=== PATIENT | female | born 1945 | race Caucasian/White ===

== ENCOUNTER 2019-06-25 23:12 | Inpatient (IN) ==
[2019-06-25] MEDS ORDERED: IPRATROPIUM/ALBUTEROL 3 ML AMPUL.NEB NEB ONE (23:22)
[2019-06-25] MEDS ORDERED: ASPIRIN 81 MG TAB.CHEW CHEWED ONE (23:38)
[2019-06-26] MEDS ORDERED: 0.9 % SODIUM CHLORIDE 1,000 ML IV ONE (00:01)
[2019-06-26] MEDS ORDERED: methylPREDNISolone SOD SUCC 125 MG/2 ML VIAL IV ONE (00:01)
[2019-06-26] MEDS ORDERED: INSULIN REGULAR, HUMAN 1 UNIT/0.01 ML UNIT IV ONE (00:02)
--- NOTE | 2019-06-26 00:25 | Emergency Department Note ---
SOB HPI - General Chief Complaint: Shortness of Breath/Dyspnea Stated Complaint: sensation of SOB Time Seen by Provider: 06/25/19 23:52 Source: patient Mode of arrival: EMS Limitations: no limitations - History of Present Illness 73-year-old diabetic female comes in for a 2-day history of shortness of breath. She still occasionally smokes. She is requiring 1 L of oxygen now and is not on oxygen at home. She is having some chest pain as well and has a history of 1 1 prior stents. She notes nausea and vomiting for the last 2 weeks and she has had trouble holding anything down. She admits that she has not been able to take any of her medicines including her insulin She notes that she has had right toe amputations by Dr. Newsome 1 week ago. She is followed by [facility]. She states she is legally blind On review of her chart it is noted that she had a CT scan which showed lung nodules back in January and repeat CT in 6 months was recommend Sees Dr. Ramirez in cardiology at [facility] - Related Data Home Medications Medication Instructions Recorded Confirmed Sertraline [Zoloft] 50 mg PO BID 02/09/18 06/26/19 traMADol [Ultram] 50 mg PO DAILY 02/09/18 06/26/19 Previous Rx's Medication Instructions Recorded Sulfamethoxazole/Trimethoprim 1 each PO BID #10 tab 05/07/19 [Bactrim Ds Tablet] Allergies Allergy/AdvReac Type Severity Reaction Status Date / Time codeine Allergy Unknown Unknown Verified 06/25/19 23:21 latex Allergy Unknown Unknown Verified 06/25/19 23:21 morphine Allergy Unknown Unknown Verified 06/25/19 23:21 Penicillins Allergy Unknown Unknown Verified 06/25/19 23:21 Review of Systems All systems ED: reviewed and negative except as stated. Past Medical History - Past Medical History Attestation: Yes: The following information was validated with the patient. 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 Normocephalic atraumatic. Conjunctive are clear sclera white nonicteric. No nasal discharge or congestion. Oropharynx pink moist. Neck is supple without lymphadenopathy thyromegaly or carotid bruit. Heart is regular rate and rhythm no murmur appreciated. Lungs are basically clear to auscultation bilaterally but she does have end expiratory wheeze and some increased work of breathing. She is requiring 1 L nasal cannula oxygen now to keep saturations in the mid 90s. Abdomen is soft diffusely tender but she states this is chronic. No pedal edema on the left but on the right she does have a sock over her bandaged foot. She is alert oriented. Somewhat irritable. Nursing staff put Alba and then called attention to Samira intertrigo of the genital region. Bright red rash noted beneath the pannus and into the groin area. Skin sloughing noted. Tender Limitations: no limitations Course Vital Signs Temperature 97.7 F 06/25/19 23:13 Pulse Rate 97 H 06/25/19 23:13 Respiratory Rate 28 H 06/25/19 23:13 Blood Pressure 141/86 06/25/19 23:13 Pulse Oximetry (%) 86 L 06/25/19 23:13 Temperature 97.7 F 06/25/19 23:13 Pulse Rate 81 06/26/19 04:50 Respiratory Rate 17 06/26/19 04:50 Blood Pressure 155/78 06/26/19 04:46 Pulse Oximetry (%) 94 06/26/19 04:50 Shortness of Breath/Dyspnea - Lab Data Lab results reviewed: Yes I reviewed the patient's lab results. Result diagrams: 06/26/19 00:16 06/26/19 00:16 Lab Results 06/26/19 06/26/19 06/26/19 Range/Units 00:16 00:16 00:16 WBC 10.3 (4.5-11.0) K/mcL RBC 2.84 L (4.00-5.20) M/mcL Hgb 7.5 L (12.0-15.0) g/dL Hct 24.5 L (36.0-48.0) % POC Hct 24.0 L (36.0-48.0) % MCV 86.3 (80.0-100.0) fL MCH 26.3 (26.0-34.0) pg MCHC 30.5 L (31.0-36.0) g/dL RDW 17.4 H (11.5-14.5) % Plt Count 499 H (140-440) K/mcL MPV 6.3 L (7.4-10.4) fL Gran % 84.4 H (38.0-78.0) % Lymph % (Auto) 10.1 L (15.5-49.0) % [place] % (Auto) 4.5 (1.0-12.0) % Eos % (Auto) 0.5 (0.0-7.0) % Baso % (Auto) 0.5 (0.0-2.0) % Gran # 8.7 H (1.8-8.0) K/mcL Lymph # (Auto) 1.0 L (1.5-4.8) K/mcL [place] # (Auto) 0.5 (0.1-0.9) K/mcL Eos # (Auto) 0.1 (0.0-0.7) K/mcL Baso # (Auto) 0 (0.0-0.3) K/mcL D-Dimer (0.00-0.40) ug/ml VBG Lactic Acid 1.5 (0.5-2.0) mmol/L POC Sodium 139 (133-145) mmol/L Sodium 141 (133-145) mmol/L POC Potassium 4.6 (3.3-5.1) mmol/L Potassium 4.8 (3.3-5.1) mmol/L POC Chloride 107 (96-108) mmol/L Chloride 108 (96-108) mmol/L Carbon Dioxide 22 (22-30) mmol/L POC Total CO2 23 (22-30) mmol/L Anion Gap 11.0 (8-16) POC BUN 24 H (8-23) mg/dl BUN 24 H (8-23) mg/dl Creatinine 1.2 H (0.6-1.1) mg/dl POC Creatinine 1.3 H (0.6-1.1) mg/dl GFR Calculation 45 Glucose 287 H (70-105) mg/dL POC Glucose 285 H (70-105) mg/dL Calcium 8.2 L (8.6-10.4) mg/dl POC WB Ioniz Calcium 1.19 (1.16-1.32) mmol/L Magnesium 1.4 L (1.6-2.5) mg/dL Total Bilirubin < 0.2 (0.0-1.0) mg/dL AST 8 (0-37) U/l ALT 6 (0-40) U/l Alkaline Phosphatase 71 (39-117) U/L Troponin T (0-0.03) ng/ml NT-Pro-B Natriuret Pep 06085.0 H (0-125) pg/ml Total Protein 5.8 L (5.9-8.4) gm/dL Albumin 2.6 L (3.2-5.2) gm/dL Globulin 3.2 (2.2-3.7) gm/dL Albumin/Globulin Ratio 0.8 L (1.0-2.3) Lipase 10 (7-60) U/L Procalcitonin (<0.10) ng/mL Urine Color Urine Appearance Urine pH (5.0-9.0) Ur Specific [place] (1.000-1.035) Urine Protein (NEG) mg/dL Urine Glucose (UA) (NEG) mg/dL Urine Ketones (NEG) mg/dL Urine Occult Blood (<0.03) mg/dL Urine Nitrate (NEG) Urine Bilirubin (NEG) mg/dL Urine Urobilinogen (NEG) mg/dL Ur Leukocyte Esterase (NEG) /uL Urine RBC (0-1) /hpf Urine WBC (0-4) /hpf Ur Squamous Epith Cells (0-4) /hpf Amorphous Crystals (0) /hpf Urine Bacteria (0) /hpf Urine Mucus (0) /hpf Urine Yeast (Budding) (0) /hpf Ur Culture Indicated? 06/26/19 06/26/19 06/26/19 Range/Units 00:16 00:16 00:16 WBC (4.5-11.0) K/mcL RBC (4.00-5.20) M/mcL Hgb (12.0-15.0) g/dL Hct (36.0-48.0) % POC Hct (36.0-48.0) % MCV (80.0-100.0) fL MCH (26.0-34.0) pg MCHC (31.0-36.0) g/dL RDW (11.5-14.5) % Plt Count (140-440) K/mcL MPV (7.4-10.4) fL Gran % (38.0-78.0) % Lymph % (Auto) (15.5-49.0) % [place] % (Auto) (1.0-12.0) % Eos % (Auto) (0.0-7.0) % Baso % (Auto) (0.0-2.0) % Gran # (1.8-8.0) K/mcL Lymph # (Auto) (1.5-4.8) K/mcL [place] # (Auto) (0.1-0.9) K/mcL Eos # (Auto) (0.0-0.7) K/mcL Baso # (Auto) (0.0-0.3) K/mcL D-Dimer 2.22 H (0.00-0.40) ug/ml VBG Lactic Acid (0.5-2.0) mmol/L POC Sodium (133-145) mmol/L Sodium (133-145) mmol/L POC Potassium (3.3-5.1) mmol/L Potassium (3.3-5.1) mmol/L POC Chloride (96-108) mmol/L Chloride (96-108) mmol/L Carbon Dioxide (22-30) mmol/L POC Total CO2 (22-30) mmol/L Anion Gap (8-16) POC BUN (8-23) mg/dl BUN (8-23) mg/dl Creatinine (0.6-1.1) mg/dl POC Creatinine (0.6-1.1) mg/dl GFR Calculation Glucose (70-105) mg/dL POC Glucose (70-105) mg/dL Calcium (8.6-10.4) mg/dl POC WB Ioniz Calcium (1.16-1.32) mmol/L Magnesium (1.6-2.5) mg/dL Total Bilirubin (0.0-1.0) mg/dL AST (0-37) U/l ALT (0-40) U/l Alkaline Phosphatase (39-117) U/L Troponin T 0.06 H* (0-0.03) ng/ml NT-Pro-B Natriuret Pep (0-125) pg/ml Total Protein (5.9-8.4) gm/dL Albumin (3.2-5.2) gm/dL Globulin (2.2-3.7) gm/dL Albumin/Globulin Ratio (1.0-2.3) Lipase (7-60) U/L Procalcitonin < 0.10 (<0.10) ng/mL Urine Color Urine Appearance Urine pH (5.0-9.0) Ur Specific [place] (1.000-1.035) Urine Protein (NEG) mg/dL Urine Glucose (UA) (NEG) mg/dL Urine Ketones (NEG) mg/dL Urine Occult Blood (<0.03) mg/dL Urine Nitrate (NEG) Urine Bilirubin (NEG) mg/dL Urine Urobilinogen (NEG) mg/dL Ur Leukocyte Esterase (NEG) /uL Urine RBC (0-1) /hpf Urine WBC (0-4) /hpf Ur Squamous Epith Cells (0-4) /hpf Amorphous Crystals (0) /hpf Urine Bacteria (0) /hpf Urine Mucus (0) /hpf Urine Yeast (Budding) (0) /hpf Ur Culture Indicated? 06/26/19 Range/Units 01:00 WBC (4.5-11.0) K/mcL RBC (4.00-5.20) M/mcL Hgb (12.0-15.0) g/dL Hct (36.0-48.0) % POC Hct (36.0-48.0) % MCV (80.0-100.0) fL MCH (26.0-34.0) pg MCHC (31.0-36.0) g/dL RDW (11.5-14.5) % Plt Count (140-440) K/mcL MPV (7.4-10.4) fL Gran % (38.0-78.0) % Lymph % (Auto) (15.5-49.0) % [place] % (Auto) (1.0-12.0) % Eos % (Auto) (0.0-7.0) % Baso % (Auto) (0.0-2.0) % Gran # (1.8-8.0) K/mcL Lymph # (Auto) (1.5-4.8) K/mcL [place] # (Auto) (0.1-0.9) K/mcL Eos # (Auto) (0.0-0.7) K/mcL Baso # (Auto) (0.0-0.3) K/mcL D-Dimer (0.00-0.40) ug/ml VBG Lactic Acid (0.5-2.0) mmol/L POC Sodium (133-145) mmol/L Sodium (133-145) mmol/L POC Potassium (3.3-5.1) mmol/L Potassium (3.3-5.1) mmol/L POC Chloride (96-108) mmol/L Chloride (96-108) mmol/L Carbon Dioxide (22-30) mmol/L POC Total CO2 (22-30) mmol/L Anion Gap (8-16) POC BUN (8-23) mg/dl BUN (8-23) mg/dl Creatinine (0.6-1.1) mg/dl POC Creatinine (0.6-1.1) mg/dl GFR Calculation Glucose (70-105) mg/dL POC Glucose (70-105) mg/dL Calcium (8.6-10.4) mg/dl POC WB Ioniz Calcium (1.16-1.32) mmol/L Magnesium (1.6-2.5) mg/dL Total Bilirubin (0.0-1.0) mg/dL AST (0-37) U/l ALT (0-40) U/l Alkaline Phosphatase (39-117) U/L Troponin T (0-0.03) ng/ml NT-Pro-B Natriuret Pep (0-125) pg/ml Total Protein (5.9-8.4) gm/dL Albumin (3.2-5.2) gm/dL Globulin (2.2-3.7) gm/dL Albumin/Globulin Ratio (1.0-2.3) Lipase (7-60) U/L Procalcitonin (<0.10) ng/mL Urine Color Yellow Urine Appearance Cloudy Urine pH 5.0 (5.0-9.0) Ur Specific [place] 1.016 (1.000-1.035) Urine Protein 100 A (NEG) mg/dL Urine Glucose (UA) 50 A (NEG) mg/dL Urine Ketones Neg (NEG) mg/dL Urine Occult Blood 0.03 A (<0.03) mg/dL Urine Nitrate Neg (NEG) Urine Bilirubin Neg (NEG) mg/dL Urine Urobilinogen Neg (NEG) mg/dL Ur Leukocyte Esterase 250 A (NEG) /uL Urine RBC 75 H (0-1) /hpf Urine WBC 71 H (0-4) /hpf Ur Squamous Epith Cells 7 H (0-4) /hpf Amorphous Crystals Few A (0) /hpf Urine Bacteria 0 (0) /hpf Urine Mucus Few (0) /hpf Urine Yeast (Budding) Many A (0) /hpf Ur Culture Indicated? Yes ABG shows a pH 7.30 PCO2 48 PO2 of 74 lactic acid was 2.0 hemoglobin of 8 which correlates with Chem-8 above. Nursing staff notes that indeed it was arterial as the syringe filled with a pulsatile fashion - Radiology Data Radiology results reviewed: Yes I reviewed the patient's radiology results. CT scan of the chest angiogram shows no evidence of pulmonary embolism. Right lung nodule remains and is stable. She has a small to moderate sized right- sided pleural effusion. Pulmonary vascular congestion consistent with CHF - EKG Data EKG attestation: Yes I reviewed and interpreted this EKG., Yes There are no EKG findings of acute coronary syndrome, Yes This EKG will be read by e commerce solution architect Disposition Pt seen by COMMUNICATIONS PROFESSIONAL/PA only: No Clinical Impression: Acute exacerbation of chronic obstructive airways disease, Respiratory acidosis, Samira infection of genital region, Pleural effusion Anemia Qualifiers: Anemia type: other cause Other causes of anemia: other cause, not classified Qualified Code(s): D64.89 - Other specified anemias CHF (congestive heart failure) Qualifiers: Heart failure type: unspecified Heart failure chronicity: acute on chronic Qualified Code(s): I50.9 - Heart failure, unspecified UTI (urinary tract infection) Qualifiers: Urinary tract infection type: acute cystitis Hematuria presence: with hematuria Qualified Code(s): N30.01 - Acute cystitis with hematuria Summary: Short of breath for several days now status post recent surgery - clearly having COPD related issues with end expiratory wheezing but she has known CHF as well. Will do work-up for this and chest pain with EKG chest x-ray and laboratory. DuoNeb treatment already improved breathing-but she still has wheezing and increased work of breathing requiring 1 L oxygen. Blood gas ordered Start Solu-Medrol for COPD but with her diabetes this is complicated. Her blood sugar is elevated over 300 so we will give her insulin as well as some IV fluids. Zofran ordered for nausea ABG shows acidosis with a pH of 7.30 PCO2 46 PO2 74 despite being on 1 L oxygen nasal cannula. Lactic acid is 2.0. Discussed blood gas with Dr. Martinez, our hospitalist in anticipation of possible admission. Low threshold for starting BiPAP. Started fluconazole IV as she is not tolerating p.o. at this time-for Samira intertrigo. We will order blood transfusion for hemoglobin 7.5 with respiratory issues. Troponin came back at 0.06-which is likely secondary to CHF. However it certainly higher than it has been in the past and abnormal. She does have chest pain but no EKG changes consistent with ACS. Likely worsening CHF with BNP elevated as well-we will start Lasix stop IV fluid Found to have UTI. Sent for culture. Start Rocephin CT scan angiogram of the chest shows stable lung nodule. Moderate pleural effusion on the right. Findings consistent with CHF as above Discussed with e commerce solution architect at [facility]- Dr. Berry (sp?) who felt that troponin was from CHF exacerbation and that she did not require transport there, rather that we could not handle that here. I then discussed the case with Dr. Martinez our hospitalist again; he agreed to accept the patient. Disposition: Xfer As Inpt ([facility]) Condition: Serious Referrals: Dalia Monsivais MD [Primary Care Provider] -
[2019-06-26 00:26] LABS: POC Blood Urea Nitrogen 24 mg/dl (8-23); POC CO2 23 mmol/L (22-30); POC Calcium, Ionized 1.19 mmol/L (1.16-1.32); POC Chloride 107 mmol/L (96-108); POC Creatinine 1.3 mg/dl (0.6-1.1); POC Glucose, Random 285 mg/dL (70-105); POC Potassium 4.6 mmol/L (3.3-5.1); POC Sodium 139 mmol/L (133-145)
[2019-06-26 00:57] LABS: Basophils # (Auto) 0 K/mcL (0.0-0.3); Basophils % (Auto) 0.5 % (0.0-2.0); Eosinophils # (Auto) 0.1 K/mcL (0.0-0.7); Eosinophils % (Auto) 0.5 % (0.0-7.0); Granulocytes % (Auto) 84.4 % (38.0-78.0); Hematocrit 24.5 % (36.0-48.0); Hemoglobin 7.5 g/dL (12.0-15.0); Lymphocytes % (Auto) 10.1 % (15.5-49.0); Mean Cell Volume 86.3 fL (80.0-100.0); Mean Corpuscular HGB Conc 30.5 g/dL (31.0-36.0); Mean Platelet Volume 6.3 fL (7.4-10.4); Monocytes # (Auto) 0.5 K/mcL (0.1-0.9); Monocytes % (Auto) 4.5 % (1.0-12.0); Platelet Count 499 K/mcL (140-440); RBC 2.84 M/mcL (4.00-5.20); Red Cell Distribution Width 17.4 % (11.5-14.5); WBC 10.3 K/mcL (4.5-11.0)
[2019-06-26] MEDS ORDERED: ACETAMINOPHEN 325 MG TABLET PO ONE ×2 (01:24→05:15)
[2019-06-26 01:28] LABS: ALT/SGPT 6 U/l (0-40); AST/SGOT 8 U/l (0-37); Albumin 2.6 gm/dL (3.2-5.2); Albumin/Globulin Ratio 0.8 (1.0-2.3); Alkaline Phosphatase 71 U/L (39-117); Bilirubin,Total < 0.2 mg/dL (0.0-1.0); Blood Urea Nitrogen 24 mg/dl (8-23); Calcium 8.2 mg/dl (8.6-10.4); Carbon Dioxide 22 mmol/L (22-30); Chloride 108 mmol/L (96-108); Globulin 3.2 gm/dL (2.2-3.7); Glomerular Filtration Rate 45; Glucose 287 mg/dL (70-105)
[2019-06-26] MEDS ORDERED: FLUCONAZOLE 200 MG/100 ML BAG IV SCH (01:30)
[2019-06-26] MEDS ORDERED: 0.9 % SODIUM CHLORIDE 250 ML IV SCH ×3 (01:30→05:15)
[2019-06-26] MEDS ORDERED: IPRATROPIUM/ALBUTEROL 3 ML AMPUL.NEB NEB ONE (01:37)
[2019-06-26] MEDS ORDERED: FUROSEMIDE 100 MG/10 ML VIAL IV ONE ×2 (01:57→06:00)
[2019-06-26] MEDS ORDERED: LORazepam 2 MG/ML VIAL IV ONE ×3 (02:11→12:17)
[2019-06-26 02:56] LABS: Appearance,Urine CLOUDY; Bacteria,Urine 0 /hpf (0); Bilirubin,Urine NEG (NEG); Color,Urine YELLOW; Culture Indicated,Urine YES; Glucose,Urine (UA) 50 mg/dL (NEG); Ketones,Urine NEG (NEG); Leukocyte Esterase,Urine 250 /uL (NEG); Mucus,Urine FEW /hpf (0); Nitrate,Urine NEG (NEG); Protein,Urine 100 mg/dL (NEG); Specific Gravity,Urine 1.016 (1.000-1.035); Urine Amorphous Crystals FEW /hpf (0); Urine Blood 0.03 mg/dL (<0.03); Urine Budding Yeast MANY /hpf (0); Urine RBC 75 /hpf (0-1); Urine Squamous Epithelial Cell 7 /hpf (0-4); Urine WBC 71 /hpf (0-4); Urobilinogen,Urine NEG (NEG)
[2019-06-26] MEDS ORDERED: cefTRIAXone 1 GM VIAL IV ONE (04:32)
[2019-06-26] MEDS ORDERED: ONDANSETRON 4 MG/2 ML VIAL IV PRN (05:16)
[2019-06-26] MEDS ORDERED: ALBUTEROL SULFATE 2.5 MG/3 ML NEBULIZER NEB ONE (06:09)
--- NOTE | 2019-06-26 06:27 | Cat Scan Report ---
CLINICAL INFORMATION: Shortness of breath. Follow-up two nodules in the anterior segment right lower lobe COMPARISON: Chest CT without contrast 01/17/2018 TECHNIQUE: ml of Isovue-370 were injected intravenously. Using SmartPrep to maximize pulmonary artery opacification, .625mm helical slices were obtained from the lung apices through the lung bases. Following reconstruction, 2.5 mm sagittal, coronal, and axial reformations were processed. The exam was reviewed at mediastinal, lung, and bone windows. The exam was performed using radiation dose optimization techniques including, but not limited to, automated exposure control, adjustment of the mA and/or kV according to patient size and use of iterative reconstruction technique. FINDINGS: The pulmonary arteries are suboptimally opacified, but there is no evidence of emboli. Moderate pulmonary vascular congestion has developed with peribronchovascular edema and interstitial edema in the interlobular septa. There are also new small bilateral pleural effusions. Findings are compatible with moderate congestive heart failure - new from prior CT. Small effusions have resulted in subsegmental compressive atelectasis in both posterior lower lobes. There are no diffuse or regional infiltrates. The two small nodules in the anterior basilar segment of the right lower lobe, seen on the 01/17/[address], are not apparent but they may be obscured by right basilar atelectasis/effusion. A calcified granuloma in the right upper lobe demonstrates long-term stability. 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 Mildly enlarged lymph nodes in the subcarinal and AP window region are stable and should represent benign reactive lymph nodes. The esophagus is grossly normal. Thoracic aorta is normal in diameter with scattered atherosclerotic plaque. Thyroid is unremarkable. Bone windows again show syndesmophytes bridging the thoracic vertebral bodies suggesting ankylosing spondylitis. Images should the superior abdomen show a fat-containing 15 mm myolipoma the left adrenal gland which is stable. No other abnormality seen in the superior abdomen IMPRESSION: 1. No evidence of pulmonary embolus 2. Moderate congestive heart failure with small bilateral pleural effusions. Extremely heavy calcific plaque in the coronary arteries likely indicates subocclusive, if not occlusive, coronary disease. Suggest cardiology referral 3. Two small nodules in the anterior basilar segment of the right lower lobe, described on CT five months ago are not apparent. They have either resolved or are obscured by right basilar atelectasis and effusion. 4. 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
[2019-06-26 06:49] LABS: Basophils # (Auto) 0 K/mcL (0.0-0.3); Basophils % (Auto) 0.2 % (0.0-2.0); Eosinophils # (Auto) 0 K/mcL (0.0-0.7); Eosinophils % (Auto) 0 % (0.0-7.0); Granulocytes % (Auto) 96.9 % (38.0-78.0); Hematocrit 26.4 % (36.0-48.0); Hemoglobin 8.3 g/dL (12.0-15.0); Lymphocytes # (Auto) 0.3 K/mcL (1.5-4.8); Lymphocytes % (Auto) 2.5 % (15.5-49.0); Mean Cell Volume 86.6 fL (80.0-100.0); Mean Corpuscular HGB Conc 31.2 g/dL (31.0-36.0); Mean Platelet Volume 6.3 fL (7.4-10.4); Monocytes # (Auto) 0 K/mcL (0.1-0.9); Monocytes % (Auto) 0.4 % (1.0-12.0); Platelet Count 455 K/mcL (140-440); RBC 3.05 M/mcL (4.00-5.20); Red Cell Distribution Width 17.5 % (11.5-14.5); WBC 10.2 K/mcL (4.5-11.0)
[2019-06-26 07:18] LABS: ALT/SGPT 6 U/l (0-40); AST/SGOT 7 U/l (0-37); Albumin 2.9 gm/dL (3.2-5.2); Albumin/Globulin Ratio 0.8 (1.0-2.3); Alkaline Phosphatase 77 U/L (39-117); Bilirubin,Total < 0.2 mg/dL (0.0-1.0); Blood Urea Nitrogen 24 mg/dl (8-23); Calcium 8.3 mg/dl (8.6-10.4); Carbon Dioxide 21 mmol/L (22-30); Chloride 106 mmol/L (96-108); Globulin 3.5 gm/dL (2.2-3.7); Glomerular Filtration Rate 45; Glucose 328 mg/dL (70-105)
[2019-06-26] MEDS ORDERED: MAGNESIUM HYDROXIDE 30 ML ORAL.SUSP PO PRN (08:15)
[2019-06-26] MEDS ORDERED: guaiFENesin/CODEINE 10 ML UDC PO PRN (08:15)
[2019-06-26] MEDS ORDERED: POTASSIUM CHLORIDE 20 MEQ PACKET PO PRN (08:15)
[2019-06-26] MEDS ORDERED: ACETAMINOPHEN 650 MG/65 ML BOTTLE IV PRN (08:15)
--- NOTE | 2019-06-26 08:23 | Internal Med History&Physical ---
Medical - H&P: HPI Patient information: Note initiated : 06/26/19 at 8:19 am Service Date, if different from initiated Date: [] Patient: Yessy Carter a 73 y/o F admitted on 06/26/19 for sensation of SOB. Chief Complaint: [] Chief complaint: Shortness of breath, anxiety History of present illness: Ms. Carter is a 73 year old F with a history of CAD s/p multiple stenting/poorly controlled DM type II/JALIL/known COPD and known to have poor adherence/compliance to medications and follow-up with her care providers. She now presents to the ER with worsening dyspnea that has progressed over the last couple of days along with increasing confusion, fatigue and inability to function. Patient recently underwent right 2nd/fifth toe amputation by Dr. Newsome at [facility]. She was not able to provide any meaningful history in the ER. She felt that she was dying and wanted to leave and go home. She appears extremely anxious asked to be connected to her family including daughter and grandson to say her goodbyes as she is dying. She was hypoxic on arrival. She appeared remarkably confused and complains that that her toes were amputated without informing her. She lives alone and has not been able to take care of herself. She denies associated fever or chills but was recently hospitalized and may have exposure to sick contacts. She feels that since the surgery she has had a gradual decline in health and generalized well-being. Patient during evaluation in the ER became extremely anxious and was administered benzodiazepine in the ER and has since been drowsy. Initial work-up in the ER was consistent with severe anemia/acute congestive heart failure on chest imaging. Elevated troponins at 0.06. Dr. Hollis Covarrubias cardiology was consulted and recommended hospitalization for management of CHF. Patient was started on diuretics. Initial blood gas 7.3/40 7/57 on 1 L oxygen. Patient was started on 2 units of blood transfusion in light of hemoglobin 7.5 Hospitalist service was consulted in light of above symptoms and need for hospitalization. At the time of evaluation patient is minimally responsive. Under the effect of sedation administered in the ER. No family members are present. Most of the history was obtained from review of medical records/ER physician. Review of systems A 10 point review of system was attempted but could not performed Medical - H&P: PMH Medical history: COPD History of tobacco dependence Chronic insomnia Allergic rhinitis Coronary artery disease status post multiple stenting follows up with cardiology hollis [facility] Type 2 diabetes mellitus Diabetic neuropathy Hypertensive disorder Dyslipidemia Malignant melanoma Malignant tumor of cervix History of peptic ulcer Surgical history: Cholecystectomy hernia repair with mesh Recent toe amputation 2 weeks ago Multiple cardiac stents Pertinent family history: Unremarkable Social history: Every day smoker since age 13 No history of tobacco or alcohol Medical - H&P: Meds Home Medications Medication Instructions Recorded Confirmed Type Sertraline [Zoloft] 100 mg PO DAILY 02/09/18 06/26/19 History traMADol [Ultram] 50 mg PO HS 02/09/18 06/26/19 History Albuterol Sulfate [Albuterol 2 puff IH Q4HP PRN 06/26/19 06/26/19 History Sulfate Hfa] Docusate Sodium 100 mg PO BID 06/26/19 06/26/19 History Ergocalciferol (Vitamin D2) 50,000 unit PO WE 06/26/19 06/26/19 History [Vitamin D2] Insulin Glargine, Human [Lantus] 10 unit SQ DAILY 06/26/19 06/26/19 History Nitroglycerin [Nitrostat] 0.4 mg SL Q5MIN PRN 06/26/19 06/26/19 History Oxybutynin Chloride 5 mg PO BID 06/26/19 06/26/19 History busPIRone [Buspar] 10 mg PO BID 06/26/19 06/26/19 History prednisoLONE 1% OPHTH DROPS [Pred 1 gtt OD TID 06/26/19 06/26/19 History Forte Ophth Drops] traZODone HCL [Trazodone HCl] 25 mg PO DAILY 06/26/19 06/26/19 History traZODone HCL [Trazodone HCl] 50 mg PO HS 06/26/19 06/26/19 History Allergies Allergy/AdvReac Type Severity Reaction Status Date / Time morphine Allergy Severe Swelling Verified 06/26/19 20:37 latex Allergy Intermediate Itching Verified 06/27/19 06:13 Penicillins Allergy Unknown Verified 06/26/19 20:37 codeine AdvReac Severe Abdominal Verified 06/26/19 20:37 Pain Medical - H&P: Exam - Constitutional Vitals: Temp Pulse Resp BP Pulse Ox 98.0 F 85 20 170/81 96 06/26/19 07:33 06/26/19 07:33 06/26/19 07:33 06/26/19 07:33 06/26/19 07:33 General appearance: morbidly obese Exam: Minimally responsive Intermittent anxiety with agitation Head normocephalic Oral cavity dry No ear nose discharge Symmetrical eye movement Neck no lymphadenopathy S1-S2 tachycardia Diminished breath sounds with inspiratory crackles Abdomen soft nontender Lower extremity lymphedema noted, right lower extremity amputation stump granulation tissue noted with dorsal and plantar surface incision site dehiscence Skin no suspicious lesion Psych unresponsive, intermittently agitated Neuro could not be examined Medical - H&P: Reslt - Labs CBC & Chem 7: 06/27/19 04:05 06/27/19 04:05 Labs: Short CBC 06/26/19 06/26/19 Range/Units 00:16 06:07 WBC 10.3 10.2 (4.5-11.0) K/mcL Hgb 7.5 L 8.3 L (12.0-15.0) g/dL Hct 24.5 L 26.4 L (36.0-48.0) % Plt Count 499 H 455 H (140-440) K/mcL BMP 06/26/19 06/26/19 00:16 06:07 Sodium 141 138 Potassium 4.8 5.9 H* Chloride 108 106 Carbon Dioxide 22 21 L BUN 24 H 24 H Creatinine 1.2 H 1.2 H Glucose 287 H 328 H Calcium 8.2 L 8.3 L Cardiac Enzymes 06/26/19 Range/Units 00:16 Troponin T 0.06 H* (0-0.03) ng/ml Liver Function 06/26/19 06/26/19 Range/Units 00:16 06:07 Total Bilirubin < 0.2 < 0.2 (0.0-1.0) mg/dL AST 8 7 (0-37) U/l ALT 6 6 (0-40) U/l Alkaline Phosphatase 71 77 (39-117) U/L Albumin 2.6 L 2.9 L (3.2-5.2) gm/dL Urine 06/26/19 Range/Units 01:00 Urine Color Yellow Urine Appearance Cloudy Urine pH 5.0 (5.0-9.0) Ur Specific [place] 1.016 (1.000-1.035) Urine Protein 100 A (NEG) mg/dL Urine Glucose (UA) 50 A (NEG) mg/dL Medical - H&P: A/P (1) Heart failure with acute decompensation, type unknown Current visit: Yes Status: Acute * Acute decompensated heart failure. Initiate aggressive diuresis. Initial troponins 0.06. Case discussed by ER physician with [place] cardiology. Cardiology recommended management of congestive heart failure and no emergent indication for cardiac catheterization. * Elevated troponins likely secondary to acute heart failure as per fiber design engineer at [place]. Java Designer recommends management of acute heart failure * Acute hypoxic hypercapnic respiratory failure-secondary to ADHF. Continue diuresis. Check echocardiogram. Optimize CHF management based on echo findings. * Hyperkalemia-5.9. Continue diuresis/repeat BMP * Severe anemia requiring transfusion-start 2 units blood transfusion * Recent right second and fifth toe amputation-wound care/podiatry consult for wound dehiscence * Diabetic peripheral vessel disease with recent toe amputation-wound care consult * Severe weakness/dyspnea-bronchodilators/pulmonary toilet/PT OT * Dyslipidemia continue statin * Hypertension continue losartan(an updated medication list is being obtained from pharmacy) * History of DM type II continue prior home medication/sliding scale insulin/CCD * Neuropathy continue home medications * Tobacco dependence-counseling for cessation * COPD continue bronchodilators * Full code * Prophylaxis heparin Plan * Inpatient admission in light of acute decompensated heart failure * Aggressive diuresis and repeat potassium * Echocardiogram * Wound care/podiatry consult * 2 units PRBC transfusion * Obtain recent medication list * Optimize CHF management based on echo finding * Prior medical condition management as above * If worsening hypoxia/hypercapnia initiate noninvasive ventilation * Serial chest imaging/blood gas * Aggressive PT OT Critical care time spent in excess of 35 minutes on management of acute decompensated heart failure/acute encephalopathy/respiratory failure and hyperkalemia in addition to time spent with history and physical
[2019-06-26] MEDS ORDERED: ALBUTEROL SULFATE 1 PUFF INHALER IH PRN (10:23)
[2019-06-26] MEDS ORDERED: NITROGLYCERIN 0.4 MG TAB.SUBL SL PRN (10:30)
[2019-06-26] MEDS: HEPARIN 5,000 UNIT/ML VIAL SQ SCH ×2 (11:09→20:53)
[2019-06-26] MEDS: INSULIN LISPRO 1 UNIT/0.01 ML UNIT SQ SCH ×3 (11:16→21:07)
[2019-06-26] MEDS ORDERED: ALBUTEROL SULFATE 2.5 MG/3 ML NEBULIZER NEB PRN (11:28)
[2019-06-26] MEDS: DOCUSATE SODIUM 100 MG CAPSULE PO SCH ×2 (12:27→20:06)
[2019-06-26] MEDS: THIAMINE 100 MG TABLET PO SCH (12:27)
[2019-06-26] MEDS: MULTIVIT,THER IRON,CA,FA & MIN 1 TABLET PO SCH (12:27)
[2019-06-26] MEDS: SERTRALINE 100 MG TABLET PO SCH (12:27)
[2019-06-26] MEDS: MAGNESIUM SULFATE 2 GM/50 ML BAG IV PRN (13:15)
[2019-06-26] MEDS: IPRATROPIUM/ALBUTEROL 3 ML AMPUL.NEB NEB SCH ×3 (15:25→23:22)
[2019-06-26] MEDS: prednisoLONE 1% OPHTH DROPS 1ML BOTTLE OD SCH ×2 (15:45→21:08)
[2019-06-26 16:32] LABS: Blood Urea Nitrogen 26 mg/dl (8-23); Calcium 8.2 mg/dl (8.6-10.4); Carbon Dioxide 22 mmol/L (22-30); Chloride 104 mmol/L (96-108); Glomerular Filtration Rate 38; Glucose 358 mg/dL (70-105)
[2019-06-26] MEDS: 0.9 % SODIUM CHLORIDE 10 ML SYRINGE IV SCH ×2 (16:57→21:08)
[2019-06-26] MEDS: SENNOSIDES/DOCUSATE SODIUM 1 TAB TABLET PO SCH (20:06)
[2019-06-26] MEDS: HYDROCODONE/APAP 7.5/325MG TABLET PO PRN (20:53)
[2019-06-26] MEDS ORDERED: MELATONIN 3 MG TABLET PO PRN (21:00)
[2019-06-27] MEDS: HYDROCODONE/APAP 7.5/325MG TABLET PO PRN ×3 (00:47→21:41)
[2019-06-27] MEDS: IPRATROPIUM/ALBUTEROL 3 ML AMPUL.NEB NEB SCH ×6 (03:35→22:34)
[2019-06-27] MEDS: 0.9 % SODIUM CHLORIDE 10 ML SYRINGE IV SCH ×4 (05:55→21:39)
[2019-06-27 05:56] LABS: Hematocrit 29.2 % (36.0-48.0); Hemoglobin 9.3 g/dL (12.0-15.0); Mean Cell Volume 87.5 fL (80.0-100.0); Mean Corpuscular HGB Conc 31.8 g/dL (31.0-36.0); Mean Platelet Volume 6.5 fL (7.4-10.4); Platelet Count 429 K/mcL (140-440); RBC 3.33 M/mcL (4.00-5.20); Red Cell Distribution Width 16.9 % (11.5-14.5); WBC 12.3 K/mcL (4.5-11.0)
[2019-06-27 07:09] LABS: ALT/SGPT 6 U/l (0-40); AST/SGOT 7 U/l (0-37); Albumin 2.5 gm/dL (3.2-5.2); Albumin/Globulin Ratio 0.7 (1.0-2.3); Alkaline Phosphatase 71 U/L (39-117); Bilirubin,Direct < 0.2 mg/dL (0.0-0.3); Bilirubin,Total 0.2 mg/dL (0.0-1.0); Blood Urea Nitrogen 30 mg/dl (8-23); Calcium 8.3 mg/dl (8.6-10.4); Carbon Dioxide 23 mmol/L (22-30); Chloride 102 mmol/L (96-108); Globulin 3.4 gm/dL (2.2-3.7); Glomerular Filtration Rate 35; Glucose 183 mg/dL (70-105); Lactate Dehydrogenase 216 U/L (94-250); Phosphorous 4.1 mg/dL (2.7-4.5); Triglycerides 94 mg/dl (<150); Uric Acid 7.3 mg/dL (2.5-8.0)
[2019-06-27] MEDS: INSULIN LISPRO 1 UNIT/0.01 ML UNIT SQ SCH ×4 (07:16→21:40)
[2019-06-27 09:21] LABS: Anisocytosis 1+ (NONE SEEN); Hypochromasia 1+ (NONE SEEN); Lymphocytes % 13 % (15-49); Monocytes % (Manual) 5 % (1-12); Platelet Estimate NORMAL (NORMAL); Poikilocytosis FEW (NONE SEEN); Polychromasia 1+ (NONE SEEN); RBC Morphology ABNORM (NORMAL); Segmented Neutrophils % 82 % (38-78)
--- NOTE | 2019-06-27 09:43 | Internal Med Progress Note ---
Medical - PN: Subj Patient information: Note initiated : 06/27/19 at 9:39 am Service Date, if different from initiated Date: [] Patient: Yessy Carter a 73 y/o F admitted on 06/26/19 for sensation of SOB. Chief Complaint: [] Interval history: Ms. Carter is a 73 year old F with a history of CAD s/p multiple stentin g/poorly controlled DM type II/JALIL/known COPD and known to have poor adherence/compliance to medications and follow-up with her care providers. She now presents to the ER with worsening dyspnea that has progressed over the last couple of days along with increasing confusion, fatigue and inability to function. Patient recently underwent right 2nd/fifth toe amputation by Dr. Newsome at [facility]. She was not able to provide any meaningful history in the ER. She felt that she was dying and wanted to leave and go home. She appears extremely anxious asked to be connected to her family including daughter and grandson to say her goodbyes as she is dying. She was hypoxic on arrival. She appeared remarkably confused and complains that that her toes were amputated without informing her. She lives alone and has not been able to take care of herself. She denies associated fever or chills but was recently hospitalized and may have exposure to sick contacts. She feels that since the surgery she has had a gradual decline in health and generalized well-being. Patient during evaluation in the ER became extremely anxious and was administered benzodiazepine in the ER and has since been drowsy. Initial work-up in the ER was consistent with severe anemia/acute congestive heart failure on chest imaging. Elevated troponins at 0.06. Dr. Hollis Covarrubias cardiology was consulted and recommended hospitalization for management of CHF. Patient was started on diuretics. Initial blood gas 7.3/40 7/57 on 1 L oxygen. Patient was started on 2 units of blood transfusion in light of hemoglobin 7.5 Hospitalist service was consulted in light of above symptoms and need for hospitalization. At the time of evaluation patient is minimally responsive. Under the effect of sedation administered in the ER. No family members are present. Most of the history was obtained from review of medical records/ER physician. 06/27-patient clinically improved. Less anxious. Diuresing well. Intermittent chest pain explains however troponins trended 0.05. Potassium down from 5.9- 5.1. Creatinine at 1.5 up from 1.2 hemoglobin improved to 9.3 post 2 units transfusion. Pyuria noted cultures pending. Start Rocephin. No overnight telemetry events. Echocardiogram pending. EKG sinus rhythm - Constitutional Vitals: Vital Signs Temp Pulse Resp BP Pulse Ox 97.3 F 76 14 145/71 97 06/27/19 06:32 06/27/19 07:05 06/27/19 07:05 06/27/19 06:32 06/27/19 07:05 Period Temp Pulse Resp BP Sys/Allen Pulse Ox Last 24 Hr 97.3 F-99.1 F 72-115 14-28 139-172/68-103 93-97 Intake and Output 06/26/19 06/27/19 06/27/19 21:59 05:59 13:59 Intake Total 50 1194 600 Output Total 525 700 Balance -475 494 600 Weight 298 lb 9.6 oz Intake & Output: Intake & Output 06/26/19 06/27/19 06/27/19 21:59 05:59 13:59 Intake Total 50 1194 600 Output Total 525 700 Balance -475 494 600 Weight 298 lb 9.6 oz Intake: IV 50 Oral 1194 600 Output: Urine Catheter Amount 525 700 Other: Meal Dinner Breakfast Percent of Meal Consumed 100% 75% Feeding Ability Assist with Tray Set Up Independent Urine Appearance Clear Uretheral (Alba) Clear Urine Color Pale Uretheral (Alba) Pale Urine Odor Strong General appearance: moderate distress Exam: Morbidly obese Anxious Alba draining clear urine Late inspiratory crackles bilateral chest Ejection systolic murmur Pendulous abdomen Medical - PN: Obj Da - Labs CBC & Chem 7: 06/27/19 04:05 06/27/19 04:05 Labs: Abnormal Lab Results 06/27/19 06/27/19 06/26/19 04:05 04:05 17:45 WBC 12.3 H RBC 3.33 L Hgb 9.3 L Hct 29.2 L POC Hct MCHC RDW 16.9 H Plt Count MPV 6.5 L Gran % Lymph % (Auto) [place] % (Auto) Gran # Lymph # (Auto) [place] # (Auto) Seg Neutrophils % 82 H Lymphocytes % 13 L RBC Morphology Abnorm A Polychromasia 1+ A Hypochromasia 1+ A Poikilocytosis Few A Anisocytosis 1+ A D-Dimer Potassium Carbon Dioxide POC BUN BUN 30 H Creatinine 1.5 H POC Creatinine Glucose 183 H POC Glucose Calcium 8.3 L Magnesium Troponin T 0.05 H* NT-Pro-B Natriuret Pep Total Protein Albumin 2.5 L Albumin/Globulin Ratio 0.7 L Urine Protein Urine Glucose (UA) Urine Occult Blood Ur Leukocyte Esterase Urine RBC Urine WBC Ur Squamous Epith Cells Amorphous Crystals Urine Yeast (Budding) 06/26/19 06/26/19 06/26/19 12:53 06:07 06:07 WBC RBC 3.05 L Hgb 8.3 L Hct 26.4 L POC Hct MCHC RDW 17.5 H Plt Count 455 H MPV 6.3 L Gran % 96.9 H Lymph % (Auto) 2.5 L [place] % (Auto) 0.4 L Gran # 9.9 H Lymph # (Auto) 0.3 L [place] # (Auto) 0 L Seg Neutrophils % Lymphocytes % RBC Morphology Polychromasia Hypochromasia Poikilocytosis Anisocytosis D-Dimer Potassium 5.4 H 5.9 H* Carbon Dioxide 21 L POC BUN BUN 26 H 24 H Creatinine 1.4 H 1.2 H POC Creatinine Glucose 358 H 328 H POC Glucose Calcium 8.2 L 8.3 L Magnesium Troponin T NT-Pro-B Natriuret Pep Total Protein Albumin 2.9 L Albumin/Globulin Ratio 0.8 L Urine Protein Urine Glucose (UA) Urine Occult Blood Ur Leukocyte Esterase Urine RBC Urine WBC Ur Squamous Epith Cells Amorphous Crystals Urine Yeast (Budding) 06/26/19 06/26/19 06/26/19 01:00 00:16 00:16 WBC RBC Hgb Hct POC Hct MCHC RDW Plt Count MPV Gran % Lymph % (Auto) [place] % (Auto) Gran # Lymph # (Auto) [place] # (Auto) Seg Neutrophils % Lymphocytes % RBC Morphology Polychromasia Hypochromasia Poikilocytosis Anisocytosis D-Dimer 2.22 H Potassium Carbon Dioxide POC BUN BUN Creatinine POC Creatinine Glucose POC Glucose Calcium Magnesium Troponin T 0.06 H* NT-Pro-B Natriuret Pep Total Protein Albumin Albumin/Globulin Ratio Urine Protein 100 A Urine Glucose (UA) 50 A Urine Occult Blood 0.03 A Ur Leukocyte Esterase 250 A Urine RBC 75 H Urine WBC 71 H Ur Squamous Epith Cells 7 H Amorphous Crystals Few A Urine Yeast (Budding) Many A 06/26/19 06/26/19 00:16 00:16 WBC RBC 2.84 L Hgb 7.5 L Hct 24.5 L POC Hct 24.0 L MCHC 30.5 L RDW 17.4 H Plt Count 499 H MPV 6.3 L Gran % 84.4 H Lymph % (Auto) 10.1 L [place] % (Auto) Gran # 8.7 H Lymph # (Auto) 1.0 L [place] # (Auto) Seg Neutrophils % Lymphocytes % RBC Morphology Polychromasia Hypochromasia Poikilocytosis Anisocytosis D-Dimer Potassium Carbon Dioxide POC BUN 24 H BUN 24 H Creatinine 1.2 H POC Creatinine 1.3 H Glucose 287 H POC Glucose 285 H Calcium 8.2 L Magnesium 1.4 L Troponin T NT-Pro-B Natriuret Pep 88278.0 H Total Protein 5.8 L Albumin 2.6 L Albumin/Globulin Ratio 0.8 L Urine Protein Urine Glucose (UA) Urine Occult Blood Ur Leukocyte Esterase Urine RBC Urine WBC Ur Squamous Epith Cells Amorphous Crystals Urine Yeast (Budding) Meds: Medications Hydrocodone Bitart/Acetaminophen (Rhame 7.5/325mg) 1 tab PO Q4-6HP PRN; Protocol PRN Reason: Per Pain Protocol Last Admin: 06/27/19 07:13 Dose: 1 tab Documented by: Albuterol Sulfate (Ventolin) 2 puff IH Q4HP PRN PRN Reason: Shortness Of Breath Albuterol Sulfate (Ventolin) 2.5 mg NEB Q4HP PRN PRN Reason: Shortness Of Breath Last Admin: 06/26/19 11:34 Dose: 2.5 mg Documented by: Albuterol/Ipratropium (Duoneb) 3 ml NEB Q4HRT [facility] Last Admin: 06/27/19 07:01 Dose: 3 ml Documented by: Diagnostic Test (Pha) (Accu-Chek) 1 each FS ACHS [facility] Last Admin: 06/27/19 06:37 Dose: 1 each Documented by: Docusate Sodium (Colace) 100 mg PO BID [facility] Last Admin: 06/26/19 20:06 Dose: Not Given Documented by: Guaifenesin/Codeine Phosphate (Robitussin Ac) 10 ml PO Q4HP PRN PRN Reason: Cough Heparin Sodium (Porcine) (Heparin) 5,000 unit SQ Q12 [facility] Last Admin: 06/26/19 20:53 Dose: 5,000 unit Documented by: Acetaminophen (Ofirmev) 650 mg in 65 mls @ 130 mls/hr IV Q6HP PRN; Protocol PRN Reason: Per Pain Protocol/Fever > 101 Magnesium Sulfate (Magnesium Sulfate) 2 gm in 50 mls @ 50 mls/hr IV UD PRN PRN Reason: MG = or < 1.7 Last Infusion: 06/26/19 15:00 Dose: Infused Documented by: Insulin Glargine (Lantus) 10 unit SQ DAILY [facility] Insulin Human Lispro (Humalog) 0 unit SQ ACHS [facility]; Protocol Last Admin: 06/27/19 07:16 Dose: 2 units Documented by: Iron Carb/Multivit/[place]/Folic Acid (Multivitamin W/Minerals) 1 tab PO DAILY [facility] Last Admin: 06/26/19 12:27 Dose: Not Given Documented by: Magnesium Hydroxide (Milk Of Magnesia) 30 ml PO HSP PRN PRN Reason: Constipation Melatonin (Melatonin 3mg Tablet) 3 mg PO HSP PRN PRN Reason: Insomnia Nitroglycerin (Nitrostat) 0.4 mg SL Q5M PRN PRN Reason: Chest Pain Ondansetron HCl (Zofran) 4 mg IV Q4HP PRN PRN Reason: Nausea And Vomiting Potassium Chloride (Klor-Con) 40 meq PO DAILYP PRN PRN Reason: K+ < 3.5 Prednisolone Acetate (Pred Forte Ophth Drops) 1 gtt OD TID [facility] Last Admin: 06/26/19 21:08 Dose: Not Given Documented by: Senna/Docusate Sodium (Senna Plus Tablet) 1 tab PO HS [facility] Last Admin: 06/26/19 20:06 Dose: Not Given Documented by: Sertraline HCl (Zoloft) 100 mg PO DAILY [facility] Last Admin: 06/26/19 12:27 Dose: Not Given Documented by: Sodium Chloride (Saline Flush) 10 ml IV Q8 [facility] Last Admin: 06/27/19 05:55 Dose: 10 ml Documented by: Thiamine HCl (Vitamin B1) 100 mg PO DAILY [facility] Last Admin: 06/26/19 12:27 Dose: Not Given Documented by: Medical - PN: A/P - Time Spent With Patient Total time spent is greater than 50% in coordination of care (as documented) at patient's floor/unit and/or counseling patient: 25 - 35 minutes (1) Heart failure with acute decompensation, type unknown Status: Acute Assessment and plan: * Acute decompensated heart failure. Clinically improving with diuresis. Patient follows up with [facility] cardiology. Await echo. Patient surprisingly is not on ARB or beta-frankie or ASA. * Elevated troponins likely secondary to acute heart failure. Case discussed with high wire artist at [facility] Dr. Hollis Earl. Downtrending with treatment of heart failure. * Acute hypoxic hypercapnic respiratory failure-secondary to ADHF. On 4 L oxygen mask. Continue diuresis. Interval chest imaging * Complicated UTI. Start Rocephin. De-escalate based on cultures. * Mild JACQUE-creatinine 1.5. Nephrology consult * Hyperkalemia- Down to 5.1. Improved. * Anemia requiring transfusion. Improved to 9.3 post 2 units PRBC * Recent right second and fifth toe amputation-wound care/podiatry consulted for wound dehiscence * Diabetic PVD with recent toe amputation- * Severe weakness/dyspnea-bronchodilators/pulmonary toilet/physical therapy * Dyslipidemia continue statin * Hypertension -reevaluate home meds as no antihypertensives and current list. Start beta-frankie * History of DM type II continue prior home medication/sliding scale insulin/CCD * Anxiety disorder continue BuSpar/SSRI * Tobacco dependence-counseling for cessation * COPD continue bronchodilators * Full code * Prophylaxis heparin Plan * Start antibiotic coverage * Continue diuresis * Interval chest imaging * Start Rocephin for UTI * Nephrology consult * Start Coreg * DC Alba's catheter once able to get out of bed * Wound care/podiatry consult * Optimize CHF management based on echo finding * Prior medical condition management as above * Aggressive PT OT/nutrition support * Case management to coordinate SNF transfer Total time spent on care coordination in this extremely complex patient with multitude of comorbidities requiring extensive discussion with case management/family/treatment planning in excess of 35 minutes Current Visit: Yes Medical - PN: Qual - VTE Deep Vein Thrombosis/Pulmonary Embolism Present on Admission: No
[2019-06-27] MEDS ORDERED: CARVEDILOL 3.125 MG TABLET PO ONE (10:00)
--- NOTE | 2019-06-27 10:14 | XRay Report ---
INDICATION: Dyspnea. Congestive heart failure. TECHNIQUE: AP chest x-ray,portable semiupright COMPARISON: Previous chest x-ray dated 02/09/2018 FINDINGS:There is cardiomegaly. This is increased since previous examination. Pulmonary vascularity is prominent. There are bilateral infiltrates consistent with pulmonary edema and congestive heart failure. Findings are worse than on previous examination. IMPRESSION: 1. Cardiomegaly 2. Findings consistent with congestive heart failure Interpreted and Authenticated by: Jim Hsieh 06/27/19
[2019-06-27] MEDS: HEPARIN 5,000 UNIT/ML VIAL SQ SCH ×2 (10:20→21:39)
[2019-06-27] MEDS: INSULIN GLARGINE, HUMAN 1 UNIT/0.01 ML SQ SCH (10:21)
[2019-06-27] MEDS: DOCUSATE SODIUM 100 MG CAPSULE PO SCH ×3 (10:22→21:50)
[2019-06-27] MEDS: THIAMINE 100 MG TABLET PO SCH (10:23)
[2019-06-27] MEDS: SERTRALINE 100 MG TABLET PO SCH (10:23)
[2019-06-27] MEDS: MULTIVIT,THER IRON,CA,FA & MIN 1 TABLET PO SCH (10:23)
[2019-06-27] MEDS: prednisoLONE 1% OPHTH DROPS 1ML BOTTLE OD SCH ×3 (10:58→21:40)
[2019-06-27] MEDS ORDERED: cefTRIAXone 2 GM VIAL ONE (11:06)
[2019-06-27] MEDS: cefTRIAXone 2 GM in DEXTROSE 5% IN WATER 50 ML IV SCH (11:08)
--- NOTE | 2019-06-27 12:21 | Consultation ---
DATE OF CONSULTATION: 06/27/2019 REFERRING PHYSICIAN: Abhay Martinez MD REASON FOR CONSULTATION: Acute kidney injury and chronic kidney disease. HISTORY OF PRESENT ILLNESS: The patient is a 73-year-old female with a past medical history significant for coronary artery disease with status post coronary artery stent placement; type 2 diabetes, which is poorly controlled; obstructive sleep apnea; known COPD. He had recently undergone amputation of the second and fifth toes at [facility]. She presented to the [facility] Emergency Room with worsening shortness of breath over the past several days. She also had increasing confusion, fatigue and inability to function at home. In the emergency room, she was found to be hypoxic, extremely anxious and a CT scan showed congestive heart failure. She was started on aggressive diuretic regimen with improvement in her oxygenation. PAST MEDICAL HISTORY: Significant for: 1. Coronary artery disease with multiple stent placements in the past followed by Dr. Hollis Berry. 2. Type 2 diabetes which is poorly controlled. 3. Other complication of diabetes including diabetic retinopathy, neuropathy and nephropathy. 4. Chronic kidney disease stage III. 5. Chronic insomnia. 6. COPD. 7. History of tobacco dependence. 8. Dyslipidemia. 9. Hypertension. 11. Malignant tumor of cervix. 12. History of peptic ulcer disease. 13. History of malignant melanoma. PAST SURGICAL HISTORY: Recent amputation of the two toes on the right 2 weeks ago, history of hernia repair, history of cholecystectomy, and multiple cardiac stents placement. FAMILY HISTORY: Noncontributory. SOCIAL HISTORY: She has smoked every day since age 13. No history of alcohol or drug use. ALLERGIES: MORPHINE, LATEX, PENICILLIN AND CODEINE. CURRENT MEDICATIONS: 1. Zoloft 100 mg daily. 2. Tramadol 50 mg at night. 3. Albuterol inhalers. 4. Colace 100 mg twice daily. 5. Ergocalciferol 50,000 units once a week. 6. Lantus insulin. 7. Nitroglycerin 0.4 mg sublingual. 8. Oxybutynin 5 mg twice daily. 9. BuSpar 10 mg twice daily. 10. Prednisolone ophthalmic 1 drop t.i.d. 11. Trazodone 25 mg daily and 50 mg at night. REVIEW OF SYSTEMS: Ten systems were reviewed and as indicated HPI. PHYSICAL EXAMINATION: VITAL SIGNS: Blood pressures have been 130 to 170 systolic with diastolic in the 80s. Pulse rates have been in the 90s, respiration rate of 18, and temperature 97.3. I's and O's: She had 1800 in and 3400 out. GENERAL: Alert, oriented x3. She is not in any distress. HEENT: NC/AT. Pupils are reactive to light. External auditory canals appear normal. Oral cavity appears dry. NECK: Supple. I could not appreciate jugular venous distention. No lymphadenopathy. No thyromegaly. LUNGS: Decreased air entry bilaterally, rales at the bases. CARDIAC: S1, S2 heard. No S3, S4. She has a 3/6 systolic murmur. ABDOMEN: Soft, nontender. No guarding. Positive bowel sounds. EXTREMITIES: Showed 2+ edema bilaterally with wound infection of the area of the second toe and fifth toe as well. LABORATORY DATA: White count 12.2 with hemoglobin of 9.8 and platelet count 429. Sodium 138, potassium 5.1, chloride 102, CO2 22, BUN 30, creatinine 1.5, glucose 183, calcium 8.3, and troponin 0.06. ASSESSMENT AND PLAN: 1. Acute on chronic kidney disease, as well as acute kidney injury in a patient with CKD. The current decline in the renal function is related to diuretics, which is being used for congestive heart failure. She potentially could have a cardiorenal syndrome. EF was reported to be in the 30 to 40% range. Her urinalysis shows possible urinary tract infection. 2. I will check an ultrasound of the kidneys and also urine for eosinophils. I would continue with the IV diuretics as needed for clearing congestive heart failure. 3. Volume status as above. She is clearly volume expanded. Blood pressures are high. Continue with IV diuresis, probably 40 mg every 8 hours or so. 4. Anemia, multifactorial. We will check iron studies. 5. Her potassium was high, but I would anticipate that it will get better with the dialysis. Thank you, Dr. Martinez for referring this patient for consultation. I will follow this patient. NICKY:salty Job ID: [id number] Doc ID: [id number] Kole Martinez MD
[2019-06-27] MEDS: FUROSEMIDE 40 MG/4 ML VIAL IV SCH ×2 (13:25→21:39)
--- NOTE | 2019-06-27 14:31 | Orthopedic Consult Note ---
History of Present Illness - [facility] Patient information: Note initiated : 06/27/19 at 2:29 pm Service Date, if different from initiated Date: [] Patient: Yessy Carter 73 y/o F admitted on 06/26/19 for sensation of SOB. Chief Complaint: [right foot wounds] Consult date: 06/27/19 Requesting physician: Abhay Martinez Consult reason: other (right foot infection) History of present illness: Patient had foot surgery for infection with multiple toe amputation approx. two weeks ago by Dr. Sang Newsome. At that time she was advised that she should have the foot amputated. She declined the procedure. She was admitted yesterday for cardiac issues. She does not want Dr. Newsome to treat her as she is afraid he will suggest she loses her foot. She does not feel much there unless she walks on the foot. Review of Systems Constitutional: as per HPI Medications and Allergies Home Medications Medication Instructions Recorded Confirmed Type Sertraline [Zoloft] 100 mg PO DAILY 02/09/18 06/26/19 History traMADol [Ultram] 50 mg PO HS 02/09/18 06/26/19 History Albuterol Sulfate [Albuterol 2 puff IH Q4HP PRN 06/26/19 06/26/19 History Sulfate Hfa] Docusate Sodium 100 mg PO BID 06/26/19 06/26/19 History Ergocalciferol (Vitamin D2) 50,000 unit PO WE 06/26/19 06/26/19 History [Vitamin D2] Insulin Glargine, Human [Lantus] 10 unit SQ DAILY 06/26/19 06/26/19 History Nitroglycerin [Nitrostat] 0.4 mg SL Q5MIN PRN 06/26/19 06/26/19 History Oxybutynin Chloride 5 mg PO BID 06/26/19 06/26/19 History busPIRone [Buspar] 10 mg PO BID 06/26/19 06/26/19 History prednisoLONE 1% OPHTH DROPS [Pred 1 gtt OD TID 06/26/19 06/26/19 History Forte Ophth Drops] traZODone HCL [Trazodone HCl] 25 mg PO DAILY 06/26/19 06/26/19 History traZODone HCL [Trazodone HCl] 50 mg PO HS 06/26/19 06/26/19 History Allergies Allergy/AdvReac Type Severity Reaction Status Date / Time morphine Allergy Severe Swelling Verified 06/26/19 20:37 latex Allergy Intermediate Itching Verified 06/27/19 06:13 codeine AdvReac Severe Abdominal Verified 06/26/19 20:37 Pain Penicillins AdvReac Mild Itching Verified 06/27/19 09:52 Physical Examination - Ankle & Foot right Ankle appearance: swelling, erythema Foot appearance: swelling, erythema, other (amputated second toe, fifth toe right foot) Foot swelling: dorsal, plantar, medial Assessment and Plan (1) Cellulitis Status: Acute Priority: High - Narrative A/P Narrative: Continue antibiotics Initiate wound vac for main lateral wound Conservative wound care Possible debridement of fibrous tissue in near future Patient may likely require a [id number] amputation
[2019-06-27 15:59] LABS: Appearance,Urine HAZY; Bacteria,Urine 0 /hpf (0); Bilirubin,Urine NEG (NEG); Color,Urine YELLOW; Culture Indicated,Urine YES; Glucose,Urine (UA) NEGATIVE (NEG); Ketones,Urine NEG (NEG); Leukocyte Esterase,Urine 250 /uL (NEG); Mucus,Urine FEW /hpf (0); Nitrate,Urine NEG (NEG); Protein,Urine 30 mg/dL (NEG); Specific Gravity,Urine 1.012 (1.000-1.035); Urine Blood 0.2 mg/dL (<0.03); Urine Budding Yeast FEW /hpf (0); Urine RBC 18 /hpf (0-1); Urine Squamous Epithelial Cell 2 /hpf (0-4); Urine WBC 31 /hpf (0-4); Urobilinogen,Urine NEG (NEG)
[2019-06-27] MEDS: CARVEDILOL 3.125 MG TABLET PO SCH (17:02)
[2019-06-27] MEDS ORDERED: LORazepam 2 MG/ML VIAL IV ONE (17:48)
[2019-06-27] MEDS ORDERED: LORazepam 2 MG/ML VIAL ONE (17:51)
--- NOTE | 2019-06-27 18:18 | XRay Report ---
INDICATION: Dyspnea TECHNIQUE: AP chest x-ray,portable semiupright COMPARISON: Previous examination dated 06/27/2019 FINDINGS:Persistent cardiomegaly. Bilateral, predominantly bibasilar pulmonary parenchymal infiltrates. Appearance remains consistent with congestive heart failure. Probable bilateral pleural effusions. No new focal pulmonary parenchymal infiltrate. Apparently there is clinical concern regarding possible aspiration. No acute pneumonia identified. IMPRESSION: 1. Cardiomegaly and probable congestive heart failure 2. No significant interval change since previous examination dated 06/27/2019. No new pulmonary parenchymal infiltrates Interpreted and Authenticated by: Jim Hsieh 06/27/19
[2019-06-27] MEDS: SENNOSIDES/DOCUSATE SODIUM 1 TAB TABLET PO SCH ×2 (21:39→21:50)
[2019-06-27] MEDS: ATORVASTATIN 40 MG TABLET PO SCH (21:39)
[2019-06-28] MEDS: HYDROCODONE/APAP 7.5/325MG TABLET PO PRN ×4 (01:42→22:14)
[2019-06-28] MEDS: IPRATROPIUM/ALBUTEROL 3 ML AMPUL.NEB NEB SCH ×6 (02:43→22:43)
[2019-06-28] MEDS: 0.9 % SODIUM CHLORIDE 10 ML SYRINGE IV SCH ×3 (05:04→22:12)
[2019-06-28] MEDS: FUROSEMIDE 40 MG/4 ML VIAL IV SCH ×3 (05:04→22:11)
[2019-06-28] MEDS: SODIUM CHLORIDE NASAL 1 SPRAY BOTTLE NAS PRN (05:09)
[2019-06-28 05:13] LABS: Total Protein PEP 5.5 gm/dL (5.9-8.4)
[2019-06-28 05:24] LABS: ALT/SGPT 6 U/l (0-40); AST/SGOT 10 U/l (0-37); Albumin 2.4 gm/dL (3.2-5.2); Albumin/Globulin Ratio 0.7 (1.0-2.3); Alkaline Phosphatase 70 U/L (39-117); Bilirubin,Direct < 0.2 mg/dL (0.0-0.3); Bilirubin,Total 0.2 mg/dL (0.0-1.0); Blood Urea Nitrogen 35 mg/dl (8-23); Calcium 8.5 mg/dl (8.6-10.4); Carbon Dioxide 25 mmol/L (22-30); Chloride 104 mmol/L (96-108); Globulin 3.5 gm/dL (2.2-3.7); Glomerular Filtration Rate 38; Glucose 85 mg/dL (70-105); Lactate Dehydrogenase 249 U/L (94-250); Phosphorous 4.6 mg/dL (2.7-4.5); Triglycerides 156 mg/dl (<150); Uric Acid 7.1 mg/dL (2.5-8.0)
[2019-06-28 05:52] LABS: Hematocrit 29.6 % (36.0-48.0); Hemoglobin 9.3 g/dL (12.0-15.0); Mean Cell Volume 87.9 fL (80.0-100.0); Mean Corpuscular HGB Conc 31.6 g/dL (31.0-36.0); Mean Platelet Volume 6.6 fL (7.4-10.4); Platelet Count 387 K/mcL (140-440); RBC 3.36 M/mcL (4.00-5.20); Red Cell Distribution Width 17.3 % (11.5-14.5); WBC 8.6 K/mcL (4.5-11.0)
[2019-06-28 08:13] LABS: Anisocytosis 1+ (NONE SEEN); Basophils % (Manual) 1 % (0-2); Eosinophils % (Manual) 1 % (0-7); Lymphocytes % 21 % (15-49); Monocytes % (Manual) 12 % (1-12); Platelet Estimate NORMAL (NORMAL); RBC Morphology ABNORM (NORMAL); Segmented Neutrophils % 65 % (38-78)
--- NOTE | 2019-06-28 08:27 | Ultrasound Report ---
CLINICAL INFORMATION: Renal failure TECHNIQUE: Kelley scale and color flow Doppler spectral imaging COMPARISON: CT scan dated 12/14/2018 FINDINGS: Right kidney measures 13.5 x 5.4 x 6.3 cm. There is no hydronephrosis. No solid or cystic renal mass. Renal cortex appears normal. No detectable calculi. Left kidney measures 13.2 x 5.5 x 5.5 cm. No hydronephrosis. There is no solid or cystic renal mass. Renal cortex is within normal limits. No detectable calculi There is a Alba catheter in the urinary bladder. Bladder was not evaluated IMPRESSION: Negative renal ultrasound Interpreted and Authenticated by: Jim Hsieh 06/28/19
--- NOTE | 2019-06-28 08:55 | Nephrology Progress Note ---
Subjective Patient information: Note initiated : 06/28/19 at 8:53 am Service Date, if different from initiated Date: [] Patient: Yessy Carter 73 y/o F admitted on 06/26/19 for sensation of SOB. Chief Complaint: [] Breathing is better while on o2, gets short of breath on minimal exertion. Objective - Vital Signs Vital signs: Vital Signs Temp Pulse Pulse Resp BP BP BP 06/28/19 08:01 149/59 06/28/19 07:39 129/53 06/28/19 07:37 97.4 F 16 129/53 06/28/19 07:04 70 14 06/28/19 05:11 130/67 06/28/19 04:38 130/67 06/28/19 04:02 97.4 F 20 134/55 06/28/19 00:02 98.4 F 22 117/54 06/27/19 22:34 58 L 18 06/27/19 20:34 55 L 131/70 06/27/19 20:30 98.7 F 60 16 131/70 06/27/19 20:00 06/27/19 18:58 57 L 20 06/27/19 18:57 62 20 06/27/19 16:00 98.4 F 16 139/66 06/27/19 13:15 71 22 06/27/19 11:35 98.9 F 72 18 129/61 06/27/19 10:35 97.3 F 18 132/82 Pulse Ox 06/28/19 08:01 06/28/19 07:39 06/28/19 07:37 97 06/28/19 07:04 94 06/28/19 05:11 06/28/19 04:38 06/28/19 04:02 96 06/28/19 00:02 96 06/27/19 22:34 06/27/19 20:34 98 06/27/19 20:30 99 06/27/19 20:00 97 06/27/19 18:58 99 06/27/19 18:57 06/27/19 16:00 98 06/27/19 13:15 06/27/19 11:35 94 06/27/19 10:35 Intake and Output 06/27/19 06/28/19 06/28/19 21:59 05:59 13:59 Intake Total 120 300 0 Output Total 276 1300 1300 Balance -156 1000 -1300 Intake: Oral 120 300 0 Output: Urine Catheter Amount 275 1300 1300 # of times incontinent of urine 1 Other: Meal Dinner Percent of Meal Consumed 75% Feeding Ability Assist with Tray Set Up Urine Appearance Cloudy Clear Uretheral (Alba) Clear Urine Color Bright Yellow Pale Uretheral (Alba) Bright Yellow Urine Odor Normal Weight 300 lb 3.2 oz Intake & Output: Intake & Output 06/27/19 06/28/19 06/28/19 21:59 05:59 13:59 Intake Total 120 300 0 Output Total 276 1300 1300 Balance -156 1000 -1299 Weight 300 lb 3.2 oz Intake: Oral 120 300 0 Output: Urine Catheter Amount 275 1300 1300 # of times incontinent of urine 1 Other: Meal Dinner Percent of Meal Consumed 75% Feeding Ability Assist with Tray Set Up Urine Appearance Cloudy Clear Uretheral (Alba) Clear Urine Color Bright Yellow Pale Uretheral (Alba) Bright Yellow Urine Odor Normal - General Appearance General appearance: well-developed EENT: ATNC Neck: no JVD Respiratory: no kyphosis Cardiology: mid-systolic murmur, edema Gastrointestinal: normoactive bowel sounds Neurologic: no focal deficit - Lab 06/28/19 03:50 06/28/19 03:50 Most recent lab results Calcium 8.5 mg/dl (8.6-10.4) L 06/28/19 03:50 Phosphorus 4.6 mg/dL (2.7-4.5) H 06/28/19 03:50 Magnesium 1.7 mg/dL (1.6-2.5) 06/28/19 03:50 Assessment and Plan (1) JACQUE (acute kidney injury) Status: Acute Comment: JACQUE on CKD, now volume overloaded with CHF. Getting diuresed. Renal ultrasound is unremarkable. Agree to continue to diurese, cr is slightly better. Slightly high potassium, no need to treat. Hypertension. Will get better with diuresis.
[2019-06-28] MEDS: INSULIN LISPRO 1 UNIT/0.01 ML UNIT SQ SCH ×4 (08:58→22:11)
[2019-06-28] MEDS: THIAMINE 100 MG TABLET PO SCH (08:59)
[2019-06-28] MEDS: MULTIVIT,THER IRON,CA,FA & MIN 1 TABLET PO SCH (08:59)
[2019-06-28] MEDS: CARVEDILOL 3.125 MG TABLET PO SCH ×2 (09:02→17:28)
[2019-06-28] MEDS: INSULIN GLARGINE, HUMAN 1 UNIT/0.01 ML SQ SCH (09:02)
[2019-06-28] MEDS: DOCUSATE SODIUM 100 MG CAPSULE PO SCH ×2 (09:02→22:11)
[2019-06-28] MEDS: HEPARIN 5,000 UNIT/ML VIAL SQ SCH ×2 (09:03→22:11)
[2019-06-28] MEDS: prednisoLONE 1% OPHTH DROPS 1ML BOTTLE OD SCH ×3 (09:05→22:11)
[2019-06-28] MEDS: cefTRIAXone 2 GM in DEXTROSE 5% IN WATER 50 ML IV SCH (09:11)
[2019-06-28] MEDS: SERTRALINE 100 MG TABLET PO SCH (09:14)
[2019-06-28] MEDS: ASPIRIN 81 MG TAB.CHEW CHEWED SCH (14:39)
[2019-06-28] MEDS: ISOSORBIDE MONONITRATE 30 MG TAB.XL.24H PO SCH (14:44)
--- NOTE | 2019-06-28 14:52 | Internal Med Progress Note ---
Medical - PN: Subj Patient information: Note initiated : 06/28/19 at 2:49 pm Service Date, if different from initiated Date: [] Patient: Yessy Carter a 73 y/o F admitted on 06/26/19 for sensation of SOB. Chief Complaint: [] Interval history: Ms. Carter is a 73 year old F with a history of CAD s/p multiple stentin g/poorly controlled DM type II/JALIL/known COPD and known to have poor adherence/compliance to medications and follow-up with her care providers. She now presents to the ER with worsening dyspnea that has progressed over the last couple of days along with increasing confusion, fatigue and inability to function. Patient recently underwent right 2nd/fifth toe amputation by Dr. Newsome at [place]. She was not able to provide any meaningful history in the ER. She felt that she was dying and wanted to leave and go home. She appears extremely anxious asked to be connected to her family including daughter and grandson to say her goodbyes as she is dying. She was hypoxic on arrival. She appeared remarkably confused and complains that that her toes were amputated without informing her. She lives alone and has not been able to take care of herself. She denies associated fever or chills but was recently hospitalized and may have exposure to sick contacts. She feels that since the surgery she has had a gradual decline in health and generalized well-being. Patient during evaluation in the ER became extremely anxious and was administered benzodiazepine in the ER and has since been drowsy. Initial work-up in the ER was consistent with severe anemia/acute congestive heart failure on chest imaging. Elevated troponins at 0.06. Dr. Hollis Covarrubias cardiology was consulted and recommended hospitalization for management of CHF. Patient was started on diuretics. Initial blood gas 7.3/40 7/57 on 1 L oxygen. Patient was started on 2 units of blood transfusion in light of hemoglobin 7.5 Hospitalist service was consulted in light of above symptoms and need for hospitalization. At the time of evaluation patient is minimally responsive. Under the effect of sedation administered in the ER. No family members are present. Most of the history was obtained from review of medical records/ER physician. 06/27-patient clinically improved. Less anxious. Diuresing well. Intermittent chest pain explains however troponins trended 0.05. Potassium down from 5.9- 5.1. Creatinine at 1.5 up from 1.2 hemoglobin improved to 9.3 post 2 units transfusion. Pyuria noted cultures pending. Start Rocephin. No overnight telemetry events. Echocardiogram pending. EKG sinus rhythm 06/28-patient currently on 3 L oxygen. Continues to feel short of breath however improving creatinine. Diuresing well with over 3000 cc net negative in 24 hours. Started on aspirin/beta-frankie/isosorbide/statin. Patient will require outpatient cardiology follow-up on discharge. Had episode of asp iration/choking on her dentures yesterday. Patient would not follow instructions and was trying to eat while laying supine on bed. Intermittent episodes of anxiety requiring Ativan. Case management aggressively coordinating discharge planning/transfer to SNF. On wound VAC managed by podiatry/wound care. White count 8.6 with hemoglobin 9.3. Potassium down to 5.3. Creatinine 1.4. Repeat UA improved leukocytosis on antibiotics. Wound Gram stain GPC urine cultures negative. DC antibiotics - Constitutional Vitals: Vital Signs Temp Pulse Resp BP Pulse Ox 98.3 F 72 22 130/64 97 06/28/19 11:47 06/28/19 11:04 06/28/19 11:47 06/28/19 11:47 06/28/19 11:47 Period Temp Pulse Resp BP Sys/Allen Pulse Ox Last 24 Hr 97.4 F-98.7 F 55-72 14- 117-149/53-70 94-99 Intake and Output 06/28/19 06/28/19 06/28/19 05:59 13:59 21:59 Intake Total 300 50 Output Total 1300 2500 Balance -1000 -2450 Weight 300 lb 3.2 oz Intake & Output: Intake & Output 06/28/19 06/28/19 06/28/19 05:59 13:59 21:59 Intake Total 300 50 Output Total 1300 2500 Balance -1000 -2450 Weight 300 lb 3.2 oz Intake: IV 50 Rocephin 2 gm In Dextrose 5% in 50 Water 50 ml @ 100 mls/hr IV DAILY [facility] Rx#:[id number] Oral 300 0 Output: Urine Catheter Amount 1300 2500 Other: Meal Lunch Percent of Meal Consumed 75% Feeding Ability Needs Supervision Urine Appearance Clear Uretheral (Alba) Clear Urine Color Pale Uretheral (Alba) Pale General appearance: moderate distress (Anxious), morbidly obese Exam: Head normocephalic Oral cavity dry Anxiety No telemetry events On 4 L oxygen Wound VAC in place Morbidly obese Medical - PN: Obj Da - Labs CBC & Chem 7: 06/28/19 03:50 06/28/19 03:50 Labs: Abnormal Lab Results 06/28/19 06/28/19 06/27/19 03:50 03:50 13:15 WBC RBC 3.36 L Hgb 9.3 L Hct 29.6 L POC Hct MCHC RDW 17.3 H Plt Count MPV 6.6 L Gran % Lymph % (Auto) [place]oshone % (Auto) Gran # Lymph # (Auto) [place]oshone # (Auto) Seg Neutrophils % Lymphocytes % RBC Morphology Abnorm A Polychromasia Hypochromasia Poikilocytosis Anisocytosis 1+ A D-Dimer Potassium 5.3 H Carbon Dioxide POC BUN BUN 35 H Creatinine 1.4 H POC Creatinine Glucose POC Glucose Calcium 8.5 L Phosphorus 4.6 H Magnesium Troponin T NT-Pro-B Natriuret Pep Total Protein Total Protein (PEP) 5.5 L Albumin 2.4 L Albumin/Globulin Ratio 0.7 L Triglycerides 156 H Urine Protein 30 A Urine Glucose (UA) Urine Occult Blood 0.2 A Ur Leukocyte Esterase 250 A Urine RBC 18 H Urine WBC 31 H Ur Squamous Epith Cells Amorphous Crystals Urine Yeast (Budding) Few A 06/27/19 06/27/19 06/26/19 04:05 04:05 17:45 WBC 12.3 H RBC 3.33 L Hgb 9.3 L Hct 29.2 L POC Hct MCHC RDW 16.9 H Plt Count MPV 6.5 L Gran % Lymph % (Auto) [place]osh[place] % (Auto) Gran # Lymph # (Auto) [place] # (Auto) Seg Neutrophils % 82 H Lymphocytes % 13 L RBC Morphology Abnorm A Polychromasia 1+ A Hypochromasia 1+ A Poikilocytosis Few A Anisocytosis 1+ A D-Dimer Potassium Carbon Dioxide POC BUN BUN 30 H Creatinine 1.5 H POC Creatinine Glucose 183 H POC Glucose Calcium 8.3 L Phosphorus Magnesium Troponin T 0.05 H* NT-Pro-B Natriuret Pep Total Protein Total Protein (PEP) Albumin 2.5 L Albumin/Globulin Ratio 0.7 L Triglycerides Urine Protein Urine Glucose (UA) Urine Occult Blood Ur Leukocyte Esterase Urine RBC Urine WBC Ur Squamous Epith Cells Amorphous Crystals Urine Yeast (Budding) 06/26/19 06/26/19 06/26/19 12:53 06:07 06:07 WBC RBC 3.05 L Hgb 8.3 L Hct 26.4 L POC Hct MCHC RDW 17.5 H Plt Count 455 H MPV 6.3 L Gran % 96.9 H Lymph % (Auto) 2.5 L Shoshone % (Auto) 0.4 L Gran # 9.9 H Lymph # (Auto) 0.3 L [place]oshone # (Auto) 0 L Seg Neutrophils % Lymphocytes % RBC Morphology Polychromasia Hypochromasia Poikilocytosis Anisocytosis D-Dimer Potassium 5.4 H 5.9 H* Carbon Dioxide 21 L POC BUN BUN 26 H 24 H Creatinine 1.4 H 1.2 H POC Creatinine Glucose 358 H 328 H POC Glucose Calcium 8.2 L 8.3 L Phosphorus Magnesium Troponin T NT-Pro-B Natriuret Pep Total Protein Total Protein (PEP) Albumin 2.9 L Albumin/Globulin Ratio 0.8 L Triglycerides Urine Protein Urine Glucose (UA) Urine Occult Blood Ur Leukocyte Esterase Urine RBC Urine WBC Ur Squamous Epith Cells Amorphous Crystals Urine Yeast (Budding) 06/26/19 06/26/19 06/26/19 01:00 00:16 00:16 WBC RBC Hgb Hct POC Hct MCHC RDW Plt Count MPV Gran % Lymph % (Auto) [place] % (Auto) Gran # Lymph # (Auto) [place] # (Auto) Seg Neutrophils % Lymphocytes % RBC Morphology Polychromasia Hypochromasia Poikilocytosis Anisocytosis D-Dimer 2.22 H Potassium Carbon Dioxide POC BUN BUN Creatinine POC Creatinine Glucose POC Glucose Calcium Phosphorus Magnesium Troponin T 0.06 H* NT-Pro-B Natriuret Pep Total Protein Total Protein (PEP) Albumin Albumin/Globulin Ratio Triglycerides Urine Protein 100 A Urine Glucose (UA) 50 A Urine Occult Blood 0.03 A Ur Leukocyte Esterase 250 A Urine RBC 75 H Urine WBC 71 H Ur Squamous Epith Cells 7 H Amorphous Crystals Few A Urine Yeast (Budding) Many A 06/26/19 06/26/19 00:16 00:16 WBC RBC 2.84 L Hgb 7.5 L Hct 24.5 L POC Hct 24.0 L MCHC 30.5 L RDW 17.4 H Plt Count 499 H MPV 6.3 L Gran % 84.4 H Lymph % (Auto) 10.1 L [place]osh[place] % (Auto) Gran # 8.7 H Lymph # (Auto) 1.0 L [place]osh[place] # (Auto) Seg Neutrophils % Lymphocytes % RBC Morphology Polychromasia Hypochromasia Poikilocytosis Anisocytosis D-Dimer Potassium Carbon Dioxide POC BUN 24 H BUN 24 H Creatinine 1.2 H POC Creatinine 1.3 H Glucose 287 H POC Glucose 285 H Calcium 8.2 L Phosphorus Magnesium 1.4 L Troponin T NT-Pro-B Natriuret Pep 55889.0 H Total Protein 5.8 L Total Protein (PEP) Albumin 2.6 L Albumin/Globulin Ratio 0.8 L Triglycerides Urine Protein Urine Glucose (UA) Urine Occult Blood Ur Leukocyte Esterase Urine RBC Urine WBC Ur Squamous Epith Cells Amorphous Crystals Urine Yeast (Budding) Meds: Medications Hydrocodone Bitart/Acetaminophen (Spencer 7.5/325mg) 1 tab PO Q4-6HP PRN; Protocol PRN Reason: Per Pain Protocol Last Admin: 06/28/19 12:27 Dose: 1 tab Documented by: Albuterol Sulfate (Ventolin) 2 puff IH Q4HP PRN PRN Reason: Shortness Of Breath Albuterol Sulfate (Ventolin) 2.5 mg NEB Q4HP PRN PRN Reason: Shortness Of Breath Last Admin: 06/26/19 11:34 Dose: 2.5 mg Documented by: Albuterol/Ipratropium (Duoneb) 3 ml NEB Q4HRT [facility] Last Admin: 06/28/19 11:03 Dose: 3 ml Documented by: Aspirin (Aspirin) 81 mg CHEWED DAILY [facility] Last Admin: 06/28/19 14:39 Dose: 81 mg Documented by: Atorvastatin Calcium (Lipitor) 40 mg PO HS [facility] Last Admin: 06/27/19 21:39 Dose: 40 mg Documented by: Carvedilol (Coreg) 3.125 mg PO BIDCC [facility] Last Admin: 06/28/19 09:02 Dose: 3.125 mg Documented by: Diagnostic Test (Pha) (Accu-Chek) 1 each FS ACHS [facility] Last Admin: 06/28/19 11:30 Dose: 1 each Documented by: Docusate Sodium (Colace) 100 mg PO BID [facility] Last Admin: 06/28/19 09:02 Dose: 100 mg Documented by: Furosemide (Lasix) 40 mg IV Q8 [facility] Last Admin: 06/28/19 14:37 Dose: 40 mg Documented by: Guaifenesin/Codeine Phosphate (Robitussin Ac) 10 ml PO Q4HP PRN PRN Reason: Cough Heparin Sodium (Porcine) (Heparin) 5,000 unit SQ Q12 [facility] Last Admin: 06/28/19 09:03 Dose: 5,000 unit Documented by: Acetaminophen (Ofirmev) 650 mg in 65 mls @ 130 mls/hr IV Q6HP PRN; Protocol PRN Reason: Per Pain Protocol/Fever > 101 Magnesium Sulfate (Magnesium Sulfate) 2 gm in 50 mls @ 50 mls/hr IV UD PRN PRN Reason: MG = or < 1.7 Last Infusion: 06/26/19 15:00 Dose: Infused Documented by: Ceftriaxone Sodium 2 gm/ (Dextrose) 50 mls @ 100 mls/hr IV DAILY [facility]; Protocol Last Infusion: 06/28/19 09:45 Dose: Infused Documented by: Insulin Glargine (Lantus) 10 unit SQ DAILY [facility] Last Admin: 06/28/19 09:02 Dose: 10 unit Documented by: Insulin Human Lispro (Humalog) 0 unit SQ ACHS [facility]; Protocol Last Admin: 06/28/19 12:25 Dose: Not Given Documented by: Iron Carb/Multivit/Edgar/Folic Acid (Multivitamin W/Minerals) 1 tab PO DAILY [facility] Last Admin: 06/28/19 08:59 Dose: 1 tab Documented by: Isosorbide Mononitrate (Imdur) 30 mg PO DAILY [facility] Last Admin: 06/28/19 14:44 Dose: 30 mg Documented by: Magnesium Hydroxide (Milk Of Magnesia) 30 ml PO HSP PRN PRN Reason: Constipation Melatonin (Melatonin 3mg Tablet) 3 mg PO HSP PRN PRN Reason: Insomnia Nitroglycerin (Nitrostat) 0.4 mg SL Q5M PRN PRN Reason: Chest Pain Ondansetron HCl (Zofran) 4 mg IV Q4HP PRN PRN Reason: Nausea And Vomiting Potassium Chloride (Klor-Con) 40 meq PO DAILYP PRN PRN Reason: K+ < 3.5 Prednisolone Acetate (Pred Forte Ophth Drops) 1 gtt OD TID [facility] Last Admin: 06/28/19 14:45 Dose: Not Given Documented by: Senna/Docusate Sodium (Senna Plus Tablet) 1 tab PO HS [facility] Last Admin: 06/27/19 21:50 Dose: Not Given Documented by: Sertraline HCl (Zoloft) 100 mg PO DAILY [facility] Last Admin: 06/28/19 09:14 Dose: 100 mg Documented by: Sodium Chloride (Saline Flush) 10 ml IV Q8 [facility] Last Admin: 06/28/19 14:37 Dose: 10 ml Documented by: Sodium Chloride ([place] Nasal) 2 spray MILTON Q4HP PRN PRN Reason: Congestion Last Admin: 06/28/19 05:09 Dose: 2 spray Documented by: Thiamine HCl (Vitamin B1) 100 mg PO DAILY [facility] Last Admin: 06/28/19 08:59 Dose: 100 mg Documented by: Medical - PN: A/P - Time Spent With Patient Total time spent is greater than 50% in coordination of care (as documented) at patient's floor/unit and/or counseling patient: 25 - 35 minutes (1) Heart failure with acute decompensation, type unknown Status: Acute Assessment and plan: * Acute decompensated systolic heart failure. EF 40%. Moderate MR. Clinically improving with diuresis. Over 5000 cc net negative fluid balance. On aspirin/statin/beta-frankie/isosorbide. * Acute pulmonary edema clinically improving with aggressive diuresis. Secondary systolic CHF * Elevated troponins likely secondary to acute heart failure. Case discussed with sandwich maker at [place] Dr. Hollis Earl. Troponins normalized * Acute hypoxic hypercapnic respiratory failure-secondary to CHF. Continue supplemental oxygen. Continue diuresis. * Non complicated UTI. Negative cultures. DC Rocephin * Mild JACQUE-creatinine 1.5. Creatinine now downtrending at 1.4. * Hyperkalemia-continue monitoring. On diuretics. * Anemia requiring transfusion. Improved to 9.3 post 2 units PRBC * Recent right second and fifth toe amputation-wound care/podiatry on board. Wound VAC * Diabetic PVD with recent toe amputation-continue aspirin statin * Severe weakness/deconditioning-continue aggressive PT OT/SNF transfer coordination * Dyslipidemia continue statin * Hypertension -continue beta-frankie/isosorbide. * History of DM type II continue prior home medication/sliding scale insulin/CCD * Anxiety disorder continue BuSpar/SSRI * Tobacco dependence-counseled for cessation * COPD continue bronchodilators * Full code * Prophylaxis heparin Plan * DC Rocephin * Continue diuresis * Continue optimization of CHF management. Hyperkalemia precludes the use of HERB inhibitor/spironolactone. Consider hydralazine * DC Alba's catheter once able to get out of bed * Wound management/wound VAC per podiatry and wound care * Pre-existing medical condition management as above * Aggressive PT OT/nutrition support * Case management to coordinate SNF transfer Total time spent on care coordination in this extremely complex patient with multitude of comorbidities requiring extensive discussion with case manage ment/family/treatment planning in excess of 35 minutes Current Visit: Yes Medical - PN: Qual - VTE Deep Vein Thrombosis/Pulmonary Embolism Present on Admission: No
[2019-06-28] MEDS: ATORVASTATIN 40 MG TABLET PO SCH (22:11)
[2019-06-28] MEDS: SENNOSIDES/DOCUSATE SODIUM 1 TAB TABLET PO SCH (22:12)
[2019-06-29] MEDS: SODIUM CHLORIDE NASAL 1 SPRAY BOTTLE NAS PRN ×2 (00:24→04:08)
[2019-06-29] MEDS: IPRATROPIUM/ALBUTEROL 3 ML AMPUL.NEB NEB SCH ×6 (03:12→22:57)
[2019-06-29 05:31] LABS: Hematocrit 29.7 % (36.0-48.0); Hemoglobin 9.7 g/dL (12.0-15.0); Mean Cell Volume 87.4 fL (80.0-100.0); Mean Corpuscular HGB Conc 32.6 g/dL (31.0-36.0); Mean Platelet Volume 6.6 fL (7.4-10.4); Platelet Count 380 K/mcL (140-440); Red Cell Distribution Width 17.2 % (11.5-14.5); WBC 6.8 K/mcL (4.5-11.0)
[2019-06-29] MEDS: FUROSEMIDE 40 MG/4 ML VIAL IV SCH ×3 (05:35→21:45)
[2019-06-29] MEDS: 0.9 % SODIUM CHLORIDE 10 ML SYRINGE IV SCH ×3 (05:35→21:42)
[2019-06-29 05:44] LABS: ALT/SGPT 6 U/l (0-40); AST/SGOT 11 U/l (0-37); Albumin 2.4 gm/dL (3.2-5.2); Albumin/Globulin Ratio 0.7 (1.0-2.3); Alkaline Phosphatase 69 U/L (39-117); Bilirubin,Direct < 0.2 mg/dL (0.0-0.3); Bilirubin,Total 0.2 mg/dL (0.0-1.0); Blood Urea Nitrogen 39 mg/dl (8-23); Calcium 8.6 mg/dl (8.6-10.4); Carbon Dioxide 27 mmol/L (22-30); Chloride 101 mmol/L (96-108); Globulin 3.5 gm/dL (2.2-3.7); Glomerular Filtration Rate 41; Glucose 86 mg/dL (70-105); Lactate Dehydrogenase 196 U/L (94-250); Phosphorous 3.9 mg/dL (2.7-4.5); Triglycerides 108 mg/dl (<150); Uric Acid 7.6 mg/dL (2.5-8.0)
[2019-06-29] MEDS: MAGNESIUM SULFATE 2 GM/50 ML BAG IV PRN (06:09)
[2019-06-29 06:13] LABS: Anisocytosis 1+ (NONE SEEN); Eosinophils % (Manual) 3 % (0-7); Lymphocytes % 21 % (15-49); Monocytes % (Manual) 6 % (1-12); Platelet Estimate NORMAL (NORMAL); RBC Morphology ABNORMAL (NORMAL); Segmented Neutrophils % 70 % (38-78)
--- NOTE | 2019-06-29 07:10 | XRay Report ---
INDICATION: Dyspnea TECHNIQUE: AP chest x-ray,portable semiupright COMPARISON: Previous examination dated 06/27/2019 FINDINGS:Suboptimal evaluation due to this patient's large habitus. Lung bases are not well-visualized. Bibasilar volume loss or infiltrates are possible. Upright PA and lateral chest x-ray would be helpful when clinically appropriate. Mid and upper lungs are negative. No evidence for congestive heart failure IMPRESSION: 1. Lung bases are suboptimally visualized as above. 2. No other abnormality. Interpreted and Authenticated by: Jim Hsieh 06/29/19
[2019-06-29] MEDS: INSULIN LISPRO 1 UNIT/0.01 ML UNIT SQ SCH ×4 (07:26→21:41)
[2019-06-29] MEDS ORDERED: MAGNESIUM SULFATE 2 GM/50 ML BAG IV ONE (08:57)
--- NOTE | 2019-06-29 09:30 | Nephrology Progress Note ---
Subjective Patient information: Note initiated : 06/29/19 at 9:28 am Service Date, if different from initiated Date: [] Patient: Yessy Carter 73 y/o F admitted on 06/26/19 for sensation of SOB. Chief Complaint: [] Feeling a lot better. She does not have any more chest pains or sob. Objective - Vital Signs Vital signs: Vital Signs Temp Pulse Pulse Resp BP BP Pulse Ox 06/29/19 07:34 68 13 90 06/29/19 07:15 97.7 F 62 22 129/63 93 06/29/19 04:00 97.7 F 63 22 114/68 97 06/28/19 23:22 97.7 F 18 118/55 98 06/28/19 22:45 65 18 06/28/19 19:05 97.1 F 20 118/56 94 06/28/19 18:35 69 18 06/28/19 16:07 98.1 F 22 127/57 97 06/28/19 15:06 68 14 98 06/28/19 12:26 130/64 06/28/19 11:47 98.3 F 22 130/64 97 06/28/19 11:04 72 94 Intake and Output 06/28/19 06/29/19 06/29/19 21:59 05:59 13:59 Intake Total 270 120 Output Total 1199 1849 1949 Balance - Intake: Oral 270 120 Output: Drainage 0 Right Foot 0 Urine Catheter Amount 1199 1849 1949 Other: Meal Dinner Percent of Meal Consumed 100% Feeding Ability Assist with Tray Set Up Urine Appearance Clear Clear Uretheral (Abla) Clear Urine Color Bright Yellow Pale Uretheral (Alba) Pale Weight 298 lb 8 oz Intake & Output: Intake & Output 06/28/19 06/29/19 06/29/19 21:59 05:59 13:59 Intake Total 270 120 Output Total 1199 1849 1949 Balance - Weight 298 lb 8 oz Intake: Oral 270 120 Output: Drainage 0 Right Foot 0 Urine Catheter Amount 1199 1849 1949 Other: Meal Dinner Percent of Meal Consumed 100% Feeding Ability Assist with Tray Set Up Urine Appearance Clear Clear Uretheral (Alba) Clear Urine Color Bright Yellow Pale Uretheral (Alba) Pale - General Appearance General appearance: well-developed, well-nourished EENT: ATNC Neck: no JVD Cardiology: mid-systolic murmur Gastrointestinal: normoactive bowel sounds Integumentary: no rash Neurologic: no focal deficit - Lab 06/29/19 04:05 06/29/19 04:05 Most recent lab results Calcium 8.6 mg/dl (8.6-10.4) 06/29/19 04:05 Phosphorus 3.9 mg/dL (2.7-4.5) 06/29/19 04:05 Magnesium 1.5 mg/dL (1.6-2.5) L 06/29/19 04:05 Assessment and Plan (1) JACQUE (acute kidney injury) Status: Acute Comment: JACQUE on CKD, volume overloaded with CHF. Getting diuresed. Renal ultrasound is unremarkable. Agree to continue to diurese, cr is continuing to get better. Potassium, normalized. Replace Mag. Hypertension. Will get better with diuresis.
[2019-06-29] MEDS: INSULIN GLARGINE, HUMAN 1 UNIT/0.01 ML SQ SCH (10:05)
[2019-06-29] MEDS: HEPARIN 5,000 UNIT/ML VIAL SQ SCH ×2 (10:05→21:41)
[2019-06-29] MEDS: DOCUSATE SODIUM 100 MG CAPSULE PO SCH ×2 (10:05→21:40)
[2019-06-29] MEDS: MULTIVIT,THER IRON,CA,FA & MIN 1 TABLET PO SCH (10:05)
[2019-06-29] MEDS: CARVEDILOL 3.125 MG TABLET PO SCH ×2 (10:06→17:51)
[2019-06-29] MEDS: HYDROCODONE/APAP 7.5/325MG TABLET PO PRN (10:06)
[2019-06-29] MEDS: THIAMINE 100 MG TABLET PO SCH (10:08)
[2019-06-29] MEDS: prednisoLONE 1% OPHTH DROPS 1ML BOTTLE OD SCH ×3 (10:09→21:45)
[2019-06-29] MEDS: ISOSORBIDE MONONITRATE 30 MG TAB.XL.24H PO SCH (10:12)
[2019-06-29] MEDS: SERTRALINE 100 MG TABLET PO SCH (10:13)
[2019-06-29] MEDS: ASPIRIN 81 MG TAB.CHEW CHEWED SCH (10:13)
--- NOTE | 2019-06-29 10:48 | Internal Med Progress Note ---
Medical - PN: Subj Patient information: Note initiated : 06/29/19 at 10:43 am Service Date, if different from initiated Date: [] Patient: Yessy Carter a 73 y/o F admitted on 06/26/19 for sensation of SOB. Chief Complaint: [] Interval history: Ms. Carter is a 73 year old F with a history of CAD s/p multiple stenti ng/poorly controlled DM type II/JALIL/known COPD and known to have poor adherence/compliance to medications and follow-up with her care providers. She now presents to the ER with worsening dyspnea that has progressed over the last couple of days along with increasing confusion, fatigue and inability to function. Patient recently underwent right 2nd/fifth toe amputation by Dr. Newsome at [facility]. She was not able to provide any meaningful history in the ER. She felt that she was dying and wanted to leave and go home. She appears extremely anxious asked to be connected to her family including daughter and grandson to say her goodbyes as she is dying. She was hypoxic on arrival. She appeared remarkably confused and complains that that her toes were amputated without informing her. She lives alone and has not been able to take care of herself. She denies associated fever or chills but was recently hospitalized and may have exposure to sick contacts. She feels that since the surgery she has had a gradual decline in health and generalized well-being. Patient during evaluation in the ER became extremely anxious and was administered benzodiazepine in the ER and has since been drowsy. Initial work-up in the ER was consistent with severe anemia/acute congestive heart failure on chest imaging. Elevated troponins at 0.06. Dr. Hollis Covarrubias cardiology was consulted and recommended hospitalization for management of CHF. Patient was started on diuretics. Initial blood gas 7.3/40 7/57 on 1 L oxygen. Patient was started on 2 units of blood transfusion in light of hemoglobin 7.5 Hospitalist service was consulted in light of above symptoms and need for hospitalization. At the time of evaluation patient is minimally responsive. Under the effect of sedation administered in the ER. No family members are present. Most of the history was obtained from review of medical records/ER physician. 06/27-patient clinically improved. Less anxious. Diuresing well. Intermittent chest pain explains however troponins trended 0.05. Potassium down from 5.9- 5.1. Creatinine at 1.5 up from 1.2 hemoglobin improved to 9.3 post 2 units transfusion. Pyuria noted cultures pending. Start Rocephin. No overnight telemetry events. Echocardiogram pending. EKG sinus rhythm 06/28-patient currently on 3 L oxygen. Continues to feel short of breath however improving creatinine. Diuresing well with over 3000 cc net negative in 24 hours. Started on aspirin/beta-frankie/isosorbide/statin. Patient will require outpatient cardiology follow-up on discharge. Had episode of as piration/choking on her dentures yesterday. Patient would not follow instructions and was trying to eat while laying supine on bed. Intermittent episodes of anxiety requiring Ativan. Case management aggressively coordinating discharge planning/transfer to SNF. On wound VAC managed by podiatry/wound care. White count 8.6 with hemoglobin 9.3. Potassium down to 5.3. Creatinine 1.4. Repeat UA improved leukocytosis on antibiotics. Wound Gram stain [facility] urine cultures negative. DC antibiotics 06/29-creatinine improved to 1.3. Magnesium 1.5 on replacement. Potassium down to 4.8. Lymphedema improving. Over 5000 cc net negative fluid balance last 24 hours. On 1 L oxygen and much improved work of breathing. Able to talk in full sentences. Improved anxiety. Wound VAC in place. Blood pressures have improved and currently around 120 on Coreg/isosorbide. - Constitutional Vitals: Vital Signs Temp Pulse Resp BP Pulse Ox 97.7 F 68 13 129/63 90 06/29/19 07:15 06/29/19 07:34 06/29/19 07:34 06/29/19 07:15 06/29/19 07:34 Period Temp Pulse Resp BP Sys/Allen Pulse Ox Last 24 Hr 97.1 F-98.3 F 58-72 13-22 114-130/55-68 90-98 Intake and Output 06/28/19 06/29/19 06/29/19 21:59 05:59 13:59 Intake Total 270 120 Output Total 1200 1850 1950 Balance -930 -1949 Weight 298 lb 8 oz Intake & Output: Intake & Output 06/28/19 06/29/19 06/29/19 21:59 05:59 13:59 Intake Total 270 120 Output Total 1200 1850 1950 Balance -930 Weight 298 lb 8 oz Intake: Oral 270 120 Output: Drainage 0 Right Foot 0 Urine Catheter Amount 1200 1850 1950 Other: Meal Dinner Percent of Meal Consumed 100% Feeding Ability Assist with Tray Set Up Urine Appearance Clear Clear Uretheral (Alba) Clear Urine Color Bright Yellow Pale Uretheral (Alba) Pale General appearance: morbidly obese, no acute distress Exam: Alert and oriented Nonlabored breathing now on 1 L oxygen Improving lymphedema Wound VAC in place Minimal anxiety Medical - PN: Obj Da - Labs CBC & Chem 7: 06/29/19 04:05 06/29/19 04:05 Labs: Abnormal Lab Results 06/29/19 06/29/19 06/28/19 04:05 04:05 03:50 WBC RBC 3.40 L Hgb 9.7 L Hct 29.7 L RDW 17.2 H MPV 6.6 L Seg Neutrophils % Lymphocytes % RBC Morphology Polychromasia Hypochromasia Poikilocytosis Anisocytosis 1+ A Potassium 5.3 H BUN 39 H 35 H Creatinine 1.3 H 1.4 H Glucose Calcium 8.5 L Phosphorus 4.6 H Magnesium 1.5 L Troponin T Total Protein (PEP) 5.5 L Albumin 2.4 L 2.4 L Albumin/Globulin Ratio 0.7 L 0.7 L Triglycerides 156 H Urine Protein Urine Occult Blood Ur Leukocyte Esterase Urine RBC Urine WBC Urine Yeast (Budding) 06/28/19 06/27/19 06/27/19 03:50 13:15 04:05 WBC RBC 3.36 L Hgb 9.3 L Hct 29.6 L RDW 17.3 H MPV 6.6 L Seg Neutrophils % Lymphocytes % RBC Morphology Abnorm A Polychromasia Hypochromasia Poikilocytosis Anisocytosis 1+ A Potassium BUN 30 H Creatinine 1.5 H Glucose 183 H Calcium 8.3 L Phosphorus Magnesium Troponin T Total Protein (PEP) Albumin 2.5 L Albumin/Globulin Ratio 0.7 L Triglycerides Urine Protein 30 A Urine Occult Blood 0.2 A Ur Leukocyte Esterase 250 A Urine RBC 18 H Urine WBC 31 H Urine Yeast (Budding) Few A 06/27/19 06/26/19 06/26/19 04:05 17:45 12:53 WBC 12.3 H RBC 3.33 L Hgb 9.3 L Hct 29.2 L RDW 16.9 H MPV 6.5 L Seg Neutrophils % 82 H Lymphocytes % 13 L RBC Morphology Abnorm A Polychromasia 1+ A Hypochromasia 1+ A Poikilocytosis Few A Anisocytosis 1+ A Potassium 5.4 H BUN 26 H Creatinine 1.4 H Glucose 358 H Calcium 8.2 L Phosphorus Magnesium Troponin T 0.05 H* Total Protein (PEP) Albumin Albumin/Globulin Ratio Triglycerides Urine Protein Urine Occult Blood Ur Leukocyte Esterase Urine RBC Urine WBC Urine Yeast (Budding) Meds: Medications Hydrocodone Bitart/Acetaminophen ([place] 7.5/325mg) 1 tab PO Q4-6HP PRN; Protocol PRN Reason: Per Pain Protocol Last Admin: 06/29/19 10:06 Dose: 1 tab Documented by: Albuterol Sulfate (Ventolin) 2 puff IH Q4HP PRN PRN Reason: Shortness Of Breath Albuterol Sulfate (Ventolin) 2.5 mg NEB Q4HP PRN PRN Reason: Shortness Of Breath Last Admin: 06/26/19 11:34 Dose: 2.5 mg Documented by: Albuterol/Ipratropium (Duoneb) 3 ml NEB Q4HRT [facility] Last Admin: 06/29/19 07:31 Dose: 3 ml Documented by: Aspirin (Aspirin) 81 mg CHEWED DAILY [facility] Last Admin: 06/29/19 10:13 Dose: 81 mg Documented by: Atorvastatin Calcium (Lipitor) 40 mg PO HS [facility] Last Admin: 06/28/19 22:11 Dose: 40 mg Documented by: Carvedilol (Coreg) 3.125 mg PO BIDCC [facility] Last Admin: 06/29/19 10:06 Dose: 3.125 mg Documented by: Diagnostic Test (Pha) (Accu-Chek) 1 each FS ACHS [facility] Last Admin: 06/29/19 07:25 Dose: 1 each Documented by: Docusate Sodium (Colace) 100 mg PO BID [facility] Last Admin: 06/29/19 10:05 Dose: 100 mg Documented by: Furosemide (Lasix) 40 mg IV Q8 [facility] Last Admin: 06/29/19 05:35 Dose: 40 mg Documented by: Guaifenesin/Codeine Phosphate (Robitussin Ac) 10 ml PO Q4HP PRN PRN Reason: Cough Heparin Sodium (Porcine) (Heparin) 5,000 unit SQ Q12 [facility] Last Admin: 10/23/19 10:05 Dose: 5,000 unit Documented by: Acetaminophen (Ofirmev) 650 mg in 65 mls @ 130 mls/hr IV Q6HP PRN; Protocol PRN Reason: Per Pain Protocol/Fever > 101 Magnesium Sulfate (Magnesium Sulfate) 2 gm in 50 mls @ 50 mls/hr IV UD PRN PRN Reason: MG = or < 1.7 Last Admin: 06/29/19 06:09 Dose: 50 mls/hr Documented by: Magnesium Sulfate (Magnesium Sulfate) 2 gm in 50 mls @ 25 mls/hr IV ONCE ONE Stop: 06/29/19 10:56 Last Admin: 06/29/19 10:09 Dose: 25 mls/hr Documented by: Insulin Glargine (Lantus) 10 unit SQ DAILY [facility] Last Admin: 06/29/19 10:05 Dose: 10 unit Documented by: Insulin Human Lispro (Humalog) 0 unit SQ ACHS [facility]; Protocol Last Admin: 06/29/19 07:26 Dose: Not Given Documented by: Iron Carb/Multivit/[place]/Folic Acid (Multivitamin W/Minerals) 1 tab PO DAILY [facility] Last Admin: 06/29/19 10:05 Dose: 1 tab Documented by: Isosorbide Mononitrate (Imdur) 30 mg PO DAILY [facility] Last Admin: 06/29/19 10:12 Dose: 30 mg Documented by: Magnesium Hydroxide (Milk Of Magnesia) 30 ml PO HSP PRN PRN Reason: Constipation Melatonin (Melatonin 3mg Tablet) 3 mg PO HSP PRN PRN Reason: Insomnia Nitroglycerin (Nitrostat) 0.4 mg SL Q5M PRN PRN Reason: Chest Pain Ondansetron HCl (Zofran) 4 mg IV Q4HP PRN PRN Reason: Nausea And Vomiting Potassium Chloride (Klor-Con) 40 meq PO DAILYP PRN PRN Reason: K+ < 3.5 Prednisolone Acetate (Pred Forte Ophth Drops) 1 gtt OD TID [facility] Last Admin: 06/29/19 10:09 Dose: Not Given Documented by: Senna/Docusate Sodium (Senna Plus Tablet) 1 tab PO HS [facility] Last Admin: 06/28/19 22:12 Dose: Not Given Documented by: Sertraline HCl (Zoloft) 100 mg PO DAILY [facility] Last Admin: 10/23/19 10:13 Dose: 100 mg Documented by: Sodium Chloride (Saline Flush) 10 ml IV Q8 [facility] Last Admin: 06/29/19 05:35 Dose: 10 ml Documented by: Sodium Chloride ([place] Nasal) 2 spray [place] Q4HP PRN PRN Reason: Congestion Last Admin: 06/29/19 04:08 Dose: 2 spray Documented by: Thiamine HCl (Vitamin B1) 100 mg PO DAILY [facility] Last Admin: 06/29/19 10:08 Dose: 100 mg Documented by: Medical - PN: A/P - Time Spent With Patient Total time spent is greater than 50% in coordination of care (as documented) at patient's floor/unit and/or counseling patient: 25 - 35 minutes (1) Heart failure with acute decompensation, type unknown Status: Acute Assessment and plan: * Acute decompensated systolic heart failure. EF 40%. Moderate MR. Clinically improving with diuresis. Over 5000 cc net negative fluid balance. On aspirin/statin/beta-frankie/isosorbide. Start low-dose HERB inhibitor * Acute pulmonary edema clinically improving with aggressive diuresis. * Elevated troponins likely secondary to acute heart failure. Case discussed with shrimp peeler at [place] Dr. Hollis Earl. Troponins normalized * Acute hypoxic hypercapnic respiratory failure-second to pulmonary edema clinically improving with aggressive diuresis. Now on 1 L oxygen * Non complicated UTI. Negative cultures. Off Rocephin * Mild JACQUE-creatinine now at 1.3. Nephrology on board * Hyperkalemia-improved with gradual diuresis now 4.8 * Anemia requiring transfusion. Improved post 2 units PRBC * Recent right second and fifth toe amputation-wound care/podiatry on board. Wound VAC * Diabetic PVD with recent toe amputation-continue aspirin statin * Severe weakness/deconditioning-continue aggressive PT OT/SNF transfer coordination * Dyslipidemia continue statin * Hypertension -continue beta-frankie/isosorbide. * History of DM type II continue prior home medication/sliding scale insulin/CCD * Anxiety disorder continue BuSpar/SSRI * Tobacco dependence-counseled for cessation * COPD continue bronchodilators * Full code * Prophylaxis heparin Plan * Start low-dose HERB inhibitor * Continue diuresis * Wound management/wound VAC per podiatry and wound care * Pre-existing medical condition management as above * Continue aggressive PT OT/nutrition support * Await coordination of SNF transfer * Schedule outpatient cardiology follow-up on discharge * Recommend continuation of aspirin/statin/beta-frankie/low-dose HERB inhibitor/isosorbide on discharge. Hyperkalemia precludes use of spironolactone Current Visit: Yes Medical - PN: Qual - VTE Deep Vein Thrombosis/Pulmonary Embolism Present on Admission: No
[2019-06-29] MEDS ORDERED: LISINOPRIL 5 MG TABLET PO ONE ×2 (10:51→13:00)
[2019-06-29] MEDS ORDERED: ONDANSETRON 4 MG/2 ML VIAL IV PRN (16:40)
[2019-06-29] MEDS ORDERED: MELATONIN 3 MG TABLET PO PRN (16:40)
[2019-06-29] MEDS ORDERED: ALBUTEROL SULFATE 2.5 MG/3 ML NEBULIZER NEB PRN (16:40)
[2019-06-29] MEDS ORDERED: MAGNESIUM SULFATE 2 GM/50 ML BAG IV PRN (16:40)
[2019-06-29] MEDS ORDERED: ALBUTEROL SULFATE 1 PUFF INHALER IH PRN (16:40)
[2019-06-29] MEDS ORDERED: ACETAMINOPHEN 650 MG/65 ML BOTTLE IV PRN (16:40)
[2019-06-29] MEDS ORDERED: SODIUM CHLORIDE NASAL 1 SPRAY BOTTLE NAS PRN (16:40)
[2019-06-29] MEDS ORDERED: guaiFENesin/CODEINE 10 ML UDC PO PRN (16:40)
[2019-06-29] MEDS ORDERED: POTASSIUM CHLORIDE 20 MEQ PACKET PO PRN (16:40)
[2019-06-29] MEDS ORDERED: MAGNESIUM HYDROXIDE 30 ML ORAL.SUSP PO PRN (16:40)
[2019-06-29] MEDS ORDERED: NITROGLYCERIN 0.4 MG TAB.SUBL SL PRN (16:40)
[2019-06-29] MEDS ORDERED: SENNOSIDES/DOCUSATE SODIUM 1 TAB TABLET PO SCH (21:00)
[2019-06-29] MEDS ORDERED: ATORVASTATIN 40 MG TABLET PO SCH (21:00)
[2019-06-30] MEDS: HYDROCODONE/APAP 7.5/325MG TABLET PO PRN ×2 (02:21→12:53)
[2019-06-30] MEDS: IPRATROPIUM/ALBUTEROL 3 ML AMPUL.NEB NEB SCH ×4 (02:21→14:27)
[2019-06-30] MEDS: 0.9 % SODIUM CHLORIDE 10 ML SYRINGE IV SCH ×2 (05:37→15:11)
[2019-06-30] MEDS: FUROSEMIDE 40 MG/4 ML VIAL IV SCH (05:37)
[2019-06-30 05:50] LABS: Hematocrit 30.3 % (36.0-48.0); Hemoglobin 9.6 g/dL (12.0-15.0); Mean Cell Volume 87.9 fL (80.0-100.0); Mean Corpuscular HGB Conc 31.7 g/dL (31.0-36.0); Mean Platelet Volume 7.1 fL (7.4-10.4); Platelet Count 372 K/mcL (140-440); RBC 3.45 M/mcL (4.00-5.20); Red Cell Distribution Width 17.2 % (11.5-14.5); WBC 7.1 K/mcL (4.5-11.0)
[2019-06-30 06:15] LABS: ALT/SGPT 7 U/l (0-40); AST/SGOT 12 U/l (0-37); Albumin 2.4 gm/dL (3.2-5.2); Albumin/Globulin Ratio 0.7 (1.0-2.3); Alkaline Phosphatase 65 U/L (39-117); Bilirubin,Direct < 0.2 mg/dL (0.0-0.3); Bilirubin,Total 0.2 mg/dL (0.0-1.0); Blood Urea Nitrogen 39 mg/dl (8-23); Calcium 8.8 mg/dl (8.6-10.4); Carbon Dioxide 33 mmol/L (22-30); Chloride 97 mmol/L (96-108); Globulin 3.3 gm/dL (2.2-3.7); Glomerular Filtration Rate 41; Glucose 153 mg/dL (70-105); Lactate Dehydrogenase 223 U/L (94-250); Phosphorous 3.8 mg/dL (2.7-4.5); Triglycerides 98 mg/dl (<150); Uric Acid 7.5 mg/dL (2.5-8.0)
[2019-06-30 07:44] LABS: Anisocytosis 1+ (NONE SEEN); Band Neutrophils % 2 % (0-10); Eosinophils % (Manual) 2 % (0-7); Hypochromasia 1+ (NONE SEEN); Lymphocytes % 22 % (15-49); Metamyelocytes % 1 % (0-0); Monocytes % (Manual) 7 % (1-12); Platelet Estimate NORMAL (NORMAL); RBC Morphology ABNORM (NORMAL); Reactive Lymphocytes 3 % (0-2); Segmented Neutrophils % 63 % (38-78)
[2019-06-30] MEDS: HEPARIN 5,000 UNIT/ML VIAL SQ SCH (08:45)
[2019-06-30] MEDS: DOCUSATE SODIUM 100 MG CAPSULE PO SCH (08:46)
[2019-06-30] MEDS: prednisoLONE 1% OPHTH DROPS 1ML BOTTLE OD SCH ×2 (08:47→15:11)
[2019-06-30] MEDS: CARVEDILOL 3.125 MG TABLET PO SCH (08:50)
[2019-06-30] MEDS ORDERED: INSULIN GLARGINE, HUMAN 1 UNIT/0.01 ML SQ SCH (09:00)
[2019-06-30] MEDS ORDERED: ASPIRIN 81 MG TAB.CHEW CHEWED SCH (09:00)
[2019-06-30] MEDS ORDERED: THIAMINE 100 MG TABLET PO SCH (09:00)
[2019-06-30] MEDS ORDERED: ISOSORBIDE MONONITRATE 30 MG TAB.XL.24H PO SCH (09:00)
[2019-06-30] MEDS ORDERED: SERTRALINE 100 MG TABLET PO SCH (09:00)
[2019-06-30] MEDS ORDERED: MULTIVIT,THER IRON,CA,FA & MIN 1 TABLET PO SCH (09:00)
[2019-06-30] MEDS: INSULIN LISPRO 1 UNIT/0.01 ML UNIT SQ SCH ×2 (09:03→12:21)
--- NOTE | 2019-06-30 09:05 | Nephrology Progress Note ---
Subjective Patient information: Note initiated : 06/30/19 at 9:03 am Service Date, if different from initiated Date: [] Patient: Yessy Carter 73 y/o F admitted on 06/26/19 for sensation of SOB. Chief Complaint: [] Says she is a slightly short of breath. Has been doing ok otherwise. Objective - Vital Signs Vital signs: Vital Signs Temp Pulse Pulse Resp BP BP Pulse Ox 06/30/19 08:20 94 06/30/19 03:00 98.0 F 66 16 144/66 96 06/29/19 23:02 98.3 F 60 18 112/49 90 06/29/19 19:00 98.2 F 67 20 99/44 93 06/29/19 16:00 97.2 F 73 20 164/84 96 06/29/19 15:12 63 20 06/29/19 11:38 97.4 F 64 20 141/49 94 06/29/19 11:01 61 12 90 Intake and Output 06/29/19 06/30/19 06/30/19 21:59 05:59 13:59 Intake Total 240 740 Output Total 1675 Balance 240 -935 Intake: Oral 240 740 Output: Urine Catheter Amount 1675 Other: Meal Dinner Nourishment/Supplement Percent of Meal Consumed 100% 100% Feeding Ability Independent Assist with Tray Set Up Nourishment/Supplement name Yogurt Urine Appearance Clear Uretheral (Alba) Clear Urine Color Pale Uretheral (Alba) Pale Bright Yellow Urine Odor Normal Uretheral (Alba) Normal Stool Size Copious Stool Color Brown Stool Consistency Soft # Bowel Movements 1 Weight 273 lb 6.4 oz Intake & Output: Intake & Output 06/29/19 06/30/19 06/30/19 21:59 05:59 13:59 Intake Total 240 740 Output Total 1675 Balance 240 -935 Weight 273 lb 6.4 oz Intake: Oral 240 740 Output: Urine Catheter Amount 1675 Other: Meal Dinner Nourishment/Supplement Percent of Meal Consumed 100% 100% Feeding Ability Independent Assist with Tray Set Up Nourishment/Supplement name Yogurt Urine Appearance Clear Uretheral (Alba) Clear Urine Color Pale Uretheral (Alba) Pale Bright Yellow Urine Odor Normal Uretheral (Alba) Normal Stool Size Copious Stool Color Brown Stool Consistency Soft # Bowel Movements 1 - General Appearance General appearance: well-developed, appears started age EENT: ATNC Neck: no JVD Cardiology: no murmurs Gastrointestinal: normoactive bowel sounds Neurologic: no focal deficit - Lab 06/30/19 04:18 06/30/19 04:18 Most recent lab results Calcium 8.8 mg/dl (8.6-10.4) 06/30/19 04:18 Phosphorus 3.8 mg/dL (2.7-4.5) 06/30/19 04:18 Magnesium 1.7 mg/dL (1.6-2.5) 06/30/19 04:18 Assessment and Plan (1) JACQUE (acute kidney injury) Status: Acute Comment: JACQUE on CKD, volume overloaded with CHF. Getting diuresed. Renal ultrasound is unremarkable. Getting alkalotic, will cut lasix, cr is stable. Potassium, normal without any replacement. Hypertension. Better.
[2019-06-30 14:51] LABS: Albumin PEP 2.14 gm/dl (3.1-4.7); Albumin/Globulin Ratio PEP 0.6 (0.9-1.7); Alpha-1-Globulins 0.36 gm/dl (0.1-0.5); Alpha-2-Globulins 1.01 gm/dL (0.4-1.2); Beta Globulins 0.87 gm/dL (0.6-1.2); Gamma Globulins 1.12 gm/dL (0.5-1.7); Globulin PEP 3.4 gm/dl (2.4-3.6)
--- NOTE | 2019-06-30 15:56 | Discharge Summary ---
Medical - DS: Prov Patient information: Note initiated : 06/30/19 at 3:53 pm Service Date, if different from initiated Date: [] Patient: Yessy Carter 73 y/o F admitted on 06/26/19 for sensation of SOB. Chief Complaint: [] Date of admission: 06/26/19 06:50 Discharge date: 06/30/19 Primary care physician: Dalia Monsivais Consults: 06/26/19 09:52 Consult to Physician [CONS] Routine Comment: Consulting Provider: Abhay Martinez Reason For Exam: Physician to Consult 06/26/19 11:18 Consult to Physician [CONS] Routine Comment: Consulting Provider: Jorge Oglesby Reason For Exam: Physician to Consult 06/27/19 09:52 Consult to Physician [CONS] Routine Comment: Consulting Provider: Shahnaz Sanchez Reason For Exam: Physician to Consult Medical - DS: Meds - Discharge Medications Prescriptions: Aspirin 81 mg CHEWED DAILY #30 tab.chew Prescription Printed Carvedilol [Coreg] 3.125 mg PO BIDCC #30 tab Prescription Printed Isosorbide Mononitrate [Imdur] 30 mg PO DAILY #30 tab.xl.24h Prescription Printed Furosemide [Lasix] 40 mg PO DAILY #30 tab Prescription Printed Active and Home Medications: Home Medications Sertraline [Zoloft] 100 mg PO DAILY 02/09/18 [History Confirmed 06/26/19 Last Taken Unknown] Albuterol Sulfate [Albuterol Sulfate Hfa] 2 puff IH Q4HP PRN 06/26/19 [History Confirmed 06/26/19 Last Taken Unknown] Docusate Sodium 100 mg PO BID 06/26/19 [History Confirmed 06/26/19 Last Taken Unknown] Ergocalciferol (Vitamin D2) [Vitamin D2] 50,000 unit PO WE 06/26/19 [History Confirmed 06/26/19 Last Taken Unknown] Insulin Glargine, Human [Lantus] 10 unit SQ DAILY 06/26/19 [History Confirmed 06/26/19 Last Taken Unknown] Nitroglycerin [Nitrostat] 0.4 mg SL Q5MIN PRN 06/26/19 [History Confirmed 06/26/19 Last Taken Unknown] busPIRone [Buspar] 10 mg PO BID 06/26/19 [History Confirmed 06/26/19 Last Taken Unknown] prednisoLONE 1% OPHTH DROPS [Pred Forte Ophth Drops] 1 gtt OD TID 06/26/19 [History Confirmed 06/26/19 Last Taken Unknown] traZODone HCL [Trazodone HCl] 50 mg PO HS 06/26/19 [History Confirmed 06/26/19 Last Taken Unknown] Atorvastatin [Lipitor] 40 mg PO DAILY 06/27/19 [History Confirmed 06/27/19 Last Taken Unknown] Aspirin 81 mg CHEWED DAILY #30 tab.chew 06/29/19 [Rx Last Taken Unknown] Carvedilol [Coreg] 3.125 mg PO BIDCC #30 tab 06/29/19 [Rx Last Taken Unknown] Furosemide [Lasix] 40 mg PO DAILY #30 tab 06/29/19 [Rx Last Taken Unknown] Isosorbide Mononitrate [Imdur] 30 mg PO DAILY #30 tab.xl.24h 06/29/19 [Rx Last Taken Unknown] Melatonin [Melatonin 3Mg Tablet] 3 mg PO HSP PRN tab 06/29/19 [Rx Last Taken Unknown] Medical - DS: Hosp Hospital Course: Discharge diagnosis * Acute decompensated systolic heart failure. EF 40%. Moderate MR. Clinically improving with diuresis. Over 10,000 cc net negative fluid balance. Continue aspirin/statin/beta-frankie/isosorbide. Consider low-dose HERB inhibitor. Transition to swing bed status for continued rehab/conditioning * Acute pulmonary edema clinically resolved with aggressive diuresis. * Elevated troponins likely secondary to acute heart failure. Case discussed with genetics nurse at [facility] Dr. Hollis Earl. Troponins normalized * Acute hypoxic hypercapnic respiratory failure-second to pulmonary edema clinically improving with aggressive diuresis. Now on 1 L oxygen * Non complicated UTI. Negative cultures. Off Rocephin * Mild JACQUE-creatinine now at 1.3. Nephrology on board * Hyperkalemia-improved with gradual diuresis now 4.8 * Anemia requiring transfusion. Improved post 2 units PRBC * Recent right second and fifth toe amputation-wound care/podiatry on board. Wound VAC * Diabetic PVD with recent toe amputation-continue aspirin statin * Severe weakness/deconditioning-continue aggressive PT OT/SNF transfer coordination * Dyslipidemia continue statin * Hypertension -continue beta-frankie/isosorbide. * History of DM type II continue prior home medication/sliding scale insulin/CCD * Anxiety disorder continue BuSpar/SSRI * Tobacco dependence-counseled for cessation * COPD continue bronchodilators Brief hospital course Ms. Carter is a 73 year old F with a history of CAD s/p multiple stenting/poorly controlled DM type II/JALIL/known COPD and known to have poor adherence/compliance to medications and follow-up with her care providers. She now presents to the ER with worsening dyspnea that has progressed over the last couple of days along with increasing confusion, fatigue and inability to function. Patient recently underwent right 2nd/fifth toe amputation by Dr. Kat manjarrez at [place]. She was not able to provide any meaningful history in the ER. She felt that she was dying and wanted to leave and go home. She appears extremely anxious asked to be connected to her family including daughter and grandson to say her goodbyes as she is dying. She was hypoxic on arrival. She appeared remarkably confused and complains that that her toes were amputated without informing her. She lives alone and has not been able to take care of herself. She denies associated fever or chills but was recently hospitalized and may have exposure to sick contacts. She feels that since the surgery she has had a gradual decline in health and generalized well-being. Patient during evaluation in the ER became extremely anxious and was administered benzodiazepine in the ER and has since been drowsy. Initial work-up in the ER was consistent with severe anemia/acute congestive heart failure on chest imaging. Elevated troponins at 0.06. Dr. Hollis Covarrubias cardiology was consulted and recommended hospitalization for management of CHF. Patient was started on diuretics. Initial blood gas 7.3/40 7/57 on 1 L oxygen. Patient was started on 2 units of blood transfusion in light of hemoglobin 7.5 Hospitalist service was consulted in light of above symptoms and need for hospitalization. At the time of evaluation patient is minimally responsive. Under the effect of sedation administered in the ER. No family members are present. Most of the history was obtained from review of medical records/ER physician. 06/27-patient clinically improved. Less anxious. Diuresing well. Intermittent chest pain explains however troponins trended 0.05. Potassium down from 5.9- 5.1. Creatinine at 1.5 up from 1.2 hemoglobin improved to 9.3 post 2 units transfusion. Pyuria noted cultures pending. Start Rocephin. No overnight telemetry events. Echocardiogram pending. EKG sinus rhythm 06/28-patient currently on 3 L oxygen. Continues to feel short of breath however improving creatinine. Diuresing well with over 3000 cc net negative in 24 hours. Started on aspirin/beta-frankie/isosorbide/statin. Patient will require outpatient cardiology follow-up on discharge. Had episode of aspiration/choking on her dentures yesterday. Patient would not follow instructions and was trying to eat while laying supine on bed. Intermittent episodes of anxiety requiring Ativan. Case management aggressively coordinating discharge planning/transfer to SNF. On wound VAC managed by podiatry/wound care. White count 8.6 with hemoglobin 9.3. Potassium down to 5.3. Creatinine 1.4. Repeat UA improved leukocytosis on antibiotics. Wound Gram stain GPC urine cultures negative. DC antibiotics 06/29-creatinine improved to 1.3. Magnesium 1.5 on replacement. Potassium down to 4.8. Lymphedema improving. Over 5000 cc net negative fluid balance last 24 hours. On 1 L oxygen and much improved work of breathing. Able to talk in full sentences. Improved anxiety. Wound VAC in place. Blood pressures have improved and currently around 120 on Coreg/isosorbide. 06/30-patient remarkably better. Now on 1 L oxygen. Diuresed over 10,000 cc net negative fluid balance. Much improved lymphedema. Pulmonary edema resolved. Ongoing physical therapy. Tolerating diet. Wound VAC in place. Transition to swing bed status for continued wound care/deconditioning management/PT OT/nutrition support. Discharge diagnosis: . - Time Spent with Patient Total time spent providing and/or coordinating discharge services: Greater than 30 minutes Medical - DS: Exam - Constitutional Vitals: Vital Signs Temp Pulse Resp BP BP Pulse Ox 06/30/19 12:00 97.3 F 61 16 129/62 92 06/30/19 10:54 94 06/30/19 08:20 94 06/30/19 08:00 97.0 F 64 16 134/58 92 06/30/19 03:00 98.0 F 66 16 144/66 96 06/29/19 23:02 98.3 F 60 18 112/49 90 06/29/19 19:00 98.2 F 67 20 99/44 93 06/29/19 16:00 97.2 F 73 20 164/84 96 Intake and Output 06/30/19 06/30/19 06/30/19 05:59 13:59 21:59 Intake Total 740 480 Output Total 1675 Balance -935 480 Intake: Oral 740 480 Output: Urine Catheter Amount 1675 Other: Meal Nourishment/Supplement Lunch Percent of Meal Consumed 100% 100% Feeding Ability Assist with Tray Set Up Independent Nourishment/Supplement name Yogurt Urine Appearance Clear Uretheral (Alba) Clear Urine Color Pale Uretheral (Alba) Pale Bright Yellow Urine Odor Normal Uretheral (Alba) Normal Weight 273 lb 6.4 oz Medical - DS: Data Labs on day of discharge: Labs from last 24 hours 06/30/19 06/30/19 06/28/19 04:18 04:18 03:50 WBC 7.1 RBC 3.45 L Hgb 9.6 L Hct 30.3 L MCV 87.9 MCH 27.8 MCHC 31.7 RDW 17.2 H Plt Count 372 MPV 7.1 L Total Counted 100 Seg Neutrophils % 63 Band Neutrophils % 2 Lymphocytes % 22 Monocytes % (Manual) 7 Eosinophils % (Manual) 2 Metamyelocytes % 1 H Reactive Lymphocytes 3 H Platelet Estimate Normal RBC Morphology Abnorm A Hypochromasia 1+ A Anisocytosis 1+ A Sodium 141 Potassium 5.1 Chloride 97 Carbon Dioxide 33 H Anion Gap 11.0 BUN 39 H Creatinine 1.3 H GFR Calculation 41 Glucose 153 H Uric Acid 7.5 Calcium 8.8 Phosphorus 3.8 Magnesium 1.7 Total Bilirubin 0.2 Direct Bilirubin < 0.2 GGT 10 AST 12 ALT 7 Alkaline Phosphatase 65 Lactate Dehydrogenase 223 Total Protein 5.7 L Albumin 2.4 L Albumin (PEP) 2.14 L Globulin 3.3 Globulin (PEP) 3.4 Albumin/Globulin Ratio 0.7 L Albumin/Globulin (PEP) 0.6 L Dcbkf-1-Ukwmgtjoi 0.36 Trfer-2-Rkixzhcaj 1.01 Beta Globulins 0.87 Gamma Globulins 1.12 PEP Interpretation Triglycerides 98 Preliminary micro results at discharge 06/26/19 02:00 Blood Culture - Preliminary Blood 06/26/19 01:50 Blood Culture - Preliminary Blood Medical - DS: A/P - Patient/Caregiver Discharge Instructions Activity: as per physical therapy, increase activity as tolerated, resume usual activities as tolerated Diet: Renal/Consistent Carbs Prescriptions: Aspirin 81 mg CHEWED DAILY #30 tab.chew Prescription Printed Carvedilol [Coreg] 3.125 mg PO BIDCC #30 tab Prescription Printed Isosorbide Mononitrate [Imdur] 30 mg PO DAILY #30 tab.xl.24h Prescription Printed Furosemide [Lasix] 40 mg PO DAILY #30 tab Prescription Printed - Problem Maintenance (1) Heart failure with acute decompensation, type unknown Status: Acute - Follow up Plan Follow up with: Dalia Monsivais MD [Primary Care Provider] - Disposition: Xfer As Swing Bed ([facility]) Prognosis: Serious Rehab Potential: Fair I certify that the patient requires SNF services: Yes Overall status at discharge: patient is progressing back to baseline Medical - DS: Qual - VTE Deep Vein Thrombosis/Pulmonary Embolism Present on Admission: No
[2019-06-30] MEDS ORDERED: FUROSEMIDE 40 MG TABLET PO SCH (16:00)
[2019-07-01 09:45] LABS: Albumin 56 %; Alpha-1-Globulin 2 %; Alpha-2-Globulin 6 %; Gamma Globulin 22 %; Pro/Creat Ratio 929 mg/g cre (21-161); Protein Total Random Urine 39 mg/dL (5-24)
== END 2019-06-30 21:00 | disposition swing bed (61) | DRG 291 ==
LOC: ED 23:12 → SUATTDRO 06-26 06:50 → ICU 06-26 06:50 → MEDSUR 06-29 18:25
PROVIDERS: ADMIT Internal Medicine; ATTEND Internal Medicine

== ENCOUNTER 2019-07-07 10:56 | Inpatient (IN) ==
[2019-07-07] MEDS ORDERED: HYDROmorphone 2 MG/ML VIAL IV PRN (11:58)
[2019-07-07] MEDS ORDERED: ONDANSETRON 4 MG/2 ML VIAL IV PRN (11:58)
[2019-07-07] MEDS ORDERED: NITROGLYCERIN 0.4 MG TAB.SUBL SL PRN (11:58)
[2019-07-07] MEDS ORDERED: SODIUM CHLORIDE NASAL 1 SPRAY BOTTLE NAS PRN (11:58)
[2019-07-07] MEDS ORDERED: ACETAMINOPHEN 650 MG/65 ML BOTTLE IV PRN (11:58)
[2019-07-07] MEDS ORDERED: ALBUTEROL SULFATE 1 PUFF INHALER INH PRN (11:58)
[2019-07-07] MEDS ORDERED: guaiFENesin/CODEINE 10 ML UDC PO PRN (11:58)
--- NOTE | 2019-07-07 14:13 | Internal Med History&Physical ---
Medical - H&P: HPI Patient information: Note initiated : 07/07/19 at 2:02 pm Service Date, if different from initiated Date: [] Patient: Yessy Carter a 73 y/o F admitted on 07/07/19 for Hyperkalemia. Chief Complaint: Diarrhea, hyperkalemia History of present illness: Current HPI, 07/07/2019 Ms. Carter is a 73 year old F with a history of congestive heart failure (HFrEF, EF 40%), coronary artery disease with multiple prior interventions, poorly controlled type 2 diabetes, obstructive sleep apnea, recently diagnosed C. difficile colitis during her swing bed stay between 06/30 and 07/07. She was initially admitted to the hospital on 06/26 to acute care with acute on chronic congestive heart failure. Old records and details of presentation are below. She was diuresed, was still quite debilitated and transferred to swing bed. On swing bed, the patient initially progressed, had problems with mild hyperka lemia. She subsequently developed watery diarrhea and was found to be positive for C. difficile. She is started on vancomycin. During this time, she continued to experience hyperkalemia with potassium peaking at 6.2 this morning. This is in spite of treatment with insulin and glucose on 07/06, as well as ongoing diarrhea and diuretic therapy. Because of her unstable electrolyte status, she is discharged from swing bed and readmitted to acute care for further therapy of hyperkalemia, ongoing treatment of uncontrolled C. difficile colitis and management of her chronic medical conditions. Patient is complaining of malaise, abdominal pain, ongoing loose stools with fecal incontinence. No nausea or vomiting. She notes some sharp left-sided chest pains when she rolls to the left, no chest tightness squeezing or pressure.. No cough, no sputum production. No dysuria. She has generalized weakness. She is noticed some easy bruising. No headache, no fever, no chills, said no sore throat, no vision changes. No rashes. Mood is a little down. Prior Hospital Course 06/26-Presentation: Ms. Carter is a 73 year old F admitted to inpatient on 06/26 with CHF, then to swing bed status on 06/30. Now admitted to inpatient on 07/07 due to ongoing hyperkalemia. Ms. Carter carries a history of CAD s/p multiple stenting/poorly controlled DM type II/JALIL/known COPD and known to have poor adherence/compliance to medications and follow-up with her care providers. She presented to ER with acute pulmonary edema/decompensated heart failure, altered mental status and anasarca. Patient was started on aggressive diuretics and sedative-hypnotics were discontinued. 06/27-patient clinically improved. Less anxious. Diuresing well. Intermittent chest pain explains however troponins trended 0.05. Potassium down from 5.9- 5.1. Creatinine at 1.5 up from 1.2 hemoglobin improved to 9.3 post 2 units transfusion. Pyuria noted cultures pending. Start Rocephin. No overnight telemetry events. Echocardiogram pending. EKG sinus rhythm 06/28-patient currently on 3 L oxygen. Continues to feel short of breath however improving creatinine. Diuresing well with over 3000 cc net negative in 24 hours. Started on aspirin/beta-frankie/isosorbide/statin. Patient will require outpatient cardiology follow-up on discharge. Had episode of aspiration/choking on her dentures yesterday. Patient would not follow instructions and was trying to eat while laying supine on bed. Intermittent episodes of anxiety requiring Ativan. Case management aggressively coordinating discharge planning/transfer to SNF. On wound VAC managed by podiatry/wound care. White count 8.6 with hemoglobin 9.3. Potassium down to 5.3. Creatinine 1.4. Repeat UA improved leukocytosis on antibiotics. Wound Gram stain GPC urine cultures negative. DC antibiotics 06/29-creatinine improved to 1.3. Magnesium 1.5 on replacement. Potassium down to 4.8. Lymphedema improving. Over 5000 cc net negative fluid balance last 24 hours. On 1 L oxygen and much improved work of breathing. Able to talk in full sentences. Improved anxiety. Wound VAC in place. Blood pressures have improved and currently around 120 on Coreg/isosorbide. 06/30-patient remarkably better. Now on 1 L oxygen. Diuresed over 10,000 cc net negative fluid balance. Much improved lymphedema. Pulmonary edema resolved. Ongoing physical therapy. Tolerating diet. Wound VAC in place. Patient is now being admitted to swing bed status for continued wound care/PT OT in light of severe deconditioning from recent heart failure/peripheral vascular disease with neuropathy and recent amputation requiring wound VAC and aggressive wound care. 10/26 Planes of poor sleep some nausea and chills. some dyspnea. No overnight events. 07/05 Slept well. Patient feeling better. Has occasional nausea and chills. Usually takes 7-Up at home for the nausea. No new complaints. No dysuria frequency chest pain abdominal pain coughing or shortness of breath. pt started having diarrhea. c. diff checked and was positive. vanco started. 07/06 Has crampy abdominal pain, and diarrhea. occasional headache. Has some nausea no vomiting. Potassium up to 5.7. Received infusion of D10 with insulin, returned at 5.6. 07/07 Continues to have frequent loose stools. Continues to take vancomycin. Potassium up to 6.2 this morning. Will discharge from swing bed, readmitted to acute care for further treatment of hyperkalemia. Conservative measures, diuretics, stool losses have been inadequate. Likely will need a binder. Will consider providing fluids and increase diuresis to encourage renal loss of potassium. Patient transferred to inpatient from swing bed due to persistent hyperkalemia and electrolyte abnormalities. All systems: reviewed and no additional remarkable complaints except as stated Medical - H&P: PMH Medical history: Heart failure with reduced ejection fraction, EF 40% on 06/26/2019 Coronary artery disease, status post interventions/PCI Type 2 diabetes mellitus, poorly controlled Obstructive sleep apnea COPD Medical noncompliance History of anemia Diabetic retinopathy Tobacco abuse CKD stage III Hyperlipidemia Hypertension Diabetic neuropathy History of peptic ulcer disease Surgical history: Cholecystectomy Cervical cancer with subsequent total abdominal hysterectomy History of History of hernia repair History of melanoma resection History of toe amputation 06/2019 Pertinent family history: Diabetes mellitus Social history: Has smoked since childhood. No apparent alcohol use Medical - H&P: Meds Home Medications Medication Instructions Recorded Confirmed Type Sertraline [Zoloft] 100 mg PO DAILY 02/09/18 07/01/19 History Albuterol Sulfate [Albuterol 2 puff IH Q4HP PRN 06/26/19 07/01/19 History Sulfate Hfa] Docusate Sodium 100 mg PO BID 06/26/19 07/01/19 History Ergocalciferol (Vitamin D2) 50,000 unit PO WE 06/26/19 07/01/19 History [Vitamin D2] Insulin Glargine, Human [Lantus] 10 unit SQ DAILY 06/26/19 07/01/19 History Nitroglycerin [Nitrostat] 0.4 mg SL Q5MIN PRN 06/26/19 07/01/19 History busPIRone [Buspar] 10 mg PO BID 06/26/19 07/01/19 History prednisoLONE 1% OPHTH DROPS [Pred 1 gtt OD TID 06/26/19 07/01/19 History Forte Ophth Drops] traZODone HCL [Trazodone HCl] 50 mg PO HS 06/26/19 07/01/19 History Atorvastatin [Lipitor] 40 mg PO DAILY 06/27/19 07/01/19 History Aspirin 81 mg CHEWED DAILY #30 tab.chew 06/29/19 07/01/19 Rx Carvedilol [Coreg] 3.125 mg PO BIDCC #30 tab 06/29/19 07/01/19 Rx Furosemide [Lasix] 40 mg PO DAILY #30 tab 06/29/19 07/01/19 Rx Isosorbide Mononitrate [Imdur] 30 mg PO DAILY #30 tab.xl.24h 06/29/19 07/01/19 Rx Melatonin [Melatonin 3Mg Tablet] 3 mg PO HSP PRN tab 06/29/19 07/01/19 Rx Allergies Allergy/AdvReac Type Severity Reaction Status Date / Time morphine Allergy Severe Swelling Verified 06/26/19 20:37 codeine AdvReac Mild Abdominal Verified 06/28/19 07:15 Pain latex AdvReac Mild Itching Verified 06/28/19 07:15 Penicillins AdvReac Mild Itching Verified 06/27/19 09:52 Medical - H&P: Exam - Constitutional Vitals: Temp Pulse Resp BP Pulse Ox 97.2 F 61 22 132/82 95 07/07/19 13:40 07/07/19 13:40 07/07/19 13:40 07/07/19 13:40 07/07/19 13:40 Exam: GENERAL: Alert, oriented, uncomfortable appearing. HEENT: Atraumatic. Pupils equal, conjunctiva clear, no scleral icterus. Hearing grossly intact. Oropharynx with moist mucous membranes, no lip or gum lesions. NECK: Supple without meningismus, no thyromegaly RESPIRATORY: Breath sounds clear bilaterally without wheezes or rhonchi. Respiratory effort is unlabored. CARDIOVASCULAR: Regular rate and rhythm, heart tones are distant but no murmur appreciated. No peripheral edema. Carotid pulses 2+ without bruit. GI: Abdomen soft, mild diffuse tenderness without guarding or rebound. Bowel sounds are active. MUSCULOSKELETAL: No joint erythema or swelling, normal range of motion in extremities. SKIN: Warm, dry. Skin turgor decreased. NEUROLOGIC: Cranial nerves II through XII grossly intact. Muscle mass mildly diminished. Strength 5-/5 in the upper and lower extremities with generalized weakness. Sensation intact to light touch bilaterally. PSYCHIATRIC: Alert, oriented x3, mood and affect congruent with situation, normal insight. Medical - H&P: Reslt - Labs Labs: Labs from last 24 hours 07/07/19 07/07/19 07/07/19 08:12 04:35 04:35 WBC 7.5 RBC 3.38 L Hgb 9.4 L Hct 29.7 L MCV 87.8 MCH 27.9 MCHC 31.8 RDW 17.4 H Plt Count 233 MPV 7.6 Gran % 61.4 Lymph % (Auto) 26.2 Edmunds % (Auto) 9.0 Eos % (Auto) 2.5 Baso % (Auto) 0.9 Gran # 4.6 Lymph # (Auto) 2.0 Edmunds # (Auto) 0.7 Eos # (Auto) 0.2 Baso # (Auto) 0.1 Sodium 135 Potassium 5.9 H* 6.2 H* Chloride 96 Carbon Dioxide 26 Anion Gap 13.0 BUN 38 H Creatinine 1.5 H GFR Calculation 35 Glucose 97 Uric Acid 5.0 Calcium 8.7 Phosphorus 4.4 Magnesium 1.7 Total Bilirubin 0.2 Direct Bilirubin < 0.2 GGT 9 AST 19 ALT 11 Alkaline Phosphatase 63 Lactate Dehydrogenase 233 Total Protein 5.7 L Albumin 2.3 L Globulin 3.4 Albumin/Globulin Ratio 0.7 L Triglycerides 126 07/06/19 16:30 WBC RBC Hgb Hct MCV MCH MCHC RDW Plt Count MPV Gran % Lymph % (Auto) Edmunds % (Auto) Eos % (Auto) Baso % (Auto) Gran # Lymph # (Auto) Edmunds # (Auto) Eos # (Auto) Baso # (Auto) Sodium Potassium 5.6 H Chloride Carbon Dioxide Anion Gap BUN Creatinine GFR Calculation Glucose Uric Acid Calcium Phosphorus Magnesium Total Bilirubin Direct Bilirubin GGT AST ALT Alkaline Phosphatase Lactate Dehydrogenase Total Protein Albumin Globulin Albumin/Globulin Ratio Triglycerides - EKG Data -: EKG Reviewed by Myself EKG shows normal: sinus rhythm, ST-T waves (no peaked T's, ST flattening laterally) Rate: normal (63) Medical - H&P: A/P - Narrative A/P Narrative: 73-year-old female with congestive heart failure, coronary artery disease, poorly controlled diabetes, sleep apnea, hypertension, hyperlipidemia with ongoing diarrhea from C. difficile infection and persistent hyperkalemia while on swing bed being admitted to acute care for further therapy. Hyperkalemia. Unclear etiology, no exogenous potassium being given. She is not on HERB inhibitors or spironolactone. She is on a loop diuretic which would expect to waste potassium and is having copious diarrhea. She does have chronic kidney disease which could be contributing, though her creatinine has been stable. Given her volume losses through the GI tract she could be volume contracted and functionally prerenal which could be contributing to her hyperkalemia. She received insulin glucose yesterday without significant improvement, indeed worsening today. Plan: Admit to inpatient, anticipate minimum of 2 nights inpatient stay. Treat with GI binders, though will likely worsen diarrhea in the short-term. Closely follow serum potassium. Begin IV hydration. Consider pushing fluids and increasing dose of loop diuretics to help with potassium wasting. Avoid HERB inhibitors/ARB/Jn antagonist Chronic kidney disease, stage III in the setting of type 2 diabetes. Creatinine has been stable while on swing bed. Plan: Hydrate as above, avoid ARB/ACEi/aldosterone antagonist. C. difficile diarrhea. Continues with copious diarrhea. On vancomycin at 125 mg every 6 hours. Concern for volume contraction and functional prerenal state. Plan: Continue vancomycin, hydrate. After potassium normalized, consider bulking agent. Type 2 diabetes poorly controlled. On diabetic diet with sliding scale insulin previously. Plan: Accu-Cheks, sliding scale insulin, controlled carbohydrate diet. Congestive heart failure with reduced ejection fraction. EF 40% on echo on 06/26/2019. Was diuresed of 10+ liters during acute hospitalization earlier in June. May actually be a bit volume short currently. Plan: Begin hydration. We will continue with furosemide for now to help promote potassium loss. Hypertension, hyperlipidemia, coronary artery disease. Stable. Plan: Continue home medications/medical management. Prophylaxis: Low molecular weight heparin CODE STATUS: DNR
[2019-07-07] MEDS: VANCOMYCIN ORAL SOL 1,000 MG/10 ML BOTTLE PO SCH ×3 (15:30→21:40)
[2019-07-07] MEDS: prednisoLONE 1% OPHTH DROPS 1ML BOTTLE OD SCH ×2 (16:46→21:40)
[2019-07-07] MEDS: 0.9 % SODIUM CHLORIDE 10 ML SYRINGE IV SCH ×2 (16:46→21:40)
[2019-07-07] MEDS: 0.9 % SODIUM CHLORIDE 1,000 ML IV SCH (16:53)
[2019-07-07] MEDS ORDERED: 0.9 % SODIUM CHLORIDE 500 ML IV ONE (17:09)
[2019-07-07] MEDS: INSULIN LISPRO 1 UNIT/0.01 ML UNIT SQ SCH ×2 (17:38→21:41)
[2019-07-07] MEDS: CARVEDILOL 3.125 MG TABLET PO SCH (17:56)
[2019-07-07] MEDS: busPIRone 5 MG TABLET PO SCH (21:38)
[2019-07-07] MEDS: ATORVASTATIN 40 MG TABLET PO SCH (21:39)
[2019-07-07] MEDS: HYDROCODONE/APAP 7.5/325MG TABLET PO PRN (21:39)
[2019-07-07] MEDS: traZODone HCL 50 MG TABLET PO SCH (21:39)
[2019-07-07] MEDS: MELATONIN 3 MG TABLET PO PRN (21:39)
[2019-07-08] MEDS: 0.9 % SODIUM CHLORIDE 1,000 ML IV SCH ×3 (00:34→22:16)
[2019-07-08] MEDS: 0.9 % SODIUM CHLORIDE 10 ML SYRINGE IV SCH ×3 (05:28→22:12)
[2019-07-08] MEDS: INSULIN LISPRO 1 UNIT/0.01 ML UNIT SQ SCH ×4 (06:55→21:59)
[2019-07-08 09:47] LABS: ALT/SGPT 13 U/l (0-40); AST/SGOT 17 U/l (0-37); Albumin 2.6 gm/dL (3.2-5.2); Albumin/Globulin Ratio 0.8 (1.0-2.3); Alkaline Phosphatase 65 U/L (39-117); Bilirubin,Direct < 0.2 mg/dL (0.0-0.3); Bilirubin,Total < 0.2 mg/dL (0.0-1.0); Blood Urea Nitrogen 28 mg/dl (8-23); Calcium 8.9 mg/dl (8.6-10.4); Carbon Dioxide 28 mmol/L (22-30); Chloride 101 mmol/L (96-108); Globulin 3.2 gm/dL (2.2-3.7); Glomerular Filtration Rate 45; Glucose 105 mg/dL (70-105); Lactate Dehydrogenase 154 U/L (94-250); Phosphorous 4.6 mg/dL (2.7-4.5); Triglycerides 109 mg/dl (<150); Uric Acid 4.9 mg/dL (2.5-8.0)
[2019-07-08] MEDS: ALBUTEROL SULFATE 2.5 MG/3 ML NEBULIZER NEB PRN ×2 (10:20→15:59)
[2019-07-08] MEDS: ENOXAPARIN 40 MG/0.4 ML SYRINGE SQ SCH (10:25)
[2019-07-08] MEDS: VANCOMYCIN ORAL SOL 1,000 MG/10 ML BOTTLE PO SCH ×4 (10:25→22:23)
[2019-07-08] MEDS: ASPIRIN 81 MG TAB.CHEW CHEWED SCH (10:26)
[2019-07-08] MEDS: THIAMINE 100 MG TABLET PO SCH (10:26)
[2019-07-08] MEDS: MULTIVIT,THER IRON,CA,FA & MIN 1 TABLET PO SCH (10:26)
[2019-07-08] MEDS: HYDROCODONE/APAP 7.5/325MG TABLET PO PRN ×2 (10:26→22:08)
[2019-07-08] MEDS: SERTRALINE 100 MG TABLET PO SCH (10:26)
[2019-07-08] MEDS: ISOSORBIDE MONONITRATE 30 MG TAB.XL.24H PO SCH (10:26)
[2019-07-08] MEDS: busPIRone 5 MG TABLET PO SCH ×2 (10:26→22:00)
[2019-07-08] MEDS: FUROSEMIDE 40 MG TABLET PO SCH (10:27)
[2019-07-08] MEDS: INSULIN GLARGINE, HUMAN 1 UNIT/0.01 ML SQ SCH (10:27)
[2019-07-08] MEDS: CARVEDILOL 3.125 MG TABLET PO SCH ×2 (10:30→18:13)
[2019-07-08] MEDS: prednisoLONE 1% OPHTH DROPS 1ML BOTTLE OD SCH ×3 (10:45→22:11)
[2019-07-08] MEDS ORDERED: HYDROCORTISONE CRM 1% TUBE 30GM TOPICAL PRN (14:29)
--- NOTE | 2019-07-08 16:01 | Internal Med Progress Note ---
Medical - PN: Subj Patient information: Note initiated : 07/08/19 at 3:58 pm Service Date, if different from initiated Date: [] Patient: Yessy Carter a 73 y/o F admitted on 07/07/19 for Hyperkalemia. Chief Complaint: f/u hyperkalemia, C diff. Interval history: Presentation to Acute Care: 06/26-Ms. Carter is a 73 year old F admitted to inpatient on 06/26 with CHF, then to swing bed status on 06/30. Now admitted to inpatient on 07/07 due to ongoing hyperkalemia. Ms. Carter carries a history of CAD s/p multiple stenting/poorly controlled DM type II/JALIL/known COPD and known to have poor adherence/compliance to medications and follow-up with her care providers. She presented to ER with acute pulmonary edema/decompensated heart failure, altered mental status and anasarca. Patient was started on aggressive diuretics and sedative-hypnotics were discontinued. 06/27-patient clinically improved. Less anxious. Diuresing well. Intermittent chest pain explains however troponins trended 0.05. Potassium down from 5.9- 5.1. Creatinine at 1.5 up from 1.2 hemoglobin improved to 9.3 post 2 units transfusion. Pyuria noted cultures pending. Start Rocephin. No overnight telemetry events. Echocardiogram pending. EKG sinus rhythm 06/28-patient currently on 3 L oxygen. Continues to feel short of breath however improving creatinine. Diuresing well with over 3000 cc net negative in 24 hours. Started on aspirin/beta-frankie/isosorbide/statin. Patient will require outpatient cardiology follow-up on discharge. Had episode of aspiration/choking on her dentures yesterday. Patient would not follow in structions and was trying to eat while laying supine on bed. Intermittent episodes of anxiety requiring Ativan. Case management aggressively coordinating discharge planning/transfer to SNF. On wound VAC managed by podiatry/wound care. White count 8.6 with hemoglobin 9.3. Potassium down to 5.3. Creatinine 1.4. Repeat UA improved leukocytosis on antibiotics. Wound Gram stain [facility] urine cultures negative. DC antibiotics 06/29-creatinine improved to 1.3. Magnesium 1.5 on replacement. Potassium down to 4.8. Lymphedema improving. Over 5000 cc net negative fluid balance last 24 hours. On 1 L oxygen and much improved work of breathing. Able to talk in full sentences. Improved anxiety. Wound VAC in place. Blood pressures have improved and currently around 120 on Coreg/isosorbide. 06/30-patient remarkably better. Now on 1 L oxygen. Diuresed over 10,000 cc net negative fluid balance. Much improved lymphedema. Pulmonary edema resolved. Ongoing physical therapy. Tolerating diet. Wound VAC in place. Transfer to Swing Bed 06/30-Patient is now being admitted to swing bed status for continued wound care/PT OT in light of severe deconditioning from recent heart failure/peripheral vascular disease with neuropathy and recent amputation requiring wound VAC and aggressive wound care. 07/02 Planes of poor sleep some nausea and chills. some dyspnea. No overnight events. 07/05 Slept well. Patient feeling better. Has occasional nausea and chills. Usually takes 7-Up at home for the nausea. No new complaints. No dysuria frequency chest pain abdominal pain coughing or shortness of breath. pt started having diarrhea. c. diff checked and was positive. vanco started. 07/06 Has crampy abdominal pain, and diarrhea. occasional headache. Has some nausea no vomiting. Potassium up to 5.7. Received infusion of D10 with insulin, returned at 5.6. 07/07 Continues to have frequent loose stools. Continues to take vancomycin. Potassium up to 6.2 this morning. Will discharge from swing bed, readmitted to acute care for further treatment of hyperkalemia. Conservative measures, diuretics, stool losses have been inadequate. Likely will need a binder. Will consider providing fluids and increase diuresis to encourage renal loss of potassium. Transfer to Acute Care: 07/07-On swing bed, the patient initially progressed, had problems with mild hyperkalemia. She subsequently developed watery diarrhea and was found to be positive for C. difficile. She is started on vancomycin. During this time, she continued to experience hyperkalemia with potassium peaking at 6.2 this morning. This is in spite of treatment with insulin and glucose on 07/06, as well as ongoing diarrhea and diuretic therapy. Because of her unstable electrolyte status, she is discharged from swing bed and readmitted to acute care for further therapy of hyperkalemia, ongoing treatment of uncontrolled C. difficile colitis and management of her chronic medical conditions. 07/08 Still complaining of loose stools, though frequency has backed off. Potassium is normalized. Receiving IV fluids. Urine output picked up significantly after fluids, had been marginal at one-point yesterday. Beginning Banatrol for diarrhea control. - Constitutional Vitals: Vital Signs Temp Pulse Resp BP Pulse Ox 97.9 F 66 26 H 142/74 94 07/08/19 15:12 07/08/19 15:12 07/08/19 15:12 07/08/19 15:12 07/08/19 15:12 Period Temp Pulse Resp BP Sys/Allen Pulse Ox Last 24 Hr 97.4 F-98.1 F 66-72 18-26 112-148/62-80 91-96 Intake and Output 07/08/19 07/08/19 07/08/19 05:59 13:59 21:59 Intake Total 1568 1000 Output Total 753 2 Balance 815 998 Weight 265 lb Patient Weight 07/09/19 05:59 Weight 265 lb Intake & Output: Intake & Output 07/08/19 07/08/19 07/08/19 05:59 13:59 21:59 Intake Total 1568 1000 Output Total 753 2 Balance 815 998 Weight 265 lb Intake: Nourishment/Supplement quantity 200 (ml) IV 768 1000 Sodium Chloride 0.9% 1,000 ml @ 768 1000 100 mls/hr IV .Q10H [facility] Rx#: [id number] Oral 600 Output: Void Amount 750 # of times incontinent of urine 3 2 Other: Meal Nourishment/Supplement Breakfast Percent of Meal Consumed 100% 100% Feeding Ability Independent Urine Appearance Clear Urine Color Bright Yellow Urine Odor Normal Stool Size Moderate Stool Color Brown Yellow Stool Consistency Soft Liquid Loose # of times incontinent of 3 Bowels Exam: General: Laying in bed, not as distressed Chest: Clear to auscultation Cardiovascular: Regular rate and rhythm Abdomen: Soft, mildly distended, mild diffuse tenderness without guarding or rebound. Active bowel sounds. Neuro: Alert, oriented, mood is a bit down, somewhat anxious about situation. Medical - PN: Obj Da - Labs CBC & Chem 7: 07/08/19 08:13 Labs: Abnormal Lab Results 07/08/19 07/07/19 08:13 14:10 Potassium 5.4 H BUN 28 H Creatinine 1.2 H Phosphorus 4.6 H Total Protein 5.8 L Albumin 2.6 L Albumin/Globulin Ratio 0.8 L Meds: Medications Hydrocodone Bitart/Acetaminophen ([place] 7.5/325mg) 1 tab PO Q4-6HP PRN; Protocol PRN Reason: Per Pain Protocol Last Admin: 07/08/19 10:26 Dose: 1 tab Documented by: Albuterol Sulfate (Ventolin) 2 puff INH Q4HP PRN PRN Reason: Shortness Of Breath Albuterol Sulfate (Ventolin) 2.5 mg NEB Q4HP PRN PRN Reason: Shortness Of Breath Last Admin: 07/08/19 10:20 Dose: 2.5 mg Documented by: Aspirin (Aspirin) 81 mg CHEWED DAILY [facility] Last Admin: 07/08/19 10:26 Dose: 81 mg Documented by: Atorvastatin Calcium (Lipitor) 40 mg PO HS [facility] Last Admin: 07/07/19 21:39 Dose: 40 mg Documented by: Buspirone HCl (Buspar) 10 mg PO BID [facility] Last Admin: 07/08/19 10:26 Dose: 10 mg Documented by: [facility]) [facility] Last Admin: 07/08/19 10:30 Dose: 3.125 mg Documented by: Diagnostic Test (Pha) (Accu-Chek) 1 each FS ACHS [facility] Last Admin: 07/08/19 11:31 Dose: 1 each Documented by: Enoxaparin Sodium (Lovenox) 40 mg SQ DAILY [facility] Last Admin: 07/08/19 10:25 Dose: 40 mg Documented by: Furosemide (Lasix) 40 mg PO DAILY [facility] Last Admin: 07/08/19 10:27 Dose: 40 mg Documented by: Guaifenesin/Codeine Phosphate (Robitussin Ac) 10 ml PO Q4HP PRN PRN Reason: Cough Hydrocortisone (Hc Crm 1%) 1 dose TOPICAL TIDP PRN PRN Reason: Hemorrhoids Last Admin: 07/08/19 15:00 Dose: 1 dose Documented by: Hydromorphone HCl (Dilaudid) 0.25 - 0.75 mg IV Q3HP PRN; Protocol PRN Reason: Per Pain Protocol Acetaminophen (Ofirmev) 650 mg in 65 mls @ 130 mls/hr IV Q6HP PRN; Protocol PRN Reason: Per Pain Protocol/Fever > 101 Sodium Chloride (Sodium Chloride 0.9%) 1,000 mls @ 100 mls/hr IV .Q10H [facility] Last Admin: 07/08/19 11:22 Dose: 100 mls/hr Documented by: Insulin Glargine (Lantus) 10 unit SQ DAILY [facility] Last Admin: 07/08/19 10:27 Dose: 10 units Documented by: Insulin Human Lispro (Humalog) 0 unit SQ ACHS [facility]; Protocol Last Admin: 07/08/19 12:12 Dose: 1 unit Documented by: Iron Carb/Multivit/[place]/Folic Acid (Multivitamin W/Minerals) 1 tab PO DAILY [facility] Last Admin: 07/08/19 10:26 Dose: 1 tab Documented by: Isosorbide Mononitrate (Imdur) 30 mg PO DAILY [facility] Last Admin: 07/08/19 10:26 Dose: 30 mg Documented by: Melatonin (Melatonin 3mg Tablet) 3 mg PO HSP PRN PRN Reason: Insomnia Last Admin: 07/07/19 21:39 Dose: 3 mg Documented by: Nitroglycerin (Nitrostat) 0.4 mg SL Q5M PRN PRN Reason: Chest Pain Ondansetron HCl (Zofran) 4 mg IV Q4HP PRN PRN Reason: Nausea And Vomiting Ondansetron HCl (Zofran Odt) 4 mg SL Q4HP PRN PRN Reason: Nausea And Vomiting Prednisolone Acetate (Pred Forte Ophth Drops) 1 gtt OD TID [facility] Last Admin: 07/08/19 15:01 Dose: Not Given Documented by: Sertraline HCl (Zoloft) 100 mg PO DAILY [facility] Last Admin: 07/08/19 10:26 Dose: 100 mg Documented by: Sodium Chloride (Saline Flush) 10 ml IV Q8 [facility] Last Admin: 07/08/19 15:01 Dose: Not Given Documented by: Sodium Chloride ([place] Nasal) 2 spray [place] Q4HP PRN PRN Reason: Congestion Thiamine HCl (Vitamin B1) 100 mg PO DAILY [facility] Last Admin: 07/08/19 10:26 Dose: 100 mg Documented by: Trazodone HCl (Desyrel) 50 mg PO HS [facility] Last Admin: 07/07/19 21:39 Dose: 50 mg Documented by: Vancomycin HCl (Vancomycin Oral [place]ie) 125 mg PO QID [facility]; Protocol Last Admin: 07/08/19 15:06 Dose: 1.25 ml Documented by: Medical - PN: A/P - Time Spent With Patient Total time spent is greater than 50% in coordination of care (as documented) at patient's floor/unit and/or counseling patient: 25 - 35 minutes - Narrative A/P Narrative: 73-year-old female with congestive heart failure, coronary artery disease, poorly controlled diabetes, sleep apnea, hypertension, hyperlipidemia with ongoing diarrhea from C. difficile infection and persistent hyperkalemia while on swing bed being admitted to acute care for further therapy. Hyperkalemia. Improved. Unclear etiology, no exogenous potassium being given, she was not on HERB inhibitors or spironolactone. She is on a loop diuretic which would expect to waste potassium and is having copious diarrhea. Suspect contribution from volume depletion and CKD may have led to hyperkalemia. Refractory to initial trial of insulin and glucose. Improved after potassium binders and IV fluids. Plan: Continue inpatient status Closely follow serum potassium. Continue IV hydration. Close attention to volume status given history of congestive heart failure and initial presentation on 06/26 Avoid HERB inhibitors/ARB/Jn antagonist Chronic kidney disease, stage III in the setting of type 2 diabetes. Creatinine has been stable while on swing bed. Plan: Hydrate as above, avoid ARB/ACEi/aldosterone antagonist. C. difficile diarrhea. Starting to slow down in frequency. On vancomycin at 125 mg every 6 hours. Concern for volume contraction and functional prerenal state-improved. Plan: Continue vancomycin and hydration. Add Banatrol. Type 2 diabetes poorly controlled. On diabetic diet with sliding scale insulin previously. Plan: Accu-Cheks, sliding scale insulin, controlled carbohydrate diet. Congestive heart failure with reduced ejection fraction. EF 40% on echo on 06/26/2019. Was diuresed of 10+ liters during acute hospitalization earlier in June. Plan: Continue hydration. Continue with furosemide for now to help promote potassium loss. Hypertension, hyperlipidemia, coronary artery disease. Stable. Plan: Continue home medications/medical management. Right toe amputations. Done prior to initial acute hospitalization. At risk for foot amputation. Plan: Continue wound care. Prophylaxis: Low molecular weight heparin CODE STATUS: DNR
[2019-07-08] MEDS: traZODone HCL 50 MG TABLET PO SCH (21:59)
[2019-07-08] MEDS: ATORVASTATIN 40 MG TABLET PO SCH (22:00)
[2019-07-09] MEDS: ALBUTEROL SULFATE 2.5 MG/3 ML NEBULIZER NEB PRN (02:50)
[2019-07-09] MEDS: 0.9 % SODIUM CHLORIDE 10 ML SYRINGE IV SCH ×3 (05:06→20:46)
[2019-07-09 07:14] LABS: Blood Urea Nitrogen 27 mg/dl (8-23); Carbon Dioxide 27 mmol/L (22-30); Chloride 100 mmol/L (96-108); Glomerular Filtration Rate 41; Glucose 172 mg/dL (70-105)
[2019-07-09] MEDS: ENOXAPARIN 40 MG/0.4 ML SYRINGE SQ SCH (09:55)
[2019-07-09] MEDS: INSULIN LISPRO 1 UNIT/0.01 ML UNIT SQ SCH ×4 (09:55→20:52)
[2019-07-09] MEDS: ASPIRIN 81 MG TAB.CHEW CHEWED SCH (09:57)
[2019-07-09] MEDS: SERTRALINE 100 MG TABLET PO SCH (09:57)
[2019-07-09] MEDS: busPIRone 5 MG TABLET PO SCH ×2 (09:57→20:45)
[2019-07-09] MEDS: ISOSORBIDE MONONITRATE 30 MG TAB.XL.24H PO SCH (09:57)
[2019-07-09] MEDS: FUROSEMIDE 40 MG TABLET PO SCH (09:57)
[2019-07-09] MEDS: INSULIN GLARGINE, HUMAN 1 UNIT/0.01 ML SQ SCH (09:57)
[2019-07-09] MEDS: CARVEDILOL 3.125 MG TABLET PO SCH ×2 (09:57→17:54)
[2019-07-09] MEDS: prednisoLONE 1% OPHTH DROPS 1ML BOTTLE OD SCH ×3 (09:59→20:54)
[2019-07-09] MEDS: MULTIVIT,THER IRON,CA,FA & MIN 1 TABLET PO SCH (09:59)
[2019-07-09] MEDS: 0.9 % SODIUM CHLORIDE 1,000 ML IV SCH ×2 (09:59→16:49)
[2019-07-09] MEDS: VANCOMYCIN ORAL SOL 1,000 MG/10 ML BOTTLE PO SCH ×4 (10:01→20:46)
[2019-07-09] MEDS: THIAMINE 100 MG TABLET PO SCH (10:01)
[2019-07-09] MEDS: HYDROCODONE/APAP 7.5/325MG TABLET PO PRN ×2 (10:06→16:49)
--- NOTE | 2019-07-09 15:19 | Internal Med Progress Note ---
Medical - PN: Subj Patient information: Note initiated : 07/09/19 at 3:16 pm Service Date, if different from initiated Date: [] Patient: Yessy Carter a 73 y/o F admitted on 07/07/19 for Hyperkalemia. Chief Complaint: Follow-up C. difficile and hyperkalemia Interval history: Presentation to Acute Care: 06/26-Ms. Carter is a 73 year old F admitted to inpatient on 06/26 with CHF, then to swing bed status on 06/30. Now admitted to inpatient on 07/07 due to ongoing hyperkalemia. Ms. Carter carries a history of CAD s/p multiple stenting/poorly controlled DM type II/JALIL/known COPD and known to have poor adherence/compliance to medications and follow-up with her care providers. She presented to ER with acute pulmonary edema/decompensated heart failure, altered mental status and anasarca. Patient was started on aggressive diuretics and sedative-hypnotics were discontinued. 06/27-patient clinically improved. Less anxious. Diuresing well. Intermittent chest pain explains however troponins trended 0.05. Potassium down from 5.9- 5.1. Creatinine at 1.5 up from 1.2 hemoglobin improved to 9.3 post 2 units transfusion. Pyuria noted cultures pending. Start Rocephin. No overnight telemetry events. Echocardiogram pending. EKG sinus rhythm 06/28-patient currently on 3 L oxygen. Continues to feel short of breath however improving creatinine. Diuresing well with over 3000 cc net negative in 24 hours. Started on aspirin/beta-frankie/isosorbide/statin. Patient will require outpatient cardiology follow-up on discharge. Had episode of aspiration/choking on her dentures yesterday. Patient would not follow instructions and was trying to eat while laying supine on bed. Intermittent episodes of anxiety requiring Ativan. Case management aggressively coordinating discharge planning/transfer to SNF. On wound VAC managed by podiatry/wound care. White count 8.6 with hemoglobin 9.3. Potassium down to 5.3. Creatinine 1.4. Repeat UA improved leukocytosis on antibiotics. Wound Gram stain GPC urine cultures negative. DC antibiotics 06/29-creatinine improved to 1.3. Magnesium 1.5 on replacement. Potassium down to 4.8. Lymphedema improving. Over 5000 cc net negative fluid balance last 24 hours. On 1 L oxygen and much improved work of breathing. Able to talk in full sentences. Improved anxiety. Wound VAC in place. Blood pressures have improved and currently around 120 on Coreg/isosorbide. 06/30-patient remarkably better. Now on 1 L oxygen. Diuresed over 10,000 cc net negative fluid balance. Much improved lymphedema. Pulmonary edema resolved. Ongoing physical therapy. Tolerating diet. Wound VAC in place. Transfer to Swing Bed 06/30-Patient is now being admitted to swing bed status for continued wound care/PT OT in light of severe deconditioning from recent heart failure/peripheral vascular disease with neuropathy and recent amputation requiring wound VAC and aggressive wound care. 07/02 Planes of poor sleep some nausea and chills. some dyspnea. No overnight events. 07/05 Slept well. Patient feeling better. Has occasional nausea and chills. Usually takes 7-Up at home for the nausea. No new complaints. No dysuria frequency chest pain abdominal pain coughing or shortness of breath. pt started having diarrhea. c. diff checked and was positive. vanco started. 07/06 Has crampy abdominal pain, and diarrhea. occasional headache. Has some nausea no vomiting. Potassium up to 5.7. Received infusion of D10 with insulin, returned at 5.6. 07/07 Continues to have frequent loose stools. Continues to take vancomycin. Po tassium up to 6.2 this morning. Will discharge from swing bed, readmitted to acute care for further treatment of hyperkalemia. Conservative measures, diuretics, stool losses have been inadequate. Likely will need a binder. Will consider providing fluids and increase diuresis to encourage renal loss of potassium. Transfer to Acute Care: 07/07-On swing bed, the patient initially progressed, had problems with mild hyperkalemia. She subsequently developed watery diarrhea and was found to be positive for C. difficile. She is started on vancomycin. During this time, she continued to experience hyperkalemia with potassium peaking at 6.2 this morning. This is in spite of treatment with insulin and glucose on 07/06, as well as ongoing diarrhea and diuretic therapy. Because of her unstable electrolyte status, she is discharged from swing bed and readmitted to acute care for further therapy of hyperkalemia, ongoing treatment of uncontrolled C. difficile colitis and management of her chronic medical conditions. 11/1 Still complaining of loose stools, though frequency has backed off. Potassium is normalized. Receiving IV fluids. Urine output picked up significantly after fluids, had been marginal at one-point yesterday. Beginning Banatrol for diarrhea control. 07/09 Bowel movements have tapered off. Intermittent nausea persists. No fever. No headache. Wondering when she can go home. Explained that she will likely be able to go back to swing bed status for further rehab tomorrow. - Constitutional Vitals: Vital Signs Temp Pulse Resp BP Pulse Ox 97.7 F 57 L 18 145/65 94 07/09/19 12:00 07/09/19 12:00 07/09/19 12:00 07/09/19 12:00 07/09/19 12:00 Period Temp Pulse Resp BP Sys/Allen Pulse Ox Last 24 Hr 97.7 F-98.6 F 57-66 16-20 127-160/56-71 93-95 Intake and Output 07/09/19 07/09/19 07/09/19 05:59 13:59 21:59 Intake Total 1000 Output Total 551 1002 675 Balance 449 -1002 -675 Intake & Output: Intake & Output 07/09/19 07/09/19 07/09/19 05:59 13:59 21:59 Intake Total 1000 Output Total 551 1002 675 Balance 449 1002 -675 Intake: IV 1000 Sodium Chloride 0.9% 1,000 ml @ 1000 100 mls/hr IV .Q10H [facility] Rx#: [id number] Output: Void Amount 550 1000 675 # of times incontinent of urine 1 2 Other: Meal Lunch Percent of Meal Consumed 100% Urine Appearance Clear Clear Urine Color Bright Yellow Pale Urine Odor Normal Normal Exam: General: In bed no acute distress Chest: Clear, no rales Cardiovascular: Regular, no edema Abdomen: Soft, mild right upper quadrant tenderness without rebound. Negative Romero sign. Neuro: Alert, generally weak. Medical - PN: Obj Da - Labs CBC & Chem 7: 07/09/19 04:56 Labs: Abnormal Lab Results 07/09/19 07/08/19 07/07/19 04:56 08:13 14:10 Potassium 5.2 H 5.4 H BUN 27 H 28 H Creatinine 1.3 H 1.2 H Glucose 172 H Phosphorus 4.6 H Total Protein 5.8 L Albumin 2.6 L Albumin/Globulin Ratio 0.8 L Meds: Medications Hydrocodone Bitart/Acetaminophen ([place] 7.5/325mg) 1 tab PO Q4-6HP PRN; Protocol PRN Reason: Per Pain Protocol Last Admin: 07/09/19 10:06 Dose: 1 tab Documented by: Albuterol Sulfate (Ventolin) 2 puff INH Q4HP PRN PRN Reason: Shortness Of Breath Albuterol Sulfate (Ventolin) 2.5 mg NEB Q4HP PRN PRN Reason: Shortness Of Breath Last Admin: 07/09/19 02:50 Dose: 2.5 mg Documented by: Aspirin (Aspirin) 81 mg CHEWED DAILY [facility] Last Admin: 07/09/19 09:57 Dose: 81 mg Documented by: Atorvastatin Calcium (Lipitor) 40 mg PO HS [facility] Last Admin: 07/08/19 22:00 Dose: 40 mg Documented by: Buspirone HCl (Buspar) 10 mg PO BID [facility] Last Admin: 07/09/19 09:57 Dose: 10 mg Documented by: [facility]il[facility] (Coreg) [facility] Last Admin: 07/09/19 09:57 Dose: 3.125 mg Documented by: Diagnostic Test (Pha) (Accu-Chek) 1 each FS ACHS [facility] Last Admin: 07/09/19 12:42 Dose: 1 each Documented by: Enoxaparin Sodium (Lovenox) 40 mg SQ DAILY [facility] Last Admin: 07/09/19 09:55 Dose: 40 mg Documented by: Furosemide (Lasix) 40 mg PO DAILY [facility] Last Admin: 07/09/19 09:57 Dose: 40 mg Documented by: Guaifenesin/Codeine Phosphate (Robitussin Ac) 10 ml PO Q4HP PRN PRN Reason: Cough Hydrocortisone (Hc Crm 1%) 1 dose TOPICAL TIDP PRN PRN Reason: Hemorrhoids Last Admin: 07/08/19 15:00 Dose: 1 dose Documented by: Hydromorphone HCl (Dilaudid) 0.25 - 0.75 mg IV Q3HP PRN; Protocol PRN Reason: Per Pain Protocol Acetaminophen (Ofirmev) 650 mg in 65 mls @ 130 mls/hr IV Q6HP PRN; Protocol PRN Reason: Per Pain Protocol/Fever > 101 Sodium Chloride (Sodium Chloride 0.9%) 1,000 mls @ 100 mls/hr IV .Q10H [facility] Last Admin: 07/09/19 09:59 Dose: Not Given Documented by: Insulin Glargine (Lantus) 10 unit SQ DAILY [facility] Last Admin: 07/09/19 09:57 Dose: 10 units Documented by: Insulin Human Lispro (Humalog) 0 unit SQ ACHS [facility]; Protocol Last Admin: 07/09/19 12:42 Dose: 1 unit Documented by: Iron Carb/Multivit/[place]/Folic Acid (Multivitamin W/Minerals) 1 tab PO DAILY [facility] Last Admin: 07/09/19 09:59 Dose: 1 tab Documented by: Isosorbide Mononitrate (Imdur) 30 mg PO DAILY [facility] Last Admin: 07/09/19 09:57 Dose: 30 mg Documented by: Melatonin (Melatonin 3mg Tablet) 3 mg PO HSP PRN PRN Reason: Insomnia Last Admin: 07/07/19 21:39 Dose: 3 mg Documented by: Nitroglycerin (Nitrostat) 0.4 mg SL Q5M PRN PRN Reason: Chest Pain Ondansetron HCl (Zofran) 4 mg IV Q4HP PRN PRN Reason: Nausea And Vomiting Ondansetron HCl (Zofran Odt) 4 mg SL Q4HP PRN PRN Reason: Nausea And Vomiting Prednisolone Acetate (Pred Forte Ophth Drops) 1 gtt OD TID [facility] Last Admin: 07/09/19 09:59 Dose: Not Given Documented by: Sertraline HCl (Zoloft) 100 mg PO DAILY [facility] Last Admin: 07/09/19 09:57 Dose: 100 mg Documented by: Sodium Chloride (Saline Flush) 10 ml IV Q8 [facility] Last Admin: 07/09/19 05:06 Dose: 10 ml Documented by: Sodium Chloride (Spink Nasal) 2 spray [place] Q4HP PRN PRN Reason: Congestion Thiamine HCl (Vitamin B1) 100 mg PO DAILY [facility] Last Admin: 07/09/19 10:01 Dose: 100 mg Documented by: Trazodone HCl (Desyrel) 50 mg PO HS [facility] Last Admin: 07/08/19 21:59 Dose: 50 mg Documented by: Vancomycin HCl (Vancomycin Oral Trixie) 125 mg PO QID [facility]; Protocol Last Admin: 11/02/19 10:01 Dose: 1.25 ml Documented by: Medical - PN: A/P - Time Spent With Patient Total time spent is greater than 50% in coordination of care (as documented) at patient's floor/unit and/or counseling patient: 25 - 35 minutes - Narrative A/P Narrative: 73-year-old female with congestive heart failure, coronary artery disease, poorly controlled diabetes, sleep apnea, hypertension, hyperlipidemia with ongoing diarrhea from C. difficile infection and persistent hyperkalemia while on swing bed being admitted to acute care for further therapy. Hyperkalemia. Improved/stable. Unclear etiology, no exogenous potassium being given, not on HERB inhibitors or spironolactone. She remains on a loop diuretic which would expect to waste potassium and was having copious diarrhea. Suspect contribution from volume depletion and CKD may have led to hyperkalemia. Refractory to initial trial of insulin and glucose. Improved after potassium binders and IV fluids. Plan: Closely follow serum potassium. Continue IV hydration, decrease rate Close attention to volume status given history of congestive heart failure and initial presentation on 06/26 Avoid HERB inhibitors/ARB/Jn antagonist If stable, likely back to swing bed in 24 to 48 hours Chronic kidney disease, stage III in the setting of type 2 diabetes. Creatinine has been stable while on swing bed. Plan: Hydrate as above, avoid ARB/ACEi/aldosterone antagonist. C. difficile diarrhea. Stooling is tapering off. Remains on vancomycin at 125 mg every 6 hours. Concern for volume contraction and functional prerenal state- improved. Plan: Continue vancomycin and hydration, though decreased rated as above. Continue Banatrol. Type 2 diabetes poorly controlled. On diabetic diet with sliding scale insulin previously. Plan: Accu-Cheks, sliding scale insulin, controlled carbohydrate diet. Congestive heart failure with reduced ejection fraction. EF 40% on echo on 06/26/2019. Was diuresed of 10+ liters during acute hospitalization earlier in June. Plan: Continue gentle hydration. Continue with furosemide for now to help promote potassium loss. May need less aggressive of a diuretic once fluid stopped Hypertension, hyperlipidemia, coronary artery disease. Stable. Plan: Continue home medications/medical management. Right toe amputations. Done prior to initial acute hospitalization. At risk for foot amputation. Plan: Continue wound care. Prophylaxis: Low molecular weight heparin CODE STATUS: DNR
[2019-07-09] MEDS: traZODone HCL 50 MG TABLET PO SCH (20:45)
[2019-07-09] MEDS: ATORVASTATIN 40 MG TABLET PO SCH (20:45)
[2019-07-09] MEDS: MELATONIN 3 MG TABLET PO PRN (20:45)
[2019-07-10] MEDS: ALBUTEROL SULFATE 2.5 MG/3 ML NEBULIZER NEB PRN ×3 (00:27→08:47)
[2019-07-10] MEDS: 0.9 % SODIUM CHLORIDE 1,000 ML IV SCH (04:29)
[2019-07-10] MEDS: 0.9 % SODIUM CHLORIDE 10 ML SYRINGE IV SCH ×3 (04:40→21:05)
[2019-07-10 06:27] LABS: Blood Urea Nitrogen 27 mg/dl (8-23); Calcium 9.1 mg/dl (8.6-10.4); Carbon Dioxide 26 mmol/L (22-30); Chloride 104 mmol/L (96-108); Glomerular Filtration Rate 45; Glucose 107 mg/dL (70-105)
[2019-07-10] MEDS: THIAMINE 100 MG TABLET PO SCH (08:07)
[2019-07-10] MEDS: HYDROCODONE/APAP 7.5/325MG TABLET PO PRN ×3 (08:07→20:51)
[2019-07-10] MEDS: busPIRone 5 MG TABLET PO SCH ×2 (08:07→20:51)
[2019-07-10] MEDS: INSULIN LISPRO 1 UNIT/0.01 ML UNIT SQ SCH ×4 (08:07→21:05)
[2019-07-10] MEDS: ASPIRIN 81 MG TAB.CHEW CHEWED SCH (08:08)
[2019-07-10] MEDS: CARVEDILOL 3.125 MG TABLET PO SCH ×2 (08:08→16:33)
[2019-07-10] MEDS: FUROSEMIDE 40 MG TABLET PO SCH (08:08)
[2019-07-10] MEDS: INSULIN GLARGINE, HUMAN 1 UNIT/0.01 ML SQ SCH (08:08)
[2019-07-10] MEDS: SERTRALINE 100 MG TABLET PO SCH (08:08)
[2019-07-10] MEDS: ISOSORBIDE MONONITRATE 30 MG TAB.XL.24H PO SCH (08:08)
[2019-07-10] MEDS: MULTIVIT,THER IRON,CA,FA & MIN 1 TABLET PO SCH (08:08)
[2019-07-10] MEDS: VANCOMYCIN ORAL SOL 1,000 MG/10 ML BOTTLE PO SCH ×4 (08:09→20:54)
[2019-07-10] MEDS: prednisoLONE 1% OPHTH DROPS 1ML BOTTLE OD SCH ×3 (08:09→21:05)
[2019-07-10] MEDS: ENOXAPARIN 40 MG/0.4 ML SYRINGE SQ SCH (08:47)
--- NOTE | 2019-07-10 09:21 | Internal Med Progress Note ---
Medical - PN: Subj Patient information: Note initiated : 07/10/19 at 9:18 am Service Date, if different from initiated Date: [] Patient: Yessy Carter a 73 y/o F admitted on 07/07/19 for Hyperkalemia. Chief Complaint: f/u C diff, hyperkalemia Interval history: Presentation to Acute Care: 06/26-Ms. Carter is a 73 year old F admitted to inpatient on 06/26 with CHF, then to swing bed status on 06/30. Now admitted to inpatient on 07/07 due to ongoing hyperkalemia. Ms. Carter carries a history of CAD s/p multiple stenting/poorly controlled DM type II/JALIL/known COPD and known to have poor adherence/compliance to medications and follow-up with her care providers. She presented to ER with acute pulmonary edema/decompensated heart failure, altered mental status and anasarca. Patient was started on aggressive diuretics and sedative-hypnotics were discontinued. 06/27-patient clinically improved. Less anxious. Diuresing well. Intermittent chest pain explains however troponins trended 0.05. Potassium down from 5.9- 5.1. Creatinine at 1.5 up from 1.2 hemoglobin improved to 9.3 post 2 units transfusion. Pyuria noted cultures pending. Start Rocephin. No overnight telemetry events. Echocardiogram pending. EKG sinus rhythm 06/28-patient currently on 3 L oxygen. Continues to feel short of breath h owever improving creatinine. Diuresing well with over 3000 cc net negative in 24 hours. Started on aspirin/beta-frankie/isosorbide/statin. Patient will require outpatient cardiology follow-up on discharge. Had episode of aspiration/choking on her dentures yesterday. Patient would not follow ins tructions and was trying to eat while laying supine on bed. Intermittent episodes of anxiety requiring Ativan. Case management aggressively coordinating discharge planning/transfer to SNF. On wound VAC managed by podiatry/wound care. White count 8.6 with hemoglobin 9.3. Potassium down to 5.3. Creatinine 1.4. Repeat UA improved leukocytosis on antibiotics. Wound Gram stain GPC urine cultures negative. DC antibiotics 06/29-creatinine improved to 1.3. Magnesium 1.5 on replacement. Potassium down to 4.8. Lymphedema improving. Over 5000 cc net negative fluid balance last 24 hours. On 1 L oxygen and much improved work of breathing. Able to talk in full sentences. Improved anxiety. Wound VAC in place. Blood pressures have improved and currently around 120 on Coreg/isosorbide. 06/30-patient remarkably better. Now on 1 L oxygen. Diuresed over 10,000 cc net negative fluid balance. Much improved lymphedema. Pulmonary edema resolved. Ongoing physical therapy. Tolerating diet. Wound VAC in place. Transfer to Swing Bed 06/30-Patient is now being admitted to swing bed status for continued wound care/PT OT in light of severe deconditioning from recent heart failure/peripheral vascular disease with neuropathy and recent amputation requiring wound VAC and aggressive wound care. 07/02 Planes of poor sleep some nausea and chills. some dyspnea. No overnight events. 07/05 Slept well. Patient feeling better. Has occasional nausea and chills. Usually takes 7-Up at home for the nausea. No new complaints. No dysuria frequency chest pain abdominal pain coughing or shortness of breath. pt started having diarrhea. c. diff checked and was positive. vanco started. 07/06 Has crampy abdominal pain, and diarrhea. occasional headache. Has some nausea no vomiting. Potassium up to 5.7. Received infusion of D10 with insulin, returned at 5.6. 07/07 Continues to have frequent loose stools. Continues to take vancomycin. Potassium up to 6.2 this morning. Will discharge from swing bed, readmitted to acute care for further treatment of hyperkalemia. Conservative measures, diuretics, stool losses have been inadequate. Likely will need a binder. Will consider providing fluids and increase diuresis to encourage renal loss of potassium. Transfer to Acute Care: 07/07-On swing bed, the patient initially progressed, had problems with mild hyperkalemia. She subsequently developed watery diarrhea and was found to be positive for C. difficile. She is started on vancomycin. During this time, she continued to experience hyperkalemia with potassium peaking at 6.2 this morning. This is in spite of treatment with insulin and glucose on 07/06, as well as ongoing diarrhea and diuretic therapy. Because of her unstable electrolyte status, she is discharged from swing bed and readmitted to acute care for further therapy of hyperkalemia, ongoing treatment of uncontrolled C. difficile colitis and management of her chronic medical conditions. 07/08 Still complaining of loose stools, though frequency has backed off. Potassium is normalized. Receiving IV fluids. Urine output picked up significantly after fluids, had been marginal at one-point yesterday. Beginning Banatrol for diarrhea control. 07/09 Bowel movements have tapered off. Intermittent nausea persists. No fever. No headache. Wondering when she can go home. Explained that she will likely be able to go back to swing bed status for further rehab tomorrow. 07/10 Diarrhea resolved. Complaining of some dyspnea this morning, the lungs are clear. Appetite is okay. Approaching change back to rehab, likely on Thursday when more staff available to get him enrolled in swing bed. Potassium 5.3 today. - Constitutional Vitals: Vital Signs Temp Pulse Resp BP Pulse Ox 98.8 F 60 20 139/57 92 07/10/19 07:46 07/10/19 08:49 07/10/19 08:49 07/10/19 07:46 07/10/19 08:50 Period Temp Pulse Resp BP Sys/Allen Pulse Ox Last 24 Hr 97.6 F-98.8 F 57-71 18- 124-176/57-76 90-97 Intake and Output 07/09/19 07/10/19 07/10/19 22:59 05:59 13:59 Intake Total Output Total 150 Balance -150 Weight Intake & Output: Intake & Output 07/09/19 07/10/19 07/10/19 22:59 05:59 13:59 Intake Total Output Total 150 Balance -150 Weight Intake: Oral Output: Urine Catheter Amount Void Amount 150 # of times incontinent of urine Other: Urine Appearance Urine Color Stool Size Smear Stool Color Brown Stool Consistency Mayda # Bowel Movements 1 Exam: General: Propped up in bed having breakfast Chest: Lungs are clear bilaterally without rales Cardiovascular: Regular, no peripheral edema Abdomen: Soft, very mild discomfort on right lateral abdomen, no guarding, no re bound, active bowel sounds Musculoskeletal: Right foot with wound VAC in place Neuro: Alert, oriented to self, place, situation. Nonambulatory and generally weak. Medical - PN: Obj Da - Labs CBC & Chem 7: 07/10/19 05:06 Labs: Abnormal Lab Results 07/10/19 07/09/19 07/08/19 05:06 04:56 08:13 Potassium 5.3 H 5.2 H BUN 27 H 27 H 28 H Creatinine 1.2 H 1.3 H 1.2 H Glucose 107 H 172 H Phosphorus 4.6 H Total Protein 5.8 L Albumin 2.6 L Albumin/Globulin Ratio 0.8 L 07/07/19 14:10 Potassium 5.4 H BUN Creatinine Glucose Phosphorus Total Protein Albumin Albumin/Globulin Ratio Meds: Medications Hydrocodone Bitart/Acetaminophen ([place] 7.5/325mg) 1 tab PO Q4-6HP PRN; Protocol PRN Reason: Per Pain Protocol Last Admin: 07/10/19 08:07 Dose: 1 tab Documented by: Albuterol Sulfate (Ventolin) 2 puff INH Q4HP PRN PRN Reason: Shortness Of Breath Albuterol Sulfate (Ventolin) 2.5 mg NEB Q4HP PRN PRN Reason: Shortness Of Breath Last Admin: 07/10/19 08:47 Dose: 2.5 mg Documented by: Aspirin (Aspirin) 81 mg CHEWED DAILY [facility] Last Admin: 07/10/19 08:08 Dose: 81 mg Documented by: Atorvastatin Calcium (Lipitor) 40 mg PO [facility] Last Admin: 07/09/19 20:45 Dose: 40 mg Documented by: Buspirone HCl (Buspar) 10 mg PO BID [facility] Last Admin: 07/10/19 08:07 Dose: 10 mg Documented by: [facility] Last Admin: 07/10/19 08:08 Dose: 3.125 mg Documented by: Diagnostic Test (Pha) (Accu-Chek) 1 each FS ACHS [facility] Last Admin: 07/10/19 08:07 Dose: 1 each Documented by: Enoxaparin Sodium (Lovenox) 40 mg SQ DAILY [facility] Last Admin: 07/10/19 08:47 Dose: 40 mg Documented by: Furosemide (Lasix) 40 mg PO DAILY [facility] Last Admin: 07/10/19 08:08 Dose: 40 mg Documented by: Guaifenesin/Codeine Phosphate (Robitussin Ac) 10 ml PO Q4HP PRN PRN Reason: Cough Hydrocortisone (Hc Crm 1%) 1 dose TOPICAL TIDP PRN PRN Reason: Hemorrhoids Last Admin: 07/08/19 15:00 Dose: 1 dose Documented by: Hydromorphone HCl (Dilaudid) 0.25 - 0.75 mg IV Q3HP PRN; Protocol PRN Reason: Per Pain Protocol Acetaminophen (Ofirmev) 650 mg in 65 mls @ 130 mls/hr IV Q6HP PRN; Protocol PRN Reason: Per Pain Protocol/Fever > 101 Sodium Chloride (Sodium Chloride 0.9%) 1,000 mls @ 75 mls/hr IV .[id number] [facility] Last Admin: 07/10/19 04:29 Dose: Not Given Documented by: Insulin Glargine (Lantus) 10 unit SQ DAILY [facility] Last Admin: 07/10/19 08:08 Dose: 10 units Documented by: Insulin Human Lispro (Humalog) 0 unit SQ ACHS [facility]; Protocol Last Admin: 07/10/19 08:07 Dose: Not Given Documented by: Iron Carb/Multivit/[place]/Folic Acid (Multivitamin W/Minerals) 1 tab PO DAILY [facility] Last Admin: 07/10/19 08:08 Dose: 1 tab Documented by: Isosorbide Mononitrate (Imdur) 30 mg PO DAILY [facility] Last Admin: 07/10/19 08:08 Dose: 30 mg Documented by: Melatonin (Melatonin 3mg Tablet) 3 mg PO HSP PRN PRN Reason: Insomnia Last Admin: 07/09/19 20:45 Dose: 3 mg Documented by: Nitroglycerin (Nitrostat) 0.4 mg SL Q5M PRN PRN Reason: Chest Pain Ondansetron HCl (Zofran) 4 mg IV Q4HP PRN PRN Reason: Nausea And Vomiting Ondansetron HCl (Zofran Odt) 4 mg SL Q4HP PRN PRN Reason: Nausea And Vomiting Prednisolone Acetate (Pred Forte Ophth Drops) 1 gtt OD TID [facility] Last Admin: 07/10/19 08:09 Dose: Not Given Documented by: Sertraline HCl (Zoloft) 100 mg PO DAILY [facility] Last Admin: 07/10/19 08:08 Dose: 100 mg Documented by: Sodium Chloride (Saline Flush) 10 ml IV Q8 [facility] Last Admin: 07/10/19 04:40 Dose: Not Given Documented by: Sodium Chloride ([place] Nasal) 2 spray [place] Q4HP PRN PRN Reason: Congestion Thiamine HCl (Vitamin B1) 100 mg PO DAILY [facility] Last Admin: 07/10/19 08:07 Dose: 100 mg Documented by: Trazodone HCl (Desyrel) 50 mg PO HS [facility] Last Admin: 07/09/19 20:45 Dose: 50 mg Documented by: Vancomycin HCl (Vancomycin Oral Trixie) 125 mg PO QID [facility]; Protocol Last Admin: 07/10/19 08:09 Dose: 1.25 ml Documented by: Medical - PN: A/P - Time Spent With Patient Total time spent is greater than 50% in coordination of care (as documented) at patient's floor/unit and/or counseling patient: 25 - 35 minutes - Narrative A/P Narrative: 73-year-old female with congestive heart failure, coronary artery disease, poorly controlled diabetes, sleep apnea, hypertension, hyperlipidemia with ongoing diarrhea from C. difficile infection and persistent hyperkalemia while on swing bed being admitted to acute care for further therapy. Hyperkalemia. Improved/stable. Unclear etiology, no exogenous potassium being given, not on HERB inhibitors or spironolactone. She remains on a loop diuretic which would expect to waste potassium and was having copious diarrhea. Suspect contribution from volume depletion and CKD may have led to hyperkalemia. Ref ractory to initial trial of insulin and glucose. Improved after potassium binders and IV fluids. Potassium now appears stable in the low 5 range. Plan: Continue to monitor potassium Saline lock Close attention to volume status given history of congestive heart failure and initial presentation on 06/26 Avoid HERB inhibitors/ARB/Jn antagonist Anticipate back to swing bed on 07/11 Chronic kidney disease, stage III in the setting of type 2 diabetes. Creatinine has been stable while on swing bed. Plan: Status post hydration as noted above. Avoid ARB/ACEi/aldosterone antagonist. C. difficile diarrhea. Diarrhea resolved. Remains on vancomycin at 125 mg every 6 hours. Concern for volume contraction and functional prerenal state at time of transition back to acute care, which is now improved/resolved. Plan: Continue vancomycin and Banatrol. Type 2 diabetes poorly controlled. On diabetic diet with sliding scale insulin previously. Plan: Accu-Cheks, sliding scale insulin, controlled carbohydrate diet. Congestive heart failure with reduced ejection fraction. EF 40% on echo on . Was diuresed of 10+ liters during acute hospitalization earlier in June. Plan: Now saline locked. Continue with furosemide to maintain volume status and promote potassium loss. Reevaluate as to whether she needs a less aggressive diuretic regimen. Hypertension, hyperlipidemia, coronary artery disease. Stable. Plan: Continue home medications/medical management. Right toe amputations. Done prior to initial acute hospitalization. At risk for foot amputation. Plan: Continue wound care, wound VAC Prophylaxis: Low molecular weight heparin CODE STATUS: DNR
--- NOTE | 2019-07-10 14:24 | Discharge Summary ---
Medical - DS: Prov Patient information: Note initiated : 07/10/19 at 2:23 pm Service Date, if different from initiated Date: [] Patient: Yessy Carter 73 y/o F admitted on 07/07/19 for Hyperkalemia. Chief Complaint: [] Date of admission: 07/07/19 10:56 Discharge date: 07/13/19 Primary care physician: Dalia Monsivais Consults: 07/07/19 11:58 Consult to Physician [CONS] Routine Comment: Consulting Provider: Abhay Martinez Reason For Exam: Physician to Consult Medical - DS: Meds - Discharge Medications Prescriptions: Vancomycin [Vancocin] 125 mg PO QID #8 cap Prescription Printed Active and Home Medications: Home Medications Sertraline [Zoloft] 100 mg PO DAILY 02/09/18 [History Confirmed 07/08/19 Last Taken Unknown] Albuterol Sulfate [Albuterol Sulfate Hfa] 2 puff IH Q4HP PRN 06/26/19 [History Confirmed 07/08/19 Last Taken Unknown] Docusate Sodium 100 mg PO BID 06/26/19 [History Confirmed 07/08/19 Last Taken Unknown] Ergocalciferol (Vitamin D2) [Vitamin D2] 50,000 unit PO WE 06/26/19 [History Confirmed 07/08/19 Last Taken Unknown] Insulin Glargine, Human [Lantus] 10 unit SQ DAILY 06/26/19 [History Confirmed 07/08/19 Last Taken Unknown] Nitroglycerin [Nitrostat] 0.4 mg SL Q5MIN PRN 06/26/19 [History Confirmed 07/08/19 Last Taken Unknown] busPIRone [Buspar] 10 mg PO BID 06/26/19 [History Confirmed 07/08/19 Last Taken Unknown] prednisoLONE 1% OPHTH DROPS [Pred Forte Ophth Drops] 1 gtt OD TID 06/26/19 [History Confirmed 07/08/19 Last Taken Unknown] traZODone HCL [Trazodone HCl] 50 mg PO HS 06/26/19 [History Confirmed 07/08/19 Last Taken Unknown] Atorvastatin [Lipitor] 40 mg PO DAILY 06/27/19 [History Confirmed 07/08/19 Last Taken Unknown] Aspirin 81 mg CHEWED DAILY #30 tab.chew 06/29/19 [Rx Confirmed 07/08/19 Last Taken Unknown] Carvedilol [Coreg] 3.125 mg PO BIDCC #30 tab 06/29/19 [Rx Confirmed 07/08/19 Last Taken Unknown] Furosemide [Lasix] 40 mg PO DAILY #30 tab 06/29/19 [Rx Confirmed 07/08/19 Last Taken Unknown] Isosorbide Mononitrate [Imdur] 30 mg PO DAILY #30 tab.xl.24h 06/29/19 [Rx Confirmed 07/08/19 Last Taken Unknown] Melatonin [Melatonin 3Mg Tablet] 3 mg PO HSP PRN tab 06/29/19 [Rx Confirmed 07/08/19 Last Taken Unknown] Medical - DS: Hosp Hospital Course: 06/26-Ms. Carter is a 73 year old F admitted to inpatient on 06/26 with CHF, then to swing bed status on 06/30. Now admitted to inpatient on 07/07 due to ongoing hyperkalemia. Ms. Carter carries a history of CAD s/p multiple stenting/poorly controlled DM type II/JALIL/known COPD and known to have poor adherence/compliance to medications and follow-up with her care providers. She presented to ER with acute pulmonary edema/decompensated heart failure, altered mental status and an asarca. Patient was started on aggressive diuretics and sedative-hypnotics were discontinued. 06/27-patient clinically improved. Less anxious. Diuresing well. Intermittent chest pain explains however troponins trended 0.05. Potassium down from 5.9- 5.1. Creatinine at 1.5 up from 1.2 hemoglobin improved to 9.3 post 2 units transfusion. Pyuria noted cultures pending. Start Rocephin. No overnight telemetry events. Echocardiogram pending. EKG sinus rhythm 06/28-patient currently on 3 L oxygen. Continues to feel short of breath however improving creatinine. Diuresing well with over 3000 cc net negative in 24 hours. Started on aspirin/beta-frankie/isosorbide/statin. Patient will require outpatient cardiology follow-up on discharge. Had episode of aspiration/choking on her dentures yesterday. Patient would not follow instructions and was trying to eat while laying supine on bed. Intermittent episodes of anxiety requiring Ativan. Case management aggressively coordinating discharge planning/transfer to SNF. On wound VAC managed by podiatry/wound care. White count 8.6 with hemoglobin 9.3. Potassium down to 5.3. Creatinine 1.4. Repeat UA improved leukocytosis on antibiotics. Wound Gram stain GPC urine cultures negative. DC antibiotics 06/29-creatinine improved to 1.3. Magnesium 1.5 on replacement. Potassium down to 4.8. Lymphedema improving. Over 5000 cc net negative fluid balance last 24 hours. On 1 L oxygen and much improved work of breathing. Able to talk in full sentences. Improved anxiety. Wound VAC in place. Blood pressures have improved and currently around 120 on Coreg/isosorbide. 06/30-patient remarkably better. Now on 1 L oxygen. Diuresed over 10,000 cc net negative fluid balance. Much improved lymphedema. Pulmonary edema resolve d. Ongoing physical therapy. Tolerating diet. Wound VAC in place. Transfer to Swing Bed 06/30-Patient is now being admitted to swing bed status for continued wound care/PT OT in light of severe deconditioning from recent heart failure/peripheral vascular disease with neuropathy and recent amputation requiring wound VAC and aggressive wound care. 07/02 Planes of poor sleep some nausea and chills. some dyspnea. No overnight events. 07/05 Slept well. Patient feeling better. Has occasional nausea and chills. Usually takes 7-Up at home for the nausea. No new complaints. No dysuria frequency chest pain abdominal pain coughing or shortness of breath. pt started having diarrhea. c. diff checked and was positive. vanco started. 07/06 Has crampy abdominal pain, and diarrhea. occasional headache. Has some nausea no vomiting. Potassium up to 5.7. Received infusion of D10 with insulin, returned at 5.6. 07/07 Continues to have frequent loose stools. Continues to take vancomycin. Potassium up to 6.2 this morning. Will discharge from swing bed, readmitted to acute care for further treatment of hyperkalemia. Conservative measures, diuretics, stool losses have been inadequate. Likely will need a binder. Will consider providing fluids and increase diuresis to encourage renal loss of potassium. Transfer to Acute Care: 07/07-On swing bed, the patient initially progressed, had problems with mild hyperkalemia. She subsequently developed watery diarrhea and was found to be positive for C. difficile. She is started on vancomycin. During this time, she continued to experience hyperkalemia with potassium peaking at 6.2 this morning. This is in spite of treatment with insulin and glucose on 07/06, as well as ongoing diarrhea and diuretic therapy. Because of her unstable electrolyte status, she is discharged from swing bed and readmitted to acute care for further therapy of hyperkalemia, ongoing treatment of uncontrolled C. difficile colitis and management of her chronic medical conditions. 07/08 Still complaining of loose stools, though frequency has backed off. Potassium is normalized. Receiving IV fluids. Urine output picked up significantly after fluids, had been marginal at one-point yesterday. Beginning Banatrol for diarrhea control. 07/09 Bowel movements have tapered off. Intermittent nausea persists. No fever. No headache. Wondering when she can go home. Explained that she will likely be able to go back to swing bed status for further rehab tomorrow. 07/10 Diarrhea resolved. Complaining of some dyspnea this morning, the lungs are clear. Appetite is okay. Approaching change back to rehab, likely on Thursday when more staff available to get him enrolled in swing bed. Potassium 5.3 t tomas. 07/11 Slept better. Feeling better. No overnight events or new complaints. Stools are thickening up. Calcium up to 5.6 today. 11 difficulties with potassium. Reconsult nephrology. 07/12 Slept well. Did have some upset stomach through the day and evening after the Kayexalate yesterday. Otherwise no new complaints. Case reviewed again by Dr. Cooper regarding hyperkalemia. Could be related to RTA versus heparin product. Also awaiting for rehab placement. 07/13 Stomach feels better than yesterday. Sleeping okay. No new complaints. Stating that she does not want to go to rehab, had a discussion with her about how she is doing physical therapy and will discuss with case management. Testing improved. Discussed with nephrology. Patient follow-up with nephrology and stable for discharge. Discharge diagnosis: CHF C. difficile colitis hyperkalemia diabetes hypertension Secondary discharge diagnosis: Recent right toe amputation chronic kidney disease anemia anxiety tobacco abuse COPD deconditioning - Time Spent with Patient Total time spent providing and/or coordinating discharge services: Greater than 30 minutes Medical - DS: Exam - Constitutional Vitals: Vital Signs Temp Pulse Pulse Pulse Resp BP Pulse Ox 07/10/19 12:00 98.1 F 54 L 16 120/51 96 07/10/19 08:50 92 07/10/19 08:49 60 20 07/10/19 07:46 98.8 F 20 139/57 90 07/10/19 04:00 98.0 F 71 22 155/61 97 07/10/19 00:28 60 20 07/10/19 00:00 97.6 F 60 20 124/76 93 07/09/19 20:00 98.1 F 65 20 162/60 94 07/09/19 16:22 97.6 F 07/09/19 16:00 97.6 F 57 L 18 176/74 94 Intake and Output 07/10/19 07/10/19 07/10/19 05:59 13:59 21:59 Intake Total Output Total 325 Balance -325 Intake: Oral Output: Urine Catheter Amount Void Amount 325 # of times incontinent of urine Other: Urine Appearance Urine Color Stool Size Smear Stool Color Brown Stool Consistency Mayda # Bowel Movements 1 Medical - DS: Data Labs on day of discharge: Labs from last 24 hours 07/10/19 05:06 Sodium 142 Potassium 5.3 H Chloride 104 Carbon Dioxide 26 Anion Gap 12.0 BUN 27 H Creatinine 1.2 H GFR Calculation 45 Glucose 107 H Calcium 9.1 Medical - DS: A/P - Patient/Caregiver Discharge Instructions Activity: as per physical therapy Diet: Consistent Carbohydrate Additional Instructions: Up with PCP in 3 to 7 days Follow-up with mine utility operator in 7 to 10 days Prescriptions: Vancomycin [Vancocin] 125 mg PO QID #18 cap - Follow up Plan Follow up with: Jorge Oglesby DPM [Physician] - Kole Cooper MD [Physician] - Disposition: [facility] Prognosis: Undetermined Rehab Potential: Fair I certify that the patient requires SNF services: Yes Overall status at discharge: patient is progressing back to baseline
[2019-07-10] MEDS: ATORVASTATIN 40 MG TABLET PO SCH (20:50)
[2019-07-10] MEDS: traZODone HCL 50 MG TABLET PO SCH (20:51)
[2019-07-11] MEDS: 0.9 % SODIUM CHLORIDE 10 ML SYRINGE IV SCH ×3 (07:02→21:59)
[2019-07-11 07:07] LABS: Blood Urea Nitrogen 29 mg/dl (8-23); Calcium 9.5 mg/dl (8.6-10.4); Carbon Dioxide 28 mmol/L (22-30); Chloride 101 mmol/L (96-108); Glomerular Filtration Rate 38; Glucose 88 mg/dL (70-105)
[2019-07-11] MEDS: INSULIN LISPRO 1 UNIT/0.01 ML UNIT SQ SCH ×4 (07:15→21:58)
[2019-07-11] MEDS: CARVEDILOL 3.125 MG TABLET PO SCH ×2 (07:22→18:32)
[2019-07-11] MEDS ORDERED: SODIUM POLYSTYRENE SULFONATE 15 GM/60 ML SUSPENSION PO ONE (08:09)
--- NOTE | 2019-07-11 08:09 | Internal Med Progress Note ---
Medical - PN: Subj Patient information: Note initiated : 07/11/19 at 8:04 am Service Date, if different from initiated Date: [] Patient: Yessy Carter a 73 y/o F admitted on 07/07/19 for Hyperkalemia. Chief Complaint: [] Interval history: Presentation to Acute Care: 06/26-Ms. Carter is a 73 year old F admitted to inpatient on 06/26 with CHF, then to swing bed status on 06/30. Now admitted to inpatient on 07/07 due to ongoing hyperkalemia. Ms. Carter carries a history of CAD s/p multiple stenting/poorly controlled DM type II/JALIL/known COPD and known to have poor adherence/compliance to medications and follow-up with her care providers. She presented to ER with acute pulmonary edema/decompensated heart failure, altered mental status and anasarca. Patient was started on aggressive diuretics and sedative-hypnotics were discontinued. 06/27-patient clinically improved. Less anxious. Diuresing well. Intermittent chest pain explains however troponins trended 0.05. Potassium down from 5.9- 5.1. Creatinine at 1.5 up from 1.2 hemoglobin improved to 9.3 post 2 units transfusion. Pyuria noted cultures pending. Start Rocephin. No overnight telemetry events. Echocardiogram pending. EKG sinus rhythm 06/28-patient currently on 3 L oxygen. Continues to feel short of breath however improving creatinine. Diuresing well with over 3000 cc net negative in 24 hours. Started on aspirin/beta-frankie/isosorbide/statin. Patient will require outpatient cardiology follow-up on discharge. Had episode of aspiration/choking on her dentures yesterday. Patient would not follow instructions and was trying to eat while laying supine on bed. Intermittent episodes of anxiety requiring Ativan. Case management aggressively coordinating discharge planning/transfer to SNF. On wound VAC managed by podiatry/wound care. White count 8.6 with hemoglobin 9.3. Potassium down to 5.3. Creatinine 1.4. Repeat UA improved leukocytosis on antibiotics. Wound Gram stain [facility] urine cultures negative. DC antibiotics 06/29-creatinine improved to 1.3. Magnesium 1.5 on replacement. Potassium down to 4.8. Lymphedema improving. Over 5000 cc net negative fluid balance last 24 hours. On 1 L oxygen and much improved work of breathing. Able to talk in full sentences. Improved anxiety. Wound VAC in place. Blood pressures have improved and currently around 120 on Coreg/isosorbide. 06/30-patient remarkably better. Now on 1 L oxygen. Diuresed over 10,000 cc net negative fluid balance. Much improved lymphedema. Pulmonary edema resolved. Ongoing physical therapy. Tolerating diet. Wound VAC in place. Transfer to Swing Bed 06/30-Patient is now being admitted to swing bed status for continued wound care/PT OT in light of severe deconditioning from recent heart failure/peripheral vascular disease with neuropathy and recent amputation requiring wound VAC and aggressive wound care. 07/02 Planes of poor sleep some nausea and chills. some dyspnea. No overnight events. 07/05 Slept well. Patient feeling better. Has occasional nausea and chills. Usually takes 7-Up at home for the nausea. No new complaints. No dysuria frequency chest pain abdominal pain coughing or shortness of breath. pt started having diarrhea. c. diff checked and was positive. vanco started. 07/06 Has crampy abdominal pain, and diarrhea. occasional headache. Has some nausea no vomiting. Potassium up to 5.7. Received infusion of D10 with insulin, returned at 5.6. 07/07 Continues to have frequent loose stools. Continues to take vancomycin. Potassium up to 6.2 this morning. Will discharge from swing bed, readmitted to acute care for further treatment of hyperkalemia. Conservative measures, diuretics, stool losses have been inadequate. Likely will need a binder. Will consider providing fluids and increase diuresis to encourage renal loss of pota ssium. Transfer to Acute Care: 07/07-On swing bed, the patient initially progressed, had problems with mild hyperkalemia. She subsequently developed watery diarrhea and was found to be positive for C. difficile. She is started on vancomycin. During this time, she continued to experience hyperkalemia with potassium peaking at 6.2 this morning. This is in spite of treatment with insulin and glucose on 07/06, as well as ongoing diarrhea and diuretic therapy. Because of her unstable electrolyte status, she is discharged from swing bed and readmitted to acute care for further therapy of hyperkalemia, ongoing treatment of uncontrolled C. difficile colitis and management of her chronic medical conditions. 07/08 Still complaining of loose stools, though frequency has backed off. Potassium is normalized. Receiving IV fluids. Urine output picked up significantly after fluids, had been marginal at one-point yesterday. Beginning Banatrol for diarrhea control. 07/09 Bowel movements have tapered off. Intermittent nausea persists. No fever. No headache. Wondering when she can go home. Explained that she will likely be able to go back to swing bed status for further rehab tomorrow. 07/10 Diarrhea resolved. Complaining of some dyspnea this morning, the lungs are clear. Appetite is okay. Approaching change back to rehab, likely on Thursday when more staff available to get him enrolled in swing bed. Potassium 5.3 today. 07/11 Slept better. Feeling better. No overnight events or new complaints. Stools are thickening up. Calcium up to 5.6 today. 11 difficulties with potassium. Reconsult nephrology. Review of Systems: Occasional headache none currently, occasional nausea no vomiting. denies fever/chills/vomiting/cough Otherwise see above. - Constitutional Vitals: Vital Signs Temp Pulse Resp BP Pulse Ox 97.8 F 82 12 125/65 98 07/11/19 04:36 07/11/19 04:36 07/11/19 04:36 07/11/19 04:36 07/11/19 04:36 Period Temp Pulse Resp BP Sys/Allen Pulse Ox Last 24 Hr 97.8 F-98.5 F 54-88 12-20 112-174/51-74 92-98 Intake and Output 07/10/19 07/11/19 07/11/19 21:59 05:59 13:59 Intake Total 350 480 Output Total 401 402 300 Balance -51 78 -300 Intake & Output: Intake & Output 07/10/19 07/11/19 07/11/19 21:59 05:59 13:59 Intake Total 350 480 Output Total 401 402 300 Balance -51 78 -300 Intake: Oral 350 480 Output: Void Amount 400 400 300 # of times incontinent of urine 1 2 Other: Urine Appearance Clear Clear Clear Urine Color Pale Bright Yellow Pale Stool Size Smear Stool Color Brown Stool Consistency Formed # Voids 0 # Bowel Movements 2 # of times incontinent of 1 Bowels Exam: General: Alert, Awake, NAD, obese Eyes/N/T: EOMI, Head/Neck: neck supple, CV: RRR, No murmurs, Pulm: diminished b/l, no wheezing Abd: soft, protuberant, +BS x4 Ext: no clubbing/cyanosis, trace b/l LE edema, Neuro: Alert, no focal deficits, moves all extremities, Skin: warm/dry Medical - PN: Obj Da - Labs CBC & Chem 7: 07/11/19 05:15 Labs: Abnormal Lab Results 07/11/19 07/10/19 07/09/19 05:15 05:06 04:56 Potassium 5.6 H 5.3 H 5.2 H BUN 29 H 27 H 27 H Creatinine 1.4 H 1.2 H 1.3 H Glucose 107 H 172 H Phosphorus Total Protein Albumin Albumin/Globulin Ratio 07/08/19 08:13 Potassium BUN 28 H Creatinine 1.2 H Glucose Phosphorus 4.6 H Total Protein 5.8 L Albumin 2.6 L Albumin/Globulin Ratio 0.8 L Meds: Medications Hydrocodone Bitart/Acetaminophen ([place] 7.5/325mg) 1 tab PO Q4-6HP PRN; Protocol PRN Reason: Per Pain Protocol Last Admin: 07/10/19 20:51 Dose: 1 tab Documented by: Albuterol Sulfate (Ventolin) 2 puff INH Q4HP PRN PRN Reason: Shortness Of Breath Albuterol Sulfate (Ventolin) 2.5 mg NEB Q4HP PRN PRN Reason: Shortness Of Breath Last Admin: 07/10/19 08:47 Dose: 2.5 mg Documented by: Aspirin (Aspirin) 81 mg CHEWED DAILY [facility] Last Admin: 07/10/19 08:08 Dose: 81 mg Documented by: Atorvastatin Calcium (Lipitor) 40 mg PO HS [facility] Last Admin: 07/10/19 20:50 Dose: 40 mg Documented by: Buspirone HCl (Buspar) 10 mg PO BID [facility] Last Admin: 07/10/19 20:51 Dose: 10 mg Documented by: [facility] Last Admin: 07/11/19 07:22 Dose: 3.125 mg Documented by: Diagnostic Test (Pha) (Accu-Chek) 1 each FS ACHS [facility] Last Admin: 07/11/19 07:15 Dose: 1 each Documented by: Enoxaparin Sodium (Lovenox) 40 mg SQ DAILY [facility] Last Admin: 07/10/19 08:47 Dose: 40 mg Documented by: Furosemide (Lasix) 40 mg PO DAILY [facility] Last Admin: 07/10/19 08:08 Dose: 40 mg Documented by: Guaifenesin/Codeine Phosphate (Robitussin Ac) 10 ml PO Q4HP PRN PRN Reason: Cough Hydrocortisone (Hc Crm 1%) 1 dose TOPICAL TIDP PRN PRN Reason: Hemorrhoids Last Admin: 07/08/19 15:00 Dose: 1 dose Documented by: Hydromorphone HCl (Dilaudid) 0.25 - 0.75 mg IV Q3HP PRN; Protocol PRN Reason: Per Pain Protocol Acetaminophen (Ofirmev) 650 mg in 65 mls @ 130 mls/hr IV Q6HP PRN; Protocol PRN Reason: Per Pain Protocol/Fever > 101 Insulin Glargine (Lantus) 10 unit SQ DAILY [facility] Last Admin: 07/10/19 08:08 Dose: 10 units Documented by: Insulin Human Lispro (Humalog) 0 unit SQ ACHS [facility]; Protocol Last Admin: 07/11/19 07:15 Dose: 2 unit Documented by: Iron Carb/Multivit/[place]/Folic Acid (Multivitamin W/Minerals) 1 tab PO DAILY [facility] Last Admin: 07/10/19 08:08 Dose: 1 tab Documented by: Isosorbide Mononitrate (Imdur) 30 mg PO DAILY [facility] Last Admin: 07/10/19 08:08 Dose: 30 mg Documented by: Melatonin (Melatonin 3mg Tablet) 3 mg PO HSP PRN PRN Reason: Insomnia Last Admin: 07/09/19 20:45 Dose: 3 mg Documented by: Nitroglycerin (Nitrostat) 0.4 mg SL Q5M PRN PRN Reason: Chest Pain Ondansetron HCl (Zofran) 4 mg IV Q4HP PRN PRN Reason: Nausea And Vomiting Ondansetron HCl (Zofran Odt) 4 mg SL Q4HP PRN PRN Reason: Nausea And Vomiting Prednisolone Acetate (Pred Forte Ophth Drops) 1 gtt OD TID [facility] Last Admin: 07/10/19 21:05 Dose: Not Given Documented by: Sertraline HCl (Zoloft) 100 mg PO DAILY [facility] Last Admin: 07/10/19 08:08 Dose: 100 mg Documented by: Sodium Chloride (Saline Flush) 10 ml IV Q8 [facility] Last Admin: 07/11/19 07:02 Dose: Not Given Documented by: Sodium Chloride ([place] Nasal) 2 spray [place] Q4HP PRN PRN Reason: Congestion Thiamine HCl (Vitamin B1) 100 mg PO DAILY [facility] Last Admin: 07/10/19 08:07 Dose: 100 mg Documented by: Trazodone HCl (Desyrel) 50 mg PO HS [facility] Last Admin: 07/10/19 20:51 Dose: 50 mg Documented by: Vancomycin HCl (Vancomycin Oral Trixie) 125 mg PO QID [facility]; Protocol Last Admin: 07/10/19 20:54 Dose: 1.25 ml Documented by: Medical - PN: A/P - Time Spent With Patient Total time spent is greater than 50% in coordination of care (as documented) at patient's floor/unit and/or counseling patient: - Narrative A/P Narrative: A: *Hyperkalemia: mild persistent -Unclear etiology, no exogenous potassium being given, not on HERB inhibitors or spironolactone. She remains on a loop diuretic which would expect to waste potassium and was having copious diarrhea. Suspect contribution from volume depletion and CKD may have led to hyperkalemia. Refractory to initial trial of insulin and glucose. Improved after potassium binders and IV fluids. *c. diff colitis: *Right 2nd/5th toe amputation: recently done by Dr. Newsome at [facility] *Severe weakness/deconditionin/2 PVD/ADHF/morbid obesity/recent toe amputation *Acute on chronic diastolic/systolic CHF: improved *Acute pulmonary edema: resolved *Elevated troponins likely secondary to acute heart failure. Case discussed with peanut farmer at [facility] Dr. Hollis Earl. Troponins normalized *Acute on chronic hypoxic/hypercapnic respiratory failure: 2/2 above, resolved *JACQUE on CKD IIIa: stable *Anemia requiring transfusion on admission: Improved post 2 units PRBC -stable *DM II w/PVD and recent toe amputation: *HTN: *Anxiety d/o: BuSpar/SSRI *Tobacco abuse: *COPD (uses 2L O2@night): Plan: -Nephro reconsult Avoid HERB inhibitors/ARB/Jn antagonist -cont home lasix -PO vanco x10 days -Podiatry following, cont wound Vac and weight bearing status per podiatry -wound care -pt/ot -Cont aspirin/statin/Coreg/isosorbide, -continue aggressive PT OT/wound care during swing bed stay -SSI and basal -Smoking cessation counseling -f/u with cardiology outpt -ppx: lovenox DNR
[2019-07-11] MEDS: VANCOMYCIN ORAL SOL 1,000 MG/10 ML BOTTLE PO SCH ×4 (08:31→21:59)
[2019-07-11] MEDS: ENOXAPARIN 40 MG/0.4 ML SYRINGE SQ SCH (08:31)
[2019-07-11] MEDS: HYDROCODONE/APAP 7.5/325MG TABLET PO PRN ×3 (08:33→21:57)
[2019-07-11] MEDS: THIAMINE 100 MG TABLET PO SCH (08:34)
[2019-07-11] MEDS: FUROSEMIDE 40 MG TABLET PO SCH (08:34)
[2019-07-11] MEDS: MULTIVIT,THER IRON,CA,FA & MIN 1 TABLET PO SCH (08:34)
[2019-07-11] MEDS: busPIRone 5 MG TABLET PO SCH ×2 (08:34→21:57)
[2019-07-11] MEDS: SERTRALINE 100 MG TABLET PO SCH (08:34)
[2019-07-11] MEDS: ISOSORBIDE MONONITRATE 30 MG TAB.XL.24H PO SCH (08:34)
[2019-07-11] MEDS: ASPIRIN 81 MG TAB.CHEW CHEWED SCH (08:34)
[2019-07-11] MEDS: INSULIN GLARGINE, HUMAN 1 UNIT/0.01 ML SQ SCH (09:53)
[2019-07-11] MEDS: prednisoLONE 1% OPHTH DROPS 1ML BOTTLE OD SCH ×3 (09:54→21:58)
--- NOTE | 2019-07-11 14:45 | Nephrology Progress Note ---
Subjective Patient information: Note initiated : 07/11/19 at 2:43 pm Service Date, if different from initiated Date: [] Patient: Yessy Carter 73 y/o F admitted on 07/07/19 for Hyperkalemia. Chief Complaint: [] She is feeling ok. Wound is still not healing. Objective - Vital Signs Vital signs: Vital Signs Temp Pulse Pulse Resp BP BP Pulse Ox 07/11/19 11:45 97.6 F 52 L 18 98/50 97 07/11/19 08:00 97.4 F 53 L 20 100/52 95 07/11/19 04:36 97.8 F 82 12 125/65 98 07/10/19 23:35 98.5 F 64 18 124/65 97 07/10/19 20:00 98.0 F 55 L 18 112/74 96 07/10/19 17:45 88 18 95 07/10/19 16:00 98.2 F 20 174/61 98 Intake and Output 07/11/19 07/11/19 07/11/19 05:59 13:59 21:59 Intake Total 480 Output Total 402 360 200 Balance 78 -360 -200 Intake: Oral 480 Output: Void Amount 400 360 200 # of times incontinent of urine 2 Other: Urine Appearance Clear Clear Urine Color Bright Yellow Pale Urine Odor Normal Intake & Output: Intake & Output 07/11/19 07/11/19 07/11/19 05:59 13:59 21:59 Intake Total 480 Output Total 402 360 200 Balance 78 -360 -200 Intake: Oral 480 Output: Void Amount 400 360 200 # of times incontinent of urine 2 Other: Urine Appearance Clear Clear Urine Color Bright Yellow Pale Urine Odor Normal - General Appearance General appearance: well-developed, well-nourished EENT: ATNC Neck: no JVD Respiratory: no kyphosis Cardiology: no murmurs Gastrointestinal: normoactive bowel sounds Integumentary: no rash Neurologic: no focal deficit - Lab 07/11/19 05:15 Most recent lab results Calcium 9.5 mg/dl (8.6-10.4) 07/11/19 05:15 Phosphorus 4.6 mg/dL (2.7-4.5) H 07/08/19 08:13 Magnesium 1.7 mg/dL (1.6-2.5) 11/01/19 08:13 Assessment and Plan (1) JACQUE (acute kidney injury) Status: Acute Comment: JACQUE on CKD, volume overloaded with CHF. Got diuresed. Renal ultrasound is unremarkable. Getting alkalotic, better. Potassium, High probably related to lovenox. Will check renin and zachary levels. Hypertension. Better.
[2019-07-11] MEDS: traZODone HCL 50 MG TABLET PO SCH (21:56)
[2019-07-11] MEDS: MELATONIN 3 MG TABLET PO PRN (21:56)
[2019-07-11] MEDS: ONDANSETRON 4 MG ODT TABLET SL PRN (21:57)
[2019-07-11] MEDS: ATORVASTATIN 40 MG TABLET PO SCH (21:59)
[2019-07-12] MEDS: 0.9 % SODIUM CHLORIDE 10 ML SYRINGE IV SCH ×3 (05:47→21:41)
--- NOTE | 2019-07-12 07:47 | Internal Med Progress Note ---
Medical - PN: Subj Patient information: Note initiated : 07/12/19 at 7:45 am Service Date, if different from initiated Date: [] Patient: Yessy Carter a 73 y/o F admitted on 07/07/19 for Hyperkalemia. Chief Complaint: [] Interval history: Presentation to Acute Care: 06/26-Ms. Carter is a 73 year old F admitted to inpatient on 06/26 with CHF, then to swing bed status on 06/30. Now admitted to inpatient on 07/07 due to ongoing hyperkalemia. Ms. Carter carries a history of CAD s/p multiple stenting/poorly controlled DM type II/JALIL/known COPD and known to have poor adherence/compliance to medications and follow-up with her care providers. She presented to ER with acute pulmonary edema/decompensated heart failure, altered mental status and anasarca. Patient was started on aggressive diuretics and sedative-hypnotics were discontinued. 06/27-patient clinically improved. Less anxious. Diuresing well. Intermittent chest pain explains however troponins trended 0.05. Potassium down from 5.9- 5.1. Creatinine at 1.5 up from 1.2 hemoglobin improved to 9.3 post 2 units transfusion. Pyuria noted cultures pending. Start Rocephin. No overnight telemetry events. Echocardiogram pending. EKG sinus rhythm 06/28-patient currently on 3 L oxygen. Continues to feel short of breath however improving creatinine. Diuresing well with over 3000 cc net negative in 24 hours. Started on aspirin/beta-frankie/isosorbide/statin. Patient will require outpatient cardiology follow-up on discharge. Had episode of aspiration/choking on her dentures yesterday. Patient would not follow instructions and was trying to eat while laying supine on bed. Intermittent episodes of anxiety requiring Ativan. Case management aggressively coordinating discharge planning/transfer to SNF. On wound VAC managed by podiatry/wound care. White count 8.6 with hemoglobin 9.3. Potassium down to 5.3. Creatinine 1.4. Repeat UA improved leukocytosis on antibiotics. Wound Gram stain [facility] urine cultures negative. DC antibiotics 06/29-creatinine improved to 1.3. Magnesium 1.5 on replacement. Potassium down to 4.8. Lymphedema improving. Over 5000 cc net negative fluid balance last 24 hours. On 1 L oxygen and much improved work of breathing. Able to talk in full sentences. Improved anxiety. Wound VAC in place. Blood pressures have improved and currently around 120 on Coreg/isosorbide. 06/30-patient remarkably better. Now on 1 L oxygen. Diuresed over 10,000 cc net negative fluid balance. Much improved lymphedema. Pulmonary edema resolved. Ongoing physical therapy. Tolerating diet. Wound VAC in place. Transfer to Swing Bed 06/30-Patient is now being admitted to swing bed status for continued wound care/PT OT in light of severe deconditioning from recent heart failure/peripheral vascular disease with neuropathy and recent amputation requiring wound VAC and aggressive wound care. 07/02 Planes of poor sleep some nausea and chills. some dyspnea. No overnight events. 07/05 Slept well. Patient feeling better. Has occasional nausea and chills. Usually takes 7-Up at home for the nausea. No new complaints. No dysuria frequency chest pain abdominal pain coughing or shortness of breath. pt started having diarrhea. c. diff checked and was positive. vanco started. 07/06 Has crampy abdominal pain, and diarrhea. occasional headache. Has some nausea no vomiting. Potassium up to 5.7. Received infusion of D10 with insulin, returned at 5.6. 07/07 Continues to have frequent loose stools. Continues to take vancomycin. Potassium up to 6.2 this morning. Will discharge from swing bed, readmitted to acute care for further treatment of hyperkalemia. Conservative measures, diuretics, stool losses have been inadequate. Likely will need a binder. Will consider providing fluids and increase diuresis to encourage renal loss of pota ssium. Transfer to Acute Care: 07/07-On swing bed, the patient initially progressed, had problems with mild hyperkalemia. She subsequently developed watery diarrhea and was found to be positive for C. difficile. She is started on vancomycin. During this time, she continued to experience hyperkalemia with potassium peaking at 6.2 this morning. This is in spite of treatment with insulin and glucose on 07/06, as well as ongoing diarrhea and diuretic therapy. Because of her unstable electrolyte status, she is discharged from swing bed and readmitted to acute care for further therapy of hyperkalemia, ongoing treatment of uncontrolled C. difficile colitis and management of her chronic medical conditions. 07/08 Still complaining of loose stools, though frequency has backed off. Potassium is normalized. Receiving IV fluids. Urine output picked up significantly after fluids, had been marginal at one-point yesterday. Beginning Banatrol for diarrhea control. 07/09 Bowel movements have tapered off. Intermittent nausea persists. No fever. No headache. Wondering when she can go home. Explained that she will likely be able to go back to swing bed status for further rehab tomorrow. 07/10 Diarrhea resolved. Complaining of some dyspnea this morning, the lungs are clear. Appetite is okay. Approaching change back to rehab, likely on Thursday when more staff available to get him enrolled in swing bed. Potassium 5.3 today. 07/11 Slept better. Feeling better. No overnight events or new complaints. Stools are thickening up. Calcium up to 5.6 today. 11 difficulties with potassium. Reconsult nephrology. 07/12 Slept well. Did have some upset stomach through the day and evening after the Kayexalate yesterday. Otherwise no new complaints. Case reviewed again by Dr. Cooper regarding hyperkalemia. Could be related to RTA versus heparin product. Also awaiting for rehab placement. Review of Systems: denies headache/fever/chills/vomiting/cough Otherwise see above. - Constitutional Vitals: Vital Signs Temp Pulse Resp BP Pulse Ox 97.6 F 66 20 128/66 91 07/12/19 03:38 07/12/19 03:38 07/12/19 03:38 07/12/19 03:38 07/12/19 03:38 Period Temp Pulse Resp BP Sys/Allen Pulse Ox Last 24 Hr 97.4 F-98.2 F 52-66 18-24 88-128/48-66 90-97 Intake and Output 07/11/19 07/12/19 07/12/19 21:59 05:59 13:59 Intake Total 500 Output Total 201 302 Balance -201 198 Weight 120.746 kg 120.746 kg Intake & Output: Intake & Output 07/11/19 07/12/19 07/12/19 21:59 05:59 13:59 Intake Total 500 Output Total 201 302 Balance -201 198 Weight 120.746 kg 120.746 kg Intake: Oral 500 Output: Drainage 0 Right Woundvac 0 Void Amount 200 300 # of times incontinent of urine 1 2 Other: Urine Appearance Clear Clear Urine Color Bright Yellow Bright Yellow Urine Odor Normal Normal Stool Size Large Stool Color Brown Brown Stool Consistency Soft Soft # of times incontinent of 1 Bowels Exam: General: Alert, Awake, NAD, obese Eyes/N/T: EOMI, Head/Neck: neck supple, CV: RRR, No murmurs, Pulm: diminished b/l, no wheezing Abd: soft, protuberant, +BS x4 Ext: no clubbing/cyanosis, trace b/l LE edema, Neuro: Alert, no focal deficits, moves all extremities, Skin: warm/dry Medical - PN: Obj Da - Labs CBC & Chem 7: 07/11/19 05:15 Labs: Abnormal Lab Results 07/11/19 07/10/19 05:15 05:06 Potassium 5.6 H 5.3 H BUN 29 H 27 H Creatinine 1.4 H 1.2 H Glucose 107 H Meds: Medications Hydrocodone Bitart/Acetaminophen ([place] 7.5/325mg) 1 tab PO Q4-6HP PRN; Protocol PRN Reason: Per Pain Protocol Last Admin: 07/11/19 21:57 Dose: 1 tab Documented by: Albuterol Sulfate (Ventolin) 2 puff INH Q4HP PRN PRN Reason: Shortness Of Breath Albuterol Sulfate (Ventolin) 2.5 mg NEB Q4HP PRN PRN Reason: Shortness Of Breath Last Admin: 07/10/19 08:47 Dose: 2.5 mg Documented by: Aspirin (Aspirin) 81 mg CHEWED DAILY [facility] Last Admin: 07/11/19 08:34 Dose: 81 mg Documented by: Atorvastatin Calcium (Lipitor) 40 mg PO HS [facility] Last Admin: 07/11/19 21:59 Dose: 40 mg Documented by: Buspirone HCl (Buspar) 10 mg PO BID [facility] Last Admin: 07/11/19 21:57 Dose: 10 mg Documented by: [facility] Last Admin: 07/11/19 18:32 Dose: 3.125 mg Documented by: Diagnostic Test (Pha) (Accu-Chek) 1 each FS ACHS [facility] Last Admin: 07/11/19 21:58 Dose: 1 each Documented by: Fondaparinux (Arixtra) 1.25 mg SQ DAILY [facility] Furosemide (Lasix) 40 mg PO DAILY [facility] Last Admin: 07/11/19 08:34 Dose: 40 mg Documented by: Guaifenesin/Codeine Phosphate (Robitussin Ac) 10 ml PO Q4HP PRN PRN Reason: Cough Hydrocortisone (Hc Crm 1%) 1 dose TOPICAL TIDP PRN PRN Reason: Hemorrhoids Last Admin: 07/08/19 15:00 Dose: 1 dose Documented by: Hydromorphone HCl (Dilaudid) 0.25 - 0.75 mg IV Q3HP PRN; Protocol PRN Reason: Per Pain Protocol Acetaminophen (Ofirmev) 650 mg in 65 mls @ 130 mls/hr IV Q6HP PRN; Protocol PRN Reason: Per Pain Protocol/Fever > 101 Insulin Glargine (Lantus) 10 unit SQ DAILY [facility] Last Admin: 07/11/19 09:53 Dose: 10 units Documented by: Insulin Human Lispro (Humalog) 0 unit SQ ACHS [facility]; Protocol Last Admin: 07/11/19 21:58 Dose: Not Given Documented by: Iron Carb/Multivit/[place]/Folic Acid (Multivitamin W/Minerals) 1 tab PO DAILY [facility] Last Admin: 07/11/19 08:34 Dose: 1 tab Documented by: Isosorbide Mononitrate (Imdur) 30 mg PO DAILY [facility] Last Admin: 07/11/19 08:34 Dose: 30 mg Documented by: Melatonin (Melatonin 3mg Tablet) 3 mg PO HSP PRN PRN Reason: Insomnia Last Admin: 07/11/19 21:56 Dose: 3 mg Documented by: Nitroglycerin (Nitrostat) 0.4 mg SL Q5M PRN PRN Reason: Chest Pain Ondansetron HCl (Zofran) 4 mg IV Q4HP PRN PRN Reason: Nausea And Vomiting Ondansetron HCl (Zofran Odt) 4 mg SL Q4HP PRN PRN Reason: Nausea And Vomiting Last Admin: 07/11/19 21:57 Dose: 4 mg Documented by: Prednisolone Acetate (Pred Forte Ophth Drops) 1 gtt OD TID [facility] Last Admin: 07/11/19 21:58 Dose: Not Given Documented by: Sertraline HCl (Zoloft) 100 mg PO DAILY [facility] Last Admin: 07/11/19 08:34 Dose: 100 mg Documented by: Sodium Chloride (Saline Flush) 10 ml IV Q8 [facility] Last Admin: 07/12/19 05:47 Dose: 10 ml Documented by: Sodium Chloride ([place] Nasal) 2 spray [place] Q4HP PRN PRN Reason: Congestion Thiamine HCl (Vitamin B1) 100 mg PO DAILY [facility] Last Admin: 07/11/19 08:34 Dose: 100 mg Documented by: Trazodone HCl (Desyrel) 50 mg PO HS [facility] Last Admin: 07/11/19 21:56 Dose: 50 mg Documented by: Vancomycin HCl (Vancomycin Oral Trixie) 125 mg PO QID [facility]; Protocol Last Admin: 07/11/19 21:59 Dose: 1.25 ml Documented by: Medical - PN: A/P - Time Spent With Patient Total time spent is greater than 50% in coordination of care (as documented) at patient's floor/unit and/or counseling patient: - Narrative A/P Narrative: A: *Hyperkalemia: mild persistent -Unclear etiology, but could be heparin-product related vs RTA IV. no exogenous potassium being given, not on HERB inhibitors or spironolactone. She remains on a loop diuretic which would expect to waste potassium and was having copious diarrhea. *c. diff colitis: *Right 2nd/5th toe amputation: recently done by Dr. Newsome at [facility] *Severe weakness/deconditionin/2 PVD/ADHF/morbid obesity/recent toe amputation *Acute on chronic diastolic/systolic CHF: improved *Acute pulmonary edema: resolved *Elevated troponins likely secondary to acute heart failure. Case discussed with television maintenance man at [place] Dr. Hollis Earl. Troponins normalized *Acute on chronic hypoxic/hypercapnic respiratory failure: 2/2 above, resolved *JACQUE on CKD IIIa: stable *Anemia requiring transfusion on admission: Improved post 2 units PRBC -stable *DM II w/PVD and recent toe amputation: *HTN: *Anxiety d/o: BuSpar/SSRI *Tobacco abuse: *COPD (uses 2L O2@night): Plan: -Nephro following Avoid HERB inhibitors/ARB/Jn antagonist -cont home lasix -PO vanco x10 days -Podiatry following, cont wound Vac and weight bearing status per podiatry -wound care -pt/ot -Cont aspirin/statin/Coreg/isosorbide, -continue aggressive PT OT/wound care during swing bed stay -SSI and basal -Smoking cessation counseling -f/u with cardiology outpt -CM for SNF placement -ppx: Fondaparinux DNR
[2019-07-12 09:34] LABS: ALT/SGPT 20 U/l (0-40); AST/SGOT 28 U/l (0-37); Albumin 2.9 gm/dL (3.2-5.2); Albumin/Globulin Ratio 0.9 (1.0-2.3); Alkaline Phosphatase 67 U/L (39-117); Bilirubin,Direct < 0.2 mg/dL (0.0-0.3); Bilirubin,Total 0.2 mg/dL (0.0-1.0); Blood Urea Nitrogen 33 mg/dl (8-23); Carbon Dioxide 27 mmol/L (22-30); Chloride 99 mmol/L (96-108); Globulin 3.3 gm/dL (2.2-3.7); Glomerular Filtration Rate 35; Glucose 90 mg/dL (70-105); Lactate Dehydrogenase 179 U/L (94-250); Phosphorous 6.2 mg/dL (2.7-4.5); Triglycerides 142 mg/dl (<150); Uric Acid 4.8 mg/dL (2.5-8.0)
[2019-07-12] MEDS: INSULIN GLARGINE, HUMAN 1 UNIT/0.01 ML SQ SCH (09:41)
[2019-07-12] MEDS: INSULIN LISPRO 1 UNIT/0.01 ML UNIT SQ SCH ×4 (09:41→21:40)
[2019-07-12] MEDS: FONDAPARINUX SODIUM 2.5 MG/0.5 ML SYRINGE SQ SCH (09:42)
[2019-07-12] MEDS: VANCOMYCIN ORAL SOL 1,000 MG/10 ML BOTTLE PO SCH ×4 (09:42→21:40)
[2019-07-12] MEDS: ASPIRIN 81 MG TAB.CHEW CHEWED SCH (09:43)
[2019-07-12] MEDS: MULTIVIT,THER IRON,CA,FA & MIN 1 TABLET PO SCH (09:43)
[2019-07-12] MEDS: CARVEDILOL 3.125 MG TABLET PO SCH ×2 (09:43→17:35)
[2019-07-12] MEDS: FUROSEMIDE 40 MG TABLET PO SCH (09:43)
[2019-07-12] MEDS: THIAMINE 100 MG TABLET PO SCH (09:43)
[2019-07-12] MEDS: busPIRone 5 MG TABLET PO SCH ×2 (09:43→21:39)
[2019-07-12] MEDS: ISOSORBIDE MONONITRATE 30 MG TAB.XL.24H PO SCH (09:43)
[2019-07-12] MEDS: SERTRALINE 100 MG TABLET PO SCH (09:43)
[2019-07-12] MEDS: prednisoLONE 1% OPHTH DROPS 1ML BOTTLE OD SCH ×3 (09:59→21:40)
[2019-07-12] MEDS ORDERED: SODIUM POLYSTYRENE SULFONATE 15 GM/60 ML SUSPENSION PO ONE (11:49)
[2019-07-12] MEDS: CALCIUM CARBONATE 500 MG TAB.CHEW CHEWED SCH ×2 (13:01→17:35)
[2019-07-12] MEDS: ATORVASTATIN 40 MG TABLET PO SCH (21:39)
[2019-07-12] MEDS: MELATONIN 3 MG TABLET PO PRN (21:39)
[2019-07-12] MEDS: traZODone HCL 50 MG TABLET PO SCH (21:39)
[2019-07-12] MEDS: HYDROCODONE/APAP 7.5/325MG TABLET PO PRN (21:39)
[2019-07-13] MEDS: ONDANSETRON 4 MG ODT TABLET SL PRN (02:24)
[2019-07-13] MEDS: 0.9 % SODIUM CHLORIDE 10 ML SYRINGE IV SCH (05:29)
[2019-07-13] MEDS: CALCIUM CARBONATE 500 MG TAB.CHEW CHEWED SCH (07:37)
[2019-07-13] MEDS: CARVEDILOL 3.125 MG TABLET PO SCH (07:37)
--- NOTE | 2019-07-13 07:49 | Internal Med Progress Note ---
Medical - PN: Subj Patient information: Note initiated : 07/13/19 at 7:48 am Service Date, if different from initiated Date: [] Patient: Yessy Carter a 73 y/o F admitted on 07/07/19 for Hyperkalemia. Chief Complaint: [] Interval history: Presentation to Acute Care: 06/26-Ms. Carter is a 73 year old F admitted to inpatient on 06/26 with CHF, then to swing bed status on 06/30. Now admitted to inpatient on 07/07 due to ongoing hyperkalemia. Ms. Carter carries a history of CAD s/p multiple stenting/poorly controlled DM type II/JALIL/known COPD and known to have poor adherence/compliance to medications and follow-up with her care providers. She presented to ER with acute pulmonary edema/decompensated heart failure, altered mental status and anasarca. Patient was started on aggressive diuretics and sedative-hypnotics were discontinued. 06/27-patient clinically improved. Less anxious. Diuresing well. Intermittent chest pain explains however troponins trended 0.05. Potassium down from 5.9- 5.1. Creatinine at 1.5 up from 1.2 hemoglobin improved to 9.3 post 2 units transfusion. Pyuria noted cultures pending. Start Rocephin. No overnight telemetry events. Echocardiogram pending. EKG sinus rhythm 06/28-patient currently on 3 L oxygen. Continues to feel short of breath however improving creatinine. Diuresing well with over 3000 cc net negative in 24 hours. Started on aspirin/beta-frankie/isosorbide/statin. Patient will require outpatient cardiology follow-up on discharge. Had episode of aspiration/choking on her dentures yesterday. Patient would not follow instructions and was trying to eat while laying supine on bed. Intermittent episodes of anxiety requiring Ativan. Case management aggressively coordinating discharge planning/transfer to SNF. On wound VAC managed by podiatry/wound care. White count 8.6 with hemoglobin 9.3. Potassium down to 5.3. Creatinine 1.4. Repeat UA improved leukocytosis on antibiotics. Wound Gram stain GPC urine cultures negative. DC antibiotics 06/29-creatinine improved to 1.3. Magnesium 1.5 on replacement. Potassium down to 4.8. Lymphedema improving. Over 5000 cc net negative fluid balance last 24 hours. On 1 L oxygen and much improved work of breathing. Able to talk in full sentences. Improved anxiety. Wound VAC in place. Blood pressures have improved and currently around 120 on Coreg/isosorbide. 06/30-patient remarkably better. Now on 1 L oxygen. Diuresed over 10,000 cc net negative fluid balance. Much improved lymphedema. Pulmonary edema resolved. Ongoing physical therapy. Tolerating diet. Wound VAC in place. Transfer to Swing Bed 06/30-Patient is now being admitted to swing bed status for continued wound care/PT OT in light of severe deconditioning from recent heart failure/peripheral vascular disease with neuropathy and recent amputation requiring wound VAC and aggressive wound care. 07/02 Planes of poor sleep some nausea and chills. some dyspnea. No overnight events. 07/05 Slept well. Patient feeling better. Has occasional nausea and chills. Usually takes 7-Up at home for the nausea. No new complaints. No dysuria frequency chest pain abdominal pain coughing or shortness of breath. pt started having diarrhea. c. diff checked and was positive. vanco started. 07/06 Has crampy abdominal pain, and diarrhea. occasional headache. Has some nausea no vomiting. Potassium up to 5.7. Received infusion of D10 with insulin, returned at 5.6. 07/07 Continues to have frequent loose stools. Continues to take vancomycin. Potassium up to 6.2 this morning. Will discharge from swing bed, readmitted to acute care for further treatment of hyperkalemia. Conservative measures, diuretics, stool losses have been inadequate. Likely will need a binder. Will consider providing fluids and increase diuresis to encourage renal loss of pota ssium. Transfer to Acute Care: 07/07-On swing bed, the patient initially progressed, had problems with mild hyperkalemia. She subsequently developed watery diarrhea and was found to be positive for C. difficile. She is started on vancomycin. During this time, she continued to experience hyperkalemia with potassium peaking at 6.2 this morning. This is in spite of treatment with insulin and glucose on 07/06, as well as ongoing diarrhea and diuretic therapy. Because of her unstable electrolyte status, she is discharged from swing bed and readmitted to acute care for further therapy of hyperkalemia, ongoing treatment of uncontrolled C. difficile colitis and management of her chronic medical conditions. 07/08 Still complaining of loose stools, though frequency has backed off. Potassium is normalized. Receiving IV fluids. Urine output picked up significantly after fluids, had been marginal at one-point yesterday. Beginning Banatrol for diarrhea control. 07/09 Bowel movements have tapered off. Intermittent nausea persists. No fever. No headache. Wondering when she can go home. Explained that she will likely be able to go back to swing bed status for further rehab tomorrow. 07/10 Diarrhea resolved. Complaining of some dyspnea this morning, the lungs are clear. Appetite is okay. Approaching change back to rehab, likely on Thursday when more staff available to get him enrolled in swing bed. Potassium 5.3 today. 07/11 Slept better. Feeling better. No overnight events or new complaints. Stools are thickening up. Calcium up to 5.6 today. 11 difficulties with potassium. Reconsult nephrology. 07/12 Slept well. Did have some upset stomach through the day and evening after the Kayexalate yesterday. Otherwise no new complaints. Case reviewed again by Dr. Cooper regarding hyperkalemia. Could be related to RTA versus heparin product. Also awaiting for rehab placement. 07/13 Stomach feels better than yesterday. Sleeping okay. No new complaints. Stating that she does not want to go to rehab, had a discussion with her about how she is doing physical therapy and will discuss with case management. Follow-up potassium is pending. Review of Systems: denies headache/fever/chills/vomiting/cough Otherwise see above. - Constitutional Vitals: Vital Signs Temp Pulse Resp BP Pulse Ox 98.0 F 58 L 12 132/60 93 07/13/19 04:49 07/13/19 04:49 07/13/19 04:49 07/13/19 07:45 07/13/19 04:49 Period Temp Pulse Resp BP Sys/Allen Pulse Ox Last 24 Hr 97.8 F-98.2 F 56-60 12-18 124-148/50-84 91-98 Intake and Output 07/12/19 07/13/19 07/13/19 21:59 05:59 13:59 Intake Total 1380 0 Output Total 1256 1227 200 Balance 124 -1227 -200 Weight 123.06 kg Intake & Output: Intake & Output 07/12/19 07/13/19 07/13/19 21:59 05:59 13:59 Intake Total 1380 0 Output Total 1256 1227 200 Balance 124 -1227 -200 Weight 123.06 kg Intake: Oral 1140 0 GI Tube Flush 240 Output: Drainage 0 Right Woundvac 0 Void Amount 1250 1225 200 # of times incontinent of urine 6 2 Other: Meal Dinner Nourishment/Supplement Percent of Meal Consumed 100% 100% Feeding Ability Assist with Tray Set Up Assist with Tray Set Up Nourishment/Supplement name Crackers/Milk Urine Appearance Clear Clear Clear Urine Color Pale Bright Yellow Bright Yellow Urine Odor Normal Strong Stool Size Moderate Stool Color Brown Stool Consistency Soft # Voids 3 1 # Bowel Movements 1 Exam: General: Alert, Awake, NAD, obese Eyes/N/T: EOMI, Head/Neck: neck supple, CV: RRR, No murmurs, Pulm: diminished b/l, no wheezing Abd: soft, protuberant, +BS x4 Ext: no clubbing/cyanosis, trace b/l LE edema, Neuro: Alert, no focal deficits, moves all extremities, Skin: warm/dry Medical - PN: Obj Da - Labs CBC & Chem 7: 07/12/19 06:44 Labs: Abnormal Lab Results 07/12/19 07/11/19 06:44 05:15 Potassium 5.6 H 5.6 H BUN 33 H 29 H Creatinine 1.5 H 1.4 H Phosphorus 6.2 H* Albumin 2.9 L Albumin/Globulin Ratio 0.9 L Meds: Medications Hydrocodone Bitart/Acetaminophen ([place] 7.5/325mg) 1 tab PO Q4-6HP PRN; Protocol PRN Reason: Per Pain Protocol Last Admin: 07/12/19 21:39 Dose: 1 tab Documented by: Albuterol Sulfate (Ventolin) 2 puff INH Q4HP PRN PRN Reason: Shortness Of Breath Albuterol Sulfate (Ventolin) 2.5 mg NEB Q4HP PRN PRN Reason: Shortness Of Breath Last Admin: 07/10/19 08:47 Dose: 2.5 mg Documented by: Aspirin (Aspirin) 81 mg CHEWED DAILY [facility] Last Admin: 07/12/19 09:43 Dose: 81 mg Documented by: Atorvastatin Calcium (Lipitor) 40 mg PO HS [facility] Last Admin: 07/12/19 21:39 Dose: 40 mg Documented by: Buspirone HCl (Buspar) 10 mg PO BID [facility] Last Admin: 07/12/19 21:39 Dose: 10 mg Documented by: Calcium Carbonate/Glycine (Tums) 750 mg CHEWED TIDCC [facility] Last Admin: 07/13/19 07:37 Dose: 750 mg Documented by: Carvedilol (Coreg) 3.125 mg PO BIDCC [facility] Last Admin: 07/13/19 07:37 Dose: 3.125 mg Documented by: Diagnostic Test (Pha) (Accu-Chek) 1 each FS ACHS [facility] Last Admin: 07/12/19 21:38 Dose: 1 each Documented by: Fondaparinux (Arixtra) 1.25 mg SQ DAILY [facility] Last Admin: 07/12/19 09:42 Dose: 1.25 mg Documented by: Furosemide (Lasix) 40 mg PO DAILY [facility] Last Admin: 07/12/19 09:43 Dose: 40 mg Documented by: Guaifenesin/Codeine Phosphate (Robitussin Ac) 10 ml PO Q4HP PRN PRN Reason: Cough Hydrocortisone (Hc Crm 1%) 1 dose TOPICAL TIDP PRN PRN Reason: Hemorrhoids Last Admin: 07/08/19 15:00 Dose: 1 dose Documented by: Hydromorphone HCl (Dilaudid) 0.25 - 0.75 mg IV Q3HP PRN; Protocol PRN Reason: Per Pain Protocol Acetaminophen (Ofirmev) 650 mg in 65 mls @ 130 mls/hr IV Q6HP PRN; Protocol PRN Reason: Per Pain Protocol/Fever > 101 Insulin Glargine (Lantus) 10 unit SQ DAILY [facility] Last Admin: 07/12/19 09:41 Dose: 10 units Documented by: Insulin Human Lispro (Humalog) [address] [facility]; Protocol Last Admin: 07/12/19 21:40 Dose: Not Given Documented by: Iron Carb/Multivit/Scrap Piler/Folic Acid (Multivitamin W/Minerals) 1 tab PO DAILY [facility] Last Admin: 07/12/19 09:43 Dose: 1 tab Documented by: Isosorbide Mononitrate (Imdur) 30 mg PO DAILY [facility] Last Admin: 07/12/19 09:43 Dose: 30 mg Documented by: Melatonin (Melatonin 3mg Tablet) 3 mg PO HSP PRN PRN Reason: Insomnia Last Admin: 07/12/19 21:39 Dose: 3 mg Documented by: Nitroglycerin (Nitrostat) 0.4 mg SL Q5M PRN PRN Reason: Chest Pain Ondansetron HCl (Zofran) 4 mg IV Q4HP PRN PRN Reason: Nausea And Vomiting Ondansetron HCl (Zofran Odt) 4 mg SL Q4HP PRN PRN Reason: Nausea And Vomiting Last Admin: 07/13/19 02:24 Dose: 4 mg Documented by: Prednisolone Acetate (Pred Forte Ophth Drops) 1 gtt OD TID [facility] Last Admin: 07/12/19 21:40 Dose: Not Given Documented by: Sertraline HCl (Zoloft) 100 mg PO DAILY [facility] Last Admin: 07/12/19 09:43 Dose: 100 mg Documented by: Sodium Chloride (Saline Flush) 10 ml IV Q8 [facility] Last Admin: 07/13/19 05:29 Dose: Not Given Documented by: Sodium Chloride ([place] Nasal) 2 spray [place] Q4HP PRN PRN Reason: Congestion Thiamine HCl (Vitamin B1) 100 mg PO DAILY [facility] Last Admin: 07/12/19 09:43 Dose: 100 mg Documented by: Trazodone HCl (Desyrel) 50 mg PO HS [facility] Last Admin: 07/12/19 21:39 Dose: 50 mg Documented by: Vancomycin HCl (Vancomycin Oral Trixie) 125 mg PO QID [facility]; Protocol Last Admin: 07/12/19 21:40 Dose: 1.25 ml Documented by: Medical - PN: A/P - Time Spent With Patient Total time spent is greater than 50% in coordination of care (as documented) at patient's floor/unit and/or counseling patient: - Narrative A/P Narrative: A: *Hyperkalemia: mild persistent -Unclear etiology, but could be heparin-product related vs RTA IV. no exogenous potassium being given, not on HERB inhibitors or spironolactone. She remains on a loop diuretic which would expect to waste potassium and was having copious diarrhea. *c. diff colitis: *Right 2nd/5th toe amputation: recently done by Dr. Newsome at [facility] *Severe weakness/deconditionin/2 PVD/ADHF/morbid obesity/recent toe amputation *Acute on chronic diastolic/systolic CHF: improved *Acute pulmonary edema: resolved *Elevated troponins likely secondary to acute heart failure. Case discussed with global marketing coordinator at [facility] Dr. Hollis Earl. Troponins normalized *Acute on chronic hypoxic/hypercapnic respiratory failure: 2/2 above, resolved *JACQUE on CKD IIIa: stable *Anemia requiring transfusion on admission: Improved post 2 units PRBC -stable *DM II w/PVD and recent toe amputation: *HTN: *Anxiety d/o: BuSpar/SSRI *Tobacco abuse: *COPD (uses 2L O2@night): Plan: -Nephro following Avoid HERB inhibitors/ARB/Jn antagonist -cont home lasix -PO vanco x10 days -Podiatry following, cont wound Vac and weight bearing status per podiatry -wound care -pt/ot -Cont aspirin/statin/Coreg/isosorbide, -continue aggressive PT OT/wound care during swing bed stay -SSI and basal -Smoking cessation counseling -f/u with cardiology outpt -CM for SNF placement -ppx: Fondaparinux DNR
[2019-07-13 08:54] LABS: ALT/SGPT 22 U/l (0-40); AST/SGOT 24 U/l (0-37); Albumin 3.2 gm/dL (3.2-5.2); Alkaline Phosphatase 69 U/L (39-117); Bilirubin,Direct < 0.2 mg/dL (0.0-0.3); Bilirubin,Total 0.2 mg/dL (0.0-1.0); Blood Urea Nitrogen 31 mg/dl (8-23); Calcium 9.1 mg/dl (8.6-10.4); Carbon Dioxide 31 mmol/L (22-30); Chloride 100 mmol/L (96-108); Globulin 3.1 gm/dL (2.2-3.7); Glomerular Filtration Rate 35; Glucose 109 mg/dL (70-105); Lactate Dehydrogenase 151 U/L (94-250); Phosphorous 5.2 mg/dL (2.7-4.5); Triglycerides 143 mg/dl (<150); Uric Acid 4.8 mg/dL (2.5-8.0)
[2019-07-13] MEDS ORDERED: SODIUM POLYSTYRENE SULFONATE 15 GM/60 ML SUSPENSION PO ONE (09:22)
--- NOTE | 2019-07-13 09:22 | Nephrology Progress Note ---
Subjective Patient information: Note initiated : 07/13/19 at 9:21 am Service Date, if different from initiated Date: [] Patient: Yessy Carter 73 y/o F admitted on 07/07/19 for Hyperkalemia. Chief Complaint: [] Status quo. NO new complaints. Objective - Vital Signs Vital signs: Vital Signs Temp Pulse Resp BP BP Pulse Ox 07/13/19 07:45 132/60 07/13/19 04:49 98.0 F 58 L 12 124/56 93 07/12/19 23:23 98.2 F 57 L 14 130/57 92 07/12/19 20:00 96 07/12/19 19:48 97.8 F 60 12 140/50 95 07/12/19 16:00 97.9 F 57 L 18 148/84 98 07/12/19 12:00 98.1 F 56 L 18 140/72 91 Intake and Output 07/12/19 07/13/19 07/13/19 21:59 05:59 13:59 Intake Total 1380 0 Output Total 1256 1227 325 Balance 124 -1227 -325 Intake: Oral 1140 0 GI Tube Flush 240 Output: Drainage 0 Right Woundvac 0 Void Amount 1250 1225 325 # of times incontinent of urine 6 2 Other: Meal Dinner Nourishment/Supplement Percent of Meal Consumed 100% 100% Feeding Ability Assist with Tray Set Up Assist with Tray Set Up Nourishment/Supplement name Crackers/Milk Urine Appearance Clear Clear Clear Urine Color Pale Bright Yellow Pale Urine Odor Normal Strong Normal Stool Size Moderate Stool Color Brown Stool Consistency Soft # Voids 3 1 # Bowel Movements 1 Weight 271 lb 4.8 oz Intake & Output: Intake & Output 07/12/19 07/13/19 07/13/19 21:59 05:59 13:59 Intake Total 1380 0 Output Total 1256 1227 325 Balance 124 -1227 -325 Weight 271 lb 4.8 oz Intake: Oral 1140 0 GI Tube Flush 240 Output: Drainage 0 Right Woundvac 0 Void Amount 1250 1225 325 # of times incontinent of urine 6 2 Other: Meal Dinner Nourishment/Supplement Percent of Meal Consumed 100% 100% Feeding Ability Assist with Tray Set Up Assist with Tray Set Up Nourishment/Supplement name Crackers/Milk Urine Appearance Clear Clear Clear Urine Color Pale Bright Yellow Pale Urine Odor Normal Strong Normal Stool Size Moderate Stool Color Brown Stool Consistency Soft # Voids 3 1 # Bowel Movements 1 - General Appearance General appearance: well-developed, well-nourished EENT: ATNC, PERRL Neck: no JVD Respiratory: no kyphosis Cardiology: no murmurs Gastrointestinal: normoactive bowel sounds Integumentary: no rash Neurologic: no focal deficit Musculoskeletal: no deformities - Lab 07/13/19 08:05 Most recent lab results Calcium 9.1 mg/dl (8.6-10.4) 07/13/19 08:05 Phosphorus 5.2 mg/dL (2.7-4.5) H 07/13/19 08:05 Magnesium 1.7 mg/dL (1.6-2.5) 07/13/19 08:05 Assessment and Plan (1) JACQUE (acute kidney injury) Status: Acute Comment: JACQUE on CKD, volume overloaded with CHF. Got diuresed. Renal ultrasound is unremarkable. Getting alkalotic, better. Potassium, High probably related to lovenox. renin and zachary levels pending. Hypertension. Better. Phos on tums, it is better.
[2019-07-13] MEDS: FONDAPARINUX SODIUM 2.5 MG/0.5 ML SYRINGE SQ SCH (10:16)
[2019-07-13] MEDS: VANCOMYCIN ORAL SOL 1,000 MG/10 ML BOTTLE PO SCH (10:16)
[2019-07-13] MEDS: INSULIN GLARGINE, HUMAN 1 UNIT/0.01 ML SQ SCH (10:16)
[2019-07-13] MEDS: FUROSEMIDE 40 MG TABLET PO SCH (10:17)
[2019-07-13] MEDS: busPIRone 5 MG TABLET PO SCH (10:17)
[2019-07-13] MEDS: THIAMINE 100 MG TABLET PO SCH (10:18)
[2019-07-13] MEDS: MULTIVIT,THER IRON,CA,FA & MIN 1 TABLET PO SCH (10:19)
[2019-07-13] MEDS: INSULIN LISPRO 1 UNIT/0.01 ML UNIT SQ SCH (10:20)
[2019-07-13] MEDS: ASPIRIN 81 MG TAB.CHEW CHEWED SCH (10:20)
[2019-07-13] MEDS: HYDROCODONE/APAP 7.5/325MG TABLET PO PRN (10:21)
[2019-07-13] MEDS: SERTRALINE 100 MG TABLET PO SCH (10:22)
[2019-07-13] MEDS: prednisoLONE 1% OPHTH DROPS 1ML BOTTLE OD SCH (10:23)
[2019-07-13] MEDS: ISOSORBIDE MONONITRATE 30 MG TAB.XL.24H PO SCH (10:46)
[2019-07-16 19:53] LABS: Aldosterone Serum 3 ng/dL; Renin Activity, Plasma 0.23 ng/mL/h (0.25-5.82)
== END 2019-07-13 10:35 | DRG 640 ==
LOC: MEDSUR 10:56
PROVIDERS: ADMIT Internal Medicine; ATTEND Internal Medicine

== ENCOUNTER 2019-07-26 11:09 | Observation (INO) ==
[2019-07-26] MEDS ORDERED: IOPAMIDOL 100 ML BOTTLE IV ONE (11:10)
[2019-07-26] MEDS ORDERED: NITROGLYCERIN 0.4 MG TAB.SUBL SL ONE (11:23)
[2019-07-26] MEDS ORDERED: NITROGLYCERIN/D5W 25 MG/250 ML BOTTLE IV ONE (11:25)
--- NOTE | 2019-07-26 11:37 | Emergency Department Note ---
Chest Pain HPI - General Chief Complaint: Chest Pain Stated Complaint: Chest Pain Time Seen by Provider: 07/26/19 11:35 Source: EMS Mode of arrival: EMS Limitations: no limitations - History of Present Illness HPI Narrative: This patient started having substernal chest pain with some pain in her right side of her neck about 30 to 40 minutes ago. She currently lives at [facility] for the last 2 weeks because of some toe amputations on the left recently. She does have history of coronary disease and says she has had 11 stents placed down in [place]. She is hooked up with [facility] at [facility] but has not seen a laundry route driver yet. - Related Data Home Medications Medication Instructions Recorded Confirmed Sertraline [Zoloft] 100 mg PO DAILY 02/09/18 07/08/19 Albuterol Sulfate [Albuterol 2 puff IH Q4HP PRN 06/26/19 07/08/19 Sulfate Hfa] Docusate Sodium 100 mg PO BID 06/26/19 07/08/19 Ergocalciferol (Vitamin D2) 50,000 unit PO WE 06/26/19 07/08/19 [Vitamin D2] Insulin Glargine, Human [Lantus] 10 unit SQ DAILY 06/26/19 07/08/19 Nitroglycerin [Nitrostat] 0.4 mg SL Q5MIN PRN 06/26/19 07/08/19 busPIRone [Buspar] 10 mg PO BID 06/26/19 07/08/19 prednisoLONE 1% OPHTH DROPS [Pred 1 gtt OD TID 06/26/19 07/08/19 Forte Ophth Drops] traZODone HCL [Trazodone HCl] 50 mg PO HS 06/26/19 07/08/19 Atorvastatin [Lipitor] 40 mg PO DAILY 06/27/19 07/08/19 Previous Rx's Medication Instructions Recorded Aspirin 81 mg CHEWED DAILY #30 tab.chew 06/29/19 Carvedilol [Coreg] 3.125 mg PO BIDCC #30 tab 06/29/19 Furosemide [Lasix] 40 mg PO DAILY #30 tab 06/29/19 Isosorbide Mononitrate [Imdur] 30 mg PO DAILY #30 tab.xl.24h 06/29/19 Melatonin [Melatonin 3Mg Tablet] 3 mg PO HSP PRN tab 06/29/19 Vancomycin [Vancocin] 125 mg PO QID #8 cap 07/13/19 Allergies Allergy/AdvReac Type Severity Reaction Status Date / Time morphine Allergy Severe Swelling Verified 06/26/19 20:37 codeine AdvReac Mild Abdominal Verified 06/28/19 07:15 Pain latex AdvReac Mild Itching Verified 06/28/19 07:15 Penicillins AdvReac Mild Itching Verified 06/27/19 09:52 Review of Systems All systems ED: reviewed and negative except as stated. 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 Absent: distention, tenderness Neurological: Present: alert Psychiatric: Present: normal affect Skin: Present: warm, dry Course Vital Signs Pulse Rate 96 H 07/26/19 11:09 Respiratory Rate 18 07/26/19 11:09 Blood Pressure 134/102 07/26/19 11:09 Pulse Rate 97 H 07/26/19 19:04 Respiratory Rate 16 07/26/19 19:04 Blood Pressure 140/60 07/26/19 16:44 Pulse Oximetry (%) 84 L 07/26/19 19:04 Chest Pain - MDM Narrative Medical decision making narrative: Patient's troponin was negative on 2 occasions EKG was negative. Other lab work and urine unremarkable and a CT scan of the abdomen was negative. Patient continued to have intractable vomiting so will be admitted to Dr. Sosa for that. - Lab Data Lab results reviewed: Yes I reviewed the patient's lab results. Result diagrams: 07/26/19 11:37 07/26/19 11:37 Lab Results 11/19/19 11/19/19 11/19/19 Range/Units 11:36 11:37 11:37 WBC 7.0 (4.5-11.0) K/mcL RBC 4.12 (4.00-5.20) M/mcL Hgb 11.2 L (12.0-15.0) g/dL Hct 34.8 L (36.0-48.0) % MCV 84.4 (80.0-100.0) fL MCH 27.2 (26.0-34.0) pg MCHC 32.2 (31.0-36.0) g/dL RDW 16.0 H (11.5-14.5) % Plt Count 254 (140-440) K/mcL MPV 7.7 (7.4-10.4) fL Gran % 55.5 (38.0-78.0) % Lymph % (Auto) 30.9 (15.5-49.0) % [place] % (Auto) 7.5 (1.0-12.0) % Eos % (Auto) 5.0 (0.0-7.0) % Baso % (Auto) 1.1 (0.0-2.0) % Gran # 3.9 (1.8-8.0) K/mcL Lymph # (Auto) 2.2 (1.5-4.8) K/mcL [place] # (Auto) 0.5 (0.1-0.9) K/mcL Eos # (Auto) 0.3 (0.0-0.7) K/mcL Baso # (Auto) 0.1 (0.0-0.3) K/mcL Sodium 142 (133-145) mmol/L Potassium 4.5 (3.3-5.1) mmol/L Chloride 101 (96-108) mmol/L Carbon Dioxide 27 (22-30) mmol/L Anion Gap 14.0 (8-16) BUN 33 H (8-23) mg/dl Creatinine 1.2 H (0.6-1.1) mg/dl GFR Calculation 45 Glucose 157 H (70-105) mg/dL Calcium 9.2 (8.6-10.4) mg/dl Total Bilirubin 0.2 (0.0-1.0) mg/dL AST 13 (0-37) U/l ALT 12 (0-40) U/l Alkaline Phosphatase 79 (39-117) U/L Total Creatine Kinase 22 L (24-170) IU/L CK-MB (CK-2) < 1.0 (0-2.9) ng/ml Myoglobin 38 (25-58) ng/ml Troponin T (0-0.03) ng/ml Total Protein 6.5 (5.9-8.4) gm/dL Albumin 3.4 (3.2-5.2) gm/dL Globulin 3.1 (2.2-3.7) gm/dL Albumin/Globulin Ratio 1.1 (1.0-2.3) Lipase (7-60) U/L 07/26/19 07/26/19 07/26/19 Range/Units 11:37 14:00 14:19 WBC (4.5-11.0) K/mcL RBC (4.00-5.20) M/mcL Hgb (12.0-15.0) g/dL Hct (36.0-48.0) % MCV (80.0-100.0) fL MCH (26.0-34.0) pg MCHC (31.0-36.0) g/dL RDW (11.5-14.5) % Plt Count (140-440) K/mcL MPV (7.4-10.4) fL Gran % (38.0-78.0) % Lymph % (Auto) (15.5-49.0) % [place] % (Auto) (1.0-12.0) % Eos % (Auto) (0.0-7.0) % Baso % (Auto) (0.0-2.0) % Gran # (1.8-8.0) K/mcL Lymph # (Auto) (1.5-4.8) K/mcL [place] # (Auto) (0.1-0.9) K/mcL Eos # (Auto) (0.0-0.7) K/mcL Baso # (Auto) (0.0-0.3) K/mcL Sodium (133-145) mmol/L Potassium (3.3-5.1) mmol/L Chloride (96-108) mmol/L Carbon Dioxide (22-30) mmol/L Anion Gap (8-16) BUN (8-23) mg/dl Creatinine (0.6-1.1) mg/dl GFR Calculation Glucose (70-105) mg/dL Calcium (8.6-10.4) mg/dl Total Bilirubin (0.0-1.0) mg/dL AST (0-37) U/l ALT (0-40) U/l Alkaline Phosphatase (39-117) U/L Total Creatine Kinase (24-170) IU/L CK-MB (CK-2) (0-2.9) ng/ml Myoglobin (25-58) ng/ml Troponin T 0.01 < 0.01 (0-0.03) ng/ml Total Protein (5.9-8.4) gm/dL Albumin (3.2-5.2) gm/dL Globulin (2.2-3.7) gm/dL Albumin/Globulin Ratio (1.0-2.3) Lipase 10 (7-60) U/L - Radiology Data Radiology results reviewed: Yes I reviewed the patient's radiology results. Disposition Pt seen by [facility] ROOM ATTENDANT/PA only: No Clinical Impression: Intractable vomiting Disposition: Xfer As Outpt/Obs ([facility]) Condition: Good Referrals: Uriel Monge MD [Primary Care Provider] - Time of Disposition: 19:12
[2019-07-26] MEDS ORDERED: ONDANSETRON 4 MG/2 ML VIAL IV ONE (11:42)
--- NOTE | 2019-07-26 11:52 | XRay Report ---
CLINICAL INFORMATION: chest pain COMPARISON: 06/29/2019 FINDINGS: Heart size, mediastinal and pulmonary vessels are normal. The lungs are clear on today's exam. No effusions IMPRESSION: Negative Interpreted and Authenticated by: Jim Doherty 07/26/19
[2019-07-26 12:23] LABS: Basophils # (Auto) 0.1 K/mcL (0.0-0.3); Basophils % (Auto) 1.1 % (0.0-2.0); Eosinophils # (Auto) 0.3 K/mcL (0.0-0.7); Granulocytes % (Auto) 55.5 % (38.0-78.0); Hematocrit 34.8 % (36.0-48.0); Hemoglobin 11.2 g/dL (12.0-15.0); Lymphocytes # (Auto) 2.2 K/mcL (1.5-4.8); Lymphocytes % (Auto) 30.9 % (15.5-49.0); Mean Cell Volume 84.4 fL (80.0-100.0); Mean Corpuscular HGB Conc 32.2 g/dL (31.0-36.0); Mean Platelet Volume 7.7 fL (7.4-10.4); Monocytes # (Auto) 0.5 K/mcL (0.1-0.9); Monocytes % (Auto) 7.5 % (1.0-12.0); Platelet Count 254 K/mcL (140-440); RBC 4.12 M/mcL (4.00-5.20)
[2019-07-26 12:47] LABS: ALT/SGPT 12 U/l (0-40); AST/SGOT 13 U/l (0-37); Albumin 3.4 gm/dL (3.2-5.2); Albumin/Globulin Ratio 1.1 (1.0-2.3); Alkaline Phosphatase 79 U/L (39-117); Bilirubin,Total 0.2 mg/dL (0.0-1.0); Blood Urea Nitrogen 33 mg/dl (8-23); Calcium 9.2 mg/dl (8.6-10.4); Carbon Dioxide 27 mmol/L (22-30); Chloride 101 mmol/L (96-108); Globulin 3.1 gm/dL (2.2-3.7); Glomerular Filtration Rate 45; Glucose 157 mg/dL (70-105)
[2019-07-26 12:50] LABS: Creatine Kinase 22 IU/L (24-170); Creatine Kinase MB < 1.0 ng/ml (0-2.9); Myoglobin 38 ng/ml (25-58)
[2019-07-26] MEDS ORDERED: fentaNYL 100 MCG/2 ML VIAL IV ONE ×2 (12:51→12:55)
[2019-07-26] MEDS ORDERED: CALCIUM CARBONATE 500 MG TAB.CHEW CHEWED ONE (13:11)
[2019-07-26] MEDS ORDERED: ESOMEPRAZOLE 40 MG VIAL IV SCH (15:15)
[2019-07-26] MEDS ORDERED: PHENobarb/HYOSCY/ATROPINE/SCOP 1 DOSE BOTTLE PO ONE (16:22)
[2019-07-26] MEDS ORDERED: METOCLOPRAMIDE 10 MG/2 ML VIAL IV ONE (16:32)
--- NOTE | 2019-07-26 17:55 | Cat Scan Report ---
CLINICAL INFORMATION: Abdominal pain COMPARISON: Abdomen and pelvic CT 12/14/2017. TECHNIQUE: Following enteric contrast, 80 cc of Isovue-370 were injected intravenously, and 60 seconds later, 0.625 mm helical slices were obtained from the mid heart through the subtrochanteric regions. Following reconstruction, 2.5 mm sagittal, coronal and axial reformatted images were processed and reviewed at bone, lung and soft tissue windows. Five minutes later, 0.625 mm helical slices were obtained from the mid heart through the kidneys and viewed at soft tissue windows.The exam was performed using radiation dose optimization techniques including, but not limited to, automated exposure control, adjustment of the mA and/or kV according to patient size and use of iterative reconstruction technique. FINDINGS: On the previous study, there was a 10 mm nodule in the lateral segment of the right lower lobe, but this is resolved. Lung bases are normal. There are no effusions. The visualized heart is mildly enlarged with calcific plaque in the coronary arteries. Abdominal images show the liver is unremarkable. The gallbladder is surgically absent. Mild (11 mm) dilatation of the common bile duct is stable and compatible with postcholecystectomy state. Both kidneys, right adrenal gland, spleen, pancreas and aorta are normal in size configuration and attenuation without focal lesion. 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 No free air, free fluid or adenopathy. Pelvic images show hysterectomy and oophorectomy changes. The urinary bladder is normal. Few sigmoid diverticuli appreciated, but the remaining colon, appendix small bowel and stomach are normal. Bone windows show mild chronic L4 compression fracture is stable. IMPRESSION: 1. No cause for acute abdominal pain 2. Interval resolution in 10 mm nodule - lateral basilar segment right lower lobe. Presumably, this was inflammatory. 3. 15 mm benign fat-containing myelolipoma left adrenal gland - stable 4. Mild diffuse osteoporosis with mild chronic L4 compression fracture stable Interpreted and Authenticated by: Jim Doherty 07/26/19
[2019-07-26] MEDS ORDERED: PROMETHAZINE 25 MG/ML VIAL IV ONE (18:18)
--- NOTE | 2019-07-26 19:14 | Internal Med History&Physical ---
Medical - H&P: [facility] Patient information: Note initiated : 07/26/19 at 7:09 pm Service Date, if different from initiated Date: [] Patient: Yessy Carter a 73 y/o F admitted on for Chest Pain. Chief Complaint: [] Chief complaint: Chest pain and nausea History of present illness: Ms. Carter is a 73 year old F with a history of Sys/diastolic CHF,EF 40%, PVD s/p Rt II/V toe amputation, CAD s/p stenting, CKD III, diabetic, O2 Dep COPD and history of poor adherence to medication who was discharged to [facility] after a prolonged hospitalization at [facility] from 06/26-July 13. Patient underwent treatment for multiple issues including C. difficile colitis, severe weakness and deconditioning, CHF exacerbation/anemia requiring transfusion and hyperkalemia. She completed 14-day oral vancomycin. She has been following up with podiatry Dr. Oglesby for a right 2/5th toe amputation and is due to follow-up with outpatient cardiology for CAD/CHF management. Today she presents today to the ER with onset of substernal sharp chest pain she describes as kicking worsening with movement and deep breathing. Describes as 6 out of 10 to 8 out of 10. Symptoms are associated with nausea and multiple episodes of vomiting. She denies radiation or diaphoresis. Chest pain is exac erbated with episodes of vomiting. She denies recent fever, diarrhea, changes in medication, lightheadedness, dizziness. She was referred from [facility] to ER for further evaluation. Initial work-up in the ER was unremarkable with normal labs and imaging, 2 sets of troponin along with normal EKG. However patient continued to experience nausea and vomiting despite fluids/antiemetics including Zofran and Phenergan. Subsequently hospitalist service was consulted for evaluation and observation. At the time of examination patient is alert and oriented. Her symptoms have abated. She is asking for food. She last ate yesterday. She has not been able to keep much down. She denies diarrhea dysuria. Review of systems 10 point review system was performed and is negative except for ones cussed above Medical - H&P: PM Medical history: Heart failure with reduced ejection fraction, EF 40% on 06/26/2019 Coronary artery disease, status post interventions/PCI Type 2 diabetes mellitus, poorly controlled Obstructive sleep apnea COPD on 2 L oxygen Medical noncompliance History of anemia Diabetic retinopathy Tobacco abuse CKD stage III Hyperlipidemia Hypertension Diabetic neuropathy History of peptic ulcer disease Recent C. difficile colitis Surgical history: Cholecystectomy Cervical cancer with subsequent total abdominal hysterectomy History of History of hernia repair History of melanoma resection History of toe amputation 06/2019 Pertinent family history: Diabetes mellitus Social history: Has smoked since childhood. No apparent alcohol use Have you smoked in the last 12 months: Yes Time spent discussing smoking cessation with patient: 3 to 10 minutes Drug use: none Alcohol use: none Medical - H&P: Meds Home Medications Medication Instructions Recorded Confirmed Type Sertraline [Zoloft] 100 mg PO DAILY 02/09/18 07/08/19 History Albuterol Sulfate [Albuterol 2 puff IH Q4HP PRN 06/26/19 07/08/19 History Sulfate Hfa] Docusate Sodium 100 mg PO BID 06/26/19 07/08/19 History Ergocalciferol (Vitamin D2) 50,000 unit PO WE 06/26/19 07/08/19 History [Vitamin D2] Insulin Glargine, Human [Lantus] 10 unit SQ DAILY 06/26/19 07/08/19 History Nitroglycerin [Nitrostat] 0.4 mg SL Q5MIN PRN 06/26/19 07/08/19 History busPIRone [Buspar] 10 mg PO BID 06/26/19 07/08/19 History prednisoLONE 1% OPHTH DROPS [Pred 1 gtt OD TID 06/26/19 07/08/19 History Forte Ophth Drops] traZODone HCL [Trazodone HCl] 50 mg PO HS 06/26/19 07/08/19 History Atorvastatin [Lipitor] 40 mg PO DAILY 06/27/19 07/08/19 History Aspirin 81 mg CHEWED DAILY #30 tab.chew 06/29/19 07/08/19 Rx Carvedilol [Coreg] 3.125 mg PO BIDCC #30 tab 06/29/19 07/08/19 Rx Furosemide [Lasix] 40 mg PO DAILY #30 tab 06/29/19 07/08/19 Rx Isosorbide Mononitrate [Imdur] 30 mg PO DAILY #30 tab.xl.24h 06/29/19 07/08/19 Rx Melatonin [Melatonin 3Mg Tablet] 3 mg PO HSP PRN tab 10/23/19 11/01/19 Rx Vancomycin [Vancocin] 125 mg PO QID #8 cap 07/13/19 Rx Allergies Allergy/AdvReac Type Severity Reaction Status Date / Time morphine Allergy Severe Swelling Verified 06/26/19 20:37 codeine AdvReac Mild Abdominal Verified 06/28/19 07:15 Pain latex AdvReac Mild Itching Verified 06/28/19 07:15 Penicillins AdvReac Mild Itching Verified 06/27/19 09:52 Medical - H&P: Exam - Constitutional Vitals: Pulse Resp BP Pulse Ox 97 H 16 140/60 84 L 07/26/19 19:04 07/26/19 19:04 07/26/19 16:44 07/26/19 19:04 General appearance: morbidly obese Exam: Alert and oriented Minimal anxiety Head normocephalic Oral cavity dry No ear nose discharge Neck lymphadenopathy S1-S2 regular rhythm, ESM grade 1 Diminished breath sounds bases, no crackles Abdomen tenderness epigastric area but no rebound guarding Lower extremity no lymphedema cyanosis but tender neuropathy Right lower extremity second and fifth toe amputation stump no erythema/discharge Skin no suspicious lesion Psych alert cooperative Neuro moving all 4 extremities, alert oriented Medical - H&P: Reslt - Labs CBC & Chem 7: 07/26/19 11:37 07/26/19 11:37 Labs: Short CBC 07/26/19 Range/Units 11:37 WBC 7.0 (4.5-11.0) K/mcL Hgb 11.2 L (12.0-15.0) g/dL Hct 34.8 L (36.0-48.0) % Plt Count 254 (140-440) K/mcL BMP 07/26/19 11:37 Sodium 142 Potassium 4.5 Chloride 101 Carbon Dioxide 27 BUN 33 H Creatinine 1.2 H Glucose 157 H Calcium 9.2 Cardiac Enzymes 07/26/19 07/26/19 07/26/19 Range/Units 11:36 11:37 14:19 Total Creatine Kinase 22 L (24-170) IU/L CK-MB (CK-2) < 1.0 (0-2.9) ng/ml Troponin T 0.01 < 0.01 (0-0.03) ng/ml Liver Function 07/26/19 Range/Units 11:37 Total Bilirubin 0.2 (0.0-1.0) mg/dL AST 13 (0-37) U/l ALT 12 (0-40) U/l Alkaline Phosphatase 79 (39-117) U/L Albumin 3.4 (3.2-5.2) gm/dL Medical - H&P: A/P (1) Intractable nausea and vomiting Current visit: Yes Status: Acute * Intractable nausea and vomiting-supportive management/crystalloid/antiemetics. GI consult for endoscopy evaluation. Possible gastroparesis. Start Reglan * Volume depletion secondary to nausea vomiting. Gentle crystalloids * Chest pain negative cardiac enzymes, trend troponins. Telemetry monitoring. EKG unremarkable * Recent C. difficile colitis status post vancomycin 14 days * History of CAD-patient has an established locally with a apparel pattern maker but has appointment scheduled * History of CHF-last EF 40%. Moderate MR. continue diuresis/aspirin/statin/bet a-frankie/isosorbide. * History of chronic kidney disease stage III-was evaluated by nephrology during previous hospitalization. * Anemia requiring transfusion during prior hospitalization. Currently 11.2 hemoglobin * Recent right II/V toe amputation-managed by Dr. Oglesby podiatry outpatient * Diabetic PVD with recent toe amputation-continue aspirin statin * Severe weakness/deconditioning-continue aggressive PT OT, patient has been at [facility] prior to presentation * Dyslipidemia continue statin * Hypertension -continue beta-frankie/isosorbide. * History of DM type II continue basal prandial/sitagliptin/CCD * Anxiety disorder continue BuSpar/SSRI * Tobacco dependence-nicotine patch * COPD continue oxygen/bronchodilators * Full code Plan * Observation admit * GI consult for upper endoscopy * Supportive management/bowel rest * Prior medical condition management on home medications * PT OT * CC diet * Discharge planning
[2019-07-26] MEDS ORDERED: NITROGLYCERIN (PP) 0.4 MG TAB.SUBL (#25) SL PRN (20:05)
[2019-07-26] MEDS ORDERED: 0.9 % SODIUM CHLORIDE 1,000 ML IV SCH (20:05)
[2019-07-26] MEDS ORDERED: MAGNESIUM SULFATE 2 GM/50 ML BAG IV PRN (20:05)
[2019-07-26] MEDS ORDERED: HYDROcodone/APAP 5/325MG TABLET PO PRN (20:05)
[2019-07-26] MEDS ORDERED: MAGNESIUM HYDROXIDE 30 ML ORAL.SUSP PO PRN (20:05)
[2019-07-26] MEDS ORDERED: DEXTROSE 31 GM ORAL.SUSP PO PRN (20:05)
[2019-07-26] MEDS ORDERED: NITROGLYCERIN 0.4 MG TAB.SUBL SL PRN (20:05)
[2019-07-26] MEDS ORDERED: DEXTROSE 50% 50 ML VIAL IV PRN (20:05)
[2019-07-26] MEDS ORDERED: IPRATROPIUM/ALBUTEROL 3 ML AMPUL.NEB NEB PRN (20:05)
[2019-07-26] MEDS ORDERED: ACETAMINOPHEN 325 MG TABLET PO PRN (20:05)
[2019-07-26] MEDS ORDERED: BISACODYL 10 MG SUPP.RECT PR PRN (20:05)
[2019-07-26] MEDS ORDERED: PROMETHAZINE 25 MG/ML VIAL IV PRN (20:05)
[2019-07-26] MEDS ORDERED: MELATONIN 3 MG TABLET PO PRN (20:05)
[2019-07-26] MEDS ORDERED: ONDANSETRON 4 MG/2 ML VIAL IV PRN (20:05)
[2019-07-26] MEDS ORDERED: HYDROmorphone 2 MG/ML VIAL IV PRN (20:05)
[2019-07-26] MEDS ORDERED: ALBUTEROL SULFATE 1 PUFF INHALER IH PRN (20:05)
[2019-07-26] MEDS ORDERED: POTASSIUM CHLORIDE 20 MEQ PACKET PO PRN (20:05)
[2019-07-26] MEDS ORDERED: ONDANSETRON 4 MG ODT TABLET SL PRN (20:05)
[2019-07-26] MEDS ORDERED: ACETAMINOPHEN 650 MG/65 ML BOTTLE IV PRN (20:05)
[2019-07-26] MEDS: HEPARIN 5,000 UNIT/ML VIAL SQ SCH (20:59)
[2019-07-26] MEDS ORDERED: DOCUSATE SODIUM 100 MG CAPSULE PO SCH (21:00)
[2019-07-26] MEDS ORDERED: SENNOSIDES/DOCUSATE SODIUM 1 TAB TABLET PO SCH (21:00)
[2019-07-26] MEDS: INSULIN LISPRO 1 UNIT/0.01 ML UNIT SQ SCH (21:02)
[2019-07-26] MEDS: ALBUTEROL SULFATE 2.5 MG/3 ML NEBULIZER NEB PRN (21:34)
[2019-07-26] MEDS: BUDESONIDE 0.5 MG/2 ML AMPUL.NEB NEB SCH (21:34)
[2019-07-26] MEDS: QUEtiapine 25 MG TABLET PO SCH (21:41)
[2019-07-26] MEDS: DOCUSATE SODIUM 100 MG CAPSULE PO SCH (21:41)
[2019-07-26] MEDS: busPIRone 15 MG TABLET PO SCH (21:41)
[2019-07-26] MEDS: 0.9 % SODIUM CHLORIDE 10 ML SYRINGE IV SCH (21:42)
[2019-07-27 05:53] LABS: Hemoglobin 10.7 g/dL (12.0-15.0); Mean Cell Volume 84.9 fL (80.0-100.0); Mean Corpuscular HGB Conc 32.4 g/dL (31.0-36.0); Mean Platelet Volume 7.7 fL (7.4-10.4); Platelet Count 229 K/mcL (140-440); RBC 3.89 M/mcL (4.00-5.20); Red Cell Distribution Width 16.4 % (11.5-14.5); WBC 8.7 K/mcL (4.5-11.0)
[2019-07-27 06:48] LABS: ALT/SGPT 11 U/l (0-40); AST/SGOT 12 U/l (0-37); Alkaline Phosphatase 76 U/L (39-117); Bilirubin,Direct < 0.2 mg/dL (0.0-0.3); Bilirubin,Total 0.2 mg/dL (0.0-1.0); Blood Urea Nitrogen 33 mg/dl (8-23); Calcium 9.1 mg/dl (8.6-10.4); Carbon Dioxide 24 mmol/L (22-30); Chloride 102 mmol/L (96-108); Globulin 3.1 gm/dL (2.2-3.7); Glomerular Filtration Rate 41; Glucose 154 mg/dL (70-105); Lactate Dehydrogenase 151 U/L (94-250); Phosphorous 4.4 mg/dL (2.7-4.5); Triglycerides 94 mg/dl (<150); Uric Acid 7.4 mg/dL (2.5-8.0)
[2019-07-27] MEDS: INSULIN LISPRO 1 UNIT/0.01 ML UNIT SQ SCH (07:16)
[2019-07-27] MEDS ORDERED: METOCLOPRAMIDE 10 MG TABLET PO SCH (07:30)
[2019-07-27] MEDS ORDERED: ISOSORBIDE MONONITRATE 30 MG TAB.XL.24H PO SCH (09:00)
[2019-07-27] MEDS ORDERED: ATORVASTATIN 40 MG TABLET PO SCH (09:00)
[2019-07-27] MEDS ORDERED: sitaGLIPtin 100 MG TABLET PO SCH (09:00)
[2019-07-27] MEDS ORDERED: INSULIN GLARGINE, HUMAN 1 UNIT/0.01 ML SQ SCH (09:00)
[2019-07-27] MEDS ORDERED: ASPIRIN 81 MG TAB.CHEW CHEWED SCH (09:00)
[2019-07-27] MEDS ORDERED: FUROSEMIDE 40 MG TABLET PO SCH (09:00)
[2019-07-27] MEDS ORDERED: SERTRALINE 50 MG TABLET PO SCH (09:00)
[2019-07-27] MEDS: HEPARIN 5,000 UNIT/ML VIAL SQ SCH (09:11)
[2019-07-27] MEDS: QUEtiapine 25 MG TABLET PO SCH (09:12)
[2019-07-27] MEDS: busPIRone 15 MG TABLET PO SCH (09:12)
[2019-07-27] MEDS: DOCUSATE SODIUM 100 MG CAPSULE PO SCH (09:12)
[2019-07-27] MEDS: 0.9 % SODIUM CHLORIDE 10 ML SYRINGE IV SCH (09:15)
--- NOTE | 2019-07-27 09:27 | Discharge Summary ---
Medical - DS: Prov Patient information: Note initiated : 07/27/19 at 9:16 am Service Date, if different from initiated Date: [] Patient: Yessy Carter 73 y/o F admitted on 07/26/19 for Chest Pain. Chief Complaint: [] Date of admission: 07/26/19 20:00 Discharge date: 07/27/19 Primary care physician: Uriel Monge Consults: 07/26/19 Consult to Physician [CONS] Stat Comment: Consulting Provider: Abhay Martinez Reason For Exam: Physician to Consult Medical - DS: Meds - Discharge Medications Prescriptions: Omeprazole 20 mg PO DAILY #30 capsule.dr Prescription Printed Metoclopramide [Reglan] 5 mg PO BIDAC #30 tab Active and Home Medications: Home Medications Sertraline [Zoloft] 100 mg PO DAILY 02/09/18 [History Confirmed 07/26/19 Last Taken 07/26/19] Albuterol Sulfate [Albuterol Sulfate Hfa] 2 puff IH Q4HP PRN 06/26/19 [History Confirmed 07/26/19 Last Taken 07/23/19 12:00] Docusate Sodium 100 mg PO BID 06/26/19 [History Confirmed 07/26/19 Last Taken 07/26/19 09:00] Ergocalciferol (Vitamin D2) [Vitamin D2] 50,000 unit PO WE 06/26/19 [History Confirmed 07/26/19 Last Taken 07/20/19 09:00] Insulin Glargine, Human [Lantus] 10 unit SQ DAILY 06/26/19 [History Confirmed 07/26/19 Last Taken 07/25/19 09:00] Nitroglycerin [Nitrostat] 0.4 mg SL Q5MIN PRN 06/26/19 [History Confirmed 07/26/19 Last Taken 07/26/19 10:08] busPIRone [Buspar] 15 mg PO BID 06/26/19 [History Confirmed 07/26/19 Last Taken 07/26/19 09:00 10 mg] prednisoLONE 1% OPHTH DROPS [Pred Forte Ophth Drops] 1 gtt OD TID 06/26/19 [History Confirmed 07/26/19 Last Taken 07/26/19 09:00] traZODone HCL [Trazodone HCl] 50 mg PO HS 06/26/19 [History Confirmed 07/26/19 Last Taken 07/19/19 21:00] Atorvastatin [Lipitor] 40 mg PO DAILY 06/27/19 [History Confirmed 07/26/19 Last Taken 07/26/19 09:00] Aspirin 81 mg CHEWED DAILY #30 tab.chew 06/29/19 [Rx Confirmed 07/26/19 Last Taken 07/26/19 09:00] Furosemide [Lasix] 40 mg PO DAILY #30 tab 06/29/19 [Rx Confirmed 07/26/19 Last Taken 07/26/19 09:00] Isosorbide Mononitrate [Imdur] 30 mg PO DAILY #30 tab.xl.24h 06/29/19 [Rx Confirmed 07/26/19 Last Taken 07/26/19] Melatonin [Melatonin 3Mg Tablet] 3 mg PO HSP PRN tab 06/29/19 [Rx Confirmed 07/26/19 Last Taken 07/24/19 20:20] Vancomycin [Vancocin] 125 mg PO QID #8 cap 07/13/19 [Rx Confirmed 07/26/19 Last Taken 07/15/19 21:00] Albuterol Sulfate [Ventolin] 2.5 mg NEB Q4HP PRN 07/26/19 [History Confirmed 07/26/19 Last Taken 07/19/19 09:00] HYDROcodone/APAP 5/325MG [[place] 5-325Mg] 1 tab PO Q6HP PRN 07/26/19 [History Confirmed 07/26/19 Last Taken 07/25/19 11:30 5/325] HYDROcodone/APAP 5/325MG [[place] 5-325Mg] 2 tab PO Q6HP PRN 07/26/19 [History Confirmed 07/26/19 Last Taken 07/24/19 21:00 2 tabs] Magnesium Hydroxide [Milk of Magnesia] 30 ml PO ONCE PRN 07/26/19 [History Confirmed 07/26/19 Last Taken 07/23/19 14:15] QUEtiapine [Seroquel] 25 mg PO BID 07/26/19 [History Confirmed 07/26/19 Last Taken 07/26/19 09:00] Omeprazole 20 mg PO DAILY #30 capsule. 07/27/19 [Rx Last Taken Unknown] Medical - DS: Hosp Hospital Course: Discharge diagnosis * Intractable nausea and vomiting-clinically resolved. No episode of nausea vomiting during hospitalization. Managed on crystalloid/supportive treatment. May have underlying component of gastroparesis. Responded well to Reglan. Continue twice daily Reglan * Volume depletion secondary to nausea vomiting. Gentle crystalloids * Chest pain on arrival, negative cardiac enzymes series. No chest pain since admission. Feels at baseline. Triggered by vomiting and retching * Recent C. difficile colitis status post vancomycin 14 days. Resolved * History of CAD-patient has an established locally with a state historical society director but has appointment scheduled, previously follow-up with Dr. Hollis Earl * History of CHF-last EF 40%. Moderate MR. continue diuresis/aspirin/statin/beta-frankie/isosorbide. * History of chronic kidney disease stage III-was evaluated by nephrology during previous hospitalization. At baseline * Anemia requiring transfusion during prior hospitalization. Currently 11.2 hemoglobin * Recent right II/V toe amputation-managed by Dr. Oglesby podiatry outpatient * Diabetic PVD with recent toe amputation-continue aspirin statin * Severe weakness/deconditioning-continue aggressive PT OT, patient has been at longterm home prior to presentation * Dyslipidemia continue statin * Hypertension -continue beta-frankie/isosorbide. * History of DM type II continue basal prandial/sitagliptin/CCD * Anxiety disorder continue BuSpar/SSRI * Tobacco dependence-nicotine patch * COPD continue oxygen/bronchodilators Brief hospital course Ms. Carter is a 73 year old F with a history of Sys/diastolic CHF,EF 40%, PVD s/p Rt II/V toe amputation, CAD s/p stenting, CKD III, diabetic, O2 Dep COPD and history of poor adherence to medication who was discharged to [facility] after a prolonged hospitalization at [facility] from 06/26-July 13. Patient underwent treatment for multiple issues including C. difficile colitis, severe weakness and deconditioning, CHF exacerbation/anemia requiring transfusion and hyperkalemia. She completed 14-day oral vancomycin. She has been following up with podiatry Dr. Oglesby for a right 2/5th toe amputation and is due to follow-up with outpatient cardiology for CAD/CHF management. Today she presents today to the ER with onset of substernal sharp chest pain she describes as kicking worsening with movement and deep breathing. Describes as 6 out of 10 to 8 out of 10. Symptoms are associated with nausea and multiple episodes of vomiting. She denies radiation or diaphoresis. Chest pain is exacerbated with episodes of vomiting. She denies recent fever, diarrhea, changes in medication, lightheadedness, dizziness. She was referred from [facility] to ER for further evaluation. Initial work-up in the ER was unremarkable with normal labs and imaging, 2 sets of troponin along with normal EKG. However patient continued to experience nausea and vomiting despite fluids/antiemetics including Zofran and Phenergan. Subsequently hospitalist service was consulted for evaluation and observation. At the time of examination patient is alert and oriented. Her symptoms have abated. She is asking for food. She last ate yesterday. She has not been able to keep much down. She denies diarrhea dysuria. 07/27-patient doing well. No overnight events. Slept well. No concerns per staff. No episode of chest pain or nausea. Tolerating diet. Appetite back at baseline. Requesting discharge back home. Will schedule outpatient GI follow- up for upper endoscopy in light of intermittent nausea. Start Reglan for possible gastroparesis PPI for suspected reflux symptoms until upper endoscopy performed. Discharging with instructions as below. Discharge diagnosis: . - Time Spent with Patient Total time spent providing and/or coordinating discharge services: Greater than 30 minutes Medical - DS: Exam - Constitutional Vitals: Vital Signs Temp Pulse Pulse Resp BP BP Pulse Ox 07/27/19 04:06 97.8 F 74 20 123/59 90 07/26/19 23:55 92 07/26/19 23:30 98.2 F 90 20 115/58 90 07/26/19 21:55 92 H 20 07/26/19 20:04 98.6 F 93 H 24 H 147/76 90 07/26/19 20:00 98.6 F 97 H 24 H 152/84 90 07/26/19 19:44 20 07/26/19 19:29 22 152/84 98 07/26/19 19:04 97 H 16 84 L 07/26/19 18:31 17 07/26/19 18:07 86 19 96 07/26/19 17:41 80 19 97 07/26/19 16:44 76 18 140/60 88 L 07/26/19 16:32 67 24 H 93 07/26/19 16:12 69 24 H 94 07/26/19 15:53 76 15 92 07/26/19 15:11 66 18 169/71 97 07/26/19 15:03 68 16 158/63 96 07/26/19 14:51 74 16 119/69 98 07/26/19 14:41 64 18 159/61 95 07/26/19 14:31 63 17 158/65 97 07/26/19 14:22 65 13 157/64 97 07/26/19 13:41 67 23 H 138/91 98 07/26/19 13:34 66 14 114/79 97 07/26/19 13:21 67 17 113/85 95 07/26/19 13:14 68 22 95 07/26/19 13:11 66 19 124/63 96 07/26/19 13:00 69 17 114/63 95 07/26/19 12:51 22 129/106 07/26/19 12:41 15 123/59 07/26/19 12:31 68 14 117/60 97 07/26/19 12:21 67 20 117/55 93 07/26/19 12:11 66 17 113/58 92 07/26/19 12:01 66 15 94/71 94 07/26/19 11:51 65 14 130/55 91 07/26/19 11:39 70 18 134/115 90 07/26/19 11:30 61 20 111/51 90 07/26/19 11:27 65 16 134/102 92 07/26/19 11:09 96 H 18 134/102 Intake and Output 07/26/19 07/27/19 07/27/19 21:59 05:59 13:59 Intake Total 69 200 Output Total 1 201 Balance 68 -1 Intake: IV 69 NITROGLYCERIN/D5W 25 mg In 250 4 ml @ 5 MCG/MIN 3 mls/hr IV . Q24H ONE Rx#:[id number] Oral 200 Output: Void Amount 200 # of times incontinent of urine 1 1 Other: Meal yogurt Percent of Meal Consumed 100% Feeding Ability Independent Weight 259 lb 8 oz 259 lb 8 oz Medical - DS: Data Labs on day of discharge: Labs from last 24 hours 07/27/19 07/27/19 07/26/19 04:14 04:14 21:53 WBC 8.7 RBC 3.89 L Hgb 10.7 L Hct 33.0 L MCV 84.9 MCH 27.5 MCHC 32.4 RDW 16.4 H Plt Count 229 MPV 7.7 Gran % Lymph % (Auto) [place] % (Auto) Eos % (Auto) Baso % (Auto) Gran # Lymph # (Auto) [place] # (Auto) Eos # (Auto) Baso # (Auto) Total Counted Pending Band Neutrophils % Not Reportable Platelet Estimate Pending RBC Morphology Pending Sodium 141 Potassium 4.2 Chloride 102 Carbon Dioxide 24 Anion Gap 15.0 BUN 33 H Creatinine 1.3 H GFR Calculation 41 Glucose 154 H Uric Acid 7.4 Calcium 9.1 Phosphorus 4.4 Magnesium 1.8 Total Bilirubin 0.2 Direct Bilirubin < 0.2 GGT 12 AST 12 ALT 11 Alkaline Phosphatase 76 Lactate Dehydrogenase 151 Total Creatine Kinase CK-MB (CK-2) Myoglobin Troponin T 0.01 Total Protein 6.1 Albumin 3.0 L Globulin 3.1 Albumin/Globulin Ratio 1.0 Triglycerides 94 Lipase 07/26/19 07/26/19 07/26/19 18:30 14:19 14:00 WBC RBC Hgb Hct MCV MCH MCHC RDW Plt Count MPV Gran % Lymph % (Auto) [place] % (Auto) Eos % (Auto) Baso % (Auto) Gran # Lymph # (Auto) [place] # (Auto) Eos # (Auto) Baso # (Auto) Total Counted Band Neutrophils % Platelet Estimate RBC Morphology Sodium Potassium Chloride Carbon Dioxide Anion Gap BUN Creatinine GFR Calculation Glucose Uric Acid Calcium Phosphorus Magnesium Total Bilirubin Direct Bilirubin GGT AST ALT Alkaline Phosphatase Lactate Dehydrogenase Total Creatine Kinase CK-MB (CK-2) Myoglobin Troponin T 0.01 < 0.01 Total Protein Albumin Globulin Albumin/Globulin Ratio Triglycerides Lipase 10 07/26/19 07/26/19 07/26/19 11:37 11:37 11:37 WBC 7.0 RBC 4.12 Hgb 11.2 L Hct 34.8 L MCV 84.4 MCH 27.2 MCHC 32.2 RDW 16.0 H Plt Count 254 MPV 7.7 Gran % 55.5 Lymph % (Auto) 30.9 [place] % (Auto) 7.5 Eos % (Auto) 5.0 Baso % (Auto) 1.1 Gran # 3.9 Lymph # (Auto) 2.2 [place] # (Auto) 0.5 Eos # (Auto) 0.3 Baso # (Auto) 0.1 Total Counted Band Neutrophils % Platelet Estimate RBC Morphology Sodium 142 Potassium 4.5 Chloride 101 Carbon Dioxide 27 Anion Gap 14.0 BUN 33 H Creatinine 1.2 H GFR Calculation 45 Glucose 157 H Uric Acid Calcium 9.2 Phosphorus Magnesium Total Bilirubin 0.2 Direct Bilirubin GGT AST 13 ALT 12 Alkaline Phosphatase 79 Lactate Dehydrogenase Total Creatine Kinase CK-MB (CK-2) Myoglobin Troponin T 0.01 Total Protein 6.5 Albumin 3.4 Globulin 3.1 Albumin/Globulin Ratio 1.1 Triglycerides Lipase 07/26/19 11:36 WBC RBC Hgb Hct MCV MCH MCHC RDW Plt Count MPV Gran % Lymph % (Auto) [place] % (Auto) Eos % (Auto) Baso % (Auto) Gran # Lymph # (Auto) [place] # (Auto) Eos # (Auto) Baso # (Auto) Total Counted Band Neutrophils % Platelet Estimate RBC Morphology Sodium Potassium Chloride Carbon Dioxide Anion Gap BUN Creatinine GFR Calculation Glucose Uric Acid Calcium Phosphorus Magnesium Total Bilirubin Direct Bilirubin GGT AST ALT Alkaline Phosphatase Lactate Dehydrogenase Total Creatine Kinase 22 L CK-MB (CK-2) < 1.0 Myoglobin 38 Troponin T Total Protein Albumin Globulin Albumin/Globulin Ratio Triglycerides Lipase Medical - DS: A/P - Patient/Caregiver Discharge Instructions Activity: as per physical therapy Diet: Renal/Consistent Carbs Additional Instructions: Recommend outpatient endoscopy in 2 to 4 weeks Continue Reglan as advised with meals Continue PPI as advised Follow-up with cardiology as outpatient for closer management of congestive heart failure/CAD status post stenting Continue aggressive PT OT/rehab support Wound care for lower extremity PVD/recent amputation Counseled for tobacco cessation Prescriptions: Omeprazole 20 mg PO DAILY #30 capsule.dr Prescription Printed Metoclopramide [Reglan] 5 mg PO BIDAC #30 tab - Problem Maintenance (1) Intractable nausea and vomiting Status: Acute - Follow up Plan Follow up with: Uriel Monge MD [Primary Care Provider] - Disposition: Xfer SNF Prognosis: Good Rehab Potential: Fair I certify that the patient requires SNF services: Yes Overall status at discharge: patient is progressing back to baseline Medical - DS: Qual - VTE Deep Vein Thrombosis/Pulmonary Embolism Present on Admission: No
[2019-07-27] MEDS: BUDESONIDE 0.5 MG/2 ML AMPUL.NEB NEB SCH (09:30)
[2019-07-27] MEDS: ALBUTEROL SULFATE 2.5 MG/3 ML NEBULIZER NEB PRN (09:30)
[2019-07-27 09:32] LABS: Anisocytosis 1+ (NONE SEEN); Eosinophils % (Manual) 2 % (0-7); Hypochromasia 1+ (NONE SEEN); Lymphocytes % 18 % (15-49); Monocytes % (Manual) 5 % (1-12); Platelet Estimate NORMAL (NORMAL); RBC Morphology ABNORM (NORMAL); Segmented Neutrophils % 75 % (38-78)
== END 2019-07-27 11:30 ==
LOC: MEDSUR 11:09 → ED 11:09 → MEDSUR 20:00
PROVIDERS: ADMIT Internal Medicine; ATTEND Internal Medicine

== ENCOUNTER 2020-04-21 13:17 | Inpatient (IN) ==
[2020-04-21] MEDS ORDERED: LACTATED RINGERS 1,000 ML IV ONE (13:35)
--- NOTE | 2020-04-21 13:40 | Emergency Department Note ---
Weakness HPI General Chief complaint: Weakness Stated complaint: Weakness, "failure to thrive" Time Seen by Provider: 04/21/20 13:29 Source: EMS Mode of arrival: EMS History of Present Illness HPI Narrative: Narrative: This patient was discharged from [facility] yesterday through the afternoon. Arrangements were made for her to stay at a hotel with some help but she is unable to get up and move or walk at this time. There is some sort of employment case manager who is brought her to the hospital now for evaluation. Patient refuses any consideration of going back to the half-way. She apparently is in the half-way for 11 months after some toe amputations on the right foot. He does have diabetes. She denies any current complaints such as sore throat cough shortness of breath chest pain abdominal pain nausea or vomiting. She does have a BMI of 49. Patient does complain of some chronic coccyx pain after an injury several years ago. Related Data Home Medications Medication Instructions Recorded Confirmed sertraline 100 mg PO DAILY 02/09/18 10/05/19 albuterol sulfate 2 puff IH Q4HP PRN 06/26/19 10/03/19 docusate sodium 100 mg PO BID 06/26/19 10/03/19 ergocalciferol (vitamin D2) 50,000 unit PO WE 06/26/19 10/03/19 insulin glargine 10 unit SQ DAILY 06/26/19 10/03/19 nitroglycerin 0.4 mg SL Q5MIN PRN 06/26/19 10/03/19 prednisolone acetate 1 gtt OD TID 06/26/19 10/03/19 atorvastatin 40 mg PO DAILY 06/27/19 10/03/19 albuterol sulfate 2.5 mg NEB Q4HP PRN 07/26/19 10/03/19 magnesium hydroxide 30 ml PO ONCE PRN 07/26/19 10/03/19 quetiapine 25 mg PO BID 07/26/19 10/05/19 fluticasone fur. 100 mcg-umeclid 2 inh INHALATION QDAY each 09/22/19 10/03/19 62.5 mcg-vilant 25 mcg inhalat.powder glipizide 5 mg tablet 2 mg PO QDAY 09/22/19 09/28/19 acetaminophen 650 mg PO PRN PRN 09/24/19 10/03/19 furosemide 40 mg PO BID 09/24/19 10/03/19 ondansetron 8 mg SL Q4HP PRN 09/24/19 10/03/19 aspirin 81 mg PO DAILY 10/03/19 10/03/19 canagliflozin 1 mg PO QDAY 04/21/20 04/21/20 Previous Rx's Medication Instructions Recorded melatonin 3 mg PO HSP PRN tab 06/29/19 hydrocodone-acetaminophen 1 - 2 tab PO Q4HP PRN #10 tab 07/27/19 metoclopramide HCl 5 mg PO BIDAC #30 tab 07/27/19 omeprazole 20 mg PO DAILY #30 capsule. 07/27/19 Allergies Allergy/AdvReac Type Severity Reaction Status Date / Time morphine Allergy Intermediate itching, Verified 10/04/19 10:38 swelling, Penicillins AdvReac Severe throat Verified 10/04/19 10:38 swelling and trouble breathing adhesive tape AdvReac Mild Itching Verified 10/04/19 10:38 codeine AdvReac Mild Abdominal Verified 10/03/19 15:21 Pain latex AdvReac Mild Itching Verified 10/04/19 10:38 Latex, Natural Rubber AdvReac Mild Itching Verified 10/04/19 10:38 Review of Systems ROS ROS Narrative: Narrative: All systems ED: reviewed and negative except as stated. [facility] Narrative Patient History Narrative: Narrative: Medical/Surgical/Family History All Active Problems (Updated 04/21/20 @ 19:02 by Sly Sanders MD) Abdominal pain (Acute) Fecal impaction in rectum (Acute) Pneumonia (Acute) Acute kidney injury (Acute) Bacterial skin infection (Acute) Loss of vision (Chronic) Wheelchair bound (Chronic) Nodule of apex of right lung (Chronic) Stress incontinence, female (Chronic) Chronic diarrhea (Chronic) Costochondritis (Chronic) Noncompliance with therapeutic plan (Chronic) Neck pain on right side (Chronic) Acute otitis media, right (Chronic) Solitary pulmonary nodule (Chronic) Insomnia (Chronic) Abnormal kidney function study (Chronic) Osteoarthritis cervical spine (Chronic) PVD (peripheral vascular disease) (Chronic) Corns and callus (Chronic) Soft corn (Chronic) Fungal infection (Chronic) Dysuria (Chronic) Onychomycosis (Chronic) Postmenopausal state (Chronic) Urinary incontinence (Chronic) Black stools (Chronic) Hypercholesteremia (Chronic) Hypertensive heart and chronic kidney disease (Chronic) Carotid atherosclerosis (Chronic) Chest pain (Chronic) Body mass index 45.0-49.9, adult (Chronic) Gangrene of toe of right foot (Chronic) Non compliance w medication regimen (Chronic) Heart failure (Chronic) Depression (Chronic) Arthritis (Chronic) Osteoporosis (Chronic) Chronic back pain (Chronic) Hypotension (Acute) Syncope and collapse (Acute) CHF (congestive heart failure) (Chronic) termite control servicer (current) use of anticoagulants (Chronic) MCFP (current) use of opiate analgesic (Chronic) Diabetes mellitus, type 2 (Chronic) Legal blindness (Chronic) Asthma (Chronic) COPD (chronic obstructive pulmonary disease) (Chronic) Peripheral neuropathy (Chronic) History of coronary artery stent placement (Chronic) History of myocardial infarction (Chronic) Morbid obesity (Chronic) Non-cardiac chest pain (Chronic) Chronic cervical pain (Chronic) Anemia (Chronic) Pleural effusion (Chronic) JACQUE (acute kidney injury) (Chronic) Medical History (Updated 04/21/20 @ 19:02 by Sly Sanders MD) Abdominal pain (Resolved) Abnormal kidney function study (Chronic) Acute decompensated heart failure (Resolved) Acute exacerbation of chronic obstructive airways disease (Resolved) Acute otitis media, right (Chronic) JACQUE (acute kidney injury) (Chronic) JACQUE on CKD, volume overloaded with CHF. Got diuresed. Renal ultrasound is unremarkable. Getting alkalotic, better. Potassium, High probably related to lovenox. renin and zachary levels pending. Hypertension. Better. Phos on tums, it is better. Anemia (Chronic) Arthritis (Chronic) Asthma (Chronic) Black stools (Chronic) Body mass index 45.0-49.9, adult (Chronic) Carotid atherosclerosis (Chronic) Cellulitis (Resolved) Chest pain (Chronic) CHF (congestive heart failure) (Chronic) Chronic back pain (Chronic) Chronic cervical pain (Chronic) Chronic diarrhea (Chronic) COPD (chronic obstructive pulmonary disease) (Chronic) Corns and callus (Chronic) Costochondritis (Chronic) Depression (Chronic) Diabetes mellitus, type 2 (Chronic) Dysuria (Chronic) Fungal infection (Chronic) Gangrene of toe of right foot (Chronic) Heart failure (Chronic) Heart failure with acute decompensation, type unknown (Resolved) History of myocardial infarction (Chronic) Hypercholesteremia (Chronic) Hypertensive heart and chronic kidney disease (Chronic) Insomnia (Chronic) Intractable nausea and vomiting (Resolved) Intractable vomiting (Resolved) Legal blindness (Chronic) termite control servicer (current) use of anticoagulants (Chronic) termite control servicer (current) use of opiate analgesic (Chronic) Loss of vision (Chronic) Morbid obesity (Chronic) Neck pain on right side (Chronic) No pertinent family history (Chronic) Nodule of apex of right lung (Chronic) Non compliance w medication regimen (Chronic) Non-cardiac chest pain (Chronic) Noncompliance with therapeutic plan (Chronic) Onychomycosis (Chronic) Osteoarthritis cervical spine (Chronic) Osteoporosis (Chronic) Peripheral neuropathy (Chronic) Pleural effusion (Chronic) Postmenopausal state (Chronic) PVD (peripheral vascular disease) (Chronic) Respiratory acidosis (Resolved) Soft corn (Chronic) Solitary pulmonary nodule (Chronic) Stress incontinence, female (Chronic) Urinary incontinence (Chronic) UTI (urinary tract infection) (Resolved) Wheelchair bound (Chronic) Surgical History (Updated 10/05/19 @ 10:02 by Robby Velasquez MD) History of cholecystectomy (Chronic) History of coronary artery stent placement (Chronic) History of foot surgery (Acute ~05/2019) Amputation of the right second and third toes History of hernia repair (Chronic) History of hip replacement (Chronic) History of hysterectomy (Chronic) Status post right foot surgery (Acute) Social History Smoking Status: Current some day smoker Alcohol Intake Frequency: does not drink Substance Use: does not use Exam Narrative Narrative: Narrative: Head Head: other (And abrasion of the mid forehead) Eye Eye: Present conjunctival injection ENT ENT: Present normal exam Chest Chest: Present normal inspection and symmetric chest wall rise Respiratory Respiratory: Present normal lung sounds bilaterally; Absent respiratory distress, rales/crackles and wheezes Cardiovascular Cardiovascular: Present regular rate, normal rhythm and normal heart sounds Adbominal Abdominal: Present soft; Absent distention and tenderness Extremities Extremities: Absent pedal edema and pretibial edema Neurological Neurological: Present alert Psychiatric Psychiatric: Present normal affect Skin Skin: Present warm and dry; Absent diaphoresis Course Vital Signs Vital signs: Vital Signs Pulse Rate 86 04/21/20 13:18 Respiratory Rate 20 04/21/20 13:18 Blood Pressure 164/60 04/21/20 13:18 Pulse Oximetry (%) 95 04/21/20 13:18 Pulse Rate 87 04/21/20 14:01 Respiratory Rate 16 04/21/20 18:03 Blood Pressure 138/72 04/21/20 18:03 Pulse Oximetry (%) 93 04/21/20 14:01 MDM MDM Narrative Medical decision making narrative: Narrative: Patient's chest x-ray is negative. White count slightly elevated at 13.9 and c reatinine was up at 2.4 compared to 1.4 a couple of months ago. She does have some early breakdown in both buttocks and perineal area. Patient is unable to get up and walk and move about and will need to be admitted. Dr. Vega was consulted and will admit the patient for acute renal injury and skin infection. Lab Data Lab results reviewed: Yes I reviewed the patient's lab results. Result diagrams: 04/21/20 13:47 04/21/20 13:47 Labs: Lab Results 04/21/20 04/21/20 04/21/20 Range/Units 13:47 13:47 13:47 WBC 13.9 H (4.50-11.00) K/mcL RBC 4.44 (3.59-5.38) M/mcL Hgb 12.9 (11.2-15.7) g/dL Hct 40.4 (34.1-44.9) % MCV 91.0 (80.0-100.0) fL MCH 29.1 (26.0-34.0) pg MCHC 31.9 (31.0-36.0) g/dL RDW 13.7 (11.5-14.5) % Plt Count 272 (140-440) K/mcL MPV 9.0 (7.4-10.4) fL Gran % 82.7 H (38.0-78.0) % Lymph % (Auto) 11.3 L (15.5-49.0) % [place] % (Auto) 5.2 (1.0-12.0) % Eos % (Auto) 0.3 (0.0-7.0) % Baso % (Auto) 0.5 (0.0-2.0) % Gran # 11.50 H (1.80-8.00) K/mcL Lymph # (Auto) 1.57 (1.50-4.80) K/mcL [place] # (Auto) 0.73 (0.10-0.90) K/mcL Eos # (Auto) 0.04 (0.00-0.70) K/mcL Baso # (Auto) 0.07 (0.00-0.30) K/mcL VBG Lactic Acid 1.3 (0.5-2.0) mmol/L Sodium 138 (133-145) mmol/L Potassium 4.6 (3.3-5.1) mmol/L Chloride 96 (96-108) mmol/L Carbon Dioxide 24 (22-30) mmol/L Anion Gap 18.0 H (8-16) BUN 63 H (8-23) mg/dl Creatinine 2.4 H (0.6-1.1) mg/dl GFR Calculation 20 Glucose 155 H (70-105) mg/dL Calcium 9.3 (8.6-10.4) mg/dl Total Bilirubin 0.4 (0.0-1.0) mg/dL AST 14 (0-37) U/l ALT 16 (0-40) U/l Alkaline Phosphatase 98 (39-117) U/L Total Protein 7.4 (5.9-8.4) gm/dL Albumin 4.0 (3.2-5.2) gm/dL Globulin 3.4 (2.2-3.7) gm/dL Albumin/Globulin Ratio 1.2 (1.0-2.3) Urine Color Urine Appearance Urine pH (5.0-9.0) Ur Specific House (1.000-1.035) Urine Protein (NEG) mg/dL Urine Glucose (UA) (NEG) mg/dL Urine Ketones (NEG) mg/dL Urine Occult Blood (<0.03) mg/dL Urine Nitrate (NEG) Urine Bilirubin (NEG) mg/dL Urine Urobilinogen (NEG) mg/dL Ur Leukocyte Esterase (NEG) /uL Urine RBC (0-1) /hpf Urine WBC (0-4) /hpf Ur Squamous Epith Cells (0-4) /hpf Urine Bacteria (0) /hpf Hyaline Casts (0-2) /lpf Urine Mucus (0) /hpf Ur Culture Indicated? 04/21/20 Range/Units 16:59 WBC (4.50-11.00) K/mcL RBC (3.59-5.38) M/mcL Hgb (11.2-15.7) g/dL Hct (34.1-44.9) % MCV (80.0-100.0) fL MCH (26.0-34.0) pg MCHC (31.0-36.0) g/dL RDW (11.5-14.5) % Plt Count (140-440) K/mcL MPV (7.4-10.4) fL Gran % (38.0-78.0) % Lymph % (Auto) (15.5-49.0) % [place] % (Auto) (1.0-12.0) % Eos % (Auto) (0.0-7.0) % Baso % (Auto) (0.0-2.0) % Gran # (1.80-8.00) K/mcL Lymph # (Auto) (1.50-4.80) K/mcL [place] # (Auto) (0.10-0.90) K/mcL Eos # (Auto) (0.00-0.70) K/mcL Baso # (Auto) (0.00-0.30) K/mcL VBG Lactic Acid (0.5-2.0) mmol/L Sodium (133-145) mmol/L Potassium (3.3-5.1) mmol/L Chloride (96-108) mmol/L Carbon Dioxide (22-30) mmol/L Anion Gap (8-16) BUN (8-23) mg/dl Creatinine (0.6-1.1) mg/dl GFR Calculation Glucose (70-105) mg/dL Calcium (8.6-10.4) mg/dl Total Bilirubin (0.0-1.0) mg/dL AST (0-37) U/l ALT (0-40) U/l Alkaline Phosphatase (39-117) U/L Total Protein (5.9-8.4) gm/dL Albumin (3.2-5.2) gm/dL Globulin (2.2-3.7) gm/dL Albumin/Globulin Ratio (1.0-2.3) Urine Color Yellow Urine Appearance Clear Urine pH 5.0 (5.0-9.0) Ur Specific House 1.016 (1.000-1.035) Urine Protein 30 A (NEG) mg/dL Urine Glucose (UA) 150 A (NEG) mg/dL Urine Ketones Neg (NEG) mg/dL Urine Occult Blood Neg (<0.03) mg/dL Urine Nitrate Neg (NEG) Urine Bilirubin Neg (NEG) mg/dL Urine Urobilinogen Neg (NEG) mg/dL Ur Leukocyte Esterase Neg (NEG) /uL Urine RBC 0 (0-1) /hpf Urine WBC 1 (0-4) /hpf Ur Squamous Epith Cells 1 (0-4) /hpf Urine Bacteria 0 (0) /hpf Hyaline Casts 46 H (0-2) /lpf Urine Mucus Mod (0) /hpf Ur Culture Indicated? No Radiology Data Radiology results reviewed: Yes I reviewed the patient's radiology results. Discharge Plan Patient/Caregiver Discharge Instructions Pt seen by RESTAURANT LINE SERVER/PA only: No Clinical Impression: Acute kidney injury, Bacterial skin infection Patient Disposition: Xfer As Inpt ([facility]) Follow up with: Uriel Monge MD [Primary Care Provider] - Prescriptions: No Action glipizide 5 mg tablet 2 mg PO QDAY RF: 0 fluticasone fur. 100 mcg-umeclid 62.5 mcg-vilant 25 mcg inhalat.powder 100-62.5-25 mcg blister with device 2 inh INHALATION QDAY RF: 0 sertraline 50 MG tablet 100 mg PO DAILY RF: 0 insulin glargine 1 UNIT/0.01 ML unit 10 unit SQ DAILY RF: 0 prednisolone acetate 1 GTT bottle 1 gtt OD TID RF: 0 nitroglycerin 0.4 MG tablet, sublingual 0.4 mg SL Q5MIN PRN (Reason: Chest Pain) RF: 0 docusate sodium 100 MG capsule 100 mg PO BID RF: 0 ergocalciferol (vitamin D2) 50,000 UNIT capsule 50,000 unit PO WE RF: 0 albuterol sulfate 8.5 GM HFA aerosol inhaler 2 puff IH Q4HP PRN (Reason: Shortness Of Breath) RF: 0 atorvastatin 40 MG tablet 40 mg PO DAILY RF: 0 melatonin 3 MG tablet 3 mg PO HSP PRN (Reason: Insomnia) RF: 0 quetiapine 25 MG tablet 25 mg PO BID RF: 0 albuterol sulfate 2.5 MG/3 ML solution for nebulization 2.5 mg NEB Q4HP PRN (Reason: Shortness Of Breath) RF: 0 magnesium hydroxide 30 ML suspension 30 ml PO ONCE PRN (Reason: no BM in 3 days) RF: 0 omeprazole 20 MG capsule,delayed release(DR/EC) 20 mg PO DAILY Qty: 30 RF: 0 metoclopramide HCl 10 MG tablet 5 mg PO BIDAC Qty: 30 RF: 0 hydrocodone-acetaminophen 1 TAB tablet 1 - 2 tab PO Q4HP PRN (Reason: Pain) Qty: 10 RF: 0 acetaminophen 325 MG tablet 650 mg PO PRN PRN (Reason: Pain) RF: 0 ondansetron 4 MG tablet 8 mg SL Q4HP PRN (Reason: Nausea) RF: 0 furosemide 40 MG tablet 40 mg PO BID RF: 0 aspirin 81 MG tablet,chewable 81 mg PO DAILY RF: 0 canagliflozin 100 mg Tablet 1 mg PO QDAY RF: 0
[2020-04-21 14:28] LABS: Basophils # (Auto) 0.07 K/mcL (0.00-0.30); Basophils % (Auto) 0.5 % (0.0-2.0); Eosinophils # (Auto) 0.04 K/mcL (0.00-0.70); Eosinophils % (Auto) 0.3 % (0.0-7.0); Granulocytes % (Auto) 82.7 % (38.0-78.0); Hematocrit 40.4 % (34.1-44.9); Hemoglobin 12.9 g/dL (11.2-15.7); Lymphocytes # (Auto) 1.57 K/mcL (1.50-4.80); Lymphocytes % (Auto) 11.3 % (15.5-49.0); Mean Corpuscular HGB Conc 31.9 g/dL (31.0-36.0); Monocytes # (Auto) 0.73 K/mcL (0.10-0.90); Monocytes % (Auto) 5.2 % (1.0-12.0); Platelet Count 272 K/mcL (140-440); RBC 4.44 M/mcL (3.59-5.38); Red Cell Distribution Width 13.7 % (11.5-14.5); WBC 13.9 K/mcL (4.50-11.00)
[2020-04-21 14:47] LABS: ALT/SGPT 16 U/l (0-40); AST/SGOT 14 U/l (0-37); Albumin/Globulin Ratio 1.2 (1.0-2.3); Alkaline Phosphatase 98 U/L (39-117); Bilirubin,Total 0.4 mg/dL (0.0-1.0); Calcium 9.3 mg/dl (8.6-10.4); Carbon Dioxide 24 mmol/L (22-30); Chloride 96 mmol/L (96-108); Globulin 3.4 gm/dL (2.2-3.7); Glucose 155 mg/dL (70-105)
[2020-04-21 14:51] LABS: Blood Urea Nitrogen 63 mg/dl (8-23); Glomerular Filtration Rate 20
--- NOTE | 2020-04-21 14:52 | XRay Report ---
HISTORY: Increased weakness, congestive heart failure, smoker, failure to thrive FINDINGS: There are parenchymal scars at the right apex medially in the right lower thorax and laterally in the left lower lobe. The moderate-sized perihilar infiltrates seen around the right lower hilum on 11/20/19 has resolved. There is a residual nodule laterally at the right apex which measures 1.6 cm. This has remained stable since a prior chest CT done on 11/20/19. No new infiltrate has developed. The heart is mildly enlarged. There is no pulmonary vascular congestion. Patient has an azygos lobe on the right. No pleural effusion is present. IMPRESSION: Stable nodule in the right upper lobe and scarring in both lower lobes Stable cardiomegaly without congestive heart failure Interpreted and Authenticated by: Bari Jama 04/21/20
[2020-04-21 17:39] LABS: Appearance,Urine CLEAR; Bacteria,Urine 0 /hpf (0); Bilirubin,Urine NEG (NEG); Color,Urine YELLOW; Culture Indicated,Urine NO; Glucose,Urine (UA) 150 mg/dL (NEG); Ketones,Urine NEG (NEG); Leukocyte Esterase,Urine NEG /uL (NEG); Mucus,Urine MOD /hpf (0); Nitrate,Urine NEG (NEG); Protein,Urine 30 mg/dL (NEG); Specific Gravity,Urine 1.016 (1.000-1.035); Urine Blood NEG mg/dL (<0.03); Urine Hyaline Cast 46 /lpf (0-2); Urine RBC 0 /hpf (0-1); Urine Squamous Epithelial Cell 1 /hpf (0-4); Urine WBC 1 /hpf (0-4); Urobilinogen,Urine NEG (NEG)
[2020-04-21] MEDS: HYDROmorphone 0.5 MG/0.5 ML SYRINGE IV PRN (18:47)
[2020-04-21] MEDS ORDERED: PROCHLORPERAZINE 10 MG PO PRN (19:29)
[2020-04-21] MEDS ORDERED: DEXTROSE 50% 50 ML VIAL IV PRN (19:41)
[2020-04-21] MEDS ORDERED: DEXTROSE 31 GM ORAL.SUSP PO PRN (19:41)
[2020-04-21] MEDS ORDERED: LEVOFLOXACIN 750 MG/150 ML BAG IV SCH (19:45)
--- NOTE | 2020-04-21 20:17 | Internal Med History&Physical ---
HPI History of Present Illness Patient information: Note initiated : 04/21/20 at 7:55 pm Service Date, if different from initiated Date: [] Patient: Yessy Carter a 74 y/o F admitted on for Weakness, "failure to thrive". Chief Complaint: [] Chief complaint: weakness History of present illness: Ms. Carter is a 74 year old F with a history of diabetes, COPD, CHF, morbid obesity and currently smoker who was brought to the ER due to general weakness. 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 After that, she was discharged to [facility]. Over there she stayed for 11 months. She was just discharged from [facility] two days ago. She was discharged to a hotel because she does not have a family. The staff at the hotel found that she was too weak to stand up. So she was brought to the ER. In the ER, her creatinine was found to be 2.4. 1 L normal saline was given. When I saw this patient in the ER, she complained of generalized weakness, mild shortness of breath, lower back pain, and chills. Review of Systems All systems: reviewed and no additional remarkable complaints except as stated [facility] Medical History Abdominal pain (Resolved) Abnormal kidney function study (Chronic) Acute decompensated heart failure (Resolved) Acute exacerbation of chronic obstructive airways disease (Resolved) Acute otitis media, right (Chronic) JACQUE (acute kidney injury) (Chronic) JACQUE on CKD, volume overloaded with CHF. Got diuresed. Renal ultrasound is unremarkable. Getting alkalotic, better. Potassium, High probably related to lovenox. renin and zachary levels pending. Hypertension. Better. Phos on tums, it is better. Anemia (Chronic) Arthritis (Chronic) Asthma (Chronic) Black stools (Chronic) Body mass index 45.0-49.9, adult (Chronic) Carotid atherosclerosis (Chronic) Cellulitis (Resolved) Chest pain (Chronic) CHF (congestive heart failure) (Chronic) Chronic back pain (Chronic) Chronic cervical pain (Chronic) Chronic diarrhea (Chronic) COPD (chronic obstructive pulmonary disease) (Chronic) Corns and callus (Chronic) Costochondritis (Chronic) Depression (Chronic) Diabetes mellitus, type 2 (Chronic) Dysuria (Chronic) Fungal infection (Chronic) Gangrene of toe of right foot (Chronic) Heart failure (Chronic) Heart failure with acute decompensation, type unknown (Resolved) History of myocardial infarction (Chronic) Hypercholesteremia (Chronic) Hypertensive heart and chronic kidney disease (Chronic) Insomnia (Chronic) Intractable nausea and vomiting (Resolved) Intractable vomiting (Resolved) Legal blindness (Chronic) shelter (current) use of anticoagulants (Chronic) manager terminal (current) use of opiate analgesic (Chronic) Loss of vision (Chronic) Morbid obesity (Chronic) Neck pain on right side (Chronic) No pertinent family history (Chronic) Nodule of apex of right lung (Chronic) Non compliance w medication regimen (Chronic) Non-cardiac chest pain (Chronic) Noncompliance with therapeutic plan (Chronic) Onychomycosis (Chronic) Osteoarthritis cervical spine (Chronic) Osteoporosis (Chronic) Peripheral neuropathy (Chronic) Pleural effusion (Chronic) Postmenopausal state (Chronic) PVD (peripheral vascular disease) (Chronic) Respiratory acidosis (Resolved) Soft corn (Chronic) Solitary pulmonary nodule (Chronic) Stress incontinence, female (Chronic) Urinary incontinence (Chronic) UTI (urinary tract infection) (Resolved) Wheelchair bound (Chronic) Surgical History History of cholecystectomy (Chronic) History of coronary artery stent placement (Chronic) History of foot surgery (Acute ~05/2019) Amputation of the right second and third toes History of hernia repair (Chronic) History of hip replacement (Chronic) History of hysterectomy (Chronic) Status post right foot surgery (Acute) Social History marital status: occupational status: retired smoking status: Current some day smoker smoking status start date: 09/07/1956 alcohol intake frequency: does not drink substance use type: does not use MEDS/ALLERGIES Home Medications and Allergies Home Medications Medication Instructions Recorded Confirmed Type sertraline 100 mg PO DAILY 02/09/18 10/05/19 History albuterol sulfate 2 puff IH Q4HP PRN 06/26/19 10/03/19 History docusate sodium 100 mg PO BID 06/26/19 10/03/19 History ergocalciferol (vitamin D2) 50,000 unit PO WE 06/26/19 10/03/19 History insulin glargine 10 unit SQ DAILY 06/26/19 10/03/19 History nitroglycerin 0.4 mg SL Q5MIN PRN 06/26/19 10/03/19 History prednisolone acetate 1 gtt OD TID 06/26/19 10/03/19 History atorvastatin 40 mg PO DAILY 06/27/19 10/03/19 History melatonin 3 mg PO HSP PRN tab 06/29/19 10/03/19 Rx albuterol sulfate 2.5 mg NEB Q4HP PRN 07/26/19 10/03/19 History magnesium hydroxide 30 ml PO ONCE PRN 07/26/19 10/03/19 History quetiapine 25 mg PO BID 07/26/19 10/05/19 History hydrocodone-acetaminophen 1 - 2 tab PO Q4HP PRN #10 tab 07/27/19 10/03/19 Rx metoclopramide HCl 5 mg PO BIDAC #30 tab 07/27/19 10/05/19 Rx omeprazole 20 mg PO DAILY #30 capsule. 07/27/19 10/05/19 Rx fluticasone fur. 100 mcg-umeclid 2 inh INHALATION QDAY each 09/22/19 10/03/19 History 62.5 mcg-vilant 25 mcg inhalat.powder glipizide 5 mg tablet 2 mg PO QDAY 09/22/19 09/28/19 History acetaminophen 650 mg PO PRN PRN 09/24/19 10/03/19 History furosemide 40 mg PO BID 09/24/19 10/03/19 History ondansetron 8 mg SL Q4HP PRN 09/24/19 10/03/19 History aspirin 81 mg PO DAILY 10/03/19 10/03/19 History canagliflozin 1 mg PO QDAY 04/21/20 04/21/20 History Allergies Allergy/AdvReac Type Severity Reaction Status Date / Time morphine Allergy Intermediate itching, Verified 10/04/19 10:38 swelling, Penicillins AdvReac Severe throat Verified 10/04/19 10:38 swelling and trouble breathing adhesive tape AdvReac Mild Itching Verified 10/04/19 10:38 codeine AdvReac Mild Abdominal Verified 10/03/19 15:21 Pain latex AdvReac Mild Itching Verified 10/04/19 10:38 Latex, Natural Rubber AdvReac Mild Itching Verified 10/04/19 10:38 EXAM Constitutional Vitals: Pulse Resp BP Pulse Ox 77 16 90/63 87 L 04/21/20 19:01 04/21/20 18:03 04/21/20 19:01 04/21/20 19:01 Additional findings Additional findings: General - Morbid obesity, no acute distress Eyes - PERRLA, EOM intact ENT no rhinorrhea, no noticeable or palpable swelling, no redness or rash around throat or on face Neck supple, no JVD, no thyromegaly Respiratory: Lungs -clear, no wheezing or crackles. Cardiovascular - RRR no m/r/g, GI - Normal bowel sounds, no distended, soft. Extremeties - 2nd toes and 5th toe of right foot missed due to amputation. Right buttock erythema and broken skin. Perineal and inner skin of both thighs eryth mari and tenderness. No edema, cyanosis or clubbing. Hemo/lymphatic/immune no lymphadenopathy Neurological Alert and oriented x 3, no focal neurological deficits. Psychiatry flat affect DATA Data Completed and Pending Labs on day of discharge: Labs from last 24 hours 04/21/20 04/21/20 04/21/20 16:59 13:47 13:47 WBC RBC Hgb Hct MCV MCH MCHC RDW Plt Count MPV Gran % Lymph % (Auto) [place] % (Auto) Eos % (Auto) Baso % (Auto) Gran # Lymph # (Auto) [place] # (Auto) Eos # (Auto) Baso # (Auto) VBG Lactic Acid 1.3 Sodium 138 Potassium 4.6 Chloride 96 Carbon Dioxide 24 Anion Gap 18.0 H BUN 63 H Creatinine 2.4 H GFR Calculation 20 Glucose 155 H Calcium 9.3 Total Bilirubin 0.4 AST 14 ALT 16 Alkaline Phosphatase 98 Total Protein 7.4 Albumin 4.0 Globulin 3.4 Albumin/Globulin Ratio 1.2 Urine Color Yellow Urine Appearance Clear Urine pH 5.0 Ur Specific Blanket 1.016 Urine Protein 30 A Urine Glucose (UA) 150 A Urine Ketones Neg Urine Occult Blood Neg Urine Nitrate Neg Urine Bilirubin Neg Urine Urobilinogen Neg Ur Leukocyte Esterase Neg Urine RBC 0 Urine WBC 1 Ur Squamous Epith Cells 1 Urine Bacteria 0 Hyaline Casts 46 H Urine Mucus Mod Ur Culture Indicated? No 04/21/20 13:47 WBC 13.9 H RBC 4.44 Hgb 12.9 Hct 40.4 MCV 91.0 MCH 29.1 MCHC 31.9 RDW 13.7 Plt Count 272 MPV 9.0 Gran % 82.7 H Lymph % (Auto) 11.3 L [place] % (Auto) 5.2 Eos % (Auto) 0.3 Baso % (Auto) 0.5 Gran # 11.50 H Lymph # (Auto) 1.57 [place] # (Auto) 0.73 Eos # (Auto) 0.04 Baso # (Auto) 0.07 VBG Lactic Acid Sodium Potassium Chloride Carbon Dioxide Anion Gap BUN Creatinine GFR Calculation Glucose Calcium Total Bilirubin AST ALT Alkaline Phosphatase Total Protein Albumin Globulin Albumin/Globulin Ratio Urine Color Urine Appearance Urine pH Ur Specific Blanket Urine Protein Urine Glucose (UA) Urine Ketones Urine Occult Blood Urine Nitrate Urine Bilirubin Urine Urobilinogen Ur Leukocyte Esterase Urine RBC Urine WBC Ur Squamous Epith Cells Urine Bacteria Hyaline Casts Urine Mucus Ur Culture Indicated? A/P Narrative A/P Narrative: 1. JACQUE and on CKD Stage IV Creatinine 2.4 in the ER. 0.9 on January 14, 2019. Baseline 1.4 since January 2019 Urine sodium Urinalysis Avoid nephrotoxic and contrast Gentle IV fluid Repeat renal function in morning Discussed with director of quality improvement Dr. Cooper who will see the patient as an outpatient 2. Skin infection/cellulitis, perineal and thighs Bacterial and fungal? Levaquin (allergic to penicillin) Fluconazole oral and Nystatin topical Blood culture 3. Pressure - ulcer, right buttock Wound care Wound culture 4. Diabetes type II Diabetic nephropathy Hemoglobin A1c Continue home diabetes medication Insulin sliding scale 5. Currently smoker Smoking cessation counseling Nicotine patch 6. COPD Stable Continue inhalers 7. CHF Euvolemic status 8. Hypertension Continue home medication 9. Morbid obesity PT OT Follow with PCP 10. Pulmonary nodules Follow with PCP 11. Generalized weakness Deficiency continue to care for self PT OT CM consult 12. DVT prophylaxis: Heparin 13. CODE STATUS: Sprinkler Repair Technician Spent With Patient Time: Total time spent is greater than 50% in coordination of care (as documented) at patient's floor/unit and/or counseling patient:
[2020-04-21] MEDS: 0.9 % SODIUM CHLORIDE 1,000 ML IV SCH (21:12)
[2020-04-21] MEDS: DOCUSATE SODIUM 100 MG CAPSULE PO SCH (21:20)
[2020-04-21] MEDS: INSULIN LISPRO 1 UNIT/0.01 ML UNIT SQ SCH (21:20)
[2020-04-21 22:08] LABS: ALT/SGPT 14 U/l (0-40); AST/SGOT 16 U/l (0-37); Albumin 3.4 gm/dL (3.2-5.2); Albumin/Globulin Ratio 1.1 (1.0-2.3); Alkaline Phosphatase 85 U/L (39-117); Bilirubin,Total 0.4 mg/dL (0.0-1.0); Blood Urea Nitrogen 58 mg/dl (8-23); Calcium 8.8 mg/dl (8.6-10.4); Carbon Dioxide 24 mmol/L (22-30); Chloride 99 mmol/L (96-108); Glomerular Filtration Rate 24; Glucose 89 mg/dL (70-105)
[2020-04-21] MEDS: 0.9 % SODIUM CHLORIDE 10 ML SYRINGE IV SCH (22:20)
[2020-04-21] MEDS: HEPARIN 5,000 UNIT/ML VIAL SQ SCH (22:22)
[2020-04-21] MEDS: NYSTATIN CRM 1 DOSE TUBE TOPICAL SCH (22:23)
[2020-04-21 22:34] LABS: Estimated Average Glucose(eAG) 146 mg/dL; Hemoglobin A1C 6.7 % HGB (4.0-6.0)
[2020-04-22] MEDS: HYDROmorphone 0.5 MG/0.5 ML SYRINGE IV PRN ×3 (03:45→21:49)
[2020-04-22] MEDS: 0.9 % SODIUM CHLORIDE 10 ML SYRINGE IV SCH ×3 (05:57→21:01)
[2020-04-22 06:38] LABS: Basophils # (Auto) 0.05 K/mcL (0.00-0.30); Basophils % (Auto) 0.5 % (0.0-2.0); Eosinophils # (Auto) 0.13 K/mcL (0.00-0.70); Eosinophils % (Auto) 1.4 % (0.0-7.0); Granulocytes % (Auto) 71.3 % (38.0-78.0); Hematocrit 37.5 % (34.1-44.9); Hemoglobin 10.8 g/dL (11.2-15.7); Lymphocytes # (Auto) 1.89 K/mcL (1.50-4.80); Lymphocytes % (Auto) 20.1 % (15.5-49.0); Mean Cell Volume 99.7 fL (80.0-100.0); Mean Corpuscular HGB Conc 28.8 g/dL (31.0-36.0); Mean Platelet Volume 9.1 fL (7.4-10.4); Monocytes # (Auto) 0.63 K/mcL (0.10-0.90); Monocytes % (Auto) 6.7 % (1.0-12.0); Platelet Count 205 K/mcL (140-440); RBC 3.76 M/mcL (3.59-5.38); WBC 9.4 K/mcL (4.50-11.00)
[2020-04-22 07:03] LABS: Chloride 103 mmol/L (96-108)
[2020-04-22 07:10] LABS: ALT/SGPT 12 U/l (0-40); AST/SGOT 19 U/l (0-37); Albumin 2.9 gm/dL (3.2-5.2); Alkaline Phosphatase 74 U/L (39-117); Bilirubin,Total 0.4 mg/dL (0.0-1.0); Blood Urea Nitrogen 56 mg/dl (8-23); Calcium 8.4 mg/dl (8.6-10.4); Carbon Dioxide 20 mmol/L (22-30); Globulin 2.8 gm/dL (2.2-3.7); Glomerular Filtration Rate 28; Glucose 72 mg/dL (70-105)
[2020-04-22] MEDS: INSULIN LISPRO 1 UNIT/0.01 ML UNIT SQ SCH ×4 (07:29→21:01)
[2020-04-22] MEDS: DOCUSATE SODIUM 100 MG CAPSULE PO SCH ×2 (11:05→20:59)
[2020-04-22] MEDS: HEPARIN 5,000 UNIT/ML VIAL SQ SCH ×2 (11:05→21:00)
[2020-04-22] MEDS: NYSTATIN CRM 1 DOSE TUBE TOPICAL SCH ×2 (11:06→21:01)
[2020-04-22] MEDS: NICOTINE 14 MG PATCH TOPICAL SCH (11:07)
[2020-04-22] MEDS: traMADol 50 MG TABLET PO PRN ×2 (11:09→17:59)
[2020-04-22] MEDS: FLUCONAZOLE 150 MG TABLET PO SCH (11:09)
[2020-04-22] MEDS ORDERED: MINERAL OIL 1 DOSE ENEMA PR PRN (11:14)
--- NOTE | 2020-04-22 14:31 | Internal Med Progress Note ---
SUBJECTIVE Subjective Patient information: Note initiated : 04/22/20 at 2:22 pm Service Date, if different from initiated Date: [] Patient: Yessy Carter a 74 y/o F admitted on 04/21/20 for Weakness, "failure to thrive". Chief Complaint: [] Interval history: Ms. Carter is a 74 year old F with a history of diabetes, COPD, CHF, morbid obesity and currently smoker who was brought to the ER due to general weakness. 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 After that, she was discharged to shelter [facility]. Over there she stayed for 11 months. She was just discharged from [facility] two days ago. She was discharged to a hotel because she does not have a family. The staff at the hotel found that she was too weak to stand up. So she was brought to the ER. In the ER, her creatinine was found to be 2.4. 1 L normal saline was given. When I saw this patient in the ER, she complained of generalized weakness, mild shortness of breath, lower back pain, and chills. 04/22 Patient complains of both flank pain which started days ago. Otherwise the patient does not have any new complaints. Patient had a large bowel movement today UA negative CT chest and abdomen Review of Systems All systems: reviewed and no additional remarkable complaints except as stated Constitutional Vitals: Vital Signs Temp Pulse Resp BP Pulse Ox 97.9 F 80 14 122/91 90 04/22/20 08:01 04/22/20 11:17 04/22/20 13:28 04/22/20 11:17 04/22/20 11:17 Period Temp Pulse Resp BP Sys/Allen Pulse Ox Last 24 Hr 97 F-98.2 F 64-82 13-28 90-170/46-141 87-99 Intake and Output 04/22/20 04/22/20 04/22/20 05:59 13:59 21:59 Intake Total 150 480 Output Total 1100 Balance -950 480 Intake & Output: Intake & Output 04/22/20 04/22/20 04/22/20 05:59 13:59 21:59 Intake Total 150 480 Output Total 1100 Balance -950 480 Intake: IV 150 Oral 480 Output: Urine Catheter Amount 1100 Other: Meal Lunch Percent of Meal Consumed 100% Stool Size Copious Stool Color Brown Stool Consistency Dry and Hard Additional findings Additional findings: General - Morbid obesity, no acute distress Eyes - PERRLA, EOM intact ENT no rhinorrhea, no noticeable or palpable swelling, no redness or rash around throat or on face Neck supple, no JVD, no thyromegaly Respiratory: Lungs -clear, no wheezing or crackles. Cardiovascular - RRR no m/r/g, GI - Normal bowel sounds, no distended, soft. Extremeties - 2nd toes and 5th toe of right foot missed due to amputation. Right buttock erythema and broken skin. Perineal and inner skin of both thighs erythema and tenderness (improving). No edema, cyanosis or clubbing. Hemo/lymphatic/immune no lymphadenopathy Neurological Alert and oriented x 3, no focal neurological deficits. Psychiatry flat affect OBJ DATA Labs CBC & Chem 7: 04/22/20 04:24 04/22/20 04:24 Labs: Abnormal Lab Results 04/22/20 04/22/20 04/21/20 04:24 04:24 21:10 WBC Hgb 10.8 L MCHC 28.8 L Gran % Lymph % (Auto) Gran # Carbon Dioxide 20 L Anion Gap BUN 56 H 58 H Creatinine 1.8 H 2.0 H Glucose Hemoglobin A1c 6.7 H Calcium 8.4 L Total Protein 5.7 L Albumin 2.9 L Urine Protein Urine Glucose (UA) Hyaline Casts 04/21/20 04/21/20 04/21/20 16:59 13:47 13:47 WBC 13.9 H Hgb MCHC Gran % 82.7 H Lymph % (Auto) 11.3 L Gran # 11.50 H Carbon Dioxide Anion Gap 18.0 H BUN 63 H Creatinine 2.4 H Glucose 155 H Hemoglobin A1c Calcium Total Protein Albumin Urine Protein 30 A Urine Glucose (UA) 150 A Hyaline Casts 46 H Meds: Medications Dextrose (Dextrose 50%) 0 ml IV UD PRN PRN Reason: Hypoglycemia Diagnostic Test (Pha) (Accu-Chek) 1 each FS ACHS [facility] Last Admin: 04/22/20 11:30 Dose: 1 each Documented by: Docusate Sodium (Colace) 100 mg PO BID [facility] Last Admin: 04/22/20 11:05 Dose: 100 mg Documented by: Fluconazole (Diflucan) 150 mg PO DAILY [facility]; Protocol Last Admin: 04/22/20 11:09 Dose: 150 mg Documented by: Glucose (Insta-Glucose) 15 gm PO PRN PRN PRN Reason: Hypoglycemia Heparin Sodium (Porcine) (Heparin) 5,000 unit SQ Q12 [facility] Last Admin: 04/22/20 11:05 Dose: 5,000 unit Documented by: Hydromorphone HCl (Dilaudid) 0.5 mg IV Q15MIN PRN; Protocol PRN Reason: Per Pain Protocol Last Admin: 04/22/20 08:36 Dose: 0.5 mg Documented by: Sodium Chloride (Sodium Chloride 0.9%) 1,000 mls @ 50 mls/hr IV .Q20H [facility] Last Admin: 04/21/20 21:12 Dose: 50 mls/hr Documented by: Levofloxacin (Levaquin) 750 mg in 150 mls @ 100 mls/hr IV Q48H [facility] Insulin Human Lispro (Humalog) 0 unit SQ ACHS [facility]; Protocol Last Admin: 04/22/20 13:35 Dose: Not Given Documented by: Mineral Oil (Mineral Oil Enema) 1 dose HI DAILY PRN PRN Reason: Constipation Nicotine (Nicoderm) 14 mg TOPICAL DAILY@1000 [facility] Last Admin: 04/22/20 11:07 Dose: 14 mg Documented by: Nystatin (Nystatin Crm) 1 dose TOPICAL BID [facility] Last Admin: 04/22/20 11:06 Dose: 1 dose Documented by: Prochlorperazine Maleate (Compazine (Pp)) 5 mg PO Q8HP PRN PRN Reason: Nausea And Vomiting Sodium Chloride (Saline Flush) 10 ml IV Q8 [facility] Last Admin: 04/22/20 05:57 Dose: Not Given Documented by: Tramadol HCl (Ultram) 50 mg PO Q4HP PRN PRN Reason: Pain Last Admin: 04/22/20 11:09 Dose: 50 mg Documented by: A/P Narrative A/P Narrative: 1. JACQUE and on CKD Stage IV Creatinine 2.4 in the ER. 0.9 on January 14, 2019. Baseline 1.4 since January 2019 FENA - 0.3%, suggestive of prerenal cause Creatinine went down to 1.8 today Urinalysis - negative Avoid nephrotoxic and contrast Gentle IV fluid Repeat renal function in morning Discussed with medical lab scientist Dr. Cooper who will see the patient as an outpatient 2. Skin infection/cellulitis, perineal and thighs improving Bacterial and fungal? Levaquin (allergic to penicillin) Fluconazole oral and Nystatin topical Blood culture 3. Pressure - ulcer, right buttock Wound care Wound culture 4. Diabetes type II Diabetic nephropathy Hemoglobin A1c Held home diabetes medication Insulin sliding scale 5. Currently smoker Smoking cessation counseling Nicotine patch 6. COPD Stable Continue inhalers 7. CHF Euvolemic status intake and output 8. Hypertension Continue home medication 9. Morbid obesity PT OT Follow with PCP 10. Pulmonary nodules Follow with PCP 11. Generalized weakness Deficiency continue to care for self PT OT CM consult 12. Flank pain CT abd/pelvis UA negative 13. DVT prophylaxis: Heparin 14. CODE STATUS: Full Deposition: Homeless PT/OT/CM Time Spent With Patient Time: Total time spent is greater than 50% in coordination of care (as documented) at patient's floor/unit and/or counseling patient:
--- NOTE | 2020-04-22 15:07 | Cat Scan Report ---
History: A lateral flank pain TECHNIQUE: the patient was imaged without oral or intravenous contrast at 2.5 mm intervals. Sagittal and coronal reformats are created. The radiation exposure was limited using dose reduction technology. FINDINGS: There is a lobulated 2.0 x 2.5 cm pulmonary nodule in the lateral basal segment of the right lower lobe. It measured 2.0 x 2.4 cm on 11/20/19 and 0.9 x 1.3 cm on 08/09/19. The previously seen pneumonia in the right lower lobe has resolved. The right hilum appears enlarged. However, without contrast I cannot determine if this is due to enlarged central pulmonary vessels or lymphadenopathy. The liver is normal in size and homogeneous. The gallbladder has been removed. The spleen is normal. There is no evidence of a mass or inflammation in the pancreas. The extrahepatic bile ducts are upper limits of normal in caliber. Adjacent to the ampulla there are two small benign duodenal diverticula. Caliber of the common bile duct has remained stable since the prior exam. There is mild atrophy of the right kidney. There is no evidence of calculus, hydronephrosis, cyst or mass in either kidney. Multiple arterial calcifications are present in both kidneys. The ureters are decompressed. The urinary bladder is decompressed by Alba catheter. Large amount calcified plaque is present in the aorta. Patient has fecal impaction in the rectum and distal sigmoid colon. Moderate amount stool is present in the transverse and descending colon. There is also a moderate amount of ingested material in the stomach. The small bowel is normal in caliber. The appendix is noninflamed. In the paracolonic fat posterior to the descending colon there is an irregularly shaped soft tissue mass which measures 12 x 16 mm. It is separate from colon. It was not present on 11/20/19. Patient has also developed a large lymph node in the right groin which measures 2.5 x 2.8 cm. No intrapelvic adenopathy is present. Patient has stable old mild compression fracture at L4. No lytic or blastic metastasis are present. There is arthritis throughout the spine. Patient has a compression screw in left hip following prior intertrochanteric fracture. IMPRESSION: Slowly enlarging mass in the right lower lobe. This could be a lung cancer. Fecal impaction. Soft tissue mass in the posterior pericolonic fat an and enlarged lymph node in the right groin. This could be due to metastatic disease. Mild loss of parenchyma in the right kidney and no evidence of kidney stone or urinary tract obstruction Dr. Carlisle was called with the results Interpreted and Authenticated by: Bari Jama 04/22/20
--- NOTE | 2020-04-22 15:15 | Cat Scan Report ---
History: Right lower lobe mass seen on abdominal CT TECHNIQUE: The chest was imaged without contrast due to poor renal function. Patient was scanned at 2.5 mm intervals. Sagittal and coronal reformats are created. The radiation exposure was limited using dose reduction technology. FINDINGS: Laterally in the right upper lobe there is a 1.2 x 1.5 cm nodule with dense calcification centrally. This represents a moderate-sized granuloma. In the lateral basal segment right lower lobe there is a lobulated mass with spiculated borders which measures 2.0 x 2.5 cm. This is noncalcified. No pleural effusion is present. There is mild pleural parenchymal scar in the posterior basal segments of both lower lobes, left greater than right. There is also pleural thickening along the inferior border of the major fissure on the left side and there is also parenchymal scar adjacent to the minor fissure on the right. There is a cluster of large lymph nodes in the subcarinal space which measure 2.2 x 2.7 x 4.2 cm. Smaller lymph nodes are seen in the right paratracheal space measuring up to 1.3 cm. Patient has engorgement of the central pulmonary arteries. The suzette are enlarged, right greater than left. Much of this is due to the engorgement of central pulmonary vessels. However, the asymmetry would suggest that there are enlarged hilar lymph nodes adjacent to the pulmonary artery. Without IV contrast the evaluation is limited. No enlarged lymph nodes are seen in the left hilum. Bone windows show no lytic or blastic metastasis. The heart size is normal. Numerous atherosclerotic plaques are present throughout the coronary arteries. Is also plaque throughout the aorta. The aorta is normal in caliber. IMPRESSION: 2.0 x 2.5 cm spiculated mass in the right lower lobe with associated enlarged mediastinal lymph nodes in the subcarinal space. This is most likely a lung cancer. Calcified granuloma in the right upper lobe Severe atherosclerotic coronary artery disease Enlarged central pulmonary arteries. This may be seen with pulmonary artery hypertension Interpreted and Authenticated by: Bari Jama 04/22/20
[2020-04-22] MEDS: 0.9 % SODIUM CHLORIDE 1,000 ML IV SCH (21:00)
[2020-04-23 06:13] LABS: Basophils # (Auto) 0.05 K/mcL (0.00-0.30); Basophils % (Auto) 0.6 % (0.0-2.0); Eosinophils # (Auto) 0.14 K/mcL (0.00-0.70); Eosinophils % (Auto) 1.8 % (0.0-7.0); Granulocytes % (Auto) 68.9 % (38.0-78.0); Hematocrit 37.4 % (34.1-44.9); Hemoglobin 11.5 g/dL (11.2-15.7); Lymphocytes # (Auto) 1.71 K/mcL (1.50-4.80); Lymphocytes % (Auto) 21.6 % (15.5-49.0); Mean Cell Volume 94.4 fL (80.0-100.0); Mean Corpuscular HGB Conc 30.7 g/dL (31.0-36.0); Mean Platelet Volume 9.3 fL (7.4-10.4); Monocytes # (Auto) 0.56 K/mcL (0.10-0.90); Monocytes % (Auto) 7.1 % (1.0-12.0); Platelet Count 224 K/mcL (140-440); RBC 3.96 M/mcL (3.59-5.38); Red Cell Distribution Width 13.6 % (11.5-14.5); WBC 7.9 K/mcL (4.50-11.00)
[2020-04-23] MEDS: 0.9 % SODIUM CHLORIDE 10 ML SYRINGE IV SCH ×3 (06:17→20:17)
[2020-04-23 06:21] LABS: ALT/SGPT 12 U/l (0-40); AST/SGOT 14 U/l (0-37); Alkaline Phosphatase 74 U/L (39-117); Bilirubin,Total 0.2 mg/dL (0.0-1.0); Calcium 8.6 mg/dl (8.6-10.4); Carbon Dioxide 23 mmol/L (22-30); Chloride 106 mmol/L (96-108); Globulin 2.9 gm/dL (2.2-3.7); Glucose 108 mg/dL (70-105)
[2020-04-23 06:22] LABS: Blood Urea Nitrogen 41 mg/dl (8-23); Glomerular Filtration Rate 37
[2020-04-23] MEDS ORDERED: PROCHLORPERAZINE 10 MG TABLET PO PRN (06:45)
[2020-04-23] MEDS: INSULIN LISPRO 1 UNIT/0.01 ML UNIT SQ SCH ×4 (07:18→20:30)
[2020-04-23] MEDS ORDERED: ALBUTEROL SULFATE 200 PUFF INHALER IH PRN (07:57)
[2020-04-23] MEDS: HEPARIN 5,000 UNIT/ML VIAL SQ SCH ×2 (09:20→20:16)
[2020-04-23] MEDS: traMADol 50 MG TABLET PO PRN ×2 (09:20→20:27)
[2020-04-23] MEDS: SERTRALINE 50 MG TABLET PO SCH (09:21)
[2020-04-23] MEDS: ATORVASTATIN 40 MG TABLET PO SCH (09:21)
[2020-04-23] MEDS: QUEtiapine 25 MG TABLET PO SCH ×2 (09:22→20:16)
[2020-04-23] MEDS: FUROSEMIDE 40 MG TABLET PO SCH ×2 (09:22→20:17)
[2020-04-23] MEDS: ASPIRIN 81 MG TAB.CHEW PO SCH (09:22)
[2020-04-23] MEDS: DOCUSATE SODIUM 100 MG CAPSULE PO SCH ×2 (09:22→20:16)
[2020-04-23] MEDS: LEVOFLOXACIN 750 MG/150 ML BAG IV SCH (09:23)
[2020-04-23] MEDS: FLUCONAZOLE 150 MG TABLET PO SCH (09:33)
[2020-04-23] MEDS: NYSTATIN CRM 1 DOSE TUBE TOPICAL SCH ×2 (09:33→20:18)
[2020-04-23] MEDS: NICOTINE 14 MG PATCH TOPICAL SCH (09:34)
[2020-04-23] MEDS: Fluticasone-Umeclidin-Vilanter [Trelegy Ellipta] Inhaler INH SCH (10:08)
--- NOTE | 2020-04-23 11:30 | Internal Med Progress Note ---
SUBJECTIVE Subjective Patient information: Note initiated : 04/23/20 at 11:18 am Service Date, if different from initiated Date: [] Patient: Yessy Carter a 74 y/o F admitted on 04/21/20 for Weakness, "failure to thrive". Chief Complaint: [] Interval history: Ms. Carter is a 74 year old F with a history of diabetes, COPD, CHF, morbid obesity and currently smoker who was brought to the ER due to general weakness. 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 After that, she was discharged to group home [facility]. Over there she stayed for 11 months. She was just discharged from [facility] two days ago. She was discharged to a hotel because she does not have a family. The staff at the hotel found that she was too weak to stand up. So she was brought to the ER. In the ER, her creatinine was found to be 2.4. 1 L normal saline was given. When I saw this patient in the ER, she complained of generalized weakness, mild shortness of breath, lower back pain, and chills. 04/22 Patient complains of both flank pain which started days ago. Otherwise the patient does not have any new complaints. Patient had a large bowel movement today UA negative CT chest and abdomen 04/23 Patient still complains of lower back pain. Otherwise she is fine. CT chest showed possible metastatic lung cancer. I advised her to have a biopsy before we discharge her. She eventually agreed with the biopsy. She told me that she was found to have a lung mass years ago. She was scheduled to have biopsy but she refused the biopsy. Her doctor I scheduled her to follow-up with in 5 months. Review of Systems All systems: reviewed and no additional remarkable complaints except as stated Constitutional Vitals: Vital Signs Temp Pulse Resp BP Pulse Ox 97.7 F 74 16 143/72 98 04/23/20 07:36 04/22/20 20:01 04/23/20 08:00 04/23/20 07:36 04/23/20 08:00 Period Temp Pulse Resp BP Sys/Allen Pulse Ox Last 24 Hr 97.2 F-98.6 F 68-74 13-19 111-153/49-72 94-98 Intake and Output 08/16/20 08/17/20 08/17/20 21:59 05:59 13:59 Intake Total 1360 480 Output Total 750 1400 Balance 610 -1400 480 Weight 126.099 kg Intake & Output: Intake & Output 04/22/20 04/23/20 04/23/20 21:59 05:59 13:59 Intake Total 1360 480 Output Total 750 1400 Balance 610 -1400 480 Weight 126.099 kg Intake: IV 1000 Sodium Chloride 0.9% 1,000 ml @ 1000 50 mls/hr IV .Q20H [facility] Rx#: [id number] Oral 360 480 Output: Urine Catheter Amount 750 1400 Other: Meal Breakfast Percent of Meal Consumed 100% Feeding Ability Independent Urine Appearance Cloudy Clear Clear Uretheral (Alba) Cloudy Clear Urine Color Dark Yellow Dark Yellow Bright Yellow Uretheral (Alba) Dark Yellow Bright Yellow Urine Odor Normal Uretheral (Alba) Strong Additional findings Additional findings: General - Morbid obesity, no acute distress Eyes - PERRLA, EOM intact ENT no rhinorrhea, no noticeable or palpable swelling, no redness or rash a round throat or on face Neck supple, no JVD, no thyromegaly Respiratory: Lungs -clear, no wheezing or crackles. Cardiovascular - RRR no m/r/g, GI - Normal bowel sounds, no distended, soft. Extremeties - 2nd toes and 5th toe of right foot missed due to amputation. Right buttock erythema and broken skin. Perineal and inner skin of both thighs erythema and tenderness (improving). No edema, cyanosis or clubbing. Hemo/lymphatic/immune no lymphadenopathy Neurological Alert and oriented x 3, no focal neurological deficits. Psychiatry flat affect OBJ DATA Labs CBC & Chem 7: 04/23/20 04:28 04/23/20 04:28 Labs: Abnormal Lab Results 04/23/20 04/23/20 04/22/20 04:28 04:28 04:24 WBC Hgb MCHC 30.7 L Gran % Lymph % (Auto) Gran # Carbon Dioxide 20 L Anion Gap BUN 41 H 56 H Creatinine 1.4 H 1.8 H Glucose 108 H Hemoglobin A1c Calcium 8.4 L Total Protein 5.7 L Albumin 3.0 L 2.9 L Urine Protein Urine Glucose (UA) Hyaline Casts 04/22/20 04/21/20 04/21/20 04:24 21:10 16:59 WBC Hgb 10.8 L MCHC 28.8 L Gran % Lymph % (Auto) Gran # Carbon Dioxide Anion Gap BUN 58 H Creatinine 2.0 H Glucose Hemoglobin A1c 6.7 H Calcium Total Protein Albumin Urine Protein 30 A Urine Glucose (UA) 150 A Hyaline Casts 46 H 04/21/20 04/21/20 13:47 13:47 WBC 13.9 H Hgb MCHC Gran % 82.7 H Lymph % (Auto) 11.3 L Gran # 11.50 H Carbon Dioxide Anion Gap 18.0 H BUN 63 H Creatinine 2.4 H Glucose 155 H Hemoglobin A1c Calcium Total Protein Albumin Urine Protein Urine Glucose (UA) Hyaline Casts Meds: Medications Albuterol Sulfate (Ventolin) 2 puff IH Q4HP PRN PRN Reason: Shortness Of Breath Aspirin (Aspirin) 81 mg PO DAILY [facility] Last Admin: 04/23/20 09:22 Dose: 81 mg Documented by: Atorvastatin Calcium (Lipitor) 40 mg PO DAILY [facility] Last Admin: 04/23/20 09:21 Dose: 40 mg Documented by: Dextrose (Dextrose 50%) 0 ml IV UD PRN PRN Reason: Hypoglycemia Diagnostic Test (Pha) (Accu-Chek) 1 each FS ACHS [facility] Last Admin: 04/23/20 07:17 Dose: 1 each Documented by: Diphenhydramine HCl (Benadryl) 25 mg PO Q8HP PRN PRN Reason: Itching Docusate Sodium (Colace) 100 mg PO BID [facility] Last Admin: 04/23/20 09:22 Dose: 100 mg Documented by: Ergocalciferol (Drisdol) 50,000 unit PO We@0900 [facility] Fluconazole (Diflucan) 150 mg PO DAILY [facility]; Protocol Last Admin: 04/23/20 09:33 Dose: 150 mg Documented by: Furosemide (Lasix) 40 mg PO BID [facility] Last Admin: 04/23/20 09:22 Dose: 40 mg Documented by: Glucose (Insta-Glucose) 15 gm PO PRN PRN PRN Reason: Hypoglycemia Heparin Sodium (Porcine) (Heparin) 5,000 unit SQ Q12 [facility] Last Admin: 04/23/20 09:20 Dose: 5,000 unit Documented by: Hydromorphone HCl (Dilaudid) 0.5 mg IV Q15MIN PRN; Protocol PRN Reason: Per Pain Protocol Last Admin: 04/22/20 21:49 Dose: 0.5 mg Documented by: Sodium Chloride (Sodium Chloride 0.9%) 1,000 mls @ 50 mls/hr IV .Q20H [facility] Last Admin: 04/22/20 21:00 Dose: 50 mls/hr Documented by: Levofloxacin (Levaquin) 750 mg in 150 mls @ 100 mls/hr IV Q48H [facility] Last Admin: 04/23/20 09:23 Dose: 100 mls/hr Documented by: Insulin Human Lispro (Humalog) 0 unit SQ ACHS [facility]; Protocol Last Admin: 04/23/20 07:18 Dose: Not Given Documented by: Melatonin (Melatonin 3mg Tablet) 3 mg PO HSP PRN PRN Reason: Insomnia Mineral Oil (Mineral Oil Enema) 1 dose [place] DAILY PRN PRN Reason: Constipation Nicotine (Nicoderm) 14 mg TOPICAL DAILY@1000 [facility] Last Admin: 04/23/20 09:34 Dose: 14 mg Documented by: Nystatin (Nystatin Crm) 1 dose TOPICAL BID [facility] Last Admin: 04/23/20 09:33 Dose: 1 dose Documented by: Fluticasone- Umeclidin-Vilanter [ Trelegy Ellipta] Inhaler 2 dose INH QDAY [facility] Last Admin: 04/23/20 10:08 Dose: Not Given Documented by: Prochlorperazine (Compazine) 5 mg PO Q8HP PRN PRN Reason: Nausea And Vomiting Quetiapine Fumarate (Seroquel) 50 mg PO BID [facility] Last Admin: 04/23/20 09:22 Dose: 50 mg Documented by: Sertraline HCl (Zoloft) 100 mg PO DAILY [facility] Last Admin: 04/23/20 09:21 Dose: 100 mg Documented by: Sodium Chloride (Saline Flush) 10 ml IV Q8 [facility] Last Admin: 04/23/20 06:17 Dose: Not Given Documented by: Tramadol HCl (Ultram) 50 mg PO Q4HP PRN PRN Reason: Pain Last Admin: 04/23/20 09:20 Dose: 50 mg Documented by: A/P Narrative A/P Narrative: A/P Narrative: 1. JACQUE and on CKD Stage IV Creatinine 2.4 in the ER. 0.9 on January 14, 2019. Baseline 1.4 since January 2019 FENA - 0.3%, suggestive of prerenal cause Creatinine went down to 1.4 saw 8 today Urinalysis - negative Avoid nephrotoxic and contrast Gentle IV fluid Repeat renal function in morning Discussed with assistant baseball coach Dr. Cooper who will see the patient as an outpatient 2. Skin infection/cellulitis, perineal and thighs improving Bacterial and fungal? Levaquin (allergic to penicillin) Fluconazole oral and Nystatin topical Blood culture - negative so far 3. Pressure - ulcer, right buttock Wound care Wound culture 4. Diabetes type II Diabetic nephropathy Hemoglobin A1c Held home diabetes medications Insulin sliding scale 5. Currently smoker Smoking cessation counseling Nicotine patch 6. COPD Stable Continue inhalers 7. CHF Euvolemic status intake and output 8. Hypertension Continue home medication 9. Morbid obesity PT OT Follow with PCP 10. Metastatic lung cancer? CT chest showed 2.0 x 2.5 cm spiculated mass in the right lower lobe with associated enlarged mediastinal lymph nodes in the subcarinal space. This is most likely a lung cancer. CT abd showed enlarged lymph node in the right groin. Discussed with general surgeon Dr. Lebron who agreed to do a inguinal biopsy. Discussed with the patient who agreed with the the biopsy 11. Generalized weakness Deficiency continue to care for self PT OT CM consult 12. Flank pain CT abd/pelvis - Mild loss of paren hyma in the right kidney and no evidence of kidney stone or urinary tract obstruction UA negative Her lower back pain could be due to metastatic cancer 13. DVT prophylaxis: Heparin 14. CODE STATUS: Full Deposition: Homeless PT/OT/CM Time Spent With Patient Time: Total time spent is greater than 50% in coordination of care (as documented) at patient's floor/unit and/or counseling patient:
[2020-04-23] MEDS: HYDROmorphone 0.5 MG/0.5 ML SYRINGE IV PRN (12:04)
[2020-04-23] MEDS: diphenhydrAMINE 25 MG CAPSULE PO PRN ×2 (12:13→20:32)
[2020-04-23] MEDS: 0.9 % SODIUM CHLORIDE 1,000 ML IV SCH (13:31)
[2020-04-23] MEDS: MELATONIN 3 MG TABLET PO PRN (20:28)
[2020-04-24] MEDS: 0.9 % SODIUM CHLORIDE 10 ML SYRINGE IV SCH ×3 (04:01→22:13)
[2020-04-24 06:23] LABS: Basophils # (Auto) 0.04 K/mcL (0.00-0.30); Basophils % (Auto) 0.6 % (0.0-2.0); Eosinophils % (Auto) 2.8 % (0.0-7.0); Granulocytes % (Auto) 63.7 % (38.0-78.0); Hematocrit 36.9 % (34.1-44.9); Hemoglobin 11.3 g/dL (11.2-15.7); Lymphocytes # (Auto) 1.77 K/mcL (1.50-4.80); Mean Cell Volume 94.9 fL (80.0-100.0); Mean Corpuscular HGB Conc 30.6 g/dL (31.0-36.0); Mean Platelet Volume 9.2 fL (7.4-10.4); Monocytes # (Auto) 0.56 K/mcL (0.10-0.90); Monocytes % (Auto) 7.9 % (1.0-12.0); Platelet Count 220 K/mcL (140-440); RBC 3.89 M/mcL (3.59-5.38); Red Cell Distribution Width 13.8 % (11.5-14.5); WBC 7.1 K/mcL (4.50-11.00)
[2020-04-24 06:42] LABS: ALT/SGPT 11 U/l (0-40); AST/SGOT 13 U/l (0-37); Albumin 2.9 gm/dL (3.2-5.2); Alkaline Phosphatase 76 U/L (39-117); Bilirubin,Total 0.2 mg/dL (0.0-1.0); Blood Urea Nitrogen 37 mg/dl (8-23); Calcium 9.1 mg/dl (8.6-10.4); Carbon Dioxide 24 mmol/L (22-30); Chloride 105 mmol/L (96-108); Globulin 2.8 gm/dL (2.2-3.7); Glomerular Filtration Rate 37; Glucose 97 mg/dL (70-105)
[2020-04-24] MEDS: INSULIN LISPRO 1 UNIT/0.01 ML UNIT SQ SCH ×4 (07:59→22:13)
[2020-04-24] MEDS: ATORVASTATIN 40 MG TABLET PO SCH (09:48)
[2020-04-24] MEDS: FUROSEMIDE 40 MG TABLET PO SCH (09:48)
[2020-04-24] MEDS: QUEtiapine 25 MG TABLET PO SCH ×2 (09:48→22:12)
[2020-04-24] MEDS: diphenhydrAMINE 25 MG CAPSULE PO PRN ×2 (09:48→22:12)
[2020-04-24] MEDS: NICOTINE 14 MG PATCH TOPICAL SCH (09:49)
[2020-04-24] MEDS: ASPIRIN 81 MG TAB.CHEW PO SCH (09:49)
[2020-04-24] MEDS: DOCUSATE SODIUM 100 MG CAPSULE PO SCH ×2 (09:49→22:12)
[2020-04-24] MEDS: SERTRALINE 50 MG TABLET PO SCH (09:49)
[2020-04-24] MEDS: HEPARIN 5,000 UNIT/ML VIAL SQ SCH ×2 (09:49→22:12)
[2020-04-24] MEDS: FLUCONAZOLE 150 MG TABLET PO SCH (09:49)
[2020-04-24] MEDS: NYSTATIN CRM 1 DOSE TUBE TOPICAL SCH ×2 (09:50→22:13)
[2020-04-24] MEDS: Fluticasone-Umeclidin-Vilanter [Trelegy Ellipta] Inhaler INH SCH (09:50)
[2020-04-24] MEDS: 0.9 % SODIUM CHLORIDE 1,000 ML IV SCH ×2 (12:29→17:40)
[2020-04-24] MEDS: traMADol 50 MG TABLET PO PRN (15:13)
--- NOTE | 2020-04-24 15:39 | Internal Med Progress Note ---
SUBJECTIVE Subjective Patient information: Note initiated : 04/24/20 at 3:27 pm Service Date, if different from initiated Date: [] Patient: Yessy Carter a 74 y/o F admitted on 04/21/20 for Weakness, "failure to thrive". Chief Complaint: [] Interval history: Ms. Carter is a 74 year old F with a history of diabetes, COPD, CHF, morbid obesity and currently smoker who was brought to the ER due to general weakness. 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 After that, she was discharged to long-term [facility]. Over there she stayed for 11 months. She was just discharged from [facility] two days ago. She was discharged to a hotel because she does not have a family. The staff at the hotel found that she was too weak to stand up. So she was brought to the ER. In the ER, her creatinine was found to be 2.4. 1 L normal saline was given. When I saw this patient in the ER, she complained of generalized weakness, mild shortness of breath, lower back pain, and chills. 04/22 Patient complains of both flank pain which started days ago. Otherwise the patient does not have any new complaints. Patient had a large bowel movement today UA negative CT chest and abdomen 04/23 Patient still complains of lower back pain. Otherwise she is fine. CT chest showed possible metastatic lung cancer. I advised her to have a biopsy before we discharge her. She eventually agreed with the biopsy. She told me that she was found to have a lung mass years ago. She was scheduled to have biopsy but she refused the biopsy. Her doctor I scheduled her to follow-up with in 5 months. 04/24 This morning she complains of substernal chest pain. when she takes deep breathing, she has more pain. EKG showed anterior infarct. Showed EKG to cardiology Dr. Caicedo at [facility] in [place] and discussed with Dr. Caicedo, who felt no concerning, similar to prior EKG. Repeat troponin. If it > 1.0, call him back. Otherwise treat her lung cancer first. Early this morning her bp seems to be soft. I decreased her lasix to 20mg daily from 40mg bid. Review of Systems All systems: reviewed and no additional remarkable complaints except as stated Constitutional Vitals: Vital Signs Temp Pulse Resp BP Pulse Ox 97.2 F 63 20 119/60 98 04/24/20 12:00 04/24/20 12:00 04/24/20 12:00 04/24/20 12:00 04/24/20 12:00 Period Temp Pulse Resp BP Sys/Allen Pulse Ox Last 24 Hr 97.1 F-97.8 F 56-75 16-22 91-139/52-77 97-98 Intake and Output 04/24/20 04/24/20 04/24/20 05:59 13:59 21:59 Intake Total 0 Output Total 950 1200 Balance -950 -1200 Weight 126.099 kg Patient Weight 04/25/20 05:59 Weight 126.099 kg Intake & Output: Intake & Output 04/24/20 04/24/20 04/24/20 05:59 13:59 21:59 Intake Total 0 Output Total 950 1200 Balance -950 -1200 Weight 126.099 kg Intake: Oral 0 Output: Urine Catheter Amount 950 1200 Other: Meal Lunch Percent of Meal Consumed 0% Urine Appearance Clear Clear Uretheral (Alba) Clear Urine Color Bright Yellow Pale Uretheral (Alba) Pale Urine Odor Normal OBJ DATA Labs CBC & Chem 7: 04/24/20 05:20 04/24/20 05:20 Labs: Abnormal Lab Results 04/24/20 04/24/20 04/23/20 05:20 05:20 04:28 Hgb MCHC 30.6 L Carbon Dioxide BUN 37 H 41 H Creatinine 1.4 H 1.4 H Glucose 108 H Hemoglobin A1c Calcium Total Protein 5.7 L Albumin 2.9 L 3.0 L Urine Protein Urine Glucose (UA) Hyaline Casts 04/23/20 04/22/20 04/22/20 04:28 04:24 04:24 Hgb 10.8 L MCHC 30.7 L 28.8 L Carbon Dioxide 20 L BUN 56 H Creatinine 1.8 H Glucose Hemoglobin A1c Calcium 8.4 L Total Protein 5.7 L Albumin 2.9 L Urine Protein Urine Glucose (UA) Hyaline Casts 04/21/20 04/21/20 21:10 16:59 Hgb MCHC Carbon Dioxide BUN 58 H Creatinine 2.0 H Glucose Hemoglobin A1c 6.7 H Calcium Total Protein Albumin Urine Protein 30 A Urine Glucose (UA) 150 A Hyaline Casts 46 H Meds: Medications Albuterol Sulfate (Ventolin) 2 puff IH Q4HP PRN PRN Reason: Shortness Of Breath Aspirin (Aspirin) 81 mg PO DAILY [facility] Last Admin: 04/24/20 09:49 Dose: 81 mg Documented by: Atorvastatin Calcium (Lipitor) 40 mg PO DAILY [facility] Last Admin: 04/24/20 09:48 Dose: 40 mg Documented by: Dextrose (Dextrose 50%) 0 ml IV UD PRN PRN Reason: Hypoglycemia Diagnostic Test (Pha) (Accu-Chek) 1 each FS ACHS [facility] Last Admin: 04/24/20 12:19 Dose: 1 each Documented by: Diphenhydramine HCl (Benadryl) 25 mg PO Q8HP PRN PRN Reason: Itching Last Admin: 04/24/20 09:48 Dose: 25 mg Documented by: Docusate Sodium (Colace) 100 mg PO BID [facility] Last Admin: 04/24/20 09:49 Dose: Not Given Documented by: Ergocalciferol (Drisdol) 50,000 unit PO We@0900 [facility] Fluconazole (Diflucan) 150 mg PO DAILY [facility]; Protocol Last Admin: 04/24/20 09:49 Dose: 150 mg Documented by: Furosemide (Lasix) 20 mg PO DAILY [facility] Last Admin: 04/24/20 09:48 Dose: 20 mg Documented by: Glucose (Insta-Glucose) 15 gm PO PRN PRN PRN Reason: Hypoglycemia Heparin Sodium (Porcine) (Heparin) 5,000 unit SQ Q12 [facility] Last Admin: 04/24/20 09:49 Dose: 5,000 unit Documented by: Hydromorphone HCl (Dilaudid) 0.5 mg IV Q15MIN PRN; Protocol PRN Reason: Per Pain Protocol Last Admin: 04/23/20 12:04 Dose: 0.5 mg Documented by: Sodium Chloride (Sodium Chloride 0.9%) 1,000 mls @ 50 mls/hr IV .Q20H [facility] Last Admin: 04/24/20 12:29 Dose: Not Given Documented by: Levofloxacin (Levaquin) 750 mg in 150 mls @ 100 mls/hr IV Q48H [facility] Last Infusion: 04/23/20 10:53 Dose: Infused Documented by: Insulin Human Lispro (Humalog) 0 unit SQ ACHS [facility]; Protocol Last Admin: 04/24/20 12:19 Dose: Not Given Documented by: Melatonin (Melatonin 3mg Tablet) 3 mg PO HSP PRN PRN Reason: Insomnia Last Admin: 04/23/20 20:28 Dose: 3 mg Documented by: Mineral Oil (Mineral Oil Enema) 1 dose [place] DAILY PRN PRN Reason: Constipation Nicotine (Nicoderm) 14 mg TOPICAL DAILY@1000 [facility] Last Admin: 04/24/20 09:49 Dose: 14 mg Documented by: Nystatin (Nystatin Crm) 1 dose TOPICAL BID [facility] Last Admin: 04/24/20 09:50 Dose: 1 dose Documented by: Fluticasone- Umeclidin-Vilanter [ Trelegy Ellipta] Inhaler 2 dose INH QDAY [facility] Last Admin: 04/24/20 09:50 Dose: Not Given Documented by: Prochlorperazine (Compazine) 5 mg PO Q8HP PRN PRN Reason: Nausea And Vomiting Last Admin: 04/23/20 12:13 Dose: 5 mg Documented by: Quetiapine Fumarate (Seroquel) 50 mg PO BID [facility] Last Admin: 04/24/20 09:48 Dose: 50 mg Documented by: Sertraline HCl (Zoloft) 100 mg PO DAILY [facility] Last Admin: 04/24/20 09:49 Dose: 100 mg Documented by: Sodium Chloride (Saline Flush) 10 ml IV Q8 [facility] Last Admin: 04/24/20 12:29 Dose: Not Given Documented by: Tramadol HCl (Ultram) 50 mg PO Q4HP PRN PRN Reason: Pain Last Admin: 04/24/20 15:13 Dose: 50 mg Documented by: A/P Narrative A/P Narrative: 1. JACQUE and on CKD Stage IV Creatinine 2.4 in the ER. 0.9 on January 14, 2019. Baseline 1.4 since January 2019 FENA - 0.3%, suggestive of prerenal cause Creatinine went down to 1.4 saw 8 today Urinalysis - negative Avoid nephrotoxic and contrast Gentle IV fluid Repeat renal function in morning Discussed with clarifier operator Dr. Cooper who will see the patient as an outpatient 2. Skin infection/cellulitis, perineal and thighs improving Bacterial and fungal? Levaquin (allergic to penicillin) Fluconazole oral and Nystatin topical Blood culture - negative so far 3. Pressure - ulcer, right buttock Wound care Wound culture 4. Diabetes type II Diabetic nephropathy Hemoglobin A1c Held home diabetes medications Insulin sliding scale 5. Currently smoker Smoking cessation counseling Nicotine patch 6. COPD Stable Continue inhalers 7. CHF Euvolemic status intake and output 8. Hypertension Continue home medication 9. Morbid obesity PT OT Follow with PCP 10. Metastatic lung cancer? CT chest showed 2.0 x 2.5 cm spiculated mass in the right lower lobe with associated enlarged mediastinal lymph nodes in the subcarinal space. This is most likely a lung cancer. CT abd showed enlarged lymph node in the right groin. Discussed with general surgeon Dr. Lebron who agreed to do a inguinal biopsy. Discussed with the patient who agreed with the the biopsy 11. Generalized weakness Deficiency continue to care for self PT OT CM consult 12. Flank pain CT abd/pelvis - Mild loss of paren hyma in the right kidney and no evidence of kidney stone or urinary tract obstruction UA negative Her lower back pain could be due to metastatic cancer 13. Chest pain EKG showed anterior infarct. Showed EKG to cardiology Dr. Caicedo at [facility] in [place] and discussed with Dr. Caicedo, who felt no concerning, similar to prior EKG. Repeat troponin. If it > 1.0, call him back. troponin aspirin and lipitor 14. DVT prophylaxis: Heparin 15. CODE STATUS: Full Deposition: Homeless PT/OT/CM Time Spent With Patient Time: Total time spent is greater than 50% in coordination of care (as documented) at patient's floor/unit and/or counseling patient:
[2020-04-24] MEDS ORDERED: fentaNYL 12 MCG PATCH TOPICAL SCH (16:00)
[2020-04-24] MEDS: LIDOCAINE PATCH TOPICAL SCH (16:45)
--- NOTE | 2020-04-24 17:29 | General Surgery Consult Note ---
HPI Data of Consult Patient: new to practice Consult date: 04/24/20 Requesting physician: Suzanne Carlisle Primary Care Provider: Uriel Monge Consult Narrative Chief complaint: bilateral back and flank pain Reason for consult: 74-year-old female who is seen for evaluation of right groin nodule History of present illness: 74-year-old female who was brought to the hospital for evaluation of failure to thrive. She complained of bilateral lower back pain with chills but no fever. Evaluation reveals a 2.5 x 2.8 cm nodule of the right groin. I am seeing the patient to make arrangements for right groin node excisional biopsy. I discussed this with her she is willing to proceed. It will be performed tomorrow. cc:: CC: Suzanne Carlisle Constitutional Constitutional: Present excessive sweating, fatigue, lethargy, malaise and weight gain EENT Eyes: Present change in vision, loss of peripheral vision and loss of vision; Absent blurry vision Ears: Present decreased hearing Nose, mouth and throat: Present hoarseness and neck pain Cardiovascular Cardiovascular: Present dyspnea on exertion, leg edema, lightheadedness, pedal edema and rapid heart rate Respiratory Respiratory: Present dyspnea and pain on inspirtation Gastrointestinal Gastrointestinal: Present change in bowel habits and constipation; Absent abdominal pain, belching, dyspepsia, heartburn, nausea and vomiting Genitourinary Genitourinary: Present dysuria, urinary hesitancy and urinary incontinence Musculoskeletal Musculoskeletal: Present abnormal gait, arthralgias, back pain, deformity, muscle weakness, myalgias and neck pain Integumentary Integumentary: Absent pruritus and rash Neurological Neurological: Present abnormal gait, abnormal hearing and dizziness Psychiatric Psychiatric: Present anxiety and depression Endocrine Endocrine: Absent flushing and palpitations Hematologic/Lymphatic Hematologic/Lymphatic: Absent easy bleeding, easy bruising and lymphadenopathy Allergic/Immunologic Allergic/Immunologic: Absent tongue swelling, throat swelling, uticaria, wheezing and lip swelling PFSH PFSH All Active Problems (Updated 04/24/20 @ 17:28 by Maggy Lebron MD) Mass of right inguinal region (Acute) Abdominal pain (Acute) Fecal impaction in rectum (Acute) Pneumonia (Acute) Acute kidney injury (Acute) Bacterial skin infection (Acute) Loss of vision (Chronic) Wheelchair bound (Chronic) Nodule of apex of right lung (Chronic) Stress incontinence, female (Chronic) Chronic diarrhea (Chronic) Costochondritis (Chronic) Noncompliance with therapeutic plan (Chronic) Neck pain on right side (Chronic) Acute otitis media, right (Chronic) Solitary pulmonary nodule (Chronic) Insomnia (Chronic) Abnormal kidney function study (Chronic) Osteoarthritis cervical spine (Chronic) PVD (peripheral vascular disease) (Chronic) Corns and callus (Chronic) Soft corn (Chronic) Fungal infection (Chronic) Dysuria (Chronic) Onychomycosis (Chronic) Postmenopausal state (Chronic) Urinary incontinence (Chronic) Black stools (Chronic) Hypercholesteremia (Chronic) Hypertensive heart and chronic kidney disease (Chronic) Carotid atherosclerosis (Chronic) Chest pain (Chronic) Body mass index 45.0-49.9, adult (Chronic) Gangrene of toe of right foot (Chronic) Non compliance w medication regimen (Chronic) Heart failure (Chronic) Depression (Chronic) Arthritis (Chronic) Osteoporosis (Chronic) Chronic back pain (Chronic) Hypotension (Acute) Syncope and collapse (Acute) CHF (congestive heart failure) (Chronic) joint terminal attack controller (current) use of anticoagulants (Chronic) [facility] (current) use of opiate analgesic (Chronic) Diabetes mellitus, type 2 (Chronic) Legal blindness (Chronic) Asthma (Chronic) COPD (chronic obstructive pulmonary disease) (Chronic) Peripheral neuropathy (Chronic) History of coronary artery stent placement (Chronic) History of myocardial infarction (Chronic) Morbid obesity (Chronic) Non-cardiac chest pain (Chronic) Chronic cervical pain (Chronic) Anemia (Chronic) Pleural effusion (Chronic) JACQUE (acute kidney injury) (Chronic) Medical History Abdominal pain (Resolved) Abnormal kidney function study (Chronic) Acute decompensated heart failure (Resolved) Acute exacerbation of chronic obstructive airways disease (Resolved) Acute otitis media, right (Chronic) JACQUE (acute kidney injury) (Chronic) JACQUE on CKD, volume overloaded with CHF. Got diuresed. Renal ultrasound is unremarkable. Getting alkalotic, better. Potassium, High probably related to lovenox. renin and zachary levels pending. Hypertension. Better. Phos on tums, it is better. Anemia (Chronic) Arthritis (Chronic) Asthma (Chronic) Black stools (Chronic) Body mass index 45.0-49.9, adult (Chronic) Carotid atherosclerosis (Chronic) Cellulitis (Resolved) Chest pain (Chronic) CHF (congestive heart failure) (Chronic) Chronic back pain (Chronic) Chronic cervical pain (Chronic) Chronic diarrhea (Chronic) COPD (chronic obstructive pulmonary disease) (Chronic) Corns and callus (Chronic) Costochondritis (Chronic) Depression (Chronic) Diabetes mellitus, type 2 (Chronic) Dysuria (Chronic) Fungal infection (Chronic) Gangrene of toe of right foot (Chronic) Heart failure (Chronic) Heart failure with acute decompensation, type unknown (Resolved) History of myocardial infarction (Chronic) Hypercholesteremia (Chronic) Hypertensive heart and chronic kidney disease (Chronic) Insomnia (Chronic) Intractable nausea and vomiting (Resolved) Intractable vomiting (Resolved) Legal blindness (Chronic) joint terminal attack controller (current) use of anticoagulants (Chronic) [facility] (current) use of opiate analgesic (Chronic) Loss of vision (Chronic) Morbid obesity (Chronic) Neck pain on right side (Chronic) No pertinent family history (Chronic) Nodule of apex of right lung (Chronic) Non compliance w medication regimen (Chronic) Non-cardiac chest pain (Chronic) Noncompliance with therapeutic plan (Chronic) Onychomycosis (Chronic) Osteoarthritis cervical spine (Chronic) Osteoporosis (Chronic) Peripheral neuropathy (Chronic) Pleural effusion (Chronic) Postmenopausal state (Chronic) PVD (peripheral vascular disease) (Chronic) Respiratory acidosis (Resolved) Soft corn (Chronic) Solitary pulmonary nodule (Chronic) Stress incontinence, female (Chronic) Urinary incontinence (Chronic) UTI (urinary tract infection) (Resolved) Wheelchair bound (Chronic) Surgical History History of cholecystectomy (Chronic) History of coronary artery stent placement (Chronic) History of foot surgery (Acute ~05/2019) Amputation of the right second and third toes History of hernia repair (Chronic) History of hip replacement (Chronic) History of hysterectomy (Chronic) Status post right foot surgery (Acute) Social History marital status: occupational status: retired smoking status: Current every day smoker smoking status start date: 09/07/1958 alcohol intake frequency: does not drink substance use type: does not use MEDS/ALLERGIES Home Medications and Allergies Home Medications Medication Instructions Recorded Confirmed Type sertraline 100 mg PO DAILY 02/09/18 04/22/20 History albuterol sulfate 2 puff IH Q4HP PRN 06/26/19 04/22/20 History docusate sodium 100 mg PO BID 06/26/19 04/22/20 History ergocalciferol (vitamin D2) 50,000 unit PO WE 06/26/19 04/22/20 History nitroglycerin 0.4 mg SL Q5MIN PRN 06/26/19 04/22/20 History atorvastatin 40 mg PO DAILY 06/27/19 04/22/20 History melatonin 3 mg PO HSP PRN tab 06/29/19 04/22/20 Rx quetiapine 50 mg PO BID 07/26/19 04/22/20 History hydrocodone-acetaminophen 1 - 2 tab PO Q4HP PRN #10 tab 07/27/19 04/22/20 Rx fluticasone fur. 100 mcg-umeclid 2 inh INHALATION QDAY each 09/22/19 04/23/20 History 62.5 mcg-vilant 25 mcg inhalat.powder glipizide 5 mg tablet 2 mg PO QDAY 09/22/19 04/22/20 History acetaminophen 650 mg PO PRN PRN 09/24/19 04/22/20 History furosemide 40 mg PO BID 09/24/19 04/22/20 History ondansetron 8 mg SL Q4HP PRN 09/24/19 04/22/20 History aspirin 81 mg PO DAILY 10/03/19 04/22/20 History canagliflozin 3 mg PO QDAY 04/21/20 04/22/20 History fentanyl 1 patch TRANSDERMAL Q72H 04/22/20 04/22/20 History Allergies Allergy/AdvReac Type Severity Reaction Status Date / Time Penicillins Allergy Severe Anaphylaxis Verified 04/24/20 07:55 morphine AdvReac Intermediate itching, Verified 04/23/20 06:43 swelling, adhesive tape AdvReac Mild Itching Verified 10/04/19 10:38 codeine AdvReac Mild Abdominal Verified 10/03/19 15:21 Pain latex AdvReac Mild Itching Verified 10/04/19 10:38 Latex, Natural Rubber AdvReac Mild Itching Verified 10/04/19 10:38 Physical Examination Vital Signs Vital signs: Temp Pulse Resp BP Pulse Ox 98.2 F 54 L 16 122/60 98 04/24/20 16:00 04/24/20 16:00 04/24/20 16:00 04/24/20 16:00 04/24/20 12:00 General physical appearance General physical exam: well developed, well nourished, no distress, chronically ill and obese Eyes Eye exam: other (loss of vision bilaterally) ENT ENT exam: decreased hearing Head Head exam IM: Present atraumatic, normal inspection and normocephalic Neck Neck exam: no masses, no bruits and trachea midline Cardiovascular Cardiovascular exam IM: Present normal rate and rhythm, RRR, +S1 and +S2; Absent gallop and JVD Respiratory Respiratory exam: normal expansion, normal respiratory effort, clear to percussion and clear to auscultation Abdomen Abdomen: Present soft, non tender and bowel sounds; Absent organomegaly Integumentary Integumentary: Present no rash, no growths, no abnormal pigmentation and other Neurologic Neurologic: Present normal coordination, normal sensation and deep tendon reflexes Musculoskeletal Musculoskeletal: Present normal gait and normal posture Psychiatric Psychiatric: Present oriented to time, oriented to person, oriented to place, speech is normal and memory intact Results Labs Result diagrams: 04/24/20 05:20 04/24/20 05:20 Labs: Abnormal lab results 04/24/20 04/24/20 Range/Units 05:20 05:20 MCHC 30.6 L (31.0-36.0) g/dL BUN 37 H (8-23) mg/dl Creatinine 1.4 H (0.6-1.1) mg/dl Total Protein 5.7 L (5.9-8.4) gm/dL Albumin 2.9 L (3.2-5.2) gm/dL Diabetes panel 04/24/20 Range/Units 05:20 Sodium 140 (133-145) mmol/L Potassium 4.4 (3.3-5.1) mmol/L Chloride 105 (96-108) mmol/L Carbon Dioxide 24 (22-30) mmol/L BUN 37 H (8-23) mg/dl Creatinine 1.4 H (0.6-1.1) mg/dl Glucose 97 (70-105) mg/dL Calcium 9.1 (8.6-10.4) mg/dl AST 13 (0-37) U/l ALT 11 (0-40) U/l Alkaline Phosphatase 76 (39-117) U/L Total Protein 5.7 L (5.9-8.4) gm/dL Albumin 2.9 L (3.2-5.2) gm/dL Calcium panel 04/24/20 Range/Units 05:20 Calcium 9.1 (8.6-10.4) mg/dl Albumin 2.9 L (3.2-5.2) gm/dL Pituitary panel 04/24/20 Range/Units 05:20 Sodium 140 (133-145) mmol/L Potassium 4.4 (3.3-5.1) mmol/L Chloride 105 (96-108) mmol/L Carbon Dioxide 24 (22-30) mmol/L BUN 37 H (8-23) mg/dl Creatinine 1.4 H (0.6-1.1) mg/dl Glucose 97 (70-105) mg/dL Calcium 9.1 (8.6-10.4) mg/dl Adrenal panel 04/24/20 Range/Units 05:20 Sodium 140 (133-145) mmol/L Potassium 4.4 (3.3-5.1) mmol/L Chloride 105 (96-108) mmol/L Carbon Dioxide 24 (22-30) mmol/L BUN 37 H (8-23) mg/dl Creatinine 1.4 H (0.6-1.1) mg/dl Glucose 97 (70-105) mg/dL Calcium 9.1 (8.6-10.4) mg/dl Total Bilirubin 0.2 (0.0-1.0) mg/dL AST 13 (0-37) U/l ALT 11 (0-40) U/l Alkaline Phosphatase 76 (39-117) U/L Total Protein 5.7 L (5.9-8.4) gm/dL Albumin 2.9 L (3.2-5.2) gm/dL All other labs normal. A/P Assessment and plan (1) Mass of right inguinal region: Status: Acute (2) Acute kidney injury: Status: Acute (3) Chronic diarrhea: Status: Chronic (4) Solitary pulmonary nodule: Status: Chronic (5) PVD (peripheral vascular disease): Status: Chronic (6) Depression: Status: Chronic (7) Legal blindness: Status: Chronic (8) COPD (chronic obstructive pulmonary disease): Status: Chronic (9) Morbid obesity: Status: Chronic Narrative A/P Narrative: patient is counseled for excision of the mass in her right groin. It will be performed under anesthesia tomorrow Time Spent With Patient Time: Total time spent is greater than 50% in coordination of care (as documented) at patient's floor/unit and/or counseling patient:
[2020-04-24] MEDS: MELATONIN 3 MG TABLET PO PRN (22:12)
[2020-04-25] MEDS: 0.9 % SODIUM CHLORIDE 10 ML SYRINGE IV SCH ×3 (06:04→22:28)
[2020-04-25] MEDS: 0.9 % SODIUM CHLORIDE 1,000 ML IV SCH ×3 (06:15→20:06)
[2020-04-25 06:46] LABS: Basophils # (Auto) 0.05 K/mcL (0.00-0.30); Basophils % (Auto) 0.7 % (0.0-2.0); Eosinophils # (Auto) 0.18 K/mcL (0.00-0.70); Eosinophils % (Auto) 2.4 % (0.0-7.0); Granulocytes % (Auto) 59.9 % (38.0-78.0); Hematocrit 35.9 % (34.1-44.9); Lymphocytes # (Auto) 2.19 K/mcL (1.50-4.80); Lymphocytes % (Auto) 29.6 % (15.5-49.0); Mean Cell Volume 92.5 fL (80.0-100.0); Mean Corpuscular HGB Conc 30.6 g/dL (31.0-36.0); Mean Platelet Volume 9.4 fL (7.4-10.4); Monocytes # (Auto) 0.55 K/mcL (0.10-0.90); Monocytes % (Auto) 7.4 % (1.0-12.0); Platelet Count 225 K/mcL (140-440); RBC 3.88 M/mcL (3.59-5.38); Red Cell Distribution Width 13.7 % (11.5-14.5); WBC 7.4 K/mcL (4.50-11.00)
[2020-04-25] MEDS: diphenhydrAMINE 25 MG CAPSULE PO PRN ×2 (07:21→21:13)
[2020-04-25] MEDS: INSULIN LISPRO 1 UNIT/0.01 ML UNIT SQ SCH ×4 (07:29→21:14)
[2020-04-25] MEDS: Fluticasone-Umeclidin-Vilanter [Trelegy Ellipta] Inhaler INH SCH (09:00)
[2020-04-25] MEDS: DOCUSATE SODIUM 100 MG CAPSULE PO SCH ×2 (09:00→21:12)
[2020-04-25] MEDS: ASPIRIN 81 MG TAB.CHEW PO SCH (09:00)
[2020-04-25] MEDS: SERTRALINE 50 MG TABLET PO SCH (09:00)
[2020-04-25] MEDS: ATORVASTATIN 40 MG TABLET PO SCH (09:00)
[2020-04-25] MEDS: HEPARIN 5,000 UNIT/ML VIAL SQ SCH (09:00)
[2020-04-25] MEDS: NYSTATIN CRM 1 DOSE TUBE TOPICAL SCH ×2 (09:00→21:17)
[2020-04-25] MEDS: QUEtiapine 25 MG TABLET PO SCH (09:00)
[2020-04-25] MEDS: FLUCONAZOLE 150 MG TABLET PO SCH (09:00)
[2020-04-25] MEDS: LIDOCAINE PATCH TOPICAL SCH (09:00)
[2020-04-25] MEDS: FUROSEMIDE 40 MG TABLET PO SCH (09:00)
[2020-04-25] MEDS: NICOTINE 14 MG PATCH TOPICAL SCH (09:00)
[2020-04-25] MEDS ORDERED: ERGOCALCIFEROL (VITAMIN D2) 50,000 UNIT CAPSULE PO SCH (09:00)
[2020-04-25] MEDS ORDERED: KETAMINE 100 MG/ML ML IV ONE (11:05)
[2020-04-25] MEDS ORDERED: LIDOCAINE HCL/PF 100 MG/5 ML SYRINGE IV ONE (11:05)
[2020-04-25] MEDS ORDERED: PROPOFOL 200 MG/20 ML VIAL IV ONE (11:05)
[2020-04-25] MEDS: LEVOFLOXACIN 750 MG/150 ML BAG IV SCH (11:05)
[2020-04-25] MEDS ORDERED: fentaNYL 100 MCG/2 ML VIAL IV ONE (11:05)
[2020-04-25] MEDS ORDERED: ePHEDrine 50 MG/ML AMPUL IV ONE (11:05)
[2020-04-25] MEDS ORDERED: GLYCOPYRROLATE 0.2 MG/ML VIAL IV ONE (11:05)
[2020-04-25] MEDS ORDERED: DEXAMETHASONE 10 MG/ML VIAL IV ONE (11:05)
[2020-04-25] MEDS ORDERED: ONDANSETRON 4 MG/2 ML VIAL IV ONE (11:05)
[2020-04-25] MEDS ORDERED: fentaNYL 100 MCG/2 ML VIAL IV PRN ×2 (11:41→12:18)
[2020-04-25] MEDS ORDERED: FLUMAZENIL 0.1 MG/ML ML IV PRN ×2 (11:41→12:18)
[2020-04-25] MEDS ORDERED: ONDANSETRON 4 MG/2 ML VIAL IV PRN (11:41)
[2020-04-25] MEDS ORDERED: MEPERIDINE 25 MG/ML SYRINGE IV PRN (11:41)
[2020-04-25] MEDS ORDERED: diphenhydrAMINE 50 MG/ML VIAL IV PRN ×2 (11:41→12:18)
[2020-04-25] MEDS ORDERED: IPRATROPIUM/ALBUTEROL 3 ML AMPUL.NEB NEB PRN (11:41)
[2020-04-25] MEDS ORDERED: PROMETHAZINE 25 MG/ML VIAL IV PRN (11:41)
[2020-04-25] MEDS ORDERED: LACTATED RINGERS 250 ML IV PRN (11:41)
[2020-04-25] MEDS ORDERED: NALOXONE HCL 0.4 MG/ML VIAL IV PRN ×2 (11:41→12:18)
--- NOTE | 2020-04-25 11:41 | Internal Med Progress Note ---
SUBJECTIVE Subjective Patient information: Note initiated : 04/25/20 at 11:35 am Service Date, if different from initiated Date: [] Patient: Yessy Carter a 74 y/o F admitted on 04/21/20 for Weakness, "failure to thrive". Chief Complaint: [] Interval history: Ms. Carter is a 74 year old F with a history of diabetes, COPD, CHF, morbid obesity and currently smoker who was brought to the ER due to general weakness. 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 After that, she was discharged to [facility]. Over there she stayed for 11 months. She was just discharged from [facility] two days ago. She was discharged to a hotel because she does not have a family. The staff at the hotel found that she was too weak to stand up. So she was brought to the ER. In the ER, her creatinine was found to be 2.4. 1 L normal saline was given. When I saw this patient in the ER, she complained of generalized weakness, mild shortness of breath, lower back pain, and chills. 04/22 Patient complains of both flank pain which started days ago. Otherwise the patient does not have any new complaints. Patient had a large bowel movement today UA negative CT chest and abdomen 04/23 Patient still complains of lower back pain. Otherwise she is fine. CT chest showed possible metastatic lung cancer. I advised her to have a biopsy before we discharge her. She eventually agreed with the biopsy. She told me that she was found to have a lung mass years ago. She was scheduled to have biopsy but she refused the biopsy. Her doctor I scheduled her to follow-up with in 5 months. 04/24 This morning she complains of substernal chest pain. when she takes deep breathing, she has more pain. EKG showed anterior infarct. Showed EKG to cardiology Dr. Caicedo at [facility] in [place] and discussed with Dr. Caicedo, who felt no concerning, similar to prior EKG. Repeat troponin. If it > 1.0, call him back. Otherwise treat her lung cancer first. Early this morning her bp seems to be soft. I decreased her lasix to 20mg daily from 40mg bid. 04/25 Pt does not have any new complaints. Vital signs are stable and acceptable. She will have biopsy by Dr. Lebron this morning. Review of Systems All systems: reviewed and no additional remarkable complaints except as stated Constitutional Vitals: Vital Signs Temp Pulse Resp BP Pulse Ox 98.1 F 67 20 103/50 97 04/25/20 08:00 04/25/20 08:00 04/25/20 08:00 04/25/20 08:00 04/25/20 08:00 Period Temp Pulse Resp BP Sys/Allen Pulse Ox Last 24 Hr 97.2 F-98.2 F 54-75 16-20 98-142/48-63 97-98 Intake and Output 04/24/20 04/25/20 04/25/20 21:59 05:59 13:59 Intake Total 480 360 Output Total 1800 1 Balance 480 -1440 -1 Weight 124.284 kg Intake & Output: Intake & Output 04/24/20 04/25/20 04/25/20 21:59 05:59 13:59 Intake Total 480 360 Output Total 1800 1 Balance 480 -1440 -1 Weight 124.284 kg Intake: Oral 480 360 Output: Urine Catheter Amount 1800 # of times incontinent of urine 1 Other: Meal Lunch Percent of Meal Consumed 25% Urine Appearance Clear Clear Uretheral (Alba) Clear Clear Urine Color Pale Bright Yellow Uretheral (Alba) Pale Pale Urine Odor Normal Additional findings Additional findings: General - Morbid obesity, no acute distress Eyes - PERRLA, EOM intact ENT no rhinorrhea, no noticeable or palpable swelling, no redness or rash around throat or on face Neck supple, no JVD, no thyromegaly Respiratory: Lungs -clear, no wheezing or crackles. Cardiovascular - RRR no m/r/g, GI - Normal bowel sounds, no distended, soft. Extremeties - 2nd toes and 5th toe of right foot missed due to amputation. Right buttock erythema and broken skin. Perineal and inner skin of both thighs erythema and tenderness (improving). No edema, cyanosis or clubbing. Hemo/lymphatic/immune no lymphadenopathy Neurological Alert and oriented x 3, no focal neurological deficits. Psychiatry flat affect OBJ DATA Labs CBC & Chem 7: 04/25/20 05:35 04/24/20 05:20 Labs: Abnormal Lab Results 04/25/20 04/24/20 04/24/20 05:35 05:20 05:20 Hgb 11.0 L MCHC 30.6 L 30.6 L BUN 37 H Creatinine 1.4 H Glucose Total Protein 5.7 L Albumin 2.9 L 04/23/20 04/23/20 04:28 04:28 Hgb MCHC 30.7 L BUN 41 H Creatinine 1.4 H Glucose 108 H Total Protein Albumin 3.0 L Meds: Medications Albuterol Sulfate (Ventolin) 2 puff IH Q4HP PRN PRN Reason: Shortness Of Breath Aspirin (Aspirin) 81 mg PO DAILY ON LICENSE OF [facility] Last Admin: 04/24/20 09:49 Dose: 81 mg Documented by: Atorvastatin Calcium (Lipitor) 40 mg PO DAILY ON LICENSE OF [facility] Last Admin: 04/24/20 09:48 Dose: 40 mg Documented by: Dextrose (Dextrose 50%) 0 ml IV UD PRN PRN Reason: Hypoglycemia Diagnostic Test (Pha) (Accu-Chek) 1 each FS ACHS ON LICENSE OF [facility] Last Admin: 04/25/20 07:28 Dose: 1 each Documented by: Diphenhydramine HCl (Benadryl) 25 mg PO Q8HP PRN PRN Reason: Itching Last Admin: 04/25/20 07:21 Dose: 25 mg Documented by: Docusate Sodium (Colace) 100 mg PO BID ON LICENSE OF [facility] Last Admin: 04/24/20 22:12 Dose: Not Given Documented by: Ergocalciferol (Drisdol) 50,000 unit PO We@0900 ON LICENSE OF [facility] Fentanyl (Duragesic) 12 mcg TOPICAL Q72H ON LICENSE OF [facility] Last Admin: 04/24/20 16:46 Dose: 12 mcg Documented by: Fluconazole (Diflucan) 150 mg PO DAILY ON LICENSE OF [facility]; Protocol Last Admin: 04/24/20 09:49 Dose: 150 mg Documented by: Furosemide (Lasix) 20 mg PO DAILY ON LICENSE OF [facility] Last Admin: 04/24/20 09:48 Dose: 20 mg Documented by: Glucose (Insta-Glucose) 15 gm PO PRN PRN PRN Reason: Hypoglycemia Heparin Sodium (Porcine) (Heparin) 5,000 unit SQ Q12 ON LICENSE OF [facility] Last Admin: 04/24/20 22:12 Dose: 5,000 unit Documented by: Hydromorphone HCl (Dilaudid) 0.5 mg IV Q15MIN PRN; Protocol PRN Reason: Per Pain Protocol Last Admin: 04/23/20 12:04 Dose: 0.5 mg Documented by: Sodium Chloride (Sodium Chloride 0.9%) 1,000 mls @ 50 mls/hr IV .Q20H ON LICENSE OF [facility] Last Admin: 04/25/20 06:15 Dose: Not Given Documented by: Levofloxacin (Levaquin) 750 mg in 150 mls @ 100 mls/hr IV Q48H ON LICENSE OF [facility] Last Admin: 04/25/20 11:05 Dose: 150 mls/hr Documented by: Insulin Human Lispro (Humalog) 0 unit SQ ACHS ON LICENSE OF [facility]; Protocol Last Admin: 04/25/20 07:29 Dose: Not Given Documented by: Lidocaine (Lidoderm) 1 patch TOPICAL DAILY@1000 ON LICENSE OF [facility] Last Admin: 04/24/20 16:45 Dose: 1 patch Documented by: Melatonin (Melatonin 3mg Tablet) 3 mg PO HSP PRN PRN Reason: Insomnia Last Admin: 04/24/20 22:12 Dose: 3 mg Documented by: Mineral Oil (Mineral Oil Enema) 1 dose MN DAILY PRN PRN Reason: Constipation Nicotine (Nicoderm) 14 mg TOPICAL DAILY@1000 ON LICENSE OF [facility] Last Admin: 04/24/20 09:49 Dose: 14 mg Documented by: Nystatin (Nystatin Crm) 1 dose TOPICAL BID ON LICENSE OF [facility] Last Admin: 04/24/20 22:13 Dose: 1 dose Documented by: Fluticasone- Umeclidin-Vilanter [ Trelegy Ellipta] Inhaler 2 dose INH QDAY ON LICENSE OF [facility] Last Admin: 04/24/20 09:50 Dose: Not Given Documented by: Prochlorperazine (Compazine) 5 mg PO Q8HP PRN PRN Reason: Nausea And Vomiting Last Admin: 04/23/20 12:13 Dose: 5 mg Documented by: Quetiapine Fumarate (Seroquel) 50 mg PO BID ON LICENSE OF [facility] Last Admin: 04/24/20 22:12 Dose: 50 mg Documented by: Sertraline HCl (Zoloft) 100 mg PO DAILY ON LICENSE OF [facility] Last Admin: 04/24/20 09:49 Dose: 100 mg Documented by: Sodium Chloride (Saline Flush) 10 ml IV Q8 ON LICENSE OF [facility] Last Admin: 04/25/20 06:04 Dose: Not Given Documented by: Tramadol HCl (Ultram) 50 mg PO Q4HP PRN PRN Reason: Pain Last Admin: 04/24/20 15:13 Dose: 50 mg Documented by: A/P Narrative A/P Narrative: 1. JACQUE and on CKD Stage IV Creatinine 2.4 in the ER. 0.9 on January 14, 2019. Baseline 1.4 since January 2019 FENA - 0.3%, suggestive of prerenal cause Creatinine went down Urinalysis - negative Avoid nephrotoxic and contrast Gentle IV fluid Repeat renal function in morning Discussed with supervisor rice milling Dr. Cooper who will see the patient as an outpatient 2. Skin infection/cellulitis, perineal and thighs improving Bacterial and fungal? Levaquin (allergic to penicillin) Fluconazole oral and Nystatin topical Blood culture - negative so far 3. Pressure - ulcer, right buttock, stage II Wound care Wound culture 4. Diabetes type II Diabetic nephropathy Hemoglobin A1c Held home diabetes medications Insulin sliding scale 5. Currently smoker Smoking cessation counseling Nicotine patch 6. COPD Stable Continue inhalers 7. CHF Euvolemic status intake and output 8. Hypertension Continue home medication 9. Morbid obesity PT OT Follow with PCP 10. Metastatic lung cancer? CT chest showed 2.0 x 2.5 cm spiculated mass in the right lower lobe with associated enlarged mediastinal lymph nodes in the subcarinal space. This is most likely a lung cancer. CT abd showed enlarged lymph node in the right groin. General surgeon Dr. Lebron will do a inguinal biopsy today. Discussed with the patient who agreed with the the biopsy 11. Generalized weakness Deficiency continue to care for self PT OT CM consult 12. Flank pain CT abd/pelvis - Mild loss of parenchyma in the right kidney and no evidence of kidney stone or urinary tract obstruction UA negative Her lower back pain could be due to metastatic cancer 13. Chest pain EKG showed anterior infarct. Showed EKG to cardiology Dr. Caicedo at [facility] in [place] and discussed with Dr. Caicedo, who felt no concerning, similar to prior EKG. Repeat troponin. If it > 1.0, call him back. troponin aspirin and lipitor 14. DVT prophylaxis: Heparin 15. CODE STATUS: Full Deposition: Homeless PT/OT/CM Time Spent With Patient Time: Total time spent is greater than 50% in coordination of care (as documented) at patient's floor/unit and/or counseling patient:
[2020-04-25] MEDS ORDERED: LACTATED RINGERS 1,000 ML IV SCH (11:45)
--- NOTE | 2020-04-25 12:01 | Brief Operative Note ---
Brief Operative Note Date of procedure: 04/25/20 Pre-op diagnosis: right inguinal adenopathy Post-op diagnosis: other (right inguinal adenopathy) Procedure: RIGHT INGUINAL LYMPHADENECTOMY Grafts/Implants: No Anesthesia: GLMA Findings: LARGE NECROTIC NODES OF RIGHT FEMORAL TRIANGLE;LARGEST NODE REMOVED Complications: none Surgeon: Maggy Lebron Estimated blood loss (cc): 15 Specimens Removed/Pathology: other (LYMPH NODE 3X4CM) Condition: stable Disposition: PACU
[2020-04-25] MEDS ORDERED: ALBUTEROL SULFATE 200 PUFF INHALER IH PRN (12:18)
[2020-04-25] MEDS ORDERED: fentaNYL 12 MCG PATCH TOPICAL SCH (12:18)
[2020-04-25] MEDS ORDERED: DEXTROSE 50% 50 ML VIAL IV PRN (12:18)
[2020-04-25] MEDS ORDERED: PROCHLORPERAZINE 10 MG TABLET PO PRN (12:18)
[2020-04-25] MEDS ORDERED: DEXTROSE 31 GM ORAL.SUSP PO PRN (12:18)
[2020-04-25] MEDS ORDERED: MINERAL OIL 1 DOSE ENEMA PR PRN (12:18)
[2020-04-25] MEDS ORDERED: ONDANSETRON 4 MG ODT TABLET SL PRN (12:29)
[2020-04-25] MEDS: traMADol 50 MG TABLET PO PRN ×2 (17:07→21:12)
[2020-04-25] MEDS ORDERED: DOCUSATE SODIUM 100 MG CAPSULE PO SCH (21:00)
[2020-04-25] MEDS ORDERED: QUEtiapine 25 MG TABLET PO SCH (21:00)
[2020-04-25] MEDS: MELATONIN 3 MG TABLET PO PRN (21:13)
[2020-04-25] MEDS: GABAPENTIN 100 MG CAPSULE PO SCH (22:53)
[2020-04-25] MEDS ORDERED: GABAPENTIN 100 MG CAPSULE PO ONE (22:57)
[2020-04-26] MEDS: traMADol 50 MG TABLET PO PRN (02:45)
[2020-04-26] MEDS: 0.9 % SODIUM CHLORIDE 10 ML SYRINGE IV SCH ×3 (05:29→21:38)
[2020-04-26 07:31] LABS: Basophils # (Auto) 0.01 K/mcL (0.00-0.30); Basophils % (Auto) 0.1 % (0.0-2.0); Eosinophils # (Auto) 0 K/mcL (0.00-0.70); Eosinophils % (Auto) 0 % (0.0-7.0); Granulocytes % (Auto) 85.6 % (38.0-78.0); Hemoglobin 11.1 g/dL (11.2-15.7); Lymphocytes # (Auto) 0.86 K/mcL (1.50-4.80); Mean Cell Volume 90.7 fL (80.0-100.0); Mean Corpuscular HGB Conc 31.7 g/dL (31.0-36.0); Mean Platelet Volume 9.2 fL (7.4-10.4); Monocytes # (Auto) 0.51 K/mcL (0.10-0.90); Monocytes % (Auto) 5.3 % (1.0-12.0); Platelet Count 233 K/mcL (140-440); RBC 3.86 M/mcL (3.59-5.38); Red Cell Distribution Width 13.5 % (11.5-14.5); WBC 9.6 K/mcL (4.50-11.00)
[2020-04-26] MEDS: INSULIN LISPRO 1 UNIT/0.01 ML UNIT SQ SCH ×4 (08:24→21:37)
[2020-04-26] MEDS ORDERED: glipiZIDE 5 MG TABLET PO SCH (09:00)
[2020-04-26] MEDS: 0.9 % SODIUM CHLORIDE 1,000 ML IV SCH ×2 (09:23→19:11)
[2020-04-26] MEDS: NYSTATIN CRM 1 DOSE TUBE TOPICAL SCH ×2 (09:27→21:38)
[2020-04-26] MEDS: FLUCONAZOLE 150 MG TABLET PO SCH (09:27)
[2020-04-26] MEDS: GABAPENTIN 100 MG CAPSULE PO SCH ×3 (09:28→21:37)
[2020-04-26] MEDS: ATORVASTATIN 40 MG TABLET PO SCH (09:28)
[2020-04-26] MEDS: FUROSEMIDE 40 MG TABLET PO SCH (09:29)
[2020-04-26] MEDS: SERTRALINE 50 MG TABLET PO SCH (09:29)
[2020-04-26] MEDS: DOCUSATE SODIUM 100 MG CAPSULE PO SCH ×2 (09:29→21:37)
[2020-04-26] MEDS: ASPIRIN 81 MG TAB.CHEW PO SCH (09:29)
[2020-04-26] MEDS: Fluticasone-Umeclidin-Vilanter [Trelegy Ellipta] Inhaler INH SCH (10:30)
[2020-04-26] MEDS: NICOTINE 14 MG PATCH TOPICAL SCH (11:19)
[2020-04-26] MEDS: LIDOCAINE PATCH TOPICAL SCH (11:35)
[2020-04-26] MEDS: oxyCODONE HCL 5 MG TABLET PO PRN (14:06)
--- NOTE | 2020-04-26 15:23 | General Surgery Progress Note ---
SUBJECTIVE Subjective Patient information: Note initiated : 04/26/20 at 3:17 pm Service Date, if different from initiated Date: [] Patient: Yessy Carter 74 y/o F admitted on 04/21/20 for Weakness, "failure to thrive". Chief Complaint: [] Principal diagnosis: inguinal adenopathy Interval history: the patient is stable. She has recovered adequately from her right inguinal lymphadenopathy. Pathology is pending. Decision for discharge is to be made by hospitalist. I can follow her up in the office in 2-3 weeks for staple removal. Constitutional Vitals: Vital Signs Temp Pulse Resp BP Pulse Ox 97.7 F 78 24 H 125/57 95 04/26/20 14:07 04/26/20 14:07 04/26/20 14:07 04/26/20 14:07 04/26/20 14:07 Period Temp Pulse Resp BP Sys/Allen Pulse Ox Last 24 Hr 97.7 F-98.6 F 76-101 20-24 113-170/51-82 94-96 Intake and Output 04/26/20 04/26/20 04/26/20 05:59 13:59 21:59 Intake Total 600 Output Total 1700 850 Balance -1700 -250 Intake & Output: Intake & Output 04/26/20 04/26/20 04/26/20 05:59 13:59 21:59 Intake Total 600 Output Total 1700 850 Balance -1700 -250 Intake: Oral 600 Output: Urine Catheter Amount 1700 850 Other: Urine Appearance Clear Clear Uretheral (Alba) Clear Urine Color Pale Pale Uretheral (Alba) Bright Yellow Urine Odor Uretheral (Alba) Strong Eye Additional comments: clinical blindness bilaterally ENT ENT exam: Present normal exam, normal external ear exam, normal oropharynx and TM's normal bilaterally Neck Neck exam: Present full ROM; Absent lymphadenopathy, tenderness and thyromegaly Respiratory Respiratory exam: Present normal respiratory exam and CTAB; Absent rales, rhonchi and wheezes Cardiovascular Cardiovascular exam: Present RRR, +S1 and +S2; Absent JVD GI/Abdominal GI/Abdominal exam: Present normal bowel sounds and soft; Absent hernia Extremities Exam Extremities exam: Present full ROM, pedal edema and neurovascular intact Back Exam Back exam: Present full ROM and normal inspection Neurological Exam Neurological exam: Present oriented X3 and reflexes normal Psychiatric Psychiatric exam: Present agitated, anxious and depressed Skin Additional comments: operative site right groin is healing uneventfully. A/P Assessment and plan (1) Mass of right inguinal region: Status: Acute (2) Solitary pulmonary nodule: Status: Chronic (3) Depression: Status: Chronic Qualifiers: Depression Type: other depression Qualified Code(s): F32.89 - Other specified depressive episodes (4) Chronic back pain: Status: Chronic Qualifiers: Back pain location: low back pain (5) Legal blindness: Status: Chronic (6) COPD (chronic obstructive pulmonary disease): Status: Chronic Qualifiers: COPD type: emphysema Emphysema type: panlobular Qualified Code(s): J43.1 - Panlobular emphysema Narrative A/P Narrative: patient is stable with regards to the lymph node biopsy. I will see her in the office 2 weeks post discharge. Time Spent With Patient Time: Total time spent is greater than 50% in coordination of care (as documented) at patient's floor/unit and/or counseling patient:
--- NOTE | 2020-04-26 19:59 | Internal Med Progress Note ---
SUBJECTIVE Subjective Patient information: Note initiated : 04/26/20 at 7:50 pm Service Date, if different from initiated Date: [] Patient: Yessy Carter 74 y/o F admitted on 04/21/20 for Weakness, "failure to thrive". Chief Complaint: [dehydration and acute kidney injury] pt says was released from [facility] but also didnt want to stay there because food is terrible. Reports 30lb wt loss in 11 months. we discussed that bad food is bad but wt loss was good as she is markedly overweight still over 270 lbs. Pt says wasnt really walking when left [facility] either. didnt walk at hotel got weaker. I see carmen on admission now improved. hernandez is in place. right inguinal herniorrhaphy. Principal diagnosis: inguinal adenopathy Constitutional Vitals: Vital Signs Temp Pulse Resp BP Pulse Ox 96.5 F L 74 24 H 154/62 94 04/26/20 17:45 04/26/20 17:45 04/26/20 17:45 04/26/20 17:45 04/26/20 17:45 Period Temp Pulse Resp BP Sys/Allen Pulse Ox Last 24 Hr 96.5 F-98.1 F 74-89 24-24 125-170/57-82 94-96 Intake and Output 04/26/20 04/26/20 04/26/20 05:59 13:59 21:59 Intake Total 0 Output Total 1700 1600 Balance -1700 480 GEN WDWN Obese WF in NAD CV RRR Lungs CTa ABd soft NTND Calves no trace edema right groin with kati in place. Ment alert and oriented x 3 Intake & Output: Intake & Output 04/26/20 04/26/20 04/26/20 05:59 13:59 21:59 Intake Total 2080 Output Total 1700 1600 Balance -1700 480 Intake: IV 1000 Sodium Chloride 0.9% 1,000 ml @ 1000 50 mls/hr IV .Q20H [facility] Rx#: [id number] Oral 1080 Output: Urine Catheter Amount 1700 1600 Other: Urine Appearance Clear Clear Uretheral (Hernandez) Clear Clear Urine Color Pale Pale Uretheral (Hernandez) Bright Yellow Bright Yellow Urine Odor Uretheral (Hernandez) Strong Strong OBJ DATA Labs CBC & Chem 7: 04/26/20 05:30 04/24/20 05:20 Labs: Abnormal Lab Results 04/26/20 04/25/20 04/24/20 05:30 05:35 05:20 Hgb 11.1 L 11.0 L MCHC 30.6 L Gran % 85.6 H Lymph % (Auto) 9.0 L Gran # 8.19 H Lymph # (Auto) 0.86 L BUN 37 H Creatinine 1.4 H Total Protein 5.7 L Albumin 2.9 L 04/24/20 05:20 Hgb MCHC 30.6 L Gran % Lymph % (Auto) Gran # Lymph # (Auto) BUN Creatinine Total Protein Albumin Meds: Medications Albuterol Sulfate (Ventolin) 2 puff IH Q4HP PRN PRN Reason: Shortness Of Breath Aspirin (Aspirin) 81 mg PO DAILY [facility] Last Admin: 04/26/20 09:29 Dose: 81 mg Documented by: Atorvastatin Calcium (Lipitor) 40 mg PO DAILY [facility] Last Admin: 04/26/20 09:28 Dose: 40 mg Documented by: Dextrose (Dextrose 50%) 0 ml IV UD PRN PRN Reason: Hypoglycemia Diagnostic Test (Pha) (Accu-Chek) 1 each FS ACHS [facility] Last Admin: 04/26/20 17:22 Dose: 1 each Documented by: Diphenhydramine HCl (Benadryl) 25 mg PO Q8HP PRN PRN Reason: Itching Last Admin: 04/25/20 21:13 Dose: 25 mg Documented by: Docusate Sodium (Colace) 100 mg PO BID [facility] Last Admin: 04/26/20 09:29 Dose: 100 mg Documented by: Ergocalciferol (Drisdol) 50,000 unit PO We@0900 [facility] Fluconazole (Diflucan) 150 mg PO DAILY [facility]; Protocol Last Admin: 04/26/20 09:27 Dose: 150 mg Documented by: Furosemide (Lasix) 20 mg PO DAILY [facility] Last Admin: 04/26/20 09:29 Dose: 20 mg Documented by: Gabapentin (Neurontin) 200 mg PO TID [facility] Last Admin: 04/26/20 16:45 Dose: 200 mg Documented by: Glucose (Insta-Glucose) 15 gm PO PRN PRN PRN Reason: Hypoglycemia Heparin Sodium (Porcine) (Heparin) 5,000 unit SQ Q12 [facility] Sodium Chloride (Sodium Chloride 0.9%) 1,000 mls @ 50 mls/hr IV .Q20H [facility] Last Admin: 04/26/20 19:11 Dose: 50 mls/hr Documented by: Levofloxacin (Levaquin) 750 mg in 150 mls @ 100 mls/hr IV Q48H [facility] Insulin Human Lispro (Humalog) 0 unit SQ ACHS [facility]; Protocol Last Admin: 04/26/20 17:38 Dose: 2 units Documented by: Lidocaine (Lidoderm) 1 patch TOPICAL DAILY@1000 [facility] Last Admin: 04/26/20 11:35 Dose: 1 patch Documented by: Melatonin (Melatonin 3mg Tablet) 3 mg PO HSP PRN PRN Reason: Insomnia Last Admin: 04/25/20 21:13 Dose: 3 mg Documented by: Mineral Oil (Mineral Oil Enema) 1 dose [place] DAILY PRN PRN Reason: Constipation Nicotine (Nicoderm) 14 mg TOPICAL DAILY@1000 [facility] Last Admin: 04/26/20 11:19 Dose: Not Given Documented by: Nystatin (Nystatin Crm) 1 dose TOPICAL BID [facility] Last Admin: 04/26/20 09:27 Dose: 1 dose Documented by: Ondansetron HCl (Zofran Odt) 8 mg SL Q4HP PRN PRN Reason: Nausea Oxycodone HCl (Roxicodone) 5 mg PO Q4HP PRN; Protocol PRN Reason: Per Pain Protocol Last Admin: 04/26/20 14:06 Dose: 5 mg Documented by: Fluticasone- Umeclidin-Vilanter [ Trelegy Ellipta] Inhaler 1 dose INH DAILY [facility] Last Admin: 04/26/20 10:30 Dose: Not Given Documented by: Prochlorperazine (Compazine) 5 mg PO Q8HP PRN PRN Reason: Nausea And Vomiting Sertraline HCl (Zoloft) 100 mg PO DAILY [facility] Last Admin: 04/26/20 09:29 Dose: 100 mg Documented by: Sodium Chloride (Saline Flush) 10 ml IV Q8 [facility] Last Admin: 04/26/20 14:08 Dose: 10 ml Documented by: Tramadol HCl (Ultram) 50 mg PO Q4HP PRN PRN Reason: Pain Last Admin: 04/26/20 02:45 Dose: 50 mg Documented by: A/P Assessment and plan (1) Mass of right inguinal region: Status: Acute Comment: pt with lung mass and went for biopsy 5 years ago but wasnt done was told to come back in 5 months. pt annoyed and didnt go back. now worse and suspected cancer. now has right inguinal necrotic mass biopsied. results pending. (2) Acute kidney injury: Status: Acute Comment: improved CKD stage 3 (3) Nodule of apex of right lung: Status: Chronic Comment: as above groin biopsy (4) Wheelchair bound: Status: Chronic Comment: poor safety for living at hotel. disposition is a problem. Time Spent With Patient Time: Total time spent is greater than 50% in coordination of care (as documented) at patient's floor/unit and/or counseling patient: 35 mins
[2020-04-26] MEDS: MELATONIN 3 MG TABLET PO PRN (21:37)
[2020-04-26] MEDS: HEPARIN 5,000 UNIT/ML VIAL SQ SCH (21:38)
[2020-04-26] MEDS: diphenhydrAMINE 25 MG CAPSULE PO PRN (22:03)
[2020-04-27] MEDS: 0.9 % SODIUM CHLORIDE 10 ML SYRINGE IV SCH ×3 (05:31→23:27)
[2020-04-27] MEDS: 0.9 % SODIUM CHLORIDE 1,000 ML IV SCH (06:00)
[2020-04-27 06:56] LABS: Basophils # (Auto) 0.05 K/mcL (0.00-0.30); Basophils % (Auto) 0.5 % (0.0-2.0); Eosinophils # (Auto) 0.13 K/mcL (0.00-0.70); Eosinophils % (Auto) 1.3 % (0.0-7.0); Granulocytes % (Auto) 63.7 % (38.0-78.0); Hematocrit 35.6 % (34.1-44.9); Hemoglobin 10.9 g/dL (11.2-15.7); Lymphocytes # (Auto) 2.78 K/mcL (1.50-4.80); Lymphocytes % (Auto) 27.7 % (15.5-49.0); Mean Corpuscular HGB Conc 30.6 g/dL (31.0-36.0); Monocytes # (Auto) 0.68 K/mcL (0.10-0.90); Monocytes % (Auto) 6.8 % (1.0-12.0); Platelet Count 221 K/mcL (140-440); RBC 3.83 M/mcL (3.59-5.38); Red Cell Distribution Width 13.9 % (11.5-14.5)
[2020-04-27] MEDS: INSULIN LISPRO 1 UNIT/0.01 ML UNIT SQ SCH ×4 (08:17→20:48)
[2020-04-27] MEDS ORDERED: LEVOFLOXACIN 750 MG/150 ML BAG IV SCH ×2 (09:00)
[2020-04-27] MEDS: DOCUSATE SODIUM 100 MG CAPSULE PO SCH ×2 (09:29→20:47)
[2020-04-27] MEDS: GABAPENTIN 100 MG CAPSULE PO SCH ×3 (09:30→20:40)
[2020-04-27] MEDS: FLUCONAZOLE 150 MG TABLET PO SCH (09:30)
[2020-04-27] MEDS: ATORVASTATIN 40 MG TABLET PO SCH (09:30)
[2020-04-27] MEDS: FUROSEMIDE 40 MG TABLET PO SCH (09:30)
[2020-04-27] MEDS: HEPARIN 5,000 UNIT/ML VIAL SQ SCH ×2 (09:31→20:47)
[2020-04-27] MEDS: Fluticasone-Umeclidin-Vilanter [Trelegy Ellipta] Inhaler INH SCH (09:31)
[2020-04-27] MEDS: ASPIRIN 81 MG TAB.CHEW PO SCH (09:31)
[2020-04-27] MEDS: SERTRALINE 50 MG TABLET PO SCH (09:31)
[2020-04-27] MEDS: NYSTATIN CRM 1 DOSE TUBE TOPICAL SCH ×2 (09:32→20:49)
[2020-04-27] MEDS ORDERED: cefTRIAXone 1 GM VIAL ONE (09:43)
[2020-04-27] MEDS: diphenhydrAMINE 25 MG CAPSULE PO PRN ×2 (09:55→20:41)
[2020-04-27] MEDS: LIDOCAINE PATCH TOPICAL SCH (09:56)
[2020-04-27] MEDS: NICOTINE 14 MG PATCH TOPICAL SCH (09:57)
[2020-04-27] MEDS ORDERED: cefTRIAXone 1 GM in DEXTROSE 5% IN WATER 50 ML IV ONE (10:00)
[2020-04-27] MEDS ORDERED: fentaNYL 12 MCG PATCH TOPICAL SCH (10:00)
--- NOTE | 2020-04-27 11:24 | Surgical Pathology Report ---
HISTOLOGY SPECIMEN MICROSCOPIC DIAGNOSIS SOFT TISSUE, RIGHT INGUINAL MASS, EXCISION: -- METASTATIC POORLY DIFFERENTIATED CARCINOMA, CONSISTENT WITH SMALL CELL CARCINOMA, SEE COMMENT. (RLF:adj) COMMENT: The specimen shows a lymph node that is nearly completely replaced by a poorly differentiated tumor infiltrate with extensive tumor necrosis. The morphology and immunoprofile (positive for pancytokeratin, CK7, neuroendocrine markers) are consistent with metastatic small cell carcinoma. Clinical and radiologic correlation are recommended. MICROSCOPIC DESCRIPTION Sections show a lymph node that is largely replaced by a tumor infiltrate. Tumor cells show nested to trabecular architecture. The cells demonstrate high nuclear to cytoplasmic ratios, round to ovoid nuclei, hyperchromatic nuclei with fine/speckled chromatin pattern and scant cytoplasm. There are numerous mitotic figures, and regions of tumor necrosis. Immunohistochemical studies are performed (block A1). Cells of interest: Tumor cells. Pancytokeratin: Positive. CK7, CK5/6: Positive. CK20: Negative. Chromogranin: Rare, weak positive cells. Synaptophysin: Positive. CD56, CD57: Positive. TTF-1: Positive. Napsin-A: Negative. p63: Negative. Interpretation: Small cell carcinoma. (RLF:adj) Some of the tests reported here may not have been cleared or approved by the U.[place]. Food and Drug Administration (FDA). However, the FDA has determined that such clearance or approval is not necessary. Pursuant to the requirements of CLIA, this laboratory has established and verified the accuracy and precision of all tests, and additional information about these tests is available upon request. All technical controls are adequate. PROCEDURAL IMPRESSION Mass. GROSS DESCRIPTION Received in formalin labeled right inguinal mass, is a disrupted pink-kitchen tissue fragment that is 4.8 x 2.5 x 1.4 cm. When the specimen is reconstructed it is 2.5 x 1.8 x 2.5 cm. There is yellow-kitchen adipose tissue covering approximately 40% of the exterior. The exterior is inked black. The specimen is serially sectioned and totally submitted in six cassettes. (KGW:sln) Electronically Signed by: Alejandra Rivera M.D.
[2020-04-27] MEDS: oxyCODONE HCL 5 MG TABLET PO PRN ×2 (12:18→20:41)
--- NOTE | 2020-04-27 19:21 | Internal Med Progress Note ---
SUBJECTIVE Subjective Patient information: Note initiated : 04/27/20 at 7:17 pm Service Date, if different from initiated Date: [] Patient: Yessy Carter 74 y/o F admitted on 04/21/20 for Weakness, "failure to thrive". 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 suspect this is from the lung Principal diagnosis: inguinal adenopathy Constitutional Vitals: Vital Signs Temp Pulse Resp BP Pulse Ox 97.7 F 63 16 114/54 97 04/27/20 16:25 04/27/20 16:25 04/27/20 16:25 04/27/20 16:25 04/27/20 16:25 Period Temp Pulse Resp BP Sys/Allen Pulse Ox Last 24 Hr 97.7 F-98.8 F 63-77 16-20 114-146/51-60 91-97 Intake and Output 04/27/20 04/27/20 04/27/20 05:59 13:59 21:59 Intake Total 100 240 240 Output Total 1150 500 612 Balance -1050 -260 -372 Weight 126.779 kg Patient Weight 04/28/20 05:59 Weight 126.779 kg GEN WDWN obese female in NAD CV RRR Lungs CTA ABD soft but diffusely tender Calves 1+ bilat edema Ment alert and oriented x 3 skin warm and dry Intake & Output: Intake & Output 04/27/20 04/27/20 04/27/20 05:59 13:59 21:59 Intake Total 100 240 240 Output Total 1150 500 612 Balance -1050 -260 -372 Weight 126.779 kg Intake: Oral 100 240 240 Output: Urine Catheter Amount 1150 525 Void Amount 500 85 # of times incontinent of urine 2 Other: Meal Breakfast Lunch Percent of Meal Consumed 100% 100% Feeding Ability Assist with Tray Set Up Assist with Tray Set Up Urine Appearance Clear Clear Uretheral (Alba) Clear Urine Color Pale Pale Uretheral (Alba) Pale Urine Odor Normal OBJ DATA Labs CBC & Chem 7: 04/27/20 05:24 04/24/20 05:20 Labs: Abnormal Lab Results 04/27/20 04/26/20 04/25/20 05:24 05:30 05:35 Hgb 10.9 L 11.1 L 11.0 L MCHC 30.6 L 30.6 L Gran % 85.6 H Lymph % (Auto) 9.0 L Gran # 8.19 H Lymph # (Auto) 0.86 L Meds: Medications Albuterol Sulfate (Ventolin) 2 puff IH Q4HP PRN PRN Reason: Shortness Of Breath Aspirin (Aspirin) 81 mg PO DAILY [facility] Last Admin: 04/27/20 09:31 Dose: 81 mg Documented by: Atorvastatin Calcium (Lipitor) 40 mg PO DAILY [facility] Last Admin: 04/27/20 09:30 Dose: 40 mg Documented by: Ceftriaxone Sodium (Rocephin) 1 gm IV Q24H [facility] Dextrose (Dextrose 50%) 0 ml IV UD PRN PRN Reason: Hypoglycemia Diagnostic Test (Pha) (Accu-Chek) 1 each FS ACHS [facility] Last Admin: 04/27/20 17:01 Dose: 1 each Documented by: Diphenhydramine HCl (Benadryl) 25 mg PO Q8HP PRN PRN Reason: Itching Last Admin: 04/27/20 09:55 Dose: 25 mg Documented by: Docusate Sodium (Colace) 100 mg PO BID [facility] Last Admin: 04/27/20 09:29 Dose: 100 mg Documented by: Ergocalciferol (Drisdol) 50,000 unit PO We@0900 [facility] Fluconazole (Diflucan) 150 mg PO DAILY [facility]; Protocol Last Admin: 04/27/20 09:30 Dose: 150 mg Documented by: Furosemide (Lasix) 20 mg PO DAILY [facility] Last Admin: 04/27/20 09:30 Dose: 20 mg Documented by: Gabapentin (Neurontin) 200 mg PO TID [facility] Last Admin: 04/27/20 14:14 Dose: 200 mg Documented by: Glucose (Insta-Glucose) 15 gm PO PRN PRN PRN Reason: Hypoglycemia Heparin Sodium (Porcine) (Heparin) 5,000 unit SQ Q12 [facility] Last Admin: 04/27/20 09:31 Dose: 5,000 unit Documented by: Sodium Chloride (Sodium Chloride 0.9%) 1,000 mls @ 50 mls/hr IV .Q20H [facility] Last Admin: 04/27/20 06:00 Dose: Not Given Documented by: Insulin Human Lispro (Humalog) 0 unit SQ ACHS [facility]; Protocol Last Admin: 04/27/20 17:02 Dose: Not Given Documented by: Lidocaine (Lidoderm) 1 patch TOPICAL DAILY@1000 [facility] Last Admin: 04/27/20 09:56 Dose: 1 patch Documented by: Melatonin (Melatonin 3mg Tablet) 3 mg PO HSP PRN PRN Reason: Insomnia Last Admin: 04/26/20 21:37 Dose: 3 mg Documented by: Mineral Oil (Mineral Oil Enema) 1 dose HI DAILY PRN PRN Reason: Constipation Nicotine (Nicoderm) 14 mg TOPICAL DAILY@1000 [facility] Last Admin: 04/27/20 09:57 Dose: Not Given Documented by: Nystatin (Nystatin Crm) 1 dose TOPICAL BID [facility] Last Admin: 04/27/20 09:32 Dose: Not Given Documented by: Ondansetron HCl (Zofran Odt) 8 mg SL Q4HP PRN PRN Reason: Nausea Oxycodone HCl (Roxicodone) 5 mg PO Q4HP PRN; Protocol PRN Reason: Per Pain Protocol Last Admin: 04/27/20 12:18 Dose: 5 mg Documented by: Fluticasone- Umeclidin-Vilanter [ Trelegy Ellipta] Inhaler 1 dose INH DAILY [facility] Last Admin: 04/27/20 09:31 Dose: Not Given Documented by: Prochlorperazine (Compazine) 5 mg PO Q8HP PRN PRN Reason: Nausea And Vomiting Sertraline HCl (Zoloft) 100 mg PO DAILY [facility] Last Admin: 04/27/20 09:31 Dose: 100 mg Documented by: Sodium Chloride (Saline Flush) 10 ml IV Q8 [facility] Last Admin: 04/27/20 14:09 Dose: Not Given Documented by: Tramadol HCl (Ultram) 50 mg PO Q4HP PRN PRN Reason: Pain Last Admin: 04/26/20 02:45 Dose: 50 mg Documented by: A/P Assessment and plan (1) Mass of right inguinal region: Status: Acute Comment: pt with lung mass and went for biopsy 5 years ago but wasnt done was told to come back in 5 months. pt annoyed and didnt go back. 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 discussed with pt she currently is homeless and unable to walk. Says she couldnt walk after in SNF [facility] non weight bearing for right food based on OT. agrees needs to moved closer to grandson Jamel or closer to her daughter Monse. (2) Nodule of apex of right lung: Status: Chronic Comment: as above groin biopsy appears to be inoperable lung cancer. (3) Acute kidney injury: Status: Acute Comment: improved CKD stage 3 Time Spent With Patient Time: Total time spent is greater than 50% in coordination of care (as documented) at patient's floor/unit and/or counseling patient: 35
[2020-04-27] MEDS: MELATONIN 3 MG TABLET PO PRN (20:41)
[2020-04-28] MEDS: 0.9 % SODIUM CHLORIDE 1,000 ML IV SCH ×3 (06:15→21:29)
[2020-04-28] MEDS: 0.9 % SODIUM CHLORIDE 10 ML SYRINGE IV SCH ×3 (06:16→21:28)
[2020-04-28] MEDS: INSULIN LISPRO 1 UNIT/0.01 ML UNIT SQ SCH ×4 (07:22→21:28)
[2020-04-28] MEDS: FLUCONAZOLE 150 MG TABLET PO SCH (08:17)
[2020-04-28] MEDS: ATORVASTATIN 40 MG TABLET PO SCH (08:17)
[2020-04-28] MEDS: SERTRALINE 50 MG TABLET PO SCH (08:17)
[2020-04-28] MEDS: HEPARIN 5,000 UNIT/ML VIAL SQ SCH ×2 (08:17→21:27)
[2020-04-28] MEDS: FUROSEMIDE 40 MG TABLET PO SCH (08:18)
[2020-04-28] MEDS: GABAPENTIN 100 MG CAPSULE PO SCH ×3 (08:18→21:28)
[2020-04-28] MEDS: DOCUSATE SODIUM 100 MG CAPSULE PO SCH ×2 (08:18→21:27)
[2020-04-28] MEDS: ASPIRIN 81 MG TAB.CHEW PO SCH (08:18)
[2020-04-28] MEDS: NYSTATIN CRM 1 DOSE TUBE TOPICAL SCH ×2 (08:22→21:28)
[2020-04-28] MEDS: Fluticasone-Umeclidin-Vilanter [Trelegy Ellipta] Inhaler INH SCH (08:23)
[2020-04-28] MEDS: cefTRIAXone 1 GM VIAL IV SCH (08:29)
[2020-04-28] MEDS: oxyCODONE HCL 5 MG TABLET PO PRN (08:32)
[2020-04-28] MEDS: NICOTINE 14 MG PATCH TOPICAL SCH (10:23)
[2020-04-28] MEDS: LIDOCAINE PATCH TOPICAL SCH (10:33)
[2020-04-28] MEDS ORDERED: NITROGLYCERIN 0.4 MG TAB.SUBL SL PRN (11:27)
[2020-04-28] MEDS ORDERED: NITROGLYCERIN 0.4 MG TAB.SUBL SL ONE (11:30)
[2020-04-28] MEDS: HYDROmorphone 0.5 MG/0.5 ML SYRINGE IV PRN ×2 (11:33→19:14)
[2020-04-28] MEDS: diphenhydrAMINE 25 MG CAPSULE PO PRN (15:41)
[2020-04-28] MEDS: LORazepam 2 MG/ML VIAL IV PRN (18:49)
[2020-04-28] MEDS ORDERED: PHENobarb/HYOSCY/ATROPINE/SCOP 1 DOSE BOTTLE PO ONE (18:53)
--- NOTE | 2020-04-28 19:01 | Internal Med Progress Note ---
SUBJECTIVE Subjective Patient information: Note initiated : 04/28/20 at 6:54 pm Service Date, if different from initiated Date: [] Patient: Yessy Carter 74 y/o F admitted on 04/21/20 for Weakness, "failure to thrive". Chief Complaint: chest pain today pt diagnosed with small cell ca right inguinal node likely related to lung cancer. She is homeless and unable to walk and has a history of CAD. this morning hypertensive with chest pain responded to ntg but recurred then had dilaudid and lorazepam. RN thought was potentially anxiety related. The pt had EKG looked ok. this evening states still some chest pressure but denies anxiety says doesnt get anxious easily RN reports pt talked to her grandson Jamel last night goal is to move to [place] but need [place] medicaid enrollment. Principal diagnosis: inguinal adenopathy Constitutional Vitals: Vital Signs Temp Pulse Resp BP Pulse Ox 98.1 F 71 18 93/53 98 04/28/20 16:00 04/28/20 16:00 04/28/20 16:00 04/28/20 16:00 04/28/20 16:00 Period Temp Pulse Resp BP Sys/Allen Pulse Ox Last 24 Hr 97.8 F-98.8 F 62-77 16-18 93-161/53-78 94-98 Intake and Output 04/28/20 04/28/20 04/28/20 05:59 13:59 21:59 Intake Total 240 240 240 Output Total 703 202 1 Balance -463 38 239 GEN WDWN morbidly obese WF in NAD CV RRR Lungs CTA ABd soft diffusely tender Calves trace edema Mentation alert and oriented x 3 mood and affect normal Intake & Output: Intake & Output 04/28/20 04/28/20 04/28/20 05:59 13:59 21:59 Intake Total 240 240 240 Output Total 703 202 1 Balance -463 38 239 Intake: Oral 240 240 240 Output: Void Amount 700 200 # of times incontinent of urine 3 2 1 Other: Meal Lunch Percent of Meal Consumed 100% Feeding Ability Independent Urine Appearance Clear Clear Clear Urine Color Bright Yellow Bright Yellow Straw Urine Odor Normal Normal Normal # Voids 2 OBJ DATA Labs CBC & Chem 7: 04/27/20 05:24 04/24/20 05:20 Labs: Abnormal Lab Results 04/27/20 04/26/20 05:24 05:30 Hgb 10.9 L 11.1 L MCHC 30.6 L Gran % 85.6 H Lymph % (Auto) 9.0 L Gran # 8.19 H Lymph # (Auto) 0.86 L Meds: Medications Albuterol Sulfate (Ventolin) 2 puff IH Q4HP PRN PRN Reason: Shortness Of Breath Aspirin (Aspirin) 81 mg PO DAILY [facility] Last Admin: 04/28/20 08:18 Dose: 81 mg Documented by: Atorvastatin Calcium (Lipitor) 40 mg PO DAILY [facility] Last Admin: 04/28/20 08:17 Dose: 40 mg Documented by: Belladonna/Phenobarbital (Gi Cocktail) 1 dose PO ONCE ONE Stop: 04/28/20 18:54 Ceftriaxone Sodium (Rocephin) 1 gm IV Q24H [facility] Last Admin: 04/28/20 08:29 Dose: 1 gm Documented by: Dextrose (Dextrose 50%) 0 ml IV UD PRN PRN Reason: Hypoglycemia Diagnostic Test (Pha) (Accu-Chek) 1 each FS ACHS [facility] Last Admin: 04/28/20 16:53 Dose: 1 each Documented by: Diphenhydramine HCl (Benadryl) 25 mg PO Q8HP PRN PRN Reason: Itching Last Admin: 04/28/20 15:41 Dose: 25 mg Documented by: Docusate Sodium (Colace) 100 mg PO BID [facility] Last Admin: 04/28/20 08:18 Dose: 100 mg Documented by: Ergocalciferol (Drisdol) 50,000 unit PO We@0900 [facility] Fluconazole (Diflucan) 150 mg PO DAILY [facility]; Protocol Stop: 04/30/20 20:00 Last Admin: 04/28/20 08:17 Dose: 150 mg Documented by: Furosemide (Lasix) 20 mg PO DAILY [facility] Last Admin: 04/28/20 08:18 Dose: 20 mg Documented by: Gabapentin (Neurontin) 200 mg PO TID [facility] Last Admin: 04/28/20 15:37 Dose: 200 mg Documented by: Glucose (Insta-Glucose) 15 gm PO PRN PRN PRN Reason: Hypoglycemia Heparin Sodium (Porcine) (Heparin) 5,000 unit SQ Q12 [facility] Last Admin: 04/28/20 08:17 Dose: 5,000 unit Documented by: Hydromorphone HCl (Dilaudid) 0.5 mg IV Q1HP PRN; Protocol PRN Reason: Per Pain Protocol Last Admin: 04/28/20 11:33 Dose: 0.5 mg Documented by: Sodium Chloride (Sodium Chloride 0.9%) 1,000 mls @ 50 mls/hr IV .Q20H [facility] Last Admin: 04/28/20 15:51 Dose: 50 mls/hr Documented by: Insulin Human Lispro (Humalog) 0 unit SQ ACHS [facility]; Protocol Last Admin: 04/28/20 16:58 Dose: 3 units Documented by: Lidocaine (Lidoderm) 1 patch TOPICAL DAILY@1000 [facility] Last Admin: 04/28/20 10:33 Dose: 1 patch Documented by: Lorazepam (Ativan) 1 mg IV Q6HP PRN PRN Reason: Anxiety Last Admin: 04/28/20 18:49 Dose: 1 mg Documented by: Melatonin (Melatonin 3mg Tablet) 3 mg PO HSP PRN PRN Reason: Insomnia Last Admin: 04/27/20 20:41 Dose: 3 mg Documented by: Mineral Oil (Mineral Oil Enema) 1 dose IN DAILY PRN PRN Reason: Constipation Nicotine (Nicoderm) 14 mg TOPICAL DAILY@1000 [facility] Last Admin: 04/28/20 10:23 Dose: Not Given Documented by: Nitroglycerin (Nitrostat) 0.4 mg SL Q5M PRN PRN Reason: Chest Pain Nystatin (Nystatin Crm) 1 dose TOPICAL BID [facility] Last Admin: 04/28/20 08:22 Dose: Not Given Documented by: Ondansetron HCl (Zofran Odt) 8 mg SL Q4HP PRN PRN Reason: Nausea Oxycodone HCl (Roxicodone) 5 mg PO Q4HP PRN; Protocol PRN Reason: Per Pain Protocol Last Admin: 04/28/20 08:32 Dose: 5 mg Documented by: Fluticasone- Umeclidin-Vilanter [ Trelegy Ellipta] Inhaler 1 dose INH DAILY [facility] Last Admin: 04/28/20 08:23 Dose: Not Given Documented by: Prochlorperazine (Compazine) 5 mg PO Q8HP PRN PRN Reason: Nausea And Vomiting Sertraline HCl (Zoloft) 100 mg PO DAILY [facility] Last Admin: 04/28/20 08:17 Dose: 100 mg Documented by: Sodium Chloride (Saline Flush) 10 ml IV Q8 [facility] Last Admin: 04/28/20 12:49 Dose: Not Given Documented by: Tramadol HCl (Ultram) 50 mg PO Q4HP PRN PRN Reason: Pain Last Admin: 04/26/20 02:45 Dose: 50 mg Documented by: A/P Assessment and plan (1) Mass of right inguinal region: Status: Acute Comment: pt with lung mass and went for biopsy 5 years ago but wasnt done was told to come back in 5 months. pt annoyed and didnt go back. 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 discussed with pt she currently is homeless and unable to walk. Says she couldnt walk after in SNF [facility] non weight bearing for right food based on OT. agrees needs to moved closer to grandson Jamel or closer to her daughter Monse. will ask discharge planning to assist with disposition to close to family. pt not a good candidate for cancer tx as is non curable and her health is poor and mobility absent. (2) Acute kidney injury: Status: Acute Comment: improved CKD stage 3 (3) History of coronary artery stent placement: Status: Chronic Comment: possibly non cardiac chest pain. Is on statin, asa and low dose heparin trial gi cocktail Time Spent With Patient Time: Total time spent is greater than 50% in coordination of care (as documented) at patient's floor/unit and/or counseling patient: 35
[2020-04-28 21:00] LABS: Basophils # (Auto) 0.07 K/mcL (0.00-0.30); Basophils % (Auto) 0.8 % (0.0-2.0); Eosinophils # (Auto) 0.23 K/mcL (0.00-0.70); Eosinophils % (Auto) 2.6 % (0.0-7.0); Granulocytes % (Auto) 57.2 % (38.0-78.0); Hematocrit 36.2 % (34.1-44.9); Hemoglobin 11.4 g/dL (11.2-15.7); Lymphocytes # (Auto) 2.81 K/mcL (1.50-4.80); Lymphocytes % (Auto) 31.3 % (15.5-49.0); Mean Cell Volume 93.1 fL (80.0-100.0); Mean Corpuscular HGB Conc 31.5 g/dL (31.0-36.0); Mean Platelet Volume 9.2 fL (7.4-10.4); Monocytes # (Auto) 0.73 K/mcL (0.10-0.90); Monocytes % (Auto) 8.1 % (1.0-12.0); Platelet Count 226 K/mcL (140-440); RBC 3.89 M/mcL (3.59-5.38); Red Cell Distribution Width 13.9 % (11.5-14.5)
[2020-04-28 21:25] LABS: ALT/SGPT 14 U/l (0-40); AST/SGOT 15 U/l (0-37); Albumin 3.1 gm/dL (3.2-5.2); Albumin/Globulin Ratio 1.1 (1.0-2.3); Alkaline Phosphatase 79 U/L (39-117); Bilirubin,Total < 0.2 mg/dL (0.0-1.0); Blood Urea Nitrogen 36 mg/dl (8-23); Calcium 8.7 mg/dl (8.6-10.4); Carbon Dioxide 24 mmol/L (22-30); Chloride 103 mmol/L (96-108); Globulin 2.8 gm/dL (2.2-3.7); Glomerular Filtration Rate 41; Glucose 181 mg/dL (70-105)
[2020-04-29] MEDS: 0.9 % SODIUM CHLORIDE 10 ML SYRINGE IV SCH ×3 (04:00→22:12)
[2020-04-29] MEDS: INSULIN LISPRO 1 UNIT/0.01 ML UNIT SQ SCH ×4 (07:09→21:35)
[2020-04-29] MEDS: SERTRALINE 50 MG TABLET PO SCH (09:13)
[2020-04-29] MEDS: FLUCONAZOLE 150 MG TABLET PO SCH (09:13)
[2020-04-29] MEDS: ATORVASTATIN 40 MG TABLET PO SCH (09:13)
[2020-04-29] MEDS: PANTOPRAZOLE 40 MG PACKET PO SCH (09:13)
[2020-04-29] MEDS: ASPIRIN 81 MG TAB.CHEW PO SCH (09:14)
[2020-04-29] MEDS: GABAPENTIN 100 MG CAPSULE PO SCH ×3 (09:16→21:37)
[2020-04-29] MEDS: DOCUSATE SODIUM 100 MG CAPSULE PO SCH ×2 (09:16→21:35)
[2020-04-29] MEDS: HEPARIN 5,000 UNIT/ML VIAL SQ SCH ×2 (09:16→21:35)
[2020-04-29] MEDS: NYSTATIN CRM 1 DOSE TUBE TOPICAL SCH ×2 (09:17→21:38)
[2020-04-29] MEDS: Fluticasone-Umeclidin-Vilanter [Trelegy Ellipta] Inhaler INH SCH (09:17)
[2020-04-29] MEDS: FUROSEMIDE 40 MG TABLET PO SCH (09:17)
[2020-04-29] MEDS: cefTRIAXone 1 GM VIAL IV SCH (09:26)
[2020-04-29] MEDS: LIDOCAINE PATCH TOPICAL SCH (10:00)
[2020-04-29] MEDS: NICOTINE 14 MG PATCH TOPICAL SCH (10:01)
[2020-04-29] MEDS ORDERED: IPRATROPIUM/ALBUTEROL 3 ML AMPUL.NEB NEB PRN (14:09)
[2020-04-29] MEDS: 0.9 % SODIUM CHLORIDE 1,000 ML IV SCH (14:46)
[2020-04-29] MEDS: LORazepam 2 MG/ML VIAL IV PRN (15:45)
--- NOTE | 2020-04-29 16:21 | Internal Med Progress Note ---
SUBJECTIVE Subjective Patient information: Note initiated : 04/29/20 at 4:09 pm Service Date, if different from initiated Date: [] Patient: Yessy Carter 74 y/o F admitted on 04/21/20 for Weakness, "failure to thrive". Chief Complaint: chest pain and wants breathing treatment pt with CAD convinced her cp is cardiac but trops negative. 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 pt wants to go to [place] near her grandson Jamel and Ade is working on that. She is not ambulatory. Principal diagnosis: inguinal adenopathy Constitutional Vitals: Vital Signs Temp Pulse Resp BP Pulse Ox 98.1 F 78 18 124/60 93 04/29/20 12:00 04/29/20 15:14 04/29/20 15:14 04/29/20 12:00 04/29/20 12:00 Period Temp Pulse Resp BP Sys/Allen Pulse Ox Last 24 Hr 97.9 F-98.9 F 60-78 16-18 92-153/56-89 92-96 Intake and Output 04/29/20 04/29/20 04/29/20 05:59 13:59 21:59 Intake Total 200 1240 400 Output Total 950 800 Balance -750 1240 -400 Gen WDWN WF morbidly obese CV RRR Lungs decreased in base ABd soft obese Calves 1+ edema Skin warm and dry Intake & Output: Intake & Output 04/29/20 04/29/20 04/29/20 05:59 13:59 21:59 Intake Total 200 1240 400 Output Total 950 800 Balance -750 1240 -400 Intake: IV 1000 Sodium Chloride 0.9% 1,000 ml @ 1000 50 mls/hr IV .Q20H [facility] Rx#: [id number] Oral 200 240 400 Output: Urine Catheter Amount 950 800 Other: Meal Lunch Percent of Meal Consumed 100% Feeding Ability Independent Urine Appearance Clear Clear Clear Reinserted Alba Clear Clear Urine Color Bright Yellow Bright Yellow Straw Reinserted Alba Pale Pale Straw Straw Urine Odor Normal Normal Normal Reinserted Alba Normal Normal OBJ DATA Labs CBC & Chem 7: 04/28/20 20:15 04/28/20 20:15 Labs: Abnormal Lab Results 04/28/20 04/27/20 20:15 05:24 Hgb 10.9 L MCHC 30.6 L BUN 36 H Creatinine 1.3 H Glucose 181 H Albumin 3.1 L Meds: Medications Albuterol Sulfate (Ventolin) 2 puff IH Q4HP PRN PRN Reason: Shortness Of Breath Albuterol/Ipratropium (Duoneb) 3 ml NEB Q4HP PRN PRN Reason: Shortness Of Breath Last Admin: 04/29/20 15:10 Dose: 3 ml Documented by: Aspirin (Aspirin) 81 mg PO DAILY [facility] Last Admin: 04/29/20 09:14 Dose: 81 mg Documented by: Atorvastatin Calcium (Lipitor) 40 mg PO DAILY [facility] Last Admin: 04/29/20 09:13 Dose: 40 mg Documented by: Ceftriaxone Sodium (Rocephin) 1 gm IV Q24H [facility] Last Admin: 04/29/20 09:26 Dose: 1 gm Documented by: Dextrose (Dextrose 50%) 0 ml IV UD PRN PRN Reason: Hypoglycemia Diagnostic Test (Pha) (Accu-Chek) 1 each FS ACHS [facility] Last Admin: 04/29/20 11:20 Dose: 1 each Documented by: Diphenhydramine HCl (Benadryl) 25 mg PO Q8HP PRN PRN Reason: Itching Last Admin: 04/28/20 15:41 Dose: 25 mg Documented by: Docusate Sodium (Colace) 100 mg PO BID [facility] Last Admin: 04/29/20 09:16 Dose: 100 mg Documented by: Ergocalciferol (Drisdol) 50,000 unit PO We@0900 [facility] Fluconazole (Diflucan) 150 mg PO DAILY [facility]; Protocol Stop: 04/30/20 20:00 Last Admin: 04/29/20 09:13 Dose: 150 mg Documented by: Furosemide (Lasix) 20 mg PO DAILY [facility] Last Admin: 04/29/20 09:17 Dose: 20 mg Documented by: Gabapentin (Neurontin) 200 mg PO TID [facility] Last Admin: 04/29/20 15:28 Dose: 200 mg Documented by: Glucose (Insta-Glucose) 15 gm PO PRN PRN PRN Reason: Hypoglycemia Heparin Sodium (Porcine) (Heparin) 5,000 unit SQ Q12 [facility] Last Admin: 04/29/20 09:16 Dose: 5,000 unit Documented by: Hydromorphone HCl (Dilaudid) 0.5 mg IV Q1HP PRN; Protocol PRN Reason: Per Pain Protocol Last Admin: 04/28/20 19:14 Dose: 0.5 mg Documented by: Sodium Chloride (Sodium Chloride 0.9%) 1,000 mls @ 50 mls/hr IV .Q20H [facility] Last Admin: 04/29/20 14:46 Dose: 50 mls/hr Documented by: Insulin Human Lispro (Humalog) 0 unit SQ ACHS [facility]; Protocol Last Admin: 04/29/20 11:24 Dose: 3 units Documented by: Lidocaine (Lidoderm) 1 patch TOPICAL DAILY@1000 [facility] Last Admin: 04/29/20 10:00 Dose: 1 patch Documented by: Lorazepam (Ativan) 1 mg IV Q6HP PRN PRN Reason: Anxiety Last Admin: 04/29/20 15:45 Dose: 1 mg Documented by: Melatonin (Melatonin 3mg Tablet) 3 mg PO HSP PRN PRN Reason: Insomnia Last Admin: 04/27/20 20:41 Dose: 3 mg Documented by: Mineral Oil (Mineral Oil Enema) 1 dose [place] DAILY PRN PRN Reason: Constipation Nicotine (Nicoderm) 14 mg TOPICAL DAILY@1000 [facility] Last Admin: 04/29/20 10:01 Dose: Not Given Documented by: Nitroglycerin (Nitrostat) 0.4 mg SL Q5M PRN PRN Reason: Chest Pain Nystatin (Nystatin Crm) 1 dose TOPICAL BID [facility] Last Admin: 04/29/20 09:17 Dose: Not Given Documented by: Ondansetron HCl (Zofran Odt) 8 mg SL Q4HP PRN PRN Reason: Nausea Oxycodone HCl (Roxicodone) 5 mg PO Q4HP PRN; Protocol PRN Reason: Per Pain Protocol Last Admin: 04/28/20 08:32 Dose: 5 mg Documented by: Pantoprazole Sodium (Protonix) 40 mg PO QAMAC [facility] Last Admin: 04/29/20 09:13 Dose: 40 mg Documented by: Fluticasone- Umeclidin-Vilanter [ Trelegy Ellipta] Inhaler 1 dose INH DAILY [facility] Last Admin: 04/29/20 09:17 Dose: Not Given Documented by: Prochlorperazine (Compazine) 5 mg PO Q8HP PRN PRN Reason: Nausea And Vomiting Sertraline HCl (Zoloft) 100 mg PO DAILY [facility] Last Admin: 04/29/20 09:13 Dose: 100 mg Documented by: Sodium Chloride (Saline Flush) 10 ml IV Q8 [facility] Last Admin: 04/29/20 13:14 Dose: Not Given Documented by: Tramadol HCl (Ultram) 50 mg PO Q4HP PRN PRN Reason: Pain Last Admin: 04/26/20 02:45 Dose: 50 mg Documented by: A/P Assessment and plan (1) Mass of right inguinal region: Status: Acute Comment: pt with lung mass and went for biopsy 5 years ago but wasnt done was told to come back in 5 months. pt annoyed and didnt go back. 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 discussed with pt she currently is homeless and unable to walk. Says she couldnt walk after in SNF [facility] non weight bearing for right food based on OT. agrees needs to moved closer to grandson Jamel or closer to her daughter Monse. will ask discharge planning to assist with disposition to close to family. pt not a good candidate for cancer tx as is non curable and her health is poor and mobility absent. discussed code status and she wants to be DNR (2) Malignant small cell cancer: Status: Acute Comment: probable lung cancer. not likely a good candidate for surgery (3) Acute kidney injury: Status: Acute Comment: improved CKD stage 3 (4) Chest pain: Status: Chronic Comment: started on PPI. pt says GI cocktail didnt help. NTG sl helps briefly. resp tx now consider long acting nitrates. Time Spent With Patient Time: Total time spent is greater than 50% in coordination of care (as documented) at patient's floor/unit and/or counseling patient: 25
[2020-04-29] MEDS: traMADol 50 MG TABLET PO PRN (21:35)
[2020-04-29] MEDS: MELATONIN 3 MG TABLET PO PRN (21:36)
[2020-04-29] MEDS: diphenhydrAMINE 25 MG CAPSULE PO PRN (21:37)
[2020-04-30] MEDS: LORazepam 2 MG/ML VIAL IV PRN (00:01)
[2020-04-30] MEDS: 0.9 % SODIUM CHLORIDE 10 ML SYRINGE IV SCH ×3 (04:24→21:06)
[2020-04-30] MEDS: FLUCONAZOLE 150 MG TABLET PO SCH (08:51)
[2020-04-30] MEDS: GABAPENTIN 100 MG CAPSULE PO SCH ×3 (08:51→21:21)
[2020-04-30] MEDS: FUROSEMIDE 40 MG TABLET PO SCH (08:52)
[2020-04-30] MEDS: SERTRALINE 50 MG TABLET PO SCH (08:52)
[2020-04-30] MEDS: ASPIRIN 81 MG TAB.CHEW PO SCH (08:52)
[2020-04-30] MEDS: HEPARIN 5,000 UNIT/ML VIAL SQ SCH ×2 (08:53→21:20)
[2020-04-30] MEDS: DOCUSATE SODIUM 100 MG CAPSULE PO SCH ×2 (08:53→21:21)
[2020-04-30] MEDS: INSULIN LISPRO 1 UNIT/0.01 ML UNIT SQ SCH ×4 (08:54→21:20)
[2020-04-30] MEDS: PANTOPRAZOLE 40 MG PACKET PO SCH (08:56)
[2020-04-30] MEDS: ATORVASTATIN 40 MG TABLET PO SCH (08:57)
[2020-04-30] MEDS: NYSTATIN CRM 1 DOSE TUBE TOPICAL SCH ×3 (08:57→21:06)
[2020-04-30] MEDS: Fluticasone-Umeclidin-Vilanter [Trelegy Ellipta] Inhaler INH SCH (08:57)
[2020-04-30] MEDS: cefTRIAXone 1 GM VIAL IV SCH (09:08)
[2020-04-30] MEDS: NICOTINE 14 MG PATCH TOPICAL SCH (09:13)
[2020-04-30] MEDS: LIDOCAINE PATCH TOPICAL SCH (09:13)
--- NOTE | 2020-04-30 10:37 | Operative Note ---
DATE OF OPERATION: 04/25/2020 PREOPERATIVE DIAGNOSIS: Right inguinal adenopathy. POSTOPERATIVE DIAGNOSIS: Right inguinal adenopathy. PROCEDURE: Right inguinal lymphadenectomy. SURGEON: Maggy Lebron M.D. FINDINGS: Large necrotic nodes of the right femoral triangle. The largest, which was about 3 x 4 cm, was removed as the major specimen. DESCRIPTION OF PROCEDURE: Under general anesthesia, the patient's right groin and lower abdomen were prepped and draped in a sterile field. The palpable nodule in the right femoral area was palpated. A transverse incision was made along the inguinal crease. Dissection was continued down to the superficial fascia. The fascia was incised and using finger dissection, the larger node was bluntly dissected. Small vessels leading to the node were triply clipped and divided. The node was excised. There was no significant bleeding. The superficial fascia was closed with running 3-0 Monocryl. Skin was closed with kati. The patient tolerated the procedure well. Tegaderm dressing was placed. She was awakened and transferred to the postanesthetic care unit in satisfactory condition. LCS:bin Job ID: [id number] Doc ID: [id number] Maggy Lebron M.D.
[2020-04-30] MEDS: 0.9 % SODIUM CHLORIDE 1,000 ML IV SCH (15:11)
[2020-04-30] MEDS: oxyCODONE HCL 5 MG TABLET PO PRN ×2 (16:40→21:21)
--- NOTE | 2020-04-30 18:27 | Internal Med Progress Note ---
SUBJECTIVE Subjective Patient information: Note initiated : 04/30/20 at 6:25 pm Service Date, if different from initiated Date: [] Patient: Yessy Carter 74 y/o F admitted on 04/21/20 for Weakness, "failure to thrive". Chief Complaint: Follow-up weakness, new diagnosed small cell carcinoma Interval history: Complaining of back pain today. Rediscussed diagnosis of small cell carcinoma found on inguinal lymph node biopsy. Also has mass in the right lower lobe with subcarinal lymphadenopathy consistent with stents of stage small cell carcinoma. She continues to not wish to pursue further treatment. Discussed hospice, she would be open to that concept. Case management working on placement. Pertinent ROS: No dyspnea. Back pain as noted above. No chest pain today. Constitutional Vitals: Vital Signs Temp Pulse Resp BP Pulse Ox 98.0 F 63 18 128/58 92 04/30/20 16:00 04/30/20 16:00 04/30/20 16:00 04/30/20 16:00 04/30/20 16:00 Period Temp Pulse Resp BP Sys/Allen Pulse Ox Last 24 Hr 97.3 F-98.5 F 63-82 18-20 114-157/58-64 91-98 Intake and Output 04/30/20 04/30/20 04/30/20 05:59 13:59 21:59 Intake Total 360 1100 540 Output Total 2200 800 Balance -1840 1100 -260 General: Laying in bed, appears comfortable Chest: Respirations unlabored Cardiovascular: Regular Abdomen: Obese, soft Neuro: Alert, oriented x3, generally weak Intake & Output: Intake & Output 04/30/20 04/30/20 04/30/20 05:59 13:59 21:59 Intake Total 360 1100 540 Output Total 2200 800 Balance -1840 1100 -260 Intake: IV 1000 Sodium Chloride 0.9% 1,000 ml @ 1000 50 mls/hr IV .Q20H [facility] Rx#: [id number] Oral 360 100 540 Output: Urine Catheter Amount 2200 800 Other: Meal Breakfast Lunch Percent of Meal Consumed 100% 100% Feeding Ability Assist with Tray Set Up Urine Appearance Clear Clear Clear Reinserted Alba Clear Urine Color Pale Bright Yellow Bright Yellow Straw Reinserted Alba Bright Yellow Urine Odor Normal Strong OBJ DATA Labs CBC & Chem 7: 04/28/20 20:15 04/28/20 20:15 Labs: Abnormal Lab Results 04/28/20 20:15 BUN 36 H Creatinine 1.3 H Glucose 181 H Albumin 3.1 L Meds: Medications Albuterol Sulfate (Ventolin) 2 puff IH Q4HP PRN PRN Reason: Shortness Of Breath Albuterol/Ipratropium (Duoneb) 3 ml NEB Q4HP PRN PRN Reason: Shortness Of Breath Last Admin: 04/29/20 15:10 Dose: 3 ml Documented by: Aspirin (Aspirin) 81 mg PO DAILY [facility] Last Admin: 04/30/20 08:52 Dose: 81 mg Documented by: Atorvastatin Calcium (Lipitor) 40 mg PO DAILY [facility] Last Admin: 04/30/20 08:57 Dose: 40 mg Documented by: Ceftriaxone Sodium (Rocephin) 1 gm IV Q24H [facility] Last Admin: 04/30/20 09:08 Dose: 1 gm Documented by: Dextrose (Dextrose 50%) 0 ml IV UD PRN PRN Reason: Hypoglycemia Diagnostic Test (Pha) (Accu-Chek) 1 each FS ACHS [facility] Last Admin: 04/30/20 18:08 Dose: 1 each Documented by: Diphenhydramine HCl (Benadryl) 25 mg PO Q8HP PRN PRN Reason: Itching Last Admin: 04/29/20 21:37 Dose: 25 mg Documented by: Docusate Sodium (Colace) 100 mg PO BID [facility] Last Admin: 04/30/20 08:53 Dose: Not Given Documented by: Ergocalciferol (Drisdol) 50,000 unit PO We@0900 [facility] Fluconazole (Diflucan) 150 mg PO DAILY [facility]; Protocol Stop: 04/30/20 20:00 Last Admin: 04/30/20 08:51 Dose: 150 mg Documented by: Furosemide (Lasix) 20 mg PO DAILY [facility] Last Admin: 04/30/20 08:52 Dose: 20 mg Documented by: Gabapentin (Neurontin) 200 mg PO TID [facility] Last Admin: 04/30/20 15:11 Dose: 200 mg Documented by: Glucose (Insta-Glucose) 15 gm PO PRN PRN PRN Reason: Hypoglycemia Heparin Sodium (Porcine) (Heparin) 5,000 unit SQ Q12 [facility] Last Admin: 04/30/20 08:53 Dose: 5,000 unit Documented by: Hydromorphone HCl (Dilaudid) 0.5 mg IV Q1HP PRN; Protocol PRN Reason: Per Pain Protocol Last Admin: 04/28/20 19:14 Dose: 0.5 mg Documented by: Sodium Chloride (Sodium Chloride 0.9%) 1,000 mls @ 50 mls/hr IV .Q20H [facility] Last Admin: 04/30/20 15:11 Dose: 50 mls/hr Documented by: Insulin Human Lispro (Humalog) 0 unit SQ ACHS [facility]; Protocol Last Admin: 04/30/20 18:09 Dose: Not Given Documented by: Lidocaine (Lidoderm) 1 patch TOPICAL DAILY@1000 [facility] Last Admin: 04/30/20 09:13 Dose: Not Given Documented by: Lorazepam (Ativan) 1 mg IV Q6HP PRN PRN Reason: Anxiety Last Admin: 04/30/20 00:01 Dose: 1 mg Documented by: Melatonin (Melatonin 3mg Tablet) 3 mg PO HSP PRN PRN Reason: Insomnia Last Admin: 04/29/20 21:36 Dose: 3 mg Documented by: Mineral Oil (Mineral Oil Enema) 1 dose [place] DAILY PRN PRN Reason: Constipation Nicotine (Nicoderm) 14 mg TOPICAL DAILY@1000 [facility] Last Admin: 04/30/20 09:13 Dose: Not Given Documented by: Nitroglycerin (Nitrostat) 0.4 mg SL Q5M PRN PRN Reason: Chest Pain Nystatin (Nystatin Crm) 1 dose TOPICAL BID [facility] Last Admin: 04/30/20 08:57 Dose: Not Given Documented by: Ondansetron HCl (Zofran Odt) 8 mg SL Q4HP PRN PRN Reason: Nausea Last Admin: 04/30/20 11:56 Dose: 8 mg Documented by: Oxycodone HCl (Roxicodone) 5 mg PO Q4HP PRN; Protocol PRN Reason: Per Pain Protocol Last Admin: 04/30/20 16:40 Dose: 5 mg Documented by: Pantoprazole Sodium (Protonix) 40 mg PO QAMAC [facility] Last Admin: 04/30/20 08:56 Dose: 40 mg Documented by: Fluticasone- Umeclidin-Vilanter [ Trelegy Ellipta] Inhaler 1 dose INH DAILY [facility] Last Admin: 04/30/20 08:57 Dose: Not Given Documented by: Prochlorperazine (Compazine) 5 mg PO Q8HP PRN PRN Reason: Nausea And Vomiting Sertraline HCl (Zoloft) 100 mg PO DAILY [facility] Last Admin: 04/30/20 08:52 Dose: 100 mg Documented by: Sodium Chloride (Saline Flush) 10 ml IV Q8 [facility] Last Admin: 04/30/20 12:16 Dose: Not Given Documented by: Tramadol HCl (Ultram) 50 mg PO Q4HP PRN PRN Reason: Pain Last Admin: 04/29/20 21:35 Dose: 50 mg Documented by: A/P Assessment and plan (1) Malignant small cell cancer: Status: Acute Comment: probable lung cancer. not likely a good candidate for surgery Narrative A/P Narrative: 74-year-old female admitted with weakness and failure to thrive after leaving custodial facility. Extensive stage small cell carcinoma. Patient with lung mass, mediastinal lymphadenopathy and a positive inguinal lymph node biopsy for small cell carcinoma. In a smoker, this very likely represents lung cancer with metastases. Extensive stage small cell with a median survival of 8 to 13 months. Patient with poor performance status (nonambulatory, requires a ssistance with all ADLs), would not do well with a carboplatin-based regimen, she does not wish to pursue further referral. Pursuing placement Considering hospice Acute kidney injury on CKD stage III. JACQUE has resolved. Monitor Generalized weakness, failure to thrive. Have been nonambulatory at [facility]. Did walk a few steps with PT. Pursuing placement, giving new diagnosis of carcinoma, may not recover much further function. Type 2 diabetes with history of osteomyelitis and right toe amputations. Stable. Continue current regimen COPD. No current symptoms. Continue regimen Time Spent With Patient Time: Total time spent is greater than 50% in coordination of care (as documented) at patient's floor/unit and/or counseling patient: 25 min
[2020-04-30] MEDS: diphenhydrAMINE 25 MG CAPSULE PO PRN (21:22)
[2020-04-30] MEDS: MELATONIN 3 MG TABLET PO PRN (21:22)
[2020-05-01] MEDS: oxyCODONE HCL 5 MG TABLET PO PRN ×3 (04:15→20:29)
[2020-05-01] MEDS: 0.9 % SODIUM CHLORIDE 10 ML SYRINGE IV SCH ×3 (04:16→20:30)
[2020-05-01] MEDS: INSULIN LISPRO 1 UNIT/0.01 ML UNIT SQ SCH ×4 (07:51→20:28)
[2020-05-01] MEDS: PANTOPRAZOLE 40 MG PACKET PO SCH (07:56)
[2020-05-01] MEDS: GABAPENTIN 100 MG CAPSULE PO SCH ×3 (08:31→20:29)
[2020-05-01] MEDS: ATORVASTATIN 40 MG TABLET PO SCH (08:31)
[2020-05-01] MEDS: FUROSEMIDE 40 MG TABLET PO SCH (08:31)
[2020-05-01] MEDS: SERTRALINE 50 MG TABLET PO SCH (08:32)
[2020-05-01] MEDS: HEPARIN 5,000 UNIT/ML VIAL SQ SCH ×2 (08:32→20:28)
[2020-05-01] MEDS: ASPIRIN 81 MG TAB.CHEW PO SCH (08:32)
[2020-05-01] MEDS: DOCUSATE SODIUM 100 MG CAPSULE PO SCH ×2 (08:33→20:29)
[2020-05-01] MEDS: NYSTATIN CRM 1 DOSE TUBE TOPICAL SCH ×2 (08:33→20:30)
[2020-05-01] MEDS: LIDOCAINE PATCH TOPICAL SCH (08:33)
[2020-05-01] MEDS: Fluticasone-Umeclidin-Vilanter [Trelegy Ellipta] Inhaler INH SCH (08:34)
[2020-05-01] MEDS: NICOTINE 14 MG PATCH TOPICAL SCH (08:34)
[2020-05-01] MEDS ORDERED: LORazepam 1 MG TABLET PO PRN (09:26)
[2020-05-01] MEDS: 0.9 % SODIUM CHLORIDE 1,000 ML IV SCH (11:08)
[2020-05-01] MEDS: cefTRIAXone 1 GM VIAL IV SCH (11:16)
--- NOTE | 2020-05-01 15:06 | Internal Med Progress Note ---
SUBJECTIVE Subjective Patient information: Note initiated : 05/01/20 at 3:00 pm Service Date, if different from initiated Date: [] Patient: Yessy Carter 74 y/o F admitted on 04/21/20 for Weakness, "failure to thrive". Chief Complaint: Follow-up weakness Interval history: 04/30: Complaining of back pain today. Rediscussed diagnosis of small cell carcinoma found on inguinal lymph node biopsy. Also has mass in the right lower lobe with subcarinal lymphadenopathy consistent with stents of stage small cell carcinoma. She continues to not wish to pursue further treatment. Discussed hospice, she would be open to that concept. Case management working on placement. 05/01: Still with back pain. Discussed likely discharge with hospice. Case management continues to work on placement, anticipate discharge tomorrow. Pertinent ROS: Back pain, no dyspnea. No chest pain today. Constitutional Vitals: Vital Signs Temp Pulse Resp BP Pulse Ox 97.4 F 74 20 117/38 90 05/01/20 12:00 05/01/20 12:00 05/01/20 12:00 05/01/20 12:00 05/01/20 12:00 Period Temp Pulse Resp BP Sys/Allen Pulse Ox Last 24 Hr 96.7 F-98.2 F 61-74 18-20 106-170/38-70 90-94 Intake and Output 05/01/20 05/01/20 05/01/20 05:59 13:59 21:59 Intake Total 720 240 Output Total 1150 Balance -430 240 General: Laying in bed, appears comfortable Chest: Unlabored, clear Cardiovascular: Regular, no murmur noted Abdomen: Soft, obese, active bowel sounds Neuro: Alert, oriented to person, place and situation. Generally weak. Requires assistance to transfer to chair. Intake & Output: Intake & Output 05/01/20 05/01/20 05/01/20 05:59 13:59 21:59 Intake Total 720 240 Output Total 1150 Balance -430 240 Intake: Oral 720 240 Output: Urine Catheter Amount 1150 Other: Meal Lunch Percent of Meal Consumed 100% Urine Appearance Clear Reinserted Alba Clear Urine Color Dark Yellow Reinserted Alba Bright Yellow OBJ DATA Labs CBC & Chem 7: 04/28/20 20:15 04/28/20 20:15 Labs: Abnormal Lab Results 04/28/20 20:15 BUN 36 H Creatinine 1.3 H Glucose 181 H Albumin 3.1 L Meds: Medications Albuterol Sulfate (Ventolin) 2 puff IH Q4HP PRN PRN Reason: Shortness Of Breath Albuterol/Ipratropium (Duoneb) 3 ml NEB Q4HP PRN PRN Reason: Shortness Of Breath Last Admin: 04/29/20 15:10 Dose: 3 ml Documented by: Aspirin (Aspirin) 81 mg PO DAILY [facility] Last Admin: 05/01/20 08:32 Dose: 81 mg Documented by: Atorvastatin Calcium (Lipitor) 40 mg PO DAILY [facility] Last Admin: 05/01/20 08:31 Dose: 40 mg Documented by: Dextrose (Dextrose 50%) 0 ml IV UD PRN PRN Reason: Hypoglycemia Diagnostic Test (Pha) (Accu-Chek) [address] [facility] Last Admin: 05/01/20 12:12 Dose: 1 each Documented by: Diphenhydramine HCl (Benadryl) 25 mg PO Q8HP PRN PRN Reason: Itching Last Admin: 04/30/20 21:22 Dose: 25 mg Documented by: Docusate Sodium (Colace) 100 mg PO BID [facility] Last Admin: 05/01/20 08:33 Dose: Not Given Documented by: Ergocalciferol (Drisdol) 50,000 unit PO We@0900 [facility] Furosemide (Lasix) 20 mg PO DAILY [facility] Last Admin: 05/01/20 08:31 Dose: 20 mg Documented by: Gabapentin (Neurontin) 200 mg PO TID [facility] Last Admin: 05/01/20 14:56 Dose: 200 mg Documented by: Glucose (Insta-Glucose) 15 gm PO PRN PRN PRN Reason: Hypoglycemia Heparin Sodium (Porcine) (Heparin) 5,000 unit SQ Q12 [facility] Last Admin: 05/01/20 08:32 Dose: 5,000 unit Documented by: Insulin Human Lispro (Humalog) [address] [facility]; Protocol Last Admin: 05/01/20 12:13 Dose: 3 units Documented by: Lidocaine (Lidoderm) 1 patch TOPICAL DAILY@1000 [facility] Last Admin: 05/01/20 08:33 Dose: Not Given Documented by: Lorazepam (Ativan) 1 mg PO Q6HP PRN PRN Reason: ANXIETY/SEDATION Melatonin (Melatonin 3mg Tablet) 3 mg PO HSP PRN PRN Reason: Insomnia Last Admin: 04/30/20 21:22 Dose: 3 mg Documented by: Mineral Oil (Mineral Oil Enema) 1 dose WI DAILY PRN PRN Reason: Constipation Nicotine (Nicoderm) 14 mg TOPICAL DAILY@1000 [facility] Last Admin: 05/01/20 08:34 Dose: Not Given Documented by: Nitroglycerin (Nitrostat) 0.4 mg SL Q5M PRN PRN Reason: Chest Pain Nystatin (Nystatin Crm) 1 dose TOPICAL BID [facility] Last Admin: 05/01/20 08:33 Dose: 1 dose Documented by: Ondansetron HCl (Zofran Odt) 8 mg SL Q4HP PRN PRN Reason: Nausea Last Admin: 04/30/20 11:56 Dose: 8 mg Documented by: Oxycodone HCl (Roxicodone) 5 mg PO Q4HP PRN; Protocol PRN Reason: Per Pain Protocol Last Admin: 05/01/20 12:54 Dose: 5 mg Documented by: Pantoprazole Sodium (Protonix) 40 mg PO QAMAC [facility] Last Admin: 05/01/20 07:56 Dose: 40 mg Documented by: Fluticasone- Umeclidin-Vilanter [ Trelegy Ellipta] Inhaler 1 dose INH DAILY [facility] Last Admin: 05/01/20 08:34 Dose: Not Given Documented by: Prochlorperazine (Compazine) 5 mg PO Q8HP PRN PRN Reason: Nausea And Vomiting Sertraline HCl (Zoloft) 100 mg PO DAILY [facility] Last Admin: 05/01/20 08:32 Dose: 100 mg Documented by: Sodium Chloride (Saline Flush) 10 ml IV Q8 [facility] Last Admin: 05/01/20 12:53 Dose: 10 ml Documented by: Tramadol HCl (Ultram) 50 mg PO Q4HP PRN PRN Reason: Pain Last Admin: 04/29/20 21:35 Dose: 50 mg Documented by: A/P Narrative A/P Narrative: 74-year-old female admitted with weakness and failure to thrive after leaving care home facility. Extensive stage small cell carcinoma. Stable on 05/01. Patient with 2.0 x 2.5 cm spiculated right lower lobe lung mass, mediastinal lymphadenopathy and a positive inguinal lymph node biopsy for small cell carcinoma. In a smoker, this very likely represents lung cancer with metastases. Extensive stage small cell has a median survival of 8 to 13 months from diagnosis. Patient with poor performance status (nonambulatory, requires assistance with all ADLs), would not do well with a carboplatin-based regimen, she does not wish to pursue further referral. Pursuing placement, likely discharge tomorrow, 05/02. Hospice after discharge Acute kidney injury on CKD stage III. JACQUE has resolved. Creatinine was 2.4 at presentation, baseline since January 2019 has been 1.4. Fractional excretion of sodium is 0.3% at presentation suggesting prerenal cause. Urine analysis was bland. Sees Dr. Cooper as an outpatient. Monitor PRN Chest pain. None currently. EKG at admission showed anterior infarct, Dr Carlisle discussed with cardiology, Dr. Caicedo at [facility] in [place], who felt it was not concerning and similar to prior EKG. troponins have all been <0.01. -Continue aspirin and atorvastatin Generalized weakness, failure to thrive. Have been nonambulatory at [facility]. Did walk a few steps with PT. Pursuing placement, giving new diagnosis of carcinoma, may not recover much further function. Type 2 diabetes with history of osteomyelitis and right toe amputations and diabetic nephropathy. Stable. Continue current regimen of sliding scale insulin COPD. No current symptoms. Continue regimen, including Trelegy and as needed DuoNeb Skin infection/cellulitis, perineal and thighs. Present at admission. Received fluconazole and nystatin as well as levofloxacin for bacterial. This subsequently changed to ceftriaxone, antibiotics now stopped on 05/01. Monitor Pressure - ulcer, right buttock, stage II. Present on admission Continue wound care Tobacco abuse. Patient wants to discharge to a skilled facility where she can smoke. In the interim she has a nicotine patch. Smoking cessation has been counseled, now with diagnosis of lung cancer, may not improve survival. Continue nicotine patch CHF. No current exacerbation. Continue current dose of furosemide Hypertension. Controlled. Continue home medication Morbid obesity. Continue with PT and OT Flank pain. Present at admission, now appears to be improved. CT of the abdomen pelvis showed mild loss of break in the right kidney without evidence of stone or obstruction. Nothing further Time Spent With Patient Time: Total time spent is greater than 50% in coordination of care (as documented) at patient's floor/unit and/or counseling patient:
[2020-05-01] MEDS: MELATONIN 3 MG TABLET PO PRN (20:28)
[2020-05-01] MEDS: diphenhydrAMINE 25 MG CAPSULE PO PRN (20:29)
--- NOTE | 2020-05-01 21:43 | Discharge Plan ---
Discharge Plan Patient/Caregiver Discharge Instructions Activity: resume usual activities as tolerated Diet: Consistent Carbohydrate Instructions: Lung Cancer (DC) Prescriptions: New gabapentin 100 mg Capsule 200 mg PO TID Qty: 0 RF: 0 insulin lispro [Humalog U-100 Insulin] 100 unit/mL Solution See Rx Instructions .ROUTE .COMPLEX Qty: 0 RF: 0 nicotine [Nicoderm CQ] 14 mg/24 hr Patch 24 Hour 14 mg topical DAILY@1000 Qty: 0 RF: 0 nystatin 100,000 unit/gram Cream 1 dose topical BID Qty: 0 RF: 0 lidocaine 5 % Adhesive Patch,Medicated 1 patch topical DAILY@1000 Qty: 0 RF: 0 lorazepam 1 mg Tablet 1 mg PO Q6HP PRN (Reason: Anxiety/Sedation) Qty: 15 RF: [address] Protonix [address] For Susp In Packet 40 mg PO QAMAC Qty: 0 RF: 0 Continued glipizide 5 mg tablet 2 mg PO QDAY RF: 0 fluticasone fur. 100 mcg-umeclid 62.5 mcg-vilant 25 mcg inhalat.powder 100-62.5-25 mcg blister with device 2 inh INHALATION QDAY RF: 0 sertraline 50 MG tablet 100 mg PO DAILY RF: 0 nitroglycerin 0.4 MG tablet, sublingual 0.4 mg SL Q5MIN PRN (Reason: Chest Pain) RF: 0 docusate sodium 100 MG capsule 100 mg PO BID RF: 0 ergocalciferol (vitamin D2) 50,000 UNIT capsule 50,000 unit PO WE RF: 0 albuterol sulfate 8.5 GM HFA aerosol inhaler 2 puff IH Q4HP PRN (Reason: Shortness Of Breath) RF: 0 atorvastatin 40 MG tablet 40 mg PO DAILY RF: 0 melatonin 3 MG tablet 3 mg PO HSP PRN (Reason: Insomnia) RF: 0 quetiapine 25 MG tablet 50 mg PO BID RF: 0 acetaminophen 325 MG tablet 650 mg PO PRN PRN (Reason: Pain) RF: 0 ondansetron 4 MG tablet 8 mg SL Q4HP PRN (Reason: Nausea) RF: 0 aspirin 81 MG tablet,chewable 81 mg PO DAILY RF: 0 canagliflozin 100 mg Tablet 3 mg PO QDAY RF: 0 hydrocodone-acetaminophen 1 TAB tablet 1 - 2 tab PO Q4HP PRN (Reason: Pain) Qty: 10 RF: 0 fentanyl 12 mcg/hr Patch 72 Hour 1 patch TRANSDERMAL Q72H Qty: 10 RF: 0 Changed furosemide 40 MG tablet 20 mg PO DAILY Qty: 30 RF: 0 Other Ambulatory Orders: OT Discharge Order (Routine) Location: None Selected Ordered By: Aysha Palumbo Physical Therapy at Discharge - General (Routine) Location: None Selected Ordered By: Aysha Palumbo Follow Up Plan Follow up with: Uriel Monge MD [Primary Care Provider] - Patient Disposition: Xfer SNF Prognosis: Serious Rehab Potential: Serious I certify that the patient requires SNF services: Yes Overall status at discharge: patient is not back to baseline Discharge Orders: Discharge Order (Routine); Ordered 05/02/20 Ordered By: Aysha Palumbo
--- NOTE | 2020-05-01 21:58 | Discharge Summary ---
Discharge Provider Provider Patient information: Note initiated : 05/01/20 at 9:57 pm Service Date, if different from initiated Date: 05/02/2020 Patient: Yessy Carter 74 y/o F admitted on 04/21/20 for Weakness, "failure to thrive". Date of admission: 04/21/20 20:24 Discharge date: 05/02/20 Primary care physician: Uriel Monge Admitting clinician: Suzanne Carlisle Consults: 04/21/20 18:52 Consult to Physician [CONS] Stat Comment: Consulting Provider: Suzanne Carlisle Reason For Exam: Physician to Consult 04/24/20 16:22 Consult to Physician [CONS] Routine Comment: Enlarged lymph node right groin, possible biopsy Consulting Provider: Maggy Lebron Reason For Exam: Physician to Consult Discharging clinician: Aysha Palumbo Discharge Meds Discharge Medications Home Medications sertraline 100 mg PO DAILY 02/09/18 [History Confirmed 04/22/20 Last Taken 10/05/19 06:30] albuterol sulfate 2 puff IH Q4HP PRN 06/26/19 [History Confirmed 04/22/20 Last Taken 10/04/19] docusate sodium 100 mg PO BID 06/26/19 [History Confirmed 04/22/20 Last Taken 04/21/20 08:00] ergocalciferol (vitamin D2) 50,000 unit PO WE 06/26/19 [History Confirmed 04/22/20 Last Taken 04/21/20 08:00] nitroglycerin 0.4 mg SL Q5MIN PRN 06/26/19 [History Confirmed 04/22/20 Last Taken 07/26/19 10:08] atorvastatin 40 mg PO DAILY 06/27/19 [History Confirmed 04/22/20 Last Taken 04/21/20 08:00] melatonin 3 mg PO HSP PRN tab 06/29/19 [Rx Confirmed 04/22/20 Last Taken 04/21/20 08:00] quetiapine 50 mg PO BID 07/26/19 [History Confirmed 04/22/20 Last Taken 04/21/20 20:00] fluticasone fur. 100 mcg-umeclid 62.5 mcg-vilant 25 mcg inhalat.powder 2 inh INHALATION QDAY each 09/22/19 [History Confirmed 04/23/20 Last Taken 10/04/19] glipizide 5 mg tablet 2 mg PO QDAY 09/22/19 [History Confirmed 04/22/20 Last Taken 04/21/20 08:00] acetaminophen 650 mg PO PRN PRN 09/24/19 [History Confirmed 04/22/20 Last Taken 10/04/19] ondansetron 8 mg SL Q4HP PRN 09/24/19 [History Confirmed 04/22/20 Last Taken 04/21/20 08:00] aspirin 81 mg PO DAILY 10/03/19 [History Confirmed 04/22/20 Last Taken 04/21/20 08:00] canagliflozin 3 mg PO QDAY 04/21/20 [History Confirmed 04/22/20 Last Taken 04/21/20 08:00] fentanyl 1 patch TRANSDERMAL Q72H #10 ea 05/01/20 [Rx Last Taken Unknown] furosemide 20 mg PO DAILY #30 tab 05/01/20 [Rx Last Taken Unknown] gabapentin 200 mg PO TID #0 cap 05/01/20 [Rx Last Taken Unknown] hydrocodone-acetaminophen 1 - 2 tab PO Q4HP PRN #10 tab 05/01/20 [Rx Last Taken Unknown] insulin lispro [Humalog U-100 Insulin] See Rx Instructions .ROUTE .COMPLEX #0 ml 05/01/20 [Rx Last Taken Unknown] lidocaine 1 patch TOPICAL DAILY@1000 #0 ea 05/01/20 [Rx Last Taken Unknown] lorazepam 1 mg PO Q6HP PRN #15 tab 05/01/20 [Rx Last Taken Unknown] nicotine [Nicoderm CQ] 14 mg TOPICAL DAILY@1000 #0 ea 05/01/20 [Rx Last Taken Unknown] nystatin 1 dose TOPICAL BID #0 g 05/01/20 [Rx Last Taken Unknown] pantoprazole [Protonix] 40 mg PO QAMAC #0 ea 05/01/20 [Rx Last Taken Unknown] COURSE Hospital Course Hospital course: Presentation: Ms. Carter is a 74 year old F with a history of diabetes, COPD, CHF, morbid obesity and currently smoker who was brought to the ER due to general weakness. 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 After that, she was discharged to care home [facility]. Over there she stayed for 11 months. She was just discharged from [facility] two days ago. She was discharged to a hotel because she does not have a family. The staff at the [facility] found that she was too weak to stand up. So she was brought to the ER. In the ER, her creatinine was found to be 2.4. 1 L normal saline was given. When seen in the ER, she complained of generalized weakness, mild shortness of breath, lower back pain, and chills. (Later history revealed that patient had requested discharge from [facility], as many services as possible report in place to assure her success at the [facility], however she was unable to transfer to the bed and spent the night in her wheelchair. She subsequently was then brought to the ED.) Her hospital course is as follows by problem: #Extensive stage small cell carcinoma. Upon this presentation, the patient was complaining of flank pain and had a CT of the abdomen pelvis which revealed a right lower lobe nodule. Dedicated chest CT subsequently demonstrated a 2.0 x 2.5 cm spiculated right lower lobe lung mass, mediastinal lymphadenopathy and a positive inguinal lymph node. Biopsy of the lymph node by Dr. Lebron was positive for small cell carcinoma. In a smoker, this very likely represents lung cancer with metastases. Extensive stage small cell has a median survival of 8 to 13 months from diagnosis. Patient with poor performance status (nonambulatory, requires assistance with all ADLs), would not do well with a carboplatin-based regimen, she does not wish to pursue further referral. Dr. Villareal initially spoke with the patient about her goals of care, she was consistent and not pursuing active treatment when I discussed with her and on her last few hospital days. Discharging to shelter facility in [facility]. Patient initially will attempt to strengthen further with therapies. She may need eventual referral to hospice. #Acute kidney injury on CKD stage III. JACQUE has resolved. Creatinine was 2.4 at presentation, baseline since January 2019 has been 1.4. Fractional excretion of sodium is 0.3% at presentation suggesting prerenal cause. Urine analysis was bland. JACQUE resolved with hydration. Sees Dr. Cooper in nephrology as an outpatient. #Chest pain. EKG at admission showed anterior infarct, Dr Carlisle discussed with cardiology, Dr. Caicedo at [facility] in [place], who felt it was not concerning and similar to prior EKG. troponins have all been <0.01. Continue aspirin and atorvastatin #Generalized weakness, failure to thrive. Have been nonambulatory at [facility]. Did walk a few steps with PT. As above will discharge to skilled facility to attempt to further strengthen. #Type 2 diabetes with history of osteomyelitis and right toe amputations and diabetic nephropathy. Stable. Resume home oral medications, continue with sliding scale insulin #COPD. No current symptoms. Continue regimen, including Trelegy and as needed DuoNeb #Skin infection/cellulitis, perineal and thighs. Present at admission. Received fluconazole and nystatin as well as levofloxacin for bacterial. This subsequently changed to ceftriaxone, antibiotics now stopped on 05/01. #Pressure - ulcer, right buttock, stage II. Present on admission. Continue wound care #Tobacco abuse. Patient wants to discharge to a skilled facility where she can smoke. In the interim she has a nicotine patch. Smoking cessation has been counseled, now with diagnosis of lung cancer, may not be realistic. Continue nicotine patch #CHF. No current exacerbation. Continuing diuretics #Hypertension. Controlled, continuing home medication #Morbid obesity. Continue with PT and OT #Flank pain. Present at admission, now appears to be improved. CT of the abdomen pelvis showed mild loss of break in the right kidney without evidence of stone or obstruction. Due to the patient's deconditioning, nonambulatory status, significant assistance needed with transfers, she will require ambulance transport. She is unable to sit long enough for use of a wheelchair van. Discharge diagnosis: Extensive stage small cell lung cancer Secondary discharge diagnosis: Acute kidney injury, resolved Debility and weakness Chest pain with negative cardiac markers Type 2 diabetes mellitus COPD, stable Intertrigo and cellulitis, resolving Stage II pressure ulcer on the right buttock, present on admission Tobacco abuse Hypertension Morbid obesity Congestive heart failure without exacerbation Procedures: Inguinal node biopsy by Dr. Lebron Pertinent studies/significant findings: Lymph node biopsy results: MICROSCOPIC DIAGNOSIS SOFT TISSUE, RIGHT INGUINAL MASS, EXCISION: -- METASTATIC POORLY DIFFERENTIATED CARCINOMA, CONSISTENT WITH SMALL CELL CARCINOMA, SEE COMMENT. (RLF:adj) COMMENT: The specimen shows a lymph node that is nearly completely replaced by a poorly differentiated tumor infiltrate with extensive tumor necrosis. The morphology and immunoprofile (positive for pancytokeratin, CK7, neuroendocrine markers) are consistent with metastatic small cell carcinoma. Clinical and radiologic correlation are recommended. Complications: None Time Spent with Patient Time attestation: Total time spent providing and/or coordinating discharge services: 35 min EXAM Constitutional Vitals: Temp Pulse Resp BP Pulse Ox 97.7 F 67 22 88/50 92 05/01/20 18:53 05/01/20 18:53 05/01/20 18:53 05/01/20 18:53 05/01/20 18:53 General: Awake, alert, glad to be leaving the hospital Chest: Clear bilaterally with good aeration Cardiovascular: Regular, no peripheral edema Abdomen: Soft, jumps with touch of the abdomen, but no deep pain with palpation. Bowel sounds present. Neuro: Alert, oriented x3, significant generalized weakness. Discharge Data Impressions Impressions: Chest x-ray at admission on 04/21 Impression: Stable nodule in the right upper lobe and scarring in both lower lobes. CT the abdomen pelvis on 04/22 IMPRESSION: -Slowly enlarging mass in the right lower lobe. This could be a lung cancer. -Fecal impaction. -Soft tissue mass in the posterior pericolonic fat an and enlarged lymph node in the right groin. This could be due to metastatic disease. -Mild loss of parenchyma in the right kidney and no evidence of kidney stone or urinary tract obstruction CT of the chest on 04/22 IMPRESSION: -2.0 x 2.5 cm spiculated mass in the right lower lobe with associated enlarged mediastinal lymph nodes in the subcarinal space. This is most likely a lung cancer. -Calcified granuloma in the right upper lobe -Severe atherosclerotic coronary artery disease -Enlarged central pulmonary arteries. This may be seen with pulmonary artery hypertension Discharge Plan Patient/Caregiver Discharge Instructions Activity: resume usual activities as tolerated Diet: Consistent Carbohydrate Instructions: Lung Cancer (DC) Prescriptions: New gabapentin 100 mg Capsule 200 mg PO TID Qty: 0 RF: 0 insulin lispro [Humalog U-100 Insulin] 100 unit/mL Solution See Rx Instructions .ROUTE .COMPLEX Qty: 0 RF: 0 nicotine [Nicoderm CQ] 14 mg/24 hr Patch 24 Hour 14 mg topical DAILY@1000 Qty: 0 RF: 0 nystatin 100,000 unit/gram Cream 1 dose topical BID Qty: 0 RF: 0 lidocaine 5 % Adhesive Patch,Medicated 1 patch topical DAILY@1000 Qty: 0 RF: 0 lorazepam 1 mg Tablet 1 mg PO Q6HP PRN (Reason: Anxiety/Sedation) Qty: 15 RF: [address] Protonix [address] For Susp In Packet 40 mg PO QAMAC Qty: 0 RF: 0 Continued glipizide 5 mg tablet 2 mg PO QDAY RF: 0 fluticasone fur. 100 mcg-umeclid 62.5 mcg-vilant 25 mcg inhalat.powder 100-62.5-25 mcg blister with device 2 inh INHALATION QDAY RF: 0 sertraline 50 MG tablet 100 mg PO DAILY RF: 0 nitroglycerin 0.4 MG tablet, sublingual 0.4 mg SL Q5MIN PRN (Reason: Chest Pain) RF: 0 docusate sodium 100 MG capsule 100 mg PO BID RF: 0 ergocalciferol (vitamin D2) 50,000 UNIT capsule 50,000 unit PO WE RF: 0 albuterol sulfate 8.5 GM HFA aerosol inhaler 2 puff IH Q4HP PRN (Reason: Shortness Of Breath) RF: 0 atorvastatin 40 MG tablet 40 mg PO DAILY RF: 0 melatonin 3 MG tablet 3 mg PO HSP PRN (Reason: Insomnia) RF: 0 quetiapine 25 MG tablet 50 mg PO BID RF: 0 acetaminophen 325 MG tablet 650 mg PO PRN PRN (Reason: Pain) RF: 0 ondansetron 4 MG tablet 8 mg SL Q4HP PRN (Reason: Nausea) RF: 0 aspirin 81 MG tablet,chewable 81 mg PO DAILY RF: 0 canagliflozin 100 mg Tablet 3 mg PO QDAY RF: 0 hydrocodone-acetaminophen 1 TAB tablet 1 - 2 tab PO Q4HP PRN (Reason: Pain) Qty: 10 RF: 0 fentanyl 12 mcg/hr Patch 72 Hour 1 patch TRANSDERMAL Q72H Qty: 10 RF: 0 Changed furosemide 40 MG tablet 20 mg PO DAILY Qty: 30 RF: 0 Other Ambulatory Orders: OT Discharge Order (Routine) Location: None Selected Ordered By: Aysha Palumbo Physical Therapy at Discharge - General (Routine) Location: None Selected Ordered By: Aysha Palumbo Follow Up Plan Follow up with: Uriel Monge MD [Primary Care Provider] - Patient Disposition: Xfer SNF Prognosis: Serious Rehab Potential: Serious I certify that the patient requires SNF services: Yes Overall status at discharge: patient is not back to baseline Discharge Orders: Discharge Order (Routine); Ordered 05/02/20 Ordered By: Aysha Palumbo
[2020-05-02] MEDS: oxyCODONE HCL 5 MG TABLET PO PRN (02:24)
[2020-05-02] MEDS: 0.9 % SODIUM CHLORIDE 10 ML SYRINGE IV SCH (04:54)
[2020-05-02] MEDS: INSULIN LISPRO 1 UNIT/0.01 ML UNIT SQ SCH (08:40)
[2020-05-02] MEDS: PANTOPRAZOLE 40 MG PACKET PO SCH (08:40)
[2020-05-02] MEDS ORDERED: ERGOCALCIFEROL (VITAMIN D2) 50,000 UNIT CAPSULE PO SCH (09:00)
[2020-05-02] MEDS: FUROSEMIDE 40 MG TABLET PO SCH (09:03)
[2020-05-02] MEDS: DOCUSATE SODIUM 100 MG CAPSULE PO SCH (09:03)
[2020-05-02] MEDS: SERTRALINE 50 MG TABLET PO SCH (09:04)
[2020-05-02] MEDS: HEPARIN 5,000 UNIT/ML VIAL SQ SCH (09:04)
[2020-05-02] MEDS: ASPIRIN 81 MG TAB.CHEW PO SCH (09:04)
[2020-05-02] MEDS: ATORVASTATIN 40 MG TABLET PO SCH (09:04)
[2020-05-02] MEDS: NYSTATIN CRM 1 DOSE TUBE TOPICAL SCH (09:05)
[2020-05-02] MEDS: GABAPENTIN 100 MG CAPSULE PO SCH (09:05)
[2020-05-02] MEDS: Fluticasone-Umeclidin-Vilanter [Trelegy Ellipta] Inhaler INH SCH (09:05)
== END 2020-05-02 09:25 | DRG 988 ==
LOC: ED 13:17 → ICU 20:24 → MEDSUR 04-26 02:44
PROVIDERS: ADMIT Internal Medicine; ATTEND Internal Medicine